=== PATIENT | female | born 1930 | race Caucasian/White ===

== ENCOUNTER 2016-06-25 17:00 | Observation (INO) | payer MEDICARE ==
[2016-06-25] MEDS ORDERED: HYDROmorphone 1 MG/ML 1 ML SYRINGE IVP PRN (19:53)
[2016-06-25] MEDS ORDERED: BACLOFEN 10 MG TAB PO ONE (19:54)
[2016-06-25 20:11] VITALS: BMI 64.2
--- NOTE | 2016-06-25 20:49 | XR ---
EXAMINATION TYPE: XR lumbar spine 2 or 3V DATE OF EXAM: 06/25/2016 8:41 PM COMPARISON: NONE HISTORY: Back pain TECHNIQUE: 3 views FINDINGS: There is mild lumbar levoscoliosis. There is degenerative moderate disc space narrowing at L2-3 L3-4 L5-S1. There is no compression fracture. Posterior elements appear intact. Sacroiliac joint s appear normal. Abdominal aorta is atheromatous. IMPRESSION: Spondylotic changes and mild levoscoliosis. No acute bony abnormality.
--- NOTE | 2016-06-25 20:51 | XR ---
EXAMINATION TYPE: XR thoracic spine 2V DATE OF EXAM: 06/25/2016 8:41 PM COMPARISON: NONE HISTORY: Back pain TECHNIQUE: 3 views FINDINGS: The vertebra have fairly normal alignment. There is 15-20% anterior wedging of T7 vertebra. There is no paraspinal mass. There is probably osteopenia. Posterior elements appear intact. IMPRESSION: Mild wedging of T7 of uncertain age. This is probably new compared to the chest x-ray of 07/14/2015.
[2016-06-25] MEDS: hydrALAZINE HCL 20 MG/ML 1 ML VIAL IVP PRN (20:53)
[2016-06-26] MEDS: LOSARTAN 50 MG TAB PO SCH (07:33)
[2016-06-26] MEDS: ASPIRIN 81 MG CHEW PO SCH (07:33)
[2016-06-26] MEDS: VERAPAMIL SR 240 MG TABLET.ER PO SCH ×2 (07:33→20:31)
[2016-06-26] MEDS: POTASSIUM CHLORIDE ER 20 MEQ TAB.ER PO SCH ×2 (07:33→20:03)
[2016-06-26] MEDS: LORATADINE 10 MG TAB PO SCH (07:34)
[2016-06-26] MEDS: VIT A,C & E-LUTEIN-MINERALS 1 EACH TAB PO SCH (07:34)
[2016-06-26] MEDS: FAMOTIDINE 20 MG TAB PO SCH ×2 (07:34→20:28)
[2016-06-26] MEDS: POLYETHYLENE GLYCOL 3350 17 GM POWD.PACK PO SCH (07:35)
[2016-06-26] MEDS: IPRATROPIUM-ALBUTEROL 3 ML NEB INHALATION PRN ×4 (07:55→19:42)
[2016-06-26] MEDS ORDERED: NON-FORMULARY DRUG (Omega-3 Fatty Acids/Fish Oil [Fish Oil 1,000 Mg Softgel] 1 CAP) PO SCH (09:00)
[2016-06-26] MEDS: GABAPENTIN 300 MG CAP PO SCH ×2 (09:54→20:28)
[2016-06-26] MEDS: FUROSEMIDE 40 MG TAB PO SCH ×2 (09:54→14:57)
[2016-06-26] MEDS ORDERED: DIAZEPAM 5 MG/ML 2 ML SYRINGE IVP STA (11:39)
[2016-06-26 12:10] LABS: Basophils # (A) 0.1 k/uL (0-0.2); Basophils % (A) 1 %; CH 31.1; CHCM 33.6; Eosinophils # (A) 0.1 k/uL (0-0.7); Eosinophils % (A) 2 %; HCT 43.3 % (34.0-46.0); HDW 2.76; HGB 14.6 gm/dL (11.4-16.0); Luc # (Auto) 0.15; Luc % (Auto) 2; Lymphocytes # (A) 1.1 k/uL (1.0-4.8); Lymphocytes % (A) 17 %; MCH 31.5 pg (25.0-35.0); MCHC 33.8 g/dL (31.0-37.0); MCV 93.2 fL (80.0-100.0); Mean Platelet Volume 7.2; Monocytes # (A) 0.4 k/uL (0-1.0); Monocytes % (A) 7 %; Neutrophils # (A) 4.7 k/uL (1.3-7.7); Neutrophils % (A) 71 %; RBC 4.64 m/uL (3.80-5.40); RDW 13.8 % (11.5-15.5); WBC 6.7 k/uL (3.8-10.6); WBC (Perox) 6.82
[2016-06-26] MEDS ORDERED: ONDANSETRON 4 MG/2 ML VIAL IVP PRN (12:19)
[2016-06-26 12:24] LABS: ALT 31 U/L (9-52); AST 25 U/L (14-36); Alkaline Phosphatase 86 U/L (38-126); Anion Gap 10 mmol/L; Blood Urea Nitrogen 14 mg/dL (7-17); Calcium 9.3 mg/dL (8.4-10.2); Carbon Dioxide 29 mmol/L (22-30); Chloride 104 mmol/L (98-107); Glucose 107 mg/dL (74-99); Non-African American GFR(MDRD) >60 (>60 ml/min/1.73 sqM); Potassium 3.9 mmol/L (3.5-5.1); Sodium 143 mmol/L (137-145); Total Bilirubin 0.7 mg/dL (0.2-1.3); Total Protein 6.6 g/dL (6.3-8.2)
--- NOTE | 2016-06-26 12:26 | P.HPIM ---
History of Present Illness H&P Date: 06/26/16 Chief Complaint: Low back pain This is a 85-year-old female with past medical history noted below significant for chronic low back pain with degenerative joint disease who was directly admitted to the hospital for intolerable pain. Patient has been complaining of low back pain for several months. For the past few weeks her pain is being getting worse. She said that the pain is radiating down to her left foot. She is describing some numbness involving the left lower extremity as well. She was seen in the office last week and was started on anti-inflammatory course with ibuprofen. She was also given pain medication including tramadol. Patient return to the office yesterday and was crying in tears as her pain was not controlled well controlled. He had problems with claustrophobia and wants only able to complete an MRI study once after she received IV Valium. Given the significant pain and discomfort patient was directly admitted to the hospital for further evaluation. X-ray of the lumbar spine showed chronic arthritis with evidence of scoliosis. Thoracic spine x-ray showed findings concerning for a possible compression fracture at T7 of undetermined age. Patient had no recent falls or trauma. Review of Systems Review of system: 14 points review of systems were obtained and were negative except to what were mentioned in the HPI. Past Medical History Past Medical History: Hyperlipidemia, Hypertension Additional Past Medical History / Comment(s): Clostrophobia, [place] History of Any Multi-Drug Resistant Organisms: None Reported Past Anesthesia/Blood Transfusion Reactions: No Reported Reaction Past Psychological History: No Psychological Hx Reported Smoking Status: Former smoker - Past Family History Father Family Medical History: No Reported History Medications and Allergies Home Medications Medication Instructions Recorded Confirmed Type Aspirin 81 mg PO DAILY 06/25/16 06/25/16 History Calcium With Vitamin D Unknown Dose 1 tab PO DAILY 06/25/16 06/25/16 History Cetirizine HCl [Zyrtec] 5 mg PO DAILY 06/25/16 06/25/16 History Furosemide [Furosemide] 80 mg PO DAILY 06/25/16 06/26/16 History Gabapentin [Gabapentin] 300 mg PO BID 06/25/16 06/26/16 History Ipratropium-Albuterol Nebulize 3 ml INHALATION RT-QID PRN 06/25/16 06/25/16 History [Duoneb 0.5 mg-3 mg/3 ml Soln] Losartan Potassium [Losartan 100 mg PO DAILY 06/25/16 06/25/16 History Potassium] [place]-3 Fatty Acids/Fish Oil [Fish 1 cap PO BID 06/25/16 06/25/16 History Oil 1,000 mg Softgel] Polyethylene Glycol 3350 [Miralax] 17 gm PO DAILY 06/25/16 06/25/16 History Potassium Chloride [Potassium 20 meq PO BID 06/25/16 06/25/16 History Chloride] Pravastatin Sodium [Pravachol] 20 mg PO HS 06/25/16 06/25/16 History Ranitidine HCl 150 mg PO BID 06/25/16 06/25/16 History Verapamil HCl [Verapamil ER] 240 mg PO BID 06/25/16 06/25/16 History Vit A/Vit C/Vit E/Zinc/Copper 1 cap PO DAILY 06/25/16 06/25/16 History [ICAPS SOFTGEL] Mometasone Furoate [Asmanex] 1 puff INHALATION RT-DAILY 06/26/16 06/26/16 History Allergies Allergy/AdvReac Type Severity Reaction Status Date / Time cheese Allergy Unknown Verified 06/25/16 21:37 chocolate flavor Allergy Unknown Verified 06/25/16 21:37 tomato Allergy Unknown Verified 06/25/16 21:37 wheat Allergy Unknown Verified 06/25/16 21:37 levofloxacin [From Levaquin] AdvReac Diarrhea Verified 06/25/16 21:37 Physical Exam Vitals: Vital Signs Temp Pulse Pulse Resp BP Pulse Ox 06/26/16 12:19 68 06/26/16 12:08 72 06/26/16 08:09 68 06/26/16 07:57 68 06/26/16 07:00 97.4 F L 66 16 140/59 96 06/26/16 01:22 97.8 F 68 18 169/70 96 06/25/16 18:04 97.6 F 77 16 197/91 92 L Intake and Output 06/25/16 06/26/16 06/26/16 22:59 06:59 14:59 Intake Total 600 Balance 600 Intake: Oral 600 Other: Voiding Method Toilet # Voids 1 1 1 Weight 79.379 kg General: The patient is awake and alert, in no distress, and does not appear acutely ill. Eye: extra-ocular movements are intact; there is normal conjunctiva bilaterally. . Neck: The neck is supple, there is no tenderness or JVD. Cardiovascular: Normal S1-S2, no S3-S4, no murmurs. Respiratory: Lungs clear to auscultation bilaterally with no wheezes rhonchi or rales. Gastrointestinal: Abdomen is soft, nontender, nondistended, with no organomegaly. . Musculoskeletal: Normal ROM, there is severe tenderness to palpation over the lumbar spine processes and sacral bone, There is no pedal edema. Neurological: There are no obvious motor or sensory deficits. Speech is normal. Skin: Skin is warm and dry and no rashes or lesions are noted. Results CBC & Chem 7: 06/26/16 12:04 Assessment and Plan Plan: 1. Acute on chronic low back pain 2. 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 Radiculopathy 4. Essential hypertension 5. 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 Chronic hypoxic respiratory failure 7. Bilateral hearing loss I will consult for further evaluation. I would also order an MRI of thoracic and lumbar spine MRI be canceled if spine surgery feels unnecessary. I will start the patient on a Medrol Dosepak and continue pain control. We will obtain general lab work. Continue supportive care otherwise. PT/OT evaluation.
[2016-06-26] MEDS ORDERED: MORPHINE SULFATE 2 MG/ML SYRINGE IVP PRN (12:27)
[2016-06-26] MEDS ORDERED: traMADol 50 MG TAB PO PRN (12:27)
--- NOTE | 2016-06-26 13:40 | XR ---
EXAMINATION TYPE: XR Hip LT and AP Pelvis DATE OF EXAM ORDERED: 06/26/2016 1:33 PM HISTORY: pain. COMPARISON: None. FINDINGS: There is minimal degenerative change of both hips. There is a levoscoliosis as well as deg enerative change in the lower lumbar spine. No fracture or dislocation is seen. The left femoral head is slightly nonspherical. There is a tiny "bump" on the left femoral neck. There is slight overgrowt h of the acetabulum bilaterally. IMPRESSION: 1. PLEASE CORRELATE CLINICALLY FOR FEMOROACETABULAR IMPINGEMENT SYNDROME IMPINGEMENT SYNDROME. 2. DEGENERATIVE CHANGE WITHIN THE LUMBAR SPINE.
[2016-06-26] MEDS: hydrALAZINE HCL 20 MG/ML 1 ML VIAL IVP PRN (14:57)
[2016-06-26] MEDS: methylPREDNISolone 4 MG TAB PO SCH (14:57)
--- NOTE | 2016-06-26 15:52 | P.CNOR ---
History of Present Illness - [facility] Consult date: 06/26/16 Consult reason: fracture, low back pain, back pain History of present illness: Patient is very pleasant 85-year-old female has been having pain in her back over the past several weeks. She has pain has been worsening despite conservative management. Pain is toward her lower back on the left side and into her left leg. She denies any weakness. She says she did have a fall about 5 weeks ago when the pain started and she fell onto her knees for no particular reason. She denies any headaches or loss of consciousness. She denies any chest pain shortness of breath. She does have history of pain in her back approximately 10 years ago and also 38 years ago where she had pain in her lower back and was treated in 2004 with interventional pain management. She says the pain now is seems worse than it was bent. She denies specific pain at her thoracic spine. She does pain worsens with ability in trying to change positions. Review of Systems No change in bowel bladder function. No weakness in her lower extremity. Denies chest pain or shortness breath Past Medical History Past Medical History: Hyperlipidemia, Hypertension, Musculoskeletal Disorder, Osteoarthritis (OA) Additional Past Medical History / Comment(s): Clostrophobia, [place] History of Any Multi-Drug Resistant Organisms: None Reported Past Anesthesia/Blood Transfusion Reactions: No Reported Reaction Past Psychological History: No Psychological Hx Reported Smoking Status: Former smoker - Past Family History Father Family Medical History: No Reported History Medications and Allergies Home Medications Medication Instructions Recorded Confirmed Type Aspirin 81 mg PO DAILY 06/25/16 06/25/16 History Calcium With Vitamin D Unknown Dose 1 tab PO DAILY 06/25/16 06/25/16 History Cetirizine HCl [Zyrtec] 5 mg PO DAILY 06/25/16 06/25/16 History Furosemide [Furosemide] 80 mg PO DAILY 06/25/16 06/26/16 History Gabapentin [Gabapentin] 300 mg PO BID 06/25/16 06/26/16 History Ipratropium-Albuterol Nebulize 3 ml INHALATION RT-QID PRN 06/25/16 06/25/16 History [Duoneb 0.5 mg-3 mg/3 ml Soln] Losartan Potassium [Losartan 100 mg PO DAILY 06/25/16 06/25/16 History Potassium] [place]-3 Fatty Acids/Fish Oil [Fish 1 cap PO BID 06/25/16 06/25/16 History Oil 1,000 mg Softgel] Polyethylene Glycol 3350 [Miralax] 17 gm PO DAILY 06/25/16 06/25/16 History Potassium Chloride [Potassium 20 meq PO BID 06/25/16 06/25/16 History Chloride] Pravastatin Sodium [Pravachol] 20 mg PO HS 06/25/16 06/25/16 History Ranitidine HCl 150 mg PO BID 06/25/16 06/25/16 History Verapamil HCl [Verapamil ER] 240 mg PO BID 06/25/16 06/25/16 History Vit A/Vit C/Vit E/Zinc/Copper 1 cap PO DAILY 06/25/16 06/25/16 History [ICAPS SOFTGEL] Mometasone Furoate [Asmanex] 1 puff INHALATION RT-DAILY 06/26/16 06/26/16 History Allergies Allergy/AdvReac Type Severity Reaction Status Date / Time cheese Allergy Unknown Verified 06/25/16 21:37 chocolate flavor Allergy Unknown Verified 06/25/16 21:37 tomato Allergy Unknown Verified 06/25/16 21:37 wheat Allergy Unknown Verified 06/25/16 21:37 levofloxacin [From Levaquin] AdvReac Diarrhea Verified 06/25/16 21:37 Physical Examination Osteopathic Statement: *. No significant issues noted on an osteopathic structural exam other than those noted in the History and Physical/Consult. - L Spine: dermatomal strength & reflexes bilateral Strength: hip flexion: 5/5 (At her thoracic spine she is nontender to palpation she sits up in bed quite well without evidence of significant pain. There is no open wounds lacerations or abrasions. Her low back she is nontender to palpation. She has good strength in her bilateral lateral lower extremities with dorsiflexion plantarflexion and extensor hallucis longus. Her thighs and calf soft nontender. She has no pain with internal or external rotation in her hips. She is able to lift her legs up off the bed independently. She does have pain at her back when she tries to roll over her sit up.) Results - Labs Labs: Abnormal Lab Results - Last 24 Hours (Table) 06/26/16 Range/Units 12:00 Glucose 107 H (74-99) mg/dL H & H 06/26/16 Range/Units 12:04 Hgb 14.6 (11.4-16.0) gm/dL Hct 43.3 (34.0-46.0) % Result Diagrams: 06/26/16 12:04 06/26/16 12:00 - Diagnostic results Lumbar AP/lateral x-ray: report reviewed (X-rays of the thoracic spine and lumbar spine and pelvis and hips are reviewed. The thoracic spine there is appearance of a compression deformity at T7 with about 20% height loss is difficult to determine the chronicity of the fracture. At lumbar spine she has significant degenerative disc disease and L3 4 L4 5 and L5-S1 with degenerative scoliosis and significant disc height loss. Her pelvis does not show evidence of fracture. Her hips do not show evidence of fracture she is adequately maintained joint space.), image reviewed Assessment and Plan Plan: Acute on chronic low back pain Left lower extremity radiculopathy T7 compression deformity uncertain age Degenerative scoliosis lumbar spine Degenerative disc disease The patient has been having worsening symptoms at her back and left lower extremity. She had a fall about 5 weeks ago when her pain increased and this may have exacerbated her degenerative changes at her lumbar spine. She does have evidence of a compression deformity at T7 however she is not significantly symptomatically at that level or in her thoracic spine. I would hold off on bracing for her thoracic spine at this point however we may consider putting her in a brace if her symptoms persist. I think she it is reasonable to obtain an MRI of her lumbar spine as she is scheduled for at the present time. She is having worsening left lower extremity radiculopathy over the past several weeks despite conservative management and MRI would help determine the severity of her stenosis and possible neural involvement. She may be a candidate for interventional pain management if her IV and oral medications are not offering significant improvement. I think it is okay for her to mobilize with physical therapy. We'll continue to follow her closely. Time with Patient: Greater than 30
[2016-06-26] MEDS: PATIENTS OWN MED PO SCH (20:29)
[2016-06-26] MEDS: PRAVASTATIN SODIUM 20 MG TAB PO SCH (20:31)
[2016-06-26] MEDS: HEPARIN SODIUM,PORCINE 5,000 UNIT/ML 1 ML VIAL SQ SCH (20:33)
[2016-06-26] MEDS ORDERED: HEPARIN SODIUM,PORCINE 5,000 UNIT/ML 1 ML VIAL SQ SCH (21:00)
[2016-06-27 07:38] LABS: Basophils % (A) 0 %; CHCM 33.6; Eosinophils % (A) 0 %; HCT 44.3 % (34.0-46.0); HDW 2.73; HGB 14.8 gm/dL (11.4-16.0); Luc # (Auto) 0.15; Luc % (Auto) 2; Lymphocytes # (A) 1.1 k/uL (1.0-4.8); Lymphocytes % (A) 14 %; MCH 30.9 pg (25.0-35.0); MCHC 33.4 g/dL (31.0-37.0); MCV 92.5 fL (80.0-100.0); Mean Platelet Volume 6.5; Monocytes # (A) 0.6 k/uL (0-1.0); Monocytes % (A) 8 %; Neutrophils % (A) 77 %; RBC 4.79 m/uL (3.80-5.40); RDW 13.9 % (11.5-15.5); WBC 7.9 k/uL (3.8-10.6); WBC (Perox) 8.25
[2016-06-27] MEDS: IPRATROPIUM-ALBUTEROL 3 ML NEB INHALATION PRN ×4 (07:44→19:25)
[2016-06-27 08:00] LABS: Anion Gap 10 mmol/L; Blood Urea Nitrogen 16 mg/dL (7-17); Calcium 9.2 mg/dL (8.4-10.2); Carbon Dioxide 30 mmol/L (22-30); Chloride 105 mmol/L (98-107); Glucose 112 mg/dL (74-99); Magnesium 2.2 mg/dL (1.6-2.3); Non-African American GFR(MDRD) >60 (>60 ml/min/1.73 sqM); Potassium 3.8 mmol/L (3.5-5.1); Sodium 145 mmol/L (137-145)
[2016-06-27] MEDS: HEPARIN SODIUM,PORCINE 5,000 UNIT/ML 1 ML VIAL SQ SCH ×2 (08:43→22:08)
--- NOTE | 2016-06-27 09:00 | P.PN ---
Progress Note - Text Patient is a very pleasant 85-year-old female who is seen and examined the bedside for follow-up evaluation for ongoing low back pain and left lower extremity radiculopathy. She continues to deny any specific weakness bilaterally lower extremities. Since being seen and examined yesterday, she states her pain is been better controlled. She states while on a regular scheduled regimen of pain medicine she is not currently experiencing significant low back pain or left lower extremity radiculopathy. She is currently scheduled to have an MRI of the thoracic and lumbar spines without contrast performed today at approximately 1 PM. She states she is a little nervous about having these images taken. We discussed once these images have been performed, we will follow up with an appropriate plan of care based upon these imaging results. Physical exam: Patient is awake, alert, and oriented 3 Vital signs stable Good chest excursion with deep inspiration and expiration Abdomen soft nontender Examination of lumbar spine reveals skin is intact with no abrasions, lacerations, or bruises; no erythema, purulence or signs of infection No significant pain on palpation of the thoracic or lumbar spines Dorsiflexion, plantarflexion, and extensor hallucis longus positive sustained bilaterally Lower extremity strength 5/5 bilaterally No signs or symptoms of DVT; no calf pain; calves soft nontender No pain with internal and external rotation of the hips bilaterally Neurovascularly intact Assessment: Acute on chronic low back pain Left lower extremity radiculopathy Degenerative scoliosis lumbar spine Lumbar degenerative disc disease T7 compression fracture deformity of uncertain age Plan: 1. Patient is currently scheduled for an MRI of the thoracic spine and lumbar spine without contrast to be performed today at approximately 1:00 PM. We'll currently plan to continue with pain control as prescribed. Following the results of the MRI scans, we will follow up with a plan of care and we'll adjust our plan accordingly. 2. Medicine to continue following the patient 3. We will continue to follow patient closely 4. I have discussed this patient detail with Dr. Mahad Ty and he agrees with this plan
--- NOTE | 2016-06-27 10:54 | P.CONS ---
History of Present Illness - Reason for Consult Consult date: 06/27/16 - History of Present Illness This is a 85 years. Old female with chronic history of low back pain, patient reported that she had the interventional pain management injections done over the last several years , and she reported that over the last several weeks he started having severe low back pain with radiation to the left lower extremity, she denies any weakness, denies any shortness of breath denies any change in the bowel movement or urination, she denies any fever or night sweats, but she reported that she feels tingling sensation in the lower extremity bilaterally, but she had no weakness, Past Medical History Past Medical History: Hyperlipidemia, Hypertension, Musculoskeletal Disorder, Osteoarthritis (OA) Additional Past Medical History / Comment(s): Clostrophobia, [place] History of Any Multi-Drug Resistant Organisms: None Reported Past Anesthesia/Blood Transfusion Reactions: No Reported Reaction Past Psychological History: No Psychological Hx Reported Smoking Status: Former smoker - Past Family History Father Family Medical History: No Reported History Medications and Allergies Home Medications Medication Instructions Recorded Confirmed Type Aspirin 81 mg PO DAILY 06/25/16 06/25/16 History Calcium With Vitamin D Unknown Dose 1 tab PO DAILY 06/25/16 06/25/16 History Cetirizine HCl [Zyrtec] 5 mg PO DAILY 06/25/16 06/25/16 History Furosemide [Furosemide] 80 mg PO DAILY 06/25/16 06/26/16 History Gabapentin [Gabapentin] 300 mg PO BID 06/25/16 06/26/16 History Ipratropium-Albuterol Nebulize 3 ml INHALATION RT-QID PRN 06/25/16 06/25/16 History [Duoneb 0.5 mg-3 mg/3 ml Soln] Losartan Potassium [Losartan 100 mg PO DAILY 06/25/16 06/25/16 History Potassium] [place]-3 Fatty Acids/Fish Oil [Fish 1 cap PO BID 06/25/16 06/25/16 History Oil 1,000 mg Softgel] Polyethylene Glycol 3350 [Miralax] 17 gm PO DAILY 06/25/16 06/25/16 History Potassium Chloride [Potassium 20 meq PO BID 06/25/16 06/25/16 History Chloride] Pravastatin Sodium [Pravachol] 20 mg PO HS 06/25/16 06/25/16 History Ranitidine HCl 150 mg PO BID 06/25/16 06/25/16 History Verapamil HCl [Verapamil ER] 240 mg PO BID 06/25/16 06/25/16 History Vit A/Vit C/Vit E/Zinc/Copper 1 cap PO DAILY 06/25/16 06/25/16 History [ICAPS SOFTGEL] Mometasone Furoate [Asmanex] 1 puff INHALATION RT-DAILY 06/26/16 06/26/16 History Allergies Allergy/AdvReac Type Severity Reaction Status Date / Time cheese Allergy Unknown Verified 06/25/16 21:37 chocolate flavor Allergy Unknown Verified 06/25/16 21:37 tomato Allergy Unknown Verified 06/25/16 21:37 levofloxacin [From Levaquin] AdvReac Diarrhea Verified 06/25/16 21:37 Physical Exam Vitals: Vital Signs Temp Pulse Pulse Resp BP Pulse Ox 06/27/16 07:56 88 06/27/16 07:44 84 06/27/16 07:00 97.8 F 78 15 146/87 93 L 06/27/16 02:39 98.7 F 80 19 146/84 94 L 06/26/16 22:37 97.9 F 92 18 164/75 94 L 06/26/16 20:00 80 06/26/16 19:55 74 06/26/16 19:44 70 06/26/16 15:51 72 06/26/16 15:42 70 06/26/16 15:39 98 F 85 16 181/77 93 L 06/26/16 14:02 97.6 F 85 16 185/82 93 L 06/26/16 12:19 68 06/26/16 12:08 72 Intake and Output 06/26/16 06/27/16 06/27/16 22:59 06:59 14:59 Intake Total 180 Balance 180 Intake: Oral 180 Other: Voiding Method Toilet Toilet # Voids 1 1 Social history : not smoker , NO ETOH , NO Illegal dara Review of Systems : 1- Constitutional : no chills , no fever , no night sweats , 2- Ears : no ear discharge , no change in hearing 3-Nose, Mouth ,Throat ; no bleeding gums, no sore throat , no epistaxis , 4-Cardiovascular : Denies chest pain, , no orthopnea , no palpitation 5-Respiratory : Denies cough , no dyspnea , no hemoptysis 6-Gastrointestinal :, no change in bowel habits , no coffee- ground emesis . 7-Genitourinary : No hematuria , no discharge , no incontinence, 8-Musculoskeletal : Reports tingling sensation in the lower extremities , report low back pain , 9- Neurological : no ataxia , no tremor , no sezure , 10-Psychatric , no suicidal ideation no hallucination 11- Endocrine : no cold intolerence , no polyuria , no polydypsia , 12-Hematologic : no easy bleeding , no easy brusing , 13-Allergic / immunology : no angioedema , no wheezing ,no allergic rhinitis 14-Integumentary : no brttle nails , no change hair / nails , no foot/leg ulcers . Physical Examinations : 1-Constitutional : Cooperative , not in acute distress . 2-HEENT : nech ; supple , no Lymphadenopathy , no Thyromegaly , :eyes , no icterus, no photophobia . ENT : , normal oropharynx , no Thrush 3- Respiratory : Chest clear to auscultations Bilaterally , no wheezing . 4- Cardiovascular : regular rate and rhythem , S1 , S2 , no S3 , no S4. 5- Gastrointestinal: abdomen soft no tenderness , no organomegally . 6- Genitourinary : Defferred . 7-Integumentary : No cellulitis , no ulcers , normal skin turgor , no cyanotic . 8- neurologic : Cranial nerve II to XII intact , no focal neurological deffecit 9-psychatric : alert , oriented X 3 , appropriate affect , intact judgment and insight . 10-Lymphatic : no Lymphadenopathy. 11- musculoskeltal: exams of the Lumber spine = moter stegnth lower extremities , thigh and legs 5/5 Right side , 5/5 Left side deep tendon reflexes : normal Knee Jerk , normal ankle Jerk positive lumber facet Loading Test more on the left side Range of motion of the lumbar spine Flexion 30 degrees, extension 10 degrees strait leg raising test negative bilaterally Fabere test positive RT and positive LT . Sever tenderness over the Sacroiliac joint on the Left sides Results CBC & Chem 7: 06/27/16 07:11 06/27/16 07:11 Labs: Abnormal Lab Results - Last 24 Hours (Table) 03/23/17 03/24/17 Range/Units 12:00 07:11 Glucose 107 H 112 H (74-99) mg/dL Comments: X-ray of the lumbar spine= multilevel lumbar degenerative disc disease and lumbar facet arthritis. X-ray of the thoracic spine= compression fracture Assessment and Plan Plan: Assessment and plan = - Acute on chronic low back pain secondary to lumbar degenerative disc disease , lumbar spondylosis with facet arthropathy without myelopathy , left sacroiliitis -Compression fracture of the thoracic spine at T7 -Clinical picture of peripheral neuropathy. Patient reported that her pain is improving with the IV steroid, but she reported the current pain medication(ultram ) is not helping at all, she feels no benefit from the Neurontin Recommend=1-increase Neurontin to 300 mg 3 times a day, discontinue ULTRAm , start patient on [place] 5/325 every 6 hours when necessary for pain We'll wait for the MRI report was consistent doing lumbar epidural steroid injection, and this procedure can be done as an outpatient, the future if patient continued to have pain with constant doing diagnostic medial branch block and possible radiofrequency ablation of the medial branch Time with Patient: Less than 30
--- NOTE | 2016-06-27 11:26 | P.PN ---
Subjective Patient presented with intractable lower back pain. Pain is better with the IV steroids. Patient is been seen by spinal surgery as well as pain service. Pain services at increased the Neurontin and added Weld to help with pain control. She is scheduled for an MRI of the lumbar and thoracic spine. She denies any chest pain or shortness of breath. Denies any nausea or vomiting. She did have a a bowel movement yesterday that was soft. Denies any difficulty urinating or burning with urination. Also reports that the numbness in her left leg has shown some improvement. Objective - Vital Signs Vital signs: Vital Signs Temp 97.8 F 06/27/16 07:00 Pulse 88 06/27/16 07:56 Resp 15 06/27/16 07:00 BP 146/87 06/27/16 07:00 Pulse Ox 93 L 06/27/16 07:00 Intake & Output 06/26/16 06/27/16 06/27/16 18:59 06:59 18:59 Intake Total 180 Balance 180 Intake: Oral 180 Other: Voiding Method Toilet Toilet # Voids 1 1 1 - Exam Head normocephalic Neck supple Lungs clear to auscultation bilaterally no wheezing or crackles Heart regular rate and rhythm S1-S2, no rub or gallop Abdomen is soft nontender nondistended positive bowel sounds no hepatosplenomegaly Extremities no edema Neuro alert and orientated to 3 - Labs CBC & Chem 7: 06/27/16 07:11 06/27/16 07:11 Labs: Abnormal Lab Results - Last 24 Hours (Table) 06/26/16 06/27/16 Range/Units 12:00 07:11 Glucose 107 H 112 H (74-99) mg/dL Assessment and Plan Plan: 1. Acute on chronic low back pain: With a left lower extremity radiculopathy and T7 compression deformity of uncertain age. Patient is scheduled for MRI of the lumbar and thoracic spine today. Patient has been evaluated by Dr. Ty and pain service. Pain medication adjusted per pain service they have increased her Neurontin to 300 mg 3 times a day. It and added [place] 5/325 one every 4 hours as needed for pain. Awaiting MRI results. Continue the methylprednisolone. Continue PT OT 2. 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 Radiculopathy 4. Essential hypertension 5. 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 Chronic hypoxic respiratory failure 7. Bilateral hearing loss
[2016-06-27] MEDS ORDERED: DIAZEPAM 5 MG/ML 2 ML SYRINGE IVP STA (12:07)
[2016-06-27] MEDS: HYDROcodone/APAP 5-325MG 1 EACH TAB PO PRN ×2 (14:48→22:10)
[2016-06-27] MEDS: FUROSEMIDE 40 MG TAB PO SCH ×2 (14:50)
[2016-06-27] MEDS: LOSARTAN 50 MG TAB PO SCH (14:50)
[2016-06-27] MEDS: FAMOTIDINE 20 MG TAB PO SCH ×2 (14:51→22:07)
[2016-06-27] MEDS: ASPIRIN 81 MG CHEW PO SCH (14:52)
[2016-06-27] MEDS: POLYETHYLENE GLYCOL 3350 17 GM POWD.PACK PO SCH (14:53)
[2016-06-27] MEDS: POTASSIUM CHLORIDE ER 20 MEQ TAB.ER PO SCH ×2 (14:53→22:08)
[2016-06-27] MEDS: VERAPAMIL SR 240 MG TABLET.ER PO SCH ×2 (14:54→22:09)
[2016-06-27] MEDS: GABAPENTIN 300 MG CAP PO SCH ×2 (14:54→22:10)
--- NOTE | 2016-06-27 14:54 | MR ---
EXAMINATION TYPE: MR arcelia/lsmichael wo con DATE OF EXAM: 06/27/2016 2:25 PM COMPARISON: Thoracic and lumbar spine x-rays from [address] abdomen and pelvis January 21, 2016. HISTORY: back pain with radiculopathy per order. Intractable mid to low back pain on admission 2 days ago. TECHNIQUE: Multiplanar, multisequence imaging of the thoracic and lumbar spine are performed without IV contrast. FINDINGS: T-SPINE: FINDINGS: Spinal cord shows normal course, caliber, and signal as it courses the thoracic spine. Anjali tebral body heights and alignment are satisfactory. Note is made of spinal canal effacement at C3-C4 through C5-C6 levels on the T2 sagittal comment sequence. This space heights are maintained. No large posterior disc herniations are seen in the thoracic spine on sagittal images. There is hemangioma montalvo perior T6 vertebra noted on sagittal image 6. No significant spurring is seen. Review of the axial images shows mild old uncovertebral facet degenerative changes with ligamentum f lavum hypertrophy at T11-T12 level but spinal canal is preserved. IMPRESSION: No significant abnormality is seen to account for patient's symptoms in the thoracic spin e. L-SPINE: Sagittal images of the lumbar spine show vertebral body heights to appear satisfactory. There is rede monstration of dextroconvex scoliosis centered in the lower lumbar spine. There is grade 1 retrolisth esis of L2 on L3 and L3 on L4. There is loss of normal lumbar lordosis. Multilevel disc desiccation i s present. There is multilevel disc space narrowing that is advanced in appearance at L2-L3 and L3-L4 as well as L5-S1 levels. Most pronounced disc space narrowing is at L2-L3 level on sagittal images d ue to retrolisthesis. The conus medullaris is normal in position and signal ending at superior L1 ve rtebral body level. The bone marrow signal intensity is overall heterogeneous with prominent hemangi dominique in L5 vertebral body level seen. There is moderate multilevel spurring redemonstrated. Axial images at the T12-L1 level show mild facet degenerative changes with ligamentum flavum hypertro phy effacing posterior lateral thecal sac, right greater than left on axial image 28. Axial images at L1-L2 level show mild broad disc bulge mildly effacing anterior thecal sac with mild facet degenerative changes bilaterally. Bilateral neural foramina are patent. Axial images at L2-L3 level show retrolisthesis and posterior spur disc complex effacing anterior the jabier sac on axial image 19. Bilateral neural foramina are patent. Axial images at L3-L4 level show moderate facet degenerative changes and ligamentum flavum hypertroph y with retrolisthesis and broad disc bulge effacing anterior and posterior lateral thecal sac on axia l image 13. There is severe left-sided neural foraminal narrowing. Right-sided neural foramina shows mild narrowing. Axial images at L4-L5 level show moderate facet degenerative changes bilaterally, left greater than r ight. There is broad-based posterior disc protrusion. There is moderate to advanced left-sided neural foraminal narrowing with effacement of left L4 nerve seen on sagittal image 3. Right-sided neural fo ramen is patent. Axial images at L5-S1 level show mild to moderate facet degenerative changes and ligament flavum hype rtrophy effacing the posterior lateral thecal sac. There is broad disc bulge mildly effacing anterior thecal sac. There is moderate to severe left-sided and moderate right-sided neural foraminal narrowi ng, encroachment on both L5 nerves is suspected on sagittal images 2 and 11 respectively. IMPRESSION: Scoliosis and multilevel spondylolisthesis with multilevel moderate to advanced degenerat karen changes seen as detailed above. There is advanced left-sided neural foraminal narrowing L3-L4 and L4-L5 levels with encroachment on left L3 and L4 nerves at foraminal level. There is bilateral neura l foraminal narrowing with encroachment on both L5 nerves at L5-S1 level. Further details are noted a s discussed above.
[2016-06-27] MEDS: VIT A,C & E-LUTEIN-MINERALS 1 EACH TAB PO SCH (14:55)
[2016-06-27] MEDS: LORATADINE 10 MG TAB PO SCH (18:20)
[2016-06-27] MEDS: methylPREDNISolone 4 MG TAB PO SCH (22:03)
[2016-06-27] MEDS: PRAVASTATIN SODIUM 20 MG TAB PO SCH (22:09)
[2016-06-28] MEDS: PATIENTS OWN MED PO SCH (00:07)
[2016-06-28 07:33] LABS: Basophils % (A) 0 %; CH 30.6; Eosinophils # (A) 0.2 k/uL (0-0.7); Eosinophils % (A) 3 %; HCT 41.2 % (34.0-46.0); HDW 2.73; HGB 13.6 gm/dL (11.4-16.0); Luc # (Auto) 0.13; Luc % (Auto) 2; Lymphocytes % (A) 30 %; MCH 30.7 pg (25.0-35.0); MCHC 32.9 g/dL (31.0-37.0); MCV 93.4 fL (80.0-100.0); Mean Platelet Volume 6.8; Monocytes # (A) 0.5 k/uL (0-1.0); Monocytes % (A) 7 %; Neutrophils # (A) 3.8 k/uL (1.3-7.7); Neutrophils % (A) 57 %; RBC 4.41 m/uL (3.80-5.40); RDW 14.2 % (11.5-15.5); WBC 6.6 k/uL (3.8-10.6); WBC (Perox) 6.52
[2016-06-28] MEDS: HYDROcodone/APAP 5-325MG 1 EACH TAB PO PRN ×2 (08:42→12:45)
[2016-06-28] MEDS: GABAPENTIN 300 MG CAP PO SCH ×2 (08:43→16:42)
[2016-06-28] MEDS: POTASSIUM CHLORIDE ER 20 MEQ TAB.ER PO SCH (08:43)
[2016-06-28] MEDS: methylPREDNISolone 4 MG TAB PO SCH (08:44)
[2016-06-28] MEDS: FAMOTIDINE 20 MG TAB PO SCH (08:44)
[2016-06-28] MEDS: VIT A,C & E-LUTEIN-MINERALS 1 EACH TAB PO SCH (08:45)
[2016-06-28] MEDS: FUROSEMIDE 40 MG TAB PO SCH ×2 (08:45→16:39)
[2016-06-28] MEDS: HEPARIN SODIUM,PORCINE 5,000 UNIT/ML 1 ML VIAL SQ SCH (08:45)
[2016-06-28] MEDS: ASPIRIN 81 MG CHEW PO SCH (08:45)
[2016-06-28] MEDS: POLYETHYLENE GLYCOL 3350 17 GM POWD.PACK PO SCH (08:46)
[2016-06-28] MEDS: LORATADINE 10 MG TAB PO SCH (08:46)
[2016-06-28] MEDS: IPRATROPIUM-ALBUTEROL 3 ML NEB INHALATION PRN ×3 (09:05→16:59)
--- NOTE | 2016-06-28 09:29 | P.PN ---
Subjective 85-year-old female being seen this morning. Patient continues to report having left knee discomfort. Patient states obtaining "some relief from the pain in Lower back and left knee" the MRI of the thoracic spine and lumbar spine findings reviewed shows multilevel moderate to advanced degenerative changes patient states that she's been able to get up with a rolled walker with ambulation does have pain in the left knee Objective - Vital Signs Vital signs: Vital Signs Temp 97.1 F L 06/28/16 01:00 Pulse 60 06/28/16 09:07 Resp 16 06/28/16 04:00 BP 126/60 06/28/16 01:00 Pulse Ox 91 L 06/28/16 09:07 Intake & Output 06/27/16 06/28/16 06/28/16 18:59 06:59 18:59 Intake Total 240 240 Balance 240 240 Weight 79.379 kg Intake: Oral 240 240 Other: Voiding Method Toilet Toilet # Voids 3 3 1 - Exam GENERAL APPEARANCE: 85-year-old female resting in bed patient is alert, oriented , 3 in no acute distress. VITAL SIGNS: Reviewed HEENT: Head is normocephalic and atraumatic. Pupils are equal and reactive. The nares are patent. Oropharynx is clear without lesions. NECK: Supple without lymphadenopathy. Traches midline. HEART: S1, S2. Regular rate and rhythm. Denying chest pain LUNGS: No crackles or wheezes are heard. Adequate air entry bilaterally on room air no shortness of breath no cough noted ABDOMEN: Soft, nontender, nondistended with good bowel sounds. No peritoneal signs. No palpable organomegaly or masses. EXTREMITIES: Normal skin color and turgor. No cyanosis, rash, ulceration, clubbing or edema. Radial pedal pulses are 2/4 bilaterally. NEUROLOGICAL: No focal deficits. Strength and sensation are grossly intact. - Labs CBC & Chem 7: 06/28/16 07:20 06/28/16 07:20 Assessment and Plan Plan: Assessment and plan Acute on chronic low back pain: With a left lower extremity radiculopathy and T7 compression deformity of uncertain age. Patient has been evaluated by Dr. Ty and pain service. Pain medication adjusted per pain service they have increased her Neurontin to 300 mg 3 times a day. [place] 5/325 one every 4 hours as needed for pain. Continue the methylprednisolone. Continue PT OT 2. 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 Left lower extremity Radiculopathy 4. Essential hypertension 5. 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 Chronic hypoxic respiratory failure 7. Bilateral hearing loss T7 compression fracture deformity of uncertain age Degenerative scoliosis lumbar spine MRI of the thoracic lumbar spine done on June 27 scoliosis and multilevel spondylolisthe with multilevel moderate to advanced degenerative changes Acute on chronic lower back pain secondary to lumbar degenerative disc disease, lumbar spondylosis with facet arthropathy without myelopathy Peripheral neuropathy not ruled out prep The above dictated assessment and findings were discussed with dr cheyenne Vega and the plan of care have been dictated as directed. Kiya Vinson nurse practitioner acting as a scribe for dr quinn
--- NOTE | 2016-06-28 10:23 | P.PN ---
Progress Note - Text The patient is seen and examined today at bedside. She says her pain is still up and down but overall mildly improving. On exam she still has good motion at her bilateral lower extremities. There is no evidence of any DVT. Her back is nontender to palpation. She is able to sit up in bed but has difficulty walking I have had a chance to review her MRIs of her cervical thoracic and lumbar spine. She does have significant degenerative changes at her cervical spine with evidence of central and bilateral foraminal stenosis. At her lumbar spine she has degenerative changes with some foraminal stenosis. There is no acute herniation. There is no evidence of any cauda equina syndrome. 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 Given her symptoms and her imaging findings I would not plan any acute surgical intervention. I think she has been treated properly conservative management and she has had some slow improvement and she is interested in trying to be discharged to home today. I think it is appropriate for her to be discharged home today if she is comfortable and safe. I do not plan surgical intervention at this point and I would recommend continue with conservative management including interventional pain management as appropriate. I discussed this with her answered her questions and she is agreeable. She is okay for discharge from an orthopedic spine standpoint.
[2016-06-28 11:15] LABS: Anion Gap 8 mmol/L; Blood Urea Nitrogen 28 mg/dL (7-17); Calcium 8.7 mg/dL (8.4-10.2); Carbon Dioxide 31 mmol/L (22-30); Chloride 106 mmol/L (98-107); Glucose 90 mg/dL (74-99); Magnesium 2.4 mg/dL (1.6-2.3); Non-African American GFR(MDRD) >60 (>60 ml/min/1.73 sqM); Potassium 4.1 mmol/L (3.5-5.1); Sodium 145 mmol/L (137-145)
[2016-06-28] MEDS: LOSARTAN 50 MG TAB PO SCH ×2 (12:39→12:45)
[2016-06-28] MEDS: VERAPAMIL SR 240 MG TABLET.ER PO SCH (12:39)
[2016-06-28 13:08] VITALS: BP 152/66; RESP 16; TEMP 97.6
[2016-06-28 17:09] VITALS: PULSE 68
--- NOTE | 2016-06-28 17:15 | P.DS ---
Providers Date of admission: 06/25/16 17:28 Expected date of discharge: 06/28/16 [facility] Consults: 06/25/16 19:36 Consult Physician Routine Consulting Provider: Kati Ty Consult Reason/Comments: BACK PAIN Do you want consulting provider notified?: Already Contacted 06/26/16 15:52 Consult Anesthesia Routine Consulting Provider: Anesthesia,Services Consult Reason/Comments: For pain management possible epidural steroid injections Consult Physician Routine Consulting Provider: Rox Palomino Consult Reason/Comments: Low back pain with left lower extremity radiculopathy possible miles Do you want consulting provider notified?: Yes Primary care physician: [facility] Course: Diagnoses on discharge #1 intractable back pain #2 advanced degenerative disc disease #3 underlying history of COPD #4 underlying history of hypertension Hospital course patient is an 85-year-old female who presented to [facility] was a intractable back pain patient has known history of chronic back pain however for several days prior to admission she was having acute severe back pain which was affecting her mobility she was admitted to the medical floor she had an MRI of the spine she was seen by Dr. Saldana in neurosurgery consultation, no intervention was recommended. Patient was given IV steroids hydrocordone and Valium during this hospitalization she improved significantly She was discharged home on 06/28/2016 she was given a prescription for Medrol Dosepak and a prescription for [place] 5/325 one every 6 hours as needed she will follow-up with her primary care physician within one week to call or return to the hospital if having severe pain. Plan - Discharge Summary Discharge Medication List Aspirin 81 mg PO DAILY 06/25/16 [History] Calcium With Vitamin D Unknown Dose 1 tab PO DAILY 06/25/16 [History] Cetirizine HCl [Zyrtec] 5 mg PO DAILY 06/25/16 [History] Furosemide 80 mg PO DAILY 06/25/16 [History] Gabapentin 300 mg PO BID 06/25/16 [History] Ipratropium-Albuterol Nebulize [Duoneb 0.5 mg-3 mg/3 ml Soln] 3 ml INHALATION RT -QID PRN 06/25/16 [History] Losartan Potassium 100 mg PO DAILY 06/25/16 [History] [place]-3 Fatty Acids/Fish Oil [Fish Oil 1,000 mg Softgel] 1 cap PO BID 06/25/16 [ History] Polyethylene Glycol 3350 [Miralax] 17 gm PO DAILY 06/25/16 [History] Potassium Chloride 20 meq PO BID 06/25/16 [History] Pravastatin Sodium [Pravachol] 20 mg PO HS 06/25/16 [History] Ranitidine HCl 150 mg PO BID 06/25/16 [History] Verapamil HCl [Verapamil ER] 240 mg PO BID 06/25/16 [History] Vit A/Vit C/Vit E/Zinc/Copper [ICAPS SOFTGEL] 1 cap PO DAILY 06/25/16 [History] Mometasone Furoate [Asmanex] 1 puff INHALATION RT-DAILY 06/26/16 [History] methylPREDNISolone [Medrol] 16 mg PO DAILY tab 06/28/16 [Rx] Follow up Appointment(s)/Referral(s): Italo Bourgeois, PAC [PHYSICIAN PERMIT SPECIALIST] - As Needed (Patient may follow-up with Italo Bourgeois PA-C or Dr. Mahad Ty at [facility] on as-needed basis following discharge. )
== END 2016-06-28 18:01 | disposition home or self-care (01) ==
LOC: INTOOBSV 17:28 → 3SUR 17:28
PROVIDERS: ADMIT Internal Medicine; ATTEND Internal Medicine
DX: M47.26 Other spondylosis with radiculopathy, lumbar region (principal); M41.86 Other forms of scoliosis, lumbar region; E78.5 Hyperlipidemia, unspecified; I10 Essential (primary) hypertension; F40.240 Claustrophobia; J44.9 Chronic obstructive pulmonary disease, unspecified; J96.11 Chronic respiratory failure with hypoxia; H91.93 Unspecified hearing loss, bilateral; M48.54XA Collapsed vertebra, not elsewhere classified, thoracic region, initial encounter for fracture; G89.29 Other chronic pain; M46.1 Sacroiliitis, not elsewhere classified; Z79.51 Long term (current) use of inhaled steroids; Z79.82 Long term (current) use of aspirin; Z79.899 Other long term (current) drug therapy; Z87.891 Personal history of nicotine dependence; Z88.3 Allergy status to other anti-infective agents
CPT/HCPCS: 94640 ×6; 94760; 97116; 97161; 80053; 80048 ×2; 83735 ×2; 85025 ×3; 72070; 72100; 73502; 72146; 72148; G0379; G0378 ×4; J7509 ×2; J0360 ×2; J1644 ×3; J3360; 96372; 96374; 96375; 96376

== ENCOUNTER 2018-12-18 11:18 | Emergency (ER) | payer MEDICARE ==
[2018-12-18 11:31] VITALS: TEMP 97.8
--- NOTE | 2018-12-18 11:48 | ED ---
General Adult HPI - General Chief complaint: Extremity Injury, Lower Stated complaint: left leg swelling/numbness Time Seen by Provider: 12/18/18 11:34 Source: patient, RN notes reviewed Mode of arrival: ambulatory Limitations: no limitations - History of Present Illness Initial comments: Patient is a pleasant 88-year-old female presenting to the emergency department with concerns for left leg swelling and discomfort. Patient does have chronic intermittent leg swelling on both legs. Patient states her left leg started to swell around 3 days ago. Swelling has decreased and is near normal at this point. Patient today started developing some discomfort of the left lower [place] region. No weakness. Patient has chronic back pain that is unchanged. No abdominal pain. Patient does have some tingling of her leg as well. Patient denies loss of sensation. Patient denies weakness. No chest pain or dyspnea. - Related Data Home Medications Medication Instructions Recorded Confirmed Aspirin 81 mg PO DAILY 06/25/16 06/25/16 Calcium With Vitamin D Unknown Dose 1 tab PO DAILY 06/25/16 06/25/16 Cetirizine HCl [Zyrtec] 5 mg PO DAILY 06/25/16 06/25/16 Furosemide 80 mg PO DAILY 06/25/16 06/26/16 Gabapentin 300 mg PO BID 06/25/16 06/26/16 Ipratropium-Albuterol Nebulize 3 ml INHALATION RT-QID PRN 06/25/16 06/25/16 [Duoneb 0.5 mg-3 mg/3 ml Soln] Losartan Potassium 100 mg PO DAILY 06/25/16 06/25/16 [place]-3 Fatty Acids/Fish Oil [Fish 1 cap PO BID 06/25/16 06/25/16 Oil 1,000 mg Softgel] Polyethylene Glycol 3350 [Miralax] 17 gm PO DAILY 06/25/16 06/25/16 Potassium Chloride 20 meq PO BID 06/25/16 06/25/16 Pravastatin Sodium [Pravachol] 20 mg PO HS 06/25/16 06/25/16 Ranitidine HCl 150 mg PO BID 06/25/16 06/25/16 Verapamil HCl [Verapamil ER] 240 mg PO BID 06/25/16 06/25/16 Vit A/Vit C/Vit E/Zinc/Copper 1 cap PO DAILY 06/25/16 06/25/16 [ICAPS SOFTGEL] Mometasone Furoate [Asmanex] 1 puff INHALATION RT-DAILY 06/26/16 06/26/16 Previous Rx's Medication Instructions Recorded methylPREDNISolone [Medrol] 16 mg PO DAILY tab 06/28/16 Allergies Allergy/AdvReac Type Severity Reaction Status Date / Time cheese Allergy Unknown Verified 12/18/18 11:25 chocolate flavor Allergy Unknown Verified 12/18/18 11:25 tomato Allergy Unknown Verified 12/18/18 11:25 levofloxacin [From Levaquin] AdvReac Diarrhea Verified 12/18/18 11:25 Review of Systems ROS Statement: Those systems with pertinent positive or pertinent negative responses have been documented in the HPI. ROS Other: All systems not noted in ROS Statement are negative. Constitutional: Denies: fever Eyes: Denies: eye pain ENT: Denies: ear pain Respiratory: Denies: cough, dyspnea Cardiovascular: Denies: chest pain Endocrine: Denies: fatigue Gastrointestinal: Denies: abdominal pain Genitourinary: Denies: dysuria Musculoskeletal: Reports: as per HPI Skin: Denies: rash Neurological: Denies: weakness Past Medical History Past Medical History: Hyperlipidemia, Hypertension, Musculoskeletal Disorder, Osteoarthritis (OA) Additional Past Medical History / Comment(s): Clostrophobia, UNALAKLEET History of Any Multi-Drug Resistant Organisms: None Reported Past Surgical History: Appendectomy, Bladder Surgery, Bowel Resection Past Anesthesia/Blood Transfusion Reactions: No Reported Reaction Past Psychological History: No Psychological Hx Reported Smoking Status: Former smoker Past Alcohol Use History: None Reported Past Drug Use History: None Reported - Past Family History Father Family Medical History: No Reported History General Exam Limitations: no limitations General appearance: alert, in no apparent distress Head exam: Present: atraumatic Eye exam: Present: normal appearance Respiratory exam: Present: normal lung sounds bilaterally Cardiovascular Exam: Present: regular rate, normal rhythm Expanded Peripheral pulses: 2+: Posterior Tibialis (L), Dorsalis Pedis (L) GI/Abdominal exam: Present: soft. Absent: tenderness Extremities exam: Present: normal capillary refill, other (Minimal swelling left lower leg. No erythema. No tenderness to palpation. Distally the extremity is neurovascular intact.). Absent: calf tenderness Left Knee exam: Absent: tenderness Lower Leg exam: Present: swelling (Minimal). Absent: tenderness, erythema Neurovascular tendon exam: Present: no vascular compromise. Absent: pulse deficit, abnormal cap refill, pallor Back exam: Present: normal inspection. Absent: tenderness Neurological exam: Present: alert. Absent: motor sensory deficit Psychiatric exam: Present: normal affect, normal mood Skin exam: Present: normal color. Absent: rash, erythema Course Vital Signs 12/18/18 11:25 Temperature 97.8 F Pulse Rate 75 Respiratory 18 Rate Blood Pressure 139/67 O2 Sat by Pulse 95 Oximetry Medical Decision Making - Medical Decision Making Patient reevaluated. Patient and family updated. - Radiology Data Radiology results: report reviewed (Ultrasound negative for DVT), image reviewed (X-ray left tib-fib shows no acute process) Disposition Clinical Impression: Leg pain Disposition: HOME SELF-CARE Condition: Stable Instructions (If sedation given, give patient instructions): Leg Pain (ED) Additional Instructions: Please follow-up with primary care physician this week. Return for fever, increased pain, increased swelling, redness, worsening symptoms or other concerns. Is patient prescribed a controlled substance at d/c from ED?: No Referrals: Barbara Salter MD [Primary Care Provider] - 1-2 days Time of Disposition: 13:30
--- NOTE | 2018-12-18 12:34 | US ---
EXAMINATION TYPE: US venous doppler duplex LE LT DATE OF EXAM: 12/18/2018 12:24 PM COMPARISON: NONE CLINICAL HISTORY: pain. Edema. SIDE PERFORMED: Left TECHNIQUE: The lower extremity deep venous system is examined utilizing real time linear array sonog farrah with graded compression, doppler sonography and color-flow sonography. VESSELS IMAGED: External Iliac Vein (EIV) Common Femoral Vein Deep Femoral Vein Greater Saphenous Vein * Femoral Vein Popliteal Vein Small Saphenous Vein * Proximal Calf Veins (* superficial vessels) Left Leg: Negative for DVT No popliteal fossa lesion is identified. IMPRESSION: THIS EXAMINATION IS NEGATIVE FOR DVT WITHIN THE LEFT LEG.
--- NOTE | 2018-12-18 12:36 | XR ---
EXAMINATION TYPE: XR tibia fibula LT , 2 VIEWS DATE OF EXAM ORDERED: 12/18/2018 HISTORY: pain. COMPARISON: None. FINDINGS: No fracture, dislocation or other acute osseous lesion is seen. IMPRESSION: NO ACUTE OSSEOUS LESION.
[2018-12-18 13:47] VITALS: BP 130/74; PULSE 71; RESP 20
== END 2018-12-18 13:47 | disposition home or self-care (01) ==
LOC: EC 11:18
DX: M79.662 Pain in left lower leg (principal); M79.89 Other specified soft tissue disorders; R20.0 Anesthesia of skin; R20.2 Paresthesia of skin; E78.5 Hyperlipidemia, unspecified; I10 Essential (primary) hypertension; Z87.39 Personal history of other diseases of the musculoskeletal system and connective tissue; Z87.891 Personal history of nicotine dependence; Z79.82 Long term (current) use of aspirin; Z79.51 Long term (current) use of inhaled steroids; Z79.899 Other long term (current) drug therapy; Z91.018 Allergy to other foods; Z88.1 Allergy status to other antibiotic agents
CPT/HCPCS: 99284

== ENCOUNTER 2019-05-08 21:43 | Emergency (ER) | payer MEDICARE ==
[2019-05-08] MEDS ORDERED: DIPH,PERTUS(ACELL)TETVAC-LF 0.5 ML VIAL IM ONE (21:57)
[2019-05-08] MEDS ORDERED: TOPICAL SKIN ADHESIVE 1 EACH AMP TOPICAL ONE (22:11)
--- NOTE | 2019-05-08 22:13 | ED ---
General Adult HPI - General Chief complaint: Head Injury Stated complaint: Fall Time Seen by Provider: 05/08/19 21:52 Source: patient, RN notes reviewed, old records reviewed Mode of arrival: ambulatory Limitations: no limitations - History of Present Illness Initial comments: 88-year-old female presents status post fall. Patient was transferring, fell while getting out of the bed and striking the right side of her head. She complains of a mild left frontal headache. No neck pain. No focal weakness or numbness. She has a small laceration on the lateral aspect of the right orbit. No vision changes. No chest pain. No dyspnea. No abdominal pain. No extremity injury. - Related Data Home Medications Medication Instructions Recorded Confirmed Aspirin 81 mg PO DAILY 06/25/16 12/18/18 Cetirizine HCl [Zyrtec] 5 mg PO DAILY 06/25/16 12/18/18 Furosemide 40 mg PO DAILY 06/25/16 12/18/18 Potassium Chloride 20 meq PO BID 06/25/16 12/18/18 Pravastatin Sodium [Pravachol] 20 mg PO HS 06/25/16 12/18/18 Verapamil HCl [Verapamil ER] 240 mg PO BID 06/25/16 12/18/18 Budesonide/Formoterol Fumarate 2 puff INHALATION RT-BID 12/18/18 12/18/18 [Symbicort 160-4.5 Mcg Inhaler] Docusate Sodium [Dok] 100 mg PO DAILY 12/18/18 12/18/18 Escitalopram [Lexapro] 10 mg PO DAILY 12/18/18 12/18/18 L.acidoph,Paracasei, B.lactis 1 cap PO DAILY 12/18/18 12/18/18 [Probiotic] Losartan Potassium [Cozaar] 100 mg PO DAILY 12/18/18 12/18/18 Vit A/Vit C/Vit E/Zinc/Copper 1 cap PO DAILY 12/18/18 12/18/18 [ICAPS SOFTGEL] hydrALAZINE HCL 25 mg PO BID 12/18/18 12/18/18 Allergies Allergy/AdvReac Type Severity Reaction Status Date / Time cheese Allergy Unknown Verified 05/08/19 21:47 chocolate flavor Allergy Unknown Verified 05/08/19 21:47 tomato Allergy Unknown Verified 05/08/19 21:47 levofloxacin [From Levaquin] AdvReac Diarrhea Verified 05/08/19 21:47 Review of Systems ROS Statement: Those systems with pertinent positive or pertinent negative responses have been documented in the HPI. ROS Other: All systems not noted in ROS Statement are negative. Past Medical History Past Medical History: Hyperlipidemia, Hypertension, Musculoskeletal Disorder, Osteoarthritis (OA) Additional Past Medical History / Comment(s): Clostrophobia, [place] History of Any Multi-Drug Resistant Organisms: None Reported Past Surgical History: Appendectomy, Bladder Surgery, Bowel Resection Past Anesthesia/Blood Transfusion Reactions: No Reported Reaction Past Psychological History: No Psychological Hx Reported Smoking Status: Former smoker Past Alcohol Use History: None Reported Past Drug Use History: None Reported - Past Family History Father Family Medical History: No Reported History General Exam Limitations: no limitations General appearance: alert, in no apparent distress Head exam: Present: normocephalic, other (1 cm laceration on the right lateral orbit) Eye exam: Present: normal appearance, PERRL, EOMI ENT exam: Present: normal exam Neck exam: Present: normal inspection, full ROM. Absent: tenderness, meningismus Respiratory exam: Present: normal lung sounds bilaterally. Absent: respiratory distress, wheezes Cardiovascular Exam: Present: regular rate, normal rhythm GI/Abdominal exam: Present: soft. Absent: distended, tenderness Extremities exam: Present: normal inspection, normal capillary refill. Absent: calf tenderness Neurological exam: Present: alert, oriented X3, CN II-XII intact. Absent: motor sensory deficit Psychiatric exam: Present: normal affect, normal mood Skin exam: Present: warm, dry, intact. Absent: cyanosis, diaphoretic Course Vital Signs 05/08/19 21:44 Temperature 97.5 F L Pulse Rate 80 Respiratory 16 Rate Blood Pressure 188/83 O2 Sat by Pulse 96 Oximetry Medical Decision Making - Medical Decision Making 88-year-old female with mechanical fall, head injury, no loss consciousness, no anticoagulation. Head CT is performed negative for intracranial hemorrhage or mass effect. Cervical spine showing some chronic degenerative changes with no acute fracture or subluxation. Skin tear on the right lateral orbit is repaired with Dermabond after it was cleansed. Her tetanus was updated. She is accompanied by her daughter who is able to stay with her tonight. Disposition Clinical Impression: Concussion without loss of consciousness, Closed head injury, Hematoma of scalp, Skin tear Disposition: HOME SELF-CARE Condition: Good Instructions (If sedation given, give patient instructions): Concussion (ED), Laceration (ED) Is patient prescribed a controlled substance at d/c from ED?: No Referrals: Barbara Salter MD [Primary Care Provider] - 1-2 days Time of Disposition: 22:39
--- NOTE | 2019-05-08 22:23 | CT ---
EXAMINATION TYPE: CT brain cspine wo con DATE OF EXAM: 05/08/2019 COMPARISON: None HISTORY: Pt fell out of bed, hitting head on dresser. Contusion RT latter day CT DLP: 1356 mGycm Automated exposure control for dose reduction was used. Multiple axial sections were obtained of the brain without contrast. Multiple axial sections were obt ained from the skull base to T1 vertebra without contrast. FINDINGS: Ventricles and sulci appear normal. There is no mass effect nor midline shift. There is no sign of in tracranial hemorrhage. Calvarium is intact. There is right frontal scalp hematoma. There is some straightening of the cervical spine. There is disc space narrowing at C4-5 C5-6 C6-7. T here is mild spurring of the endplates. Facet joints are intact. There is mild hypertrophic facet art hropathy. The skull base is intact. IMPRESSION: Brain CT is normal for age. Right frontal scalp hematoma. Spondylotic changes are mild in the cervical spine. No fracture seen.
[2019-05-08 22:40] VITALS: BP 161/66; PULSE 65; RESP 17; TEMP 98.9
== END 2019-05-08 22:52 | disposition home or self-care (01) ==
LOC: EC 21:43
DX: S06.0X0A Concussion without loss of consciousness, initial encounter (principal); S05.41XA Penetrating wound of orbit with or without foreign body, right eye, initial encounter; Z23 Encounter for immunization; I10 Essential (primary) hypertension; E78.5 Hyperlipidemia, unspecified; Z79.82 Long term (current) use of aspirin; Z79.51 Long term (current) use of inhaled steroids; Z79.899 Other long term (current) drug therapy; Z88.1 Allergy status to other antibiotic agents; Z91.011 Allergy to milk products; Z91.018 Allergy to other foods; Z87.891 Personal history of nicotine dependence; W06.XXXA Fall from bed, initial encounter
CPT/HCPCS: 12011; 70450; 72125; 90471; 90715; 99284

== ENCOUNTER 2019-08-30 20:41 | Emergency (ER) | payer MEDICARE ==
--- NOTE | 2019-08-30 22:12 | CT ---
EXAMINATION TYPE: CT brain [place] wo con DATE OF EXAM: 08/30/2019 COMPARISON: May 08, 2019 HISTORY: fall CT DLP: 1241.7 mGycm Automated exposure control for dose reduction was used. Ventricles and sulci appear normal. There is no mass effect nor midline shift. There is no sign of in tracranial hemorrhage. Calvarium is intact. There is small right posterior temporal scalp hematoma. There is some mild straightening of the cervical spine. There is disc space narrowing from C3 to C6 w ith mild spurring of the endplates. Facet joints are intact. The skull base is intact. Temporal bones show normal aeration. IMPRESSION: Head CT scan appears normal for age. There is noted is small right posterior temporal scalp hematoma. Mild spondylotic changes in the cervical spine. No fracture. No change compared to old exam.
--- NOTE | 2019-08-30 23:30 | ED ---
General Adult HPI - General Chief complaint: Head Injury Stated complaint: Fall, head lac Time Seen by Provider: 08/30/19 21:02 Source: patient, RN notes reviewed, old records reviewed Mode of arrival: ambulatory Limitations: no limitations - History of Present Illness Initial comments: 89-year-old female patient on no pertinent past medical history presents to ED if she complaint of fall. Patient reports that she was in shower when she lost her balance falling backwards in the back of her head. Patient had no loss of consciousness but does have scalp laceration. Denies use of blood thinners. Tetanus updated last year. Systemic: Pt denies fatigue, fever/chills, rash. Pt denies weakness, night sweats, weight loss. Neuro: Pt denies headache, visual disturbances, syncope or pre-syncope. HEENT: Pt denies ocular discharge or irritation, otalgia, rhinorrhea, pharyngitis or notable lymphadenopathy. Cardiopulmonary: Pt denies chest pain, SOB, heart palpitations, dyspnea on exertion. Abdominal/GI: Pt denies abdominal pain, n/v/d. : Pt denies dysuria, burning w/ urination, frequency/urgency. Denies new onset urinary or bowel incontinence. MSK: Pt denies myalgia, loss of strength or function in extremities. Neuro: Pt denies new onset weakness, paresthesias. - Related Data Home Medications Medication Instructions Recorded Confirmed Aspirin 81 mg PO DAILY 06/25/16 12/18/18 Cetirizine HCl [Zyrtec] 5 mg PO DAILY 06/25/16 12/18/18 Furosemide 40 mg PO DAILY 06/25/16 12/18/18 Potassium Chloride 20 meq PO BID 06/25/16 12/18/18 Pravastatin Sodium [Pravachol] 20 mg PO HS 06/25/16 12/18/18 Verapamil HCl [Verapamil ER] 240 mg PO BID 06/25/16 12/18/18 Budesonide/Formoterol Fumarate 2 puff INHALATION RT-BID 12/18/18 12/18/18 [Symbicort 160-4.5 Mcg Inhaler] Docusate Sodium [Dok] 100 mg PO DAILY 12/18/18 12/18/18 Escitalopram [Lexapro] 10 mg PO DAILY 12/18/18 12/18/18 L.acidoph,Paracasei, B.lactis 1 cap PO DAILY 12/18/18 12/18/18 [Probiotic] Losartan Potassium [Cozaar] 100 mg PO DAILY 12/18/18 12/18/18 Vit A/Vit C/Vit E/Zinc/Copper 1 cap PO DAILY 12/18/18 12/18/18 [ICAPS SOFTGEL] hydrALAZINE HCL 25 mg PO BID 12/18/18 12/18/18 Allergies Allergy/AdvReac Type Severity Reaction Status Date / Time cheese Allergy Unknown Verified 08/30/19 20:58 chocolate flavor Allergy Unknown Verified 08/30/19 20:58 tomato Allergy Unknown Verified 08/30/19 20:58 levofloxacin [From Levaquin] AdvReac Diarrhea Verified 08/30/19 20:58 Review of Systems ROS Statement: Those systems with pertinent positive or pertinent negative responses have been documented in the HPI. ROS Other: All systems not noted in ROS Statement are negative. Past Medical History Past Medical History: Hyperlipidemia, Hypertension, Musculoskeletal Disorder, Osteoarthritis (OA) Additional Past Medical History / Comment(s): Clostrophobia, [place] History of Any Multi-Drug Resistant Organisms: None Reported Past Surgical History: Appendectomy, Bladder Surgery, Bowel Resection Past Anesthesia/Blood Transfusion Reactions: No Reported Reaction Past Psychological History: No Psychological Hx Reported Smoking Status: Former smoker Past Alcohol Use History: None Reported Past Drug Use History: None Reported - Past Family History Father Family Medical History: No Reported History General Exam - General Exam Comments Initial Comments: Constitutional: NAD, AOX3, Pt has pleasant affect. HEENT: NC/AT, trachea midline, neck supple, no lymphadenopathy. Posterior pharynx non erythematous, without exudates. External ears appear normal, without discharge. Mucous membranes moist. Eyes PERRLA, EOM intact. There is no scleral icterus. No pallor noted. Cardiopulmonary: RRR, no murmurs, rubs or gallops, no JVD noted. Lungs CTAB in anterior and posterior dhillon. No peripheral edema. Abdominal exam: Abdomen soft and non-distended. Abdomen non-tender to palpation in all 4 quadrants. Bowel sounds active in LLQ. No hepatosplenomegaly. No ecchymosis Neuro: CN II-XII intact. No nuchal rigidity. No raccon eyes, no navarro sign, no hemotympanum. No cervical spinal tenderness. MSK: 4cm laceration posterior scalp region irrigated approximated with 5 mario. Full active ROM in upper and lower extremities, 5/5 stregnth. Limitations: no limitations Course Vital Signs 08/30/19 20:51 Temperature 98.1 F Pulse Rate 64 Respiratory 16 Rate Blood Pressure 158/85 O2 Sat by Pulse 95 Oximetry Medical Decision Making - Medical Decision Making 89-year-old female patient on no pertinent past medical history presents to ED if she complaint of fall. Patient reports that she was in shower when she lost her balance falling backwards in the back of her head. Patient no loss of consciousness but doesn't laceration. Denies any some blood thinners. Tetanus updated last year. They felt signs stable, afebrile. Physical exam displayed laceration which was irrigated and repaired. Neurologic exam is intact. CT brain C-spine displayed posterior temporal scalp hematoma, no change in visual exam. Patient will discharge to follow up with primary care provider and return to ER if condition worsens. Case discussed with Dr. Wilson. Disposition Clinical Impression: Fall, Laceration Disposition: HOME SELF-CARE Condition: Stable Instructions (If sedation given, give patient instructions): Laceration (ED), Fall Prevention for Older Adults (ED) Additional Instructions: Follow-up with primary care provider tomorrow. Return to ER if condition worsens. Is patient prescribed a controlled substance at d/c from ED?: No Referrals: Barbara Salter MD [Primary Care Provider] - 1-2 days
--- NOTE | 2019-08-30 23:33 | ED ---
Disposition Clinical Impression: Fall, Laceration Disposition: HOME SELF-CARE Condition: Stable Instructions (If sedation given, give patient instructions): Laceration (ED), Fall Prevention for Older Adults (ED) Additional Instructions: Follow-up with primary care provider tomorrow. Return to ER if condition worsens. Please return for suture removal: Hand: 7-10 days Face: 5 days Chest/abdomen: 12-14 days Extremities: 7-10 days Scalp: 7 days Eyebrow: 5-7 days Foot/sole: 12-14 days Please monitor for signs and symptoms of infection including: redness, warmth, drainage, discharge. Please return to ED if these signs or symptoms occur, new signs or symptoms develop or if condition worsens in anyway. Is patient prescribed a controlled substance at d/c from ED?: No Referrals: Barbara Salter MD [Primary Care Provider] - 1-2 days
[2019-08-30 23:45] VITALS: BP 140/72; PULSE 60; RESP 18; TEMP 98
== END 2019-08-30 23:44 | disposition home or self-care (01) ==
LOC: EC 20:41
DX: S01.01XA Laceration without foreign body of scalp, initial encounter (principal); E78.5 Hyperlipidemia, unspecified; I10 Essential (primary) hypertension; Z79.899 Other long term (current) drug therapy; Z79.82 Long term (current) use of aspirin; Z91.018 Allergy to other foods; Z88.1 Allergy status to other antibiotic agents; Z87.891 Personal history of nicotine dependence; W18.2XXA Fall in (into) shower or empty bathtub, initial encounter; Y93.E1 Activity, personal bathing and showering; Y92.002 Bathroom of unspecified non-institutional (private) residence as the place of occurrence of the external cause
CPT/HCPCS: 12002; 70450; 72125; 99284

== ENCOUNTER 2019-09-05 16:43 | Inpatient (IN) | payer MEDICARE ==
[2019-09-05] MEDS ORDERED: SODIUM CHLORIDE 0.9% 500 ML 500 ML IV STA (17:17)
[2019-09-05] MEDS ORDERED: MORPHINE SULFATE 2 MG/ML SYRINGE IVP STA (17:17)
[2019-09-05] MEDS ORDERED: ONDANSETRON 4 MG/2 ML VIAL IVP STA (17:17)
--- NOTE | 2019-09-05 17:35 | ED ---
Abdominal Pain HPI - General Source: patient, family Mode of arrival: wheelchair Limitations: no limitations <Roro Cohen - Last Filed: 09/05/19 20:08> <Remigio Sultana - Last Filed: 09/05/19 20:28> - General Chief Complaint: Abdominal Pain Stated Complaint: [place] Time Seen by Provider: 09/05/19 17:00 - History of Present Illness Initial Comments: 89-year-old female patient presents to the emergency department today for evaluation of upper abdominal pain and vomiting for the last 2 days. Patient states the pain started as a mild pain couple of days ago worsened yesterday and today. States that she has been unable to keep down any food or fluids. States she has had some constipation but this is usual for her. States she is passing a lot of gas. Denies any hematochezia, melena, or hematemesis. Denies any fever or chills. States she has had sweats with the pain. States she is experiencing urinary frequency but denies any dysuria or hematuria. She has had appendectomy in the past but no other abdominal surgeries. Patient denies any recent rash, cough, shortness of breath, chest pain, numbness, tingling, dizziness, weakness, headache, visual changes, or any other complaints. (Roro Cohen) - Related Data Home Medications Medication Instructions Recorded Confirmed Aspirin 81 mg PO DAILY 06/25/16 12/18/18 Cetirizine HCl [Zyrtec] 5 mg PO DAILY 06/25/16 12/18/18 Furosemide 40 mg PO DAILY 06/25/16 12/18/18 Potassium Chloride 20 meq PO BID 06/25/16 12/18/18 Pravastatin Sodium [Pravachol] 20 mg PO HS 06/25/16 12/18/18 Verapamil HCl [Verapamil ER] 240 mg PO BID 06/25/16 12/18/18 Budesonide/Formoterol Fumarate 2 puff INHALATION RT-BID 12/18/18 12/18/18 [Symbicort 160-4.5 Mcg Inhaler] Docusate Sodium [Dok] 100 mg PO DAILY 12/18/18 12/18/18 Escitalopram [Lexapro] 10 mg PO DAILY 12/18/18 12/18/18 L.acidoph,Paracasei, B.lactis 1 cap PO DAILY 12/18/18 12/18/18 [Probiotic] Losartan Potassium [Cozaar] 100 mg PO DAILY 12/18/18 12/18/18 Vit A/Vit C/Vit E/Zinc/Copper 1 cap PO DAILY 12/18/18 12/18/18 [ICAPS SOFTGEL] hydrALAZINE HCL 25 mg PO BID 12/18/18 12/18/18 Allergies Allergy/AdvReac Type Severity Reaction Status Date / Time cheese Allergy Unknown Verified 09/05/19 16:59 chocolate flavor Allergy Unknown Verified 09/05/19 16:59 tomato Allergy Unknown Verified 09/05/19 16:59 levofloxacin [From Levaquin] AdvReac Diarrhea Verified 09/05/19 16:59 Review of Systems ROS Other: All systems not noted in ROS Statement are negative. <Roro Cohen - Last Filed: 09/05/19 20:08> ROS Other: All systems not noted in ROS Statement are negative. <Remigio Sultana - Last Filed: 09/05/19 20:28> ROS Statement: Those systems with pertinent positive or pertinent negative responses have been documented in the HPI. Past Medical History Past Medical History: Hyperlipidemia, Hypertension, Musculoskeletal Disorder, Osteoarthritis (OA) Additional Past Medical History / Comment(s): Clostrophobia, [place] History of Any Multi-Drug Resistant Organisms: None Reported Past Surgical History: Appendectomy, Bladder Surgery, Bowel Resection Past Anesthesia/Blood Transfusion Reactions: No Reported Reaction Past Psychological History: No Psychological Hx Reported Smoking Status: Former smoker Past Alcohol Use History: None Reported Past Drug Use History: None Reported - Past Family History Father Family Medical History: No Reported History <Roro Cohen - Last Filed: 09/05/19 20:08> General Exam Limitations: no limitations General appearance: alert, in no apparent distress, other (This is a well- developed, well-nourished adult female patient in no acute distress. Vital signs upon presentation are temperature 97.5F, pulse 91, respirations 18, blood pressure 179/91, pulse ox 93% on room air.) Eye exam: Present: normal appearance, PERRL, EOMI. Absent: scleral icterus, conjunctival injection, periorbital swelling ENT exam: Present: normal exam, normal oropharynx Respiratory exam: Present: normal lung sounds bilaterally. Absent: respiratory distress, wheezes, rales, rhonchi, stridor Cardiovascular Exam: Present: regular rate, normal rhythm, normal heart sounds. Absent: systolic murmur, diastolic murmur, rubs, gallop, clicks GI/Abdominal exam: Present: soft, tenderness (Midepigastric tenderness), normal bowel sounds. Absent: distended, guarding, rebound, rigid Neurological exam: Present: alert, oriented X3, CN II-XII intact Psychiatric exam: Present: normal affect, normal mood Skin exam: Present: warm, dry, intact, normal color. Absent: rash <Roro Cohen - Last Filed: 09/05/19 20:08> Course <Remigio Sultana - Last Filed: 09/05/19 20:28> Vital Signs 09/05/19 09/05/19 09/05/19 16:55 17:44 19:26 Temperature 97.5 F L 97.7 F Pulse Rate 91 88 90 Respiratory 18 18 Rate Blood Pressure 179/91 181/96 154/95 O2 Sat by Pulse 93 L 91 L 93 L Oximetry - Reevaluation(s) Reevaluation #1: 09/05/19 20:27 N P supervision: I proceeded [id number] evaluation the patient did present with complaints of abdominal pain for couple days he has have evidence of a. I did discuss findings with the patient and her daughter was present. Also Dr. Salter. Patient will be admitted surgical consultation by Dr. Irene. With serial troponins done also. (Remigio Sultana) Medical Decision Making - Lab Data Result diagrams: 09/05/19 18:00 09/05/19 18:00 - EKG Data -: EKG Interpreted by Nh - Radiology Data Radiology results: report reviewed, image reviewed <Roro Cohen - Last Filed: 09/05/19 20:08> - Lab Data Result diagrams: 09/05/19 18:00 09/05/19 18:00 <Remigio Sultana - Last Filed: 09/05/19 20:28> - Medical Decision Making 89-year-old female patient presented to the emergency department today for evaluation of upper abdominal pain and vomiting. Physical examination did reveal midepigastric tenderness. Labs reviewed and did reveal mildly elevated white blood cell count of 11.2. Elevated liver enzymes. Normal lactic acid. Troponin elevated 0.047. CT abdomen and pelvis is obtained with contrast which showed evidence for possible partial or developing high-grade bowel obstruction, enlarged gallbladder. We will insert NG tube. Patient be admitted to the hospital for further evaluation by surgery. We'll trend troponins. Patient and family were updated regarding findings and plan, they are agreeable. (Roro Cohen) - Lab Data Lab Results 09/05/19 09/05/19 09/05/19 Range/Units 18:00 18:00 18:00 WBC 11.2 H (3.8-10.6) k/uL RBC 4.76 (3.80-5.40) m/uL Hgb 14.2 (11.4-16.0) gm/dL Hct 44.7 (34.0-46.0) % MCV 94.0 (80.0-100.0) fL MCH 29.8 (25.0-35.0) pg MCHC 31.7 (31.0-37.0) g/dL RDW 13.2 (11.5-15.5) % Plt Count 165 (150-450) k/uL Neutrophils % 85 % Lymphocytes % 8 % Monocytes % 6 % Eosinophils % 1 % Basophils % 0 % Neutrophils # 9.6 H (1.3-7.7) k/uL Lymphocytes # 0.9 L (1.0-4.8) k/uL Monocytes # 0.6 (0-1.0) k/uL Eosinophils # 0.1 (0-0.7) k/uL Basophils # 0.0 (0-0.2) k/uL PT 9.9 (9.0-12.0) sec INR 0.9 (<1.2) APTT 22.7 (22.0-30.0) sec Sodium 139 (137-145) mmol/L Potassium 3.8 (3.5-5.1) mmol/L Chloride 102 (98-107) mmol/L Carbon Dioxide 30 (22-30) mmol/L Anion Gap 7 mmol/L BUN 18 H (7-17) mg/dL Creatinine 0.68 (0.52-1.04) mg/dL Est GFR (CKD-EPI)AfAm >90 (>60 ml/min/1.73 sqM) Est GFR (CKD-EPI)NonAf 79 (>60 ml/min/1.73 sqM) Glucose 214 H (74-99) mg/dL Plasma Lactic Acid Edson (0.7-2.0) mmol/L Calcium 9.4 (8.4-10.2) mg/dL Total Bilirubin 1.1 (0.2-1.3) mg/dL AST 592 H (14-36) U/L ALT 271 H (4-34) U/L Alkaline Phosphatase 185 H (38-126) U/L Troponin I (0.000-0.034) ng/mL Total Protein 7.0 (6.3-8.2) g/dL Albumin 4.3 (3.5-5.0) g/dL Amylase 56 (30-110) U/L Lipase 151 (23-300) U/L Urine Color Urine Appearance (Clear) Urine pH (5.0-8.0) Ur Specific [place] (1.001-1.035) Urine Protein (Negative) Urine Glucose (UA) (Negative) Urine Ketones (Negative) Urine Blood (Negative) Urine Nitrite (Negative) Urine Bilirubin (Negative) Urine Urobilinogen (<2.0) mg/dL Ur Leukocyte Esterase (Negative) Urine RBC (0-5) /hpf Amorphous Sediment (None) /hpf Hyaline Casts (0-2) /lpf 09/05/19 09/05/19 09/05/19 Range/Units 18:00 18:00 19:10 WBC (3.8-10.6) k/uL RBC (3.80-5.40) m/uL Hgb (11.4-16.0) gm/dL Hct (34.0-46.0) % MCV (80.0-100.0) fL MCH (25.0-35.0) pg MCHC (31.0-37.0) g/dL RDW (11.5-15.5) % Plt Count (150-450) k/uL Neutrophils % % Lymphocytes % % Monocytes % % Eosinophils % % Basophils % % Neutrophils # (1.3-7.7) k/uL Lymphocytes # (1.0-4.8) k/uL Monocytes # (0-1.0) k/uL Eosinophils # (0-0.7) k/uL Basophils # (0-0.2) k/uL PT (9.0-12.0) sec INR (<1.2) APTT (22.0-30.0) sec Sodium (137-145) mmol/L Potassium (3.5-5.1) mmol/L Chloride (98-107) mmol/L Carbon Dioxide (22-30) mmol/L Anion Gap mmol/L BUN (7-17) mg/dL Creatinine (0.52-1.04) mg/dL Est GFR (CKD-EPI)AfAm (>60 ml/min/1.73 sqM) Est GFR (CKD-EPI)NonAf (>60 ml/min/1.73 sqM) Glucose (74-99) mg/dL Plasma Lactic Acid Edson 1.0 (0.7-2.0) mmol/L Calcium (8.4-10.2) mg/dL Total Bilirubin (0.2-1.3) mg/dL AST (14-36) U/L ALT (4-34) U/L Alkaline Phosphatase (38-126) U/L Troponin I 0.042 H* (0.000-0.034) ng/mL Total Protein (6.3-8.2) g/dL Albumin (3.5-5.0) g/dL Amylase (30-110) U/L Lipase (23-300) U/L Urine Color Yellow Urine Appearance Turbid H (Clear) Urine pH 7.5 (5.0-8.0) Ur Specific [place] 1.022 (1.001-1.035) Urine Protein 1+ H (Negative) Urine Glucose (UA) 1+ H (Negative) Urine Ketones Negative (Negative) Urine Blood Small H (Negative) Urine Nitrite Negative (Negative) Urine Bilirubin Negative (Negative) Urine Urobilinogen <2.0 (<2.0) mg/dL Ur Leukocyte Esterase Negative (Negative) Urine RBC 9 H (0-5) /hpf Amorphous Sediment Rare H (None) /hpf Hyaline Casts 3 H (0-2) /lpf - EKG Data EKG Comments: EKG obtained at 1815 shows sinus rhythm with a first-degree AV block with PACs. Ventricular rate is 87, DE interval 1-10, QR latter day 110, QTC 412, QTC 495. No evidence of ST elevation or depression. (Roro Cohen) - Radiology Data CT abdomen and pelvis with contrast was obtained. Report was reviewed in its entirety. Impression by Dr. Mackey shows dilated small bowel loops in the right lower quadrant measuring 3.5 cm. Distalmost small bowel loops or collapsed and there is also prominent fluid distention of the stomach. Partial or developing high-grade small bowel obstructions not excluded. Transition point is difficult to clearly delineate due to tight clustering of bowel loops in the right lower quadrant. Sigmoid diverticulosis, redundant sigmoid colon, hydropic gallbladder could relate to gallbladder dysfunction, CAD. (Roro Cohen) Disposition Decision to Admit Reason: Admit from EC Decision Date: 09/05/19 Decision Time: 20:12 <Roro Cohen - Last Filed: 09/05/19 20:08> <Remigio Sultana - Last Filed: 09/05/19 20:28> Clinical Impression: Small bowel obstruction, Transaminitis, Elevated troponin Disposition: ADMITTED IP TO THIS [facility] Condition: Serious Referrals: Barbara Salter MD [Primary Care Provider] - 1-2 days
[2019-09-05 18:22] LABS: ALT 271 U/L (4-34); AST 592 U/L (14-36); African American GFR (CKD) >90 (>60 ml/min/1.73 sqM); Albumin 4.3 g/dL (3.5-5.0); Alkaline Phosphatase 185 U/L (38-126); Amylase 56 U/L (30-110); Anion Gap 7 mmol/L; Blood Urea Nitrogen 18 mg/dL (7-17); Calcium 9.4 mg/dL (8.4-10.2); Carbon Dioxide 30 mmol/L (22-30); Chloride 102 mmol/L (98-107); Glucose 214 mg/dL (74-99); Non-African American GFR(CKD) 79 (>60 ml/min/1.73 sqM); Potassium 3.8 mmol/L (3.5-5.1); Sodium 139 mmol/L (137-145); Total Bilirubin 1.1 mg/dL (0.2-1.3)
[2019-09-05 18:23] LABS: Basophils % (A) 0 %; Eosinophils # (A) 0.1 k/uL (0-0.7); Eosinophils % (A) 1 %; HCT 44.7 % (34.0-46.0); HGB 14.2 gm/dL (11.4-16.0); Lymphocytes # (A) 0.9 k/uL (1.0-4.8); Lymphocytes % (A) 8 %; MCH 29.8 pg (25.0-35.0); MCHC 31.7 g/dL (31.0-37.0); Mean Platelet Volume 7.2; Monocytes # (A) 0.6 k/uL (0-1.0); Monocytes % (A) 6 %; Neutrophils # (A) 9.6 k/uL (1.3-7.7); Neutrophils % (A) 85 %; Platelet Count 165 k/uL (150-450); RBC 4.76 m/uL (3.80-5.40); RDW 13.2 % (11.5-15.5); WBC 11.2 k/uL (3.8-10.6)
[2019-09-05 18:24] LABS: INR 0.9 (<1.2); Partial Thromboplastin Time 22.7 sec (22.0-30.0); Prothrombin Time 9.9 sec (9.0-12.0)
--- NOTE | 2019-09-05 19:21 | CT ---
EXAMINATION TYPE: CT abdomen pelvis w con DATE OF EXAM: 09/05/2019 COMPARISON: 01/21/2016 HISTORY: 89-year-old female Abdominal pain and distention TECHNIQUE: Contiguous axial scanning of the abdomen and pelvis following administration of 100 ml Iso catarino 300 IV contrast. Delayed images through the kidneys and coronal/sagittal reconstructions perform ed. CT DLP: 1086.1 mGycm Automated exposure control for dose reduction was used. FINDINGS: Heart borderline enlarged without pericardial effusion. Coronary vessel calcifications are present. M ild bibasilar bronchiolectasis and hazy densities, probably interstitial scarring. No pleural effusio n. No focal liver lesion. Gallbladder is hydropic measuring up to 12 cm long with layering sludge. No significant wall thickeni ng or surrounding inflammation is seen. Portable venous system is patent. Bile duct caliber 8 mm acceptable given the patient's age. Mild diffuse thickening of the left adrenal gland without discrete nodularity. Right adrenal gland, left kidney, spleen, pancreas show no gross abnormality. Malrotated right kidney. Both kidneys show symmetric uptake and excretion of contrast. Marked fluid distention of the stomach. Dilated small bowel loops in the right lower quadrant measuri ng up to 3.5 cm. Distal small bowel loops are collapsed and there may be a transition point in the ri ght lower quadrant but the tightly clustered bowel loops make it difficult to clearly delineate Redundant sigmoid colon. Sigmoid diverticulosis without pericolonic inflammatory change. No free fluid or free air. Moderate atherosclerotic calcifications, aorta and iliac arteries. No mesenteric or retroperitoneal l ymphadenopathy. Bladder partially distended. Uterus is retroflexed. Multiple bowel loops. No abnormal pelvis or pelvi c lymphadenopathy seen. Bones: Mild degenerative changes at the hips. There is a degenerative levoconvex scoliosis of the lum bar spine. Multilevel degenerative changes throughout the lumbar spine. IMPRESSION: 1. DILATED SMALL BOWEL LOOPS IN THE RIGHT LOWER QUADRANT MEASURING UP TO 3.5 CM. DISTALMOST SMALL BOW EL LOOPS ARE COLLAPSED AND THERE IS ALSO PROMINENT FLUID DISTENTION OF STOMACH. PARTIAL OR DEVELOPING HIGH-GRADE SMALL BOWEL OBSTRUCTION IS NOT EXCLUDED. A TRANSITION POINT IS DIFFICULT TO CLEARLY DELIN EATE DUE TO TIGHT CLUSTERING OF BOWEL LOOPS IN THE RIGHT LOWER QUADRANT. 2. SIGMOID DIVERTICULOSIS, REDUNDANT SIGMOID COLON, HYDROPIC GALLBLADDER COULD RELATE TO GALLBLADDER DYSFUNCTION, CAD.
[2019-09-05 19:32] LABS: Amorphous Sediment,Urine Rare /hpf; Appearance,Urine Turbid (Clear); Bilirubin,Urine Negative (Negative); Blood,Urine Small (Negative); Color,Urine Yellow; Glucose,Urine (UA) 1+ (Negative); Hyaline Casts,Urine 3 /lpf (0-2); Ketones,Urine Negative (Negative); Leukocyte Esterase,Urine Negative (Negative); Nitrite,Urine Negative (Negative); PH, Urine 7.5 (5.0-8.0); Protein,Urine 1+ (Negative); RBC,Urine 9 /hpf (0-5); Specific Gravity,Urine 1.022 (1.001-1.035); Urobilinogen,Urine <2.0 mg/dL (<2.0)
[2019-09-05] MEDS ORDERED: NALOXONE 0.4 MG/ML 1 ML VIAL IV PRN (20:04)
--- NOTE | 2019-09-05 20:57 | XR ---
EXAMINATION TYPE: XR chest 1V confirm line [facility] DATE OF EXAM: 09/05/2019 COMPARISON: 07/14/2015 HISTORY: 89-year-old female NG tube placement TECHNIQUE: Single frontal view of the chest is obtained. FINDINGS: NG tube courses below the diaphragm. However, the sidehole is just above the GE junction. Heart mildly enlarged. Hyperinflation. Mild interstitial density. Hazy lower lung densities likely re lated to overlying soft tissue. No pleural effusion. IMPRESSION: 1. NG tube side hole just above the level of the GE junction. Advance further into the stomach by 5 t o 6 cm. 2. Cardiomegaly and COPD with chronic appearing parenchymal changes.
[2019-09-05] MEDS ORDERED: MORPHINE SULFATE 2 MG/ML SYRINGE IVP PRN (21:10)
[2019-09-05] MEDS: SODIUM CHLORIDE 0.9% 1,000 ML IV SCH (22:15)
[2019-09-06 07:08] LABS: Basophils % (A) 0 %; Eosinophils # (A) 0.1 k/uL (0-0.7); Eosinophils % (A) 2 %; HCT 41.5 % (34.0-46.0); Lymphocytes # (A) 0.9 k/uL (1.0-4.8); Lymphocytes % (A) 14 %; MCH 29.6 pg (25.0-35.0); MCHC 31.2 g/dL (31.0-37.0); MCV 94.9 fL (80.0-100.0); Mean Platelet Volume 7.3; Monocytes # (A) 0.6 k/uL (0-1.0); Monocytes % (A) 9 %; Neutrophils # (A) 4.8 k/uL (1.3-7.7); Neutrophils % (A) 74 %; Platelet Count 141 k/uL (150-450); RBC 4.37 m/uL (3.80-5.40); RDW 13.4 % (11.5-15.5); WBC 6.5 k/uL (3.8-10.6)
[2019-09-06 07:28] LABS: ALT 265 U/L (4-34); AST 256 U/L (14-36); African American GFR (CKD) >90 (>60 ml/min/1.73 sqM); Albumin 3.4 g/dL (3.5-5.0); Alkaline Phosphatase 133 U/L (38-126); Anion Gap 2 mmol/L; Blood Urea Nitrogen 15 mg/dL (7-17); Calcium 8.4 mg/dL (8.4-10.2); Carbon Dioxide 33 mmol/L (22-30); Chloride 108 mmol/L (98-107); Glucose 87 mg/dL (74-99); Non-African American GFR(CKD) 81 (>60 ml/min/1.73 sqM); Potassium 3.8 mmol/L (3.5-5.1); Sodium 143 mmol/L (137-145); Total Bilirubin 0.3 mg/dL (0.2-1.3); Total Protein 6.1 g/dL (6.3-8.2)
--- NOTE | 2019-09-06 09:18 | XR ---
EXAMINATION TYPE: XR abdomen 1V DATE OF EXAM: 09/06/2019 COMPARISON: None INDICATION: NG tube placement TECHNIQUE: Single view abdomen upright view which includes the majority of the chest FINDINGS: There is a normal bowel gas pattern. Nasogastric tube transverses the thorax and has tip within the l eft upper quadrant of the abdomen. No free air is evident. No organomegaly is present. IMPRESSION: 1. NG tube tip within the left upper quadrant abdomen.
[2019-09-06] MEDS ORDERED: POTASSIUM CHLORIDE ER 20 MEQ TAB.ER PO PRN (10:16)
[2019-09-06] MEDS ORDERED: FUROSEMIDE 40 MG TAB PO PRN (10:16)
[2019-09-06] MEDS ORDERED: hydrALAZINE HCL 25 MG TAB PO SCH (10:30)
[2019-09-06] MEDS ORDERED: LOSARTAN 50 MG TAB PO SCH (10:30)
[2019-09-06] MEDS ORDERED: VERAPAMIL SR 240 MG TABLET.ER PO SCH (10:30)
--- NOTE | 2019-09-06 10:39 | P.GSCN ---
<Tracy Syed - Last Filed: 09/06/19 10:36> History of Present Illness Consult date: 09/06/19 Reason for Consult: SBO History of present illness: CHIEF COMPLAINT: Abdominal pain HISTORY OF PRESENT ILLNESS: 89 year old female who presented to the ER with a chief complaint of abdominal pain. Patient reports a 3 day duration of abdominal pain. She reports nausea and vomiting. She reports having a bowel movement yesterday. She denies passing flatus this morning. Abdomen appears distended, but patient states this is her baseline and does not feel bloated. She currently denies abdominal pain. EMR reports history of bowel resection, but patient denies having a bowel resection in the past. She states her only abdominal surgery was an appendectomy. Patient had an NG tube inserted in the emergency room. X-ray completed afterwards revealed NG tube needed to be advanced. Nursing was unable to advance NG tube this morning. NG tube was discontinued and a new NG was inserted. PAST MEDICAL HISTORY: See list. PAST SURGICAL HISTORY: See list. SOCIAL HISTORY: No illicit drug use. REVIEW OF SYSTEMS: CONSTITUTIONAL: Denies fever or chills. HEENT: Denies blurred vision, vision changes, or eye pain. Denies hemoptysis CARDIOVASCULAR: Denies chest pain or pressure. RESPIRATORY: No shortness of breath. GASTROINTESTINAL: Refer to HPI for pertinent findings HEMATOLOGIC: Denies bleeding disorders. GENITOURINARY: Denies any blood in urine. SKIN: Denies pruitis. Denies rash. PHYSICAL EXAM: VITAL SIGNS: Reviewed. GENERAL: Well-developed in no acute distress. HEENT: No sclera icterus. Extraocular movements grossly intact. Moist buccal mucosa. Head is atraumatic, normocephalic. ABDOMEN: Soft. Appears distended but patient states this is her baseline. Nontender. NEUROLOGIC: Alert and oriented. Cranial nerves II through XII grossly intact. LABORATORY DATA: WBC 11.2. Hemoglobin 14.2. Platelet count 165. AST 592. ALT 271. Alkaline phosphatase 185. IMAGING: CT abdomen and pelvis: Dilated small bowel loops in the right lower quadrant measuring up to 3.5 cm. Distalmost small bowel loops are collapsed and there is also prominent fluid distention of stomach. Partial or developing high-grade small bowel obstruction is not excluded. A transition point is difficult to clearly delineate due to tight clustering of bowel loops in the right lower quadrant. Sigmoid diverticulosis, redundant sigmoid colon, hydropic gallbladder could relate to gallbladder dysfunction, ASSESSMENT: 1. Abdominal pain 2. Small bowel obstruction 3. History of appendectomy 4. Sigmoid diverticulosis 5. Hydropic gallbladder 6. Transaminitis PLAN: -NPO. Continue IV fluids -Continue NG tube to LIS -Monitor LFTs. May benefit from GI consult if LFTs remain elevated -Dr. Irene to re-evaluate patient this afternoon. Further recommendations pending. Nurse practitioner note has been reviewed by physician. Signing provider agrees with the documented findings, assessment, and plan of care. Past Medical History Past Medical History: Hyperlipidemia, Hypertension, Musculoskeletal Disorder, Osteoarthritis (OA) Additional Past Medical History / Comment(s): Clostrophobia, [place] History of Any Multi-Drug Resistant Organisms: None Reported Past Surgical History: Appendectomy, Bladder Surgery, Bowel Resection Past Anesthesia/Blood Transfusion Reactions: No Reported Reaction Past Psychological History: No Psychological Hx Reported Smoking Status: Former smoker Past Alcohol Use History: None Reported Past Drug Use History: None Reported - Past Family History Father Family Medical History: No Reported History Medications and Allergies Home Medications Medication Instructions Recorded Confirmed Type Aspirin 81 mg PO DAILY 06/25/16 09/05/19 History Furosemide 40 mg PO BID PRN 06/25/16 09/05/19 History Potassium Chloride 20 meq PO BID PRN 06/25/16 09/05/19 History Pravastatin Sodium [Pravachol] 20 mg PO HS 06/25/16 09/05/19 History Verapamil HCl [Verapamil ER] 240 mg PO BID 06/25/16 09/05/19 History Docusate Sodium [Dok] 100 mg PO DAILY 12/18/18 09/05/19 History Escitalopram [Lexapro] 10 mg PO DAILY 12/18/18 09/05/19 History L.acidoph,Paracasei, B.lactis 1 cap PO DAILY 12/18/18 09/05/19 History [Probiotic] Losartan Potassium [Cozaar] 100 mg PO DAILY 12/18/18 09/05/19 History Vit A/Vit C/Vit E/Zinc/Copper 1 cap PO DAILY 12/18/18 09/05/19 History [ICAPS SOFTGEL] hydrALAZINE HCL 25 mg PO BID 12/18/18 09/05/19 History Ipratropium-Albuterol Nebulize 3 ml INHALATION RT-QID 09/05/19 09/05/19 History [Duoneb 0.5 mg-3 mg/3 ml Soln] Loratadine [Claritin] 10 mg PO DAILY 09/05/19 09/05/19 History Allergies Allergy/AdvReac Type Severity Reaction Status Date / Time cheese Allergy Unknown Verified 09/05/19 21:53 chocolate flavor Allergy Unknown Verified 09/05/19 21:53 tomato Allergy Unknown Verified 09/05/19 21:53 levofloxacin [From Levaquin] AdvReac Diarrhea Verified 09/05/19 21:53 Surgical - Exam Vital Signs Temp Pulse Resp BP Pulse Ox 97.5 F L 91 18 179/91 93 L 09/05/19 16:55 09/05/19 16:55 09/05/19 16:55 09/05/19 16:55 09/05/19 16:55 Results - Labs 09/06/19 06:39 09/06/19 06:39 Abnormal Lab Results - Last 24 Hours (Table) 09/05/19 09/05/19 09/05/19 Range/Units 18:00 18:00 18:00 WBC 11.2 H (3.8-10.6) k/uL Plt Count (150-450) k/uL Neutrophils # 9.6 H (1.3-7.7) k/uL Lymphocytes # 0.9 L (1.0-4.8) k/uL Chloride (98-107) mmol/L Carbon Dioxide (22-30) mmol/L BUN 18 H (7-17) mg/dL Glucose 214 H (74-99) mg/dL AST 592 H (14-36) U/L ALT 271 H (4-34) U/L Alkaline Phosphatase 185 H (38-126) U/L Troponin I 0.042 H* (0.000-0.034) ng/mL Total Protein (6.3-8.2) g/dL Albumin (3.5-5.0) g/dL Urine Appearance (Clear) Urine Protein (Negative) Urine Glucose (UA) (Negative) Urine Blood (Negative) Urine RBC (0-5) /hpf Amorphous Sediment (None) /hpf Hyaline Casts (0-2) /lpf 09/05/19 09/06/19 09/06/19 Range/Units 19:10 00:39 06:39 WBC (3.8-10.6) k/uL Plt Count 141 L (150-450) k/uL Neutrophils # (1.3-7.7) k/uL Lymphocytes # 0.9 L (1.0-4.8) k/uL Chloride (98-107) mmol/L Carbon Dioxide (22-30) mmol/L BUN (7-17) mg/dL Glucose (74-99) mg/dL AST (14-36) U/L ALT (4-34) U/L Alkaline Phosphatase (38-126) U/L Troponin I 0.157 H* (0.000-0.034) ng/mL Total Protein (6.3-8.2) g/dL Albumin (3.5-5.0) g/dL Urine Appearance Turbid H (Clear) Urine Protein 1+ H (Negative) Urine Glucose (UA) 1+ H (Negative) Urine Blood Small H (Negative) Urine RBC 9 H (0-5) /hpf Amorphous Sediment Rare H (None) /hpf Hyaline Casts 3 H (0-2) /lpf 09/06/19 09/06/19 Range/Units 06:39 06:39 WBC (3.8-10.6) k/uL Plt Count (150-450) k/uL Neutrophils # (1.3-7.7) k/uL Lymphocytes # (1.0-4.8) k/uL Chloride 108 H (98-107) mmol/L Carbon Dioxide 33 H (22-30) mmol/L BUN (7-17) mg/dL Glucose (74-99) mg/dL AST 256 H (14-36) U/L ALT 265 H (4-34) U/L Alkaline Phosphatase 133 H (38-126) U/L Troponin I 0.132 H* (0.000-0.034) ng/mL Total Protein 6.1 L (6.3-8.2) g/dL Albumin 3.4 L (3.5-5.0) g/dL Urine Appearance (Clear) Urine Protein (Negative) Urine Glucose (UA) (Negative) Urine Blood (Negative) Urine RBC (0-5) /hpf Amorphous Sediment (None) /hpf Hyaline Casts (0-2) /lpf Diabetes panel 09/05/19 09/06/19 Range/Units 18:00 06:39 Sodium 139 143 (137-145) mmol/L Potassium 3.8 3.8 (3.5-5.1) mmol/L Chloride 102 108 H (98-107) mmol/L Carbon Dioxide 30 33 H (22-30) mmol/L BUN 18 H 15 (7-17) mg/dL Creatinine 0.68 0.64 (0.52-1.04) mg/dL Glucose 214 H 87 (74-99) mg/dL Calcium 9.4 8.4 (8.4-10.2) mg/dL AST 592 H 256 H (14-36) U/L ALT 271 H 265 H (4-34) U/L Alkaline Phosphatase 185 H 133 H (38-126) U/L Total Protein 7.0 6.1 L (6.3-8.2) g/dL Albumin 4.3 3.4 L (3.5-5.0) g/dL Calcium panel 09/05/19 09/06/19 Range/Units 18:00 06:39 Calcium 9.4 8.4 (8.4-10.2) mg/dL Albumin 4.3 3.4 L (3.5-5.0) g/dL Pituitary panel 09/05/19 09/06/19 Range/Units 18:00 06:39 Sodium 139 143 (137-145) mmol/L Potassium 3.8 3.8 (3.5-5.1) mmol/L Chloride 102 108 H (98-107) mmol/L Carbon Dioxide 30 33 H (22-30) mmol/L BUN 18 H 15 (7-17) mg/dL Creatinine 0.68 0.64 (0.52-1.04) mg/dL Glucose 214 H 87 (74-99) mg/dL Calcium 9.4 8.4 (8.4-10.2) mg/dL Adrenal panel 09/05/19 09/06/19 Range/Units 18:00 06:39 Sodium 139 143 (137-145) mmol/L Potassium 3.8 3.8 (3.5-5.1) mmol/L Chloride 102 108 H (98-107) mmol/L Carbon Dioxide 30 33 H (22-30) mmol/L BUN 18 H 15 (7-17) mg/dL Creatinine 0.68 0.64 (0.52-1.04) mg/dL Glucose 214 H 87 (74-99) mg/dL Calcium 9.4 8.4 (8.4-10.2) mg/dL Total Bilirubin 1.1 0.3 (0.2-1.3) mg/dL AST 592 H 256 H (14-36) U/L ALT 271 H 265 H (4-34) U/L Alkaline Phosphatase 185 H 133 H (38-126) U/L Total Protein 7.0 6.1 L (6.3-8.2) g/dL Albumin 4.3 3.4 L (3.5-5.0) g/dL <Andres Irene - Last Filed: 09/06/19 15:18> History of Present Illness History of present illness: As above. Patient with CAT scan suggesting small bowel obstruction. Repeat abdominal films nonspecific. Nasogastric tube output 300-400 mL. Appears comf ortable. No pain. Patient with elevated liver enzymes as well. Gallbladder appears distended. We'll check abdominal ultrasound. Keep nasogastric tube to suction for now. Surgical - Exam Vital Signs Temp Pulse Resp BP Pulse Ox 97.5 F L 91 18 179/91 93 L 09/05/19 16:55 09/05/19 16:55 09/05/19 16:55 09/05/19 16:55 09/05/19 16:55 Results - Labs 09/06/19 06:39 09/06/19 06:39 Abnormal Lab Results - Last 24 Hours (Table) 09/05/19 09/05/19 09/05/19 Range/Units 18:00 18:00 18:00 WBC 11.2 H (3.8-10.6) k/uL Plt Count (150-450) k/uL Neutrophils # 9.6 H (1.3-7.7) k/uL Lymphocytes # 0.9 L (1.0-4.8) k/uL Chloride (98-107) mmol/L Carbon Dioxide (22-30) mmol/L BUN 18 H (7-17) mg/dL Glucose 214 H (74-99) mg/dL AST 592 H (14-36) U/L ALT 271 H (4-34) U/L Alkaline Phosphatase 185 H (38-126) U/L Troponin I 0.042 H* (0.000-0.034) ng/mL Total Protein (6.3-8.2) g/dL Albumin (3.5-5.0) g/dL Urine Appearance (Clear) Urine Protein (Negative) Urine Glucose (UA) (Negative) Urine Blood (Negative) Urine RBC (0-5) /hpf Amorphous Sediment (None) /hpf Hyaline Casts (0-2) /[facility] 09/05/19 09/06/19 09/06/19 Range/Units 19:10 00:39 06:39 WBC (3.8-10.6) k/uL Plt Count 141 L (150-450) k/uL Neutrophils # (1.3-7.7) k/uL Lymphocytes # 0.9 L (1.0-4.8) k/uL Chloride (98-107) mmol/L Carbon Dioxide (22-30) mmol/L BUN (7-17) mg/dL Glucose (74-99) mg/dL AST (14-36) U/L ALT (4-34) U/L Alkaline Phosphatase (38-126) U/L Troponin I 0.157 H* (0.000-0.034) ng/mL Total Protein (6.3-8.2) g/dL Albumin (3.5-5.0) g/dL Urine Appearance Turbid H (Clear) Urine Protein 1+ H (Negative) Urine Glucose (UA) 1+ H (Negative) Urine Blood Small H (Negative) Urine RBC 9 H (0-5) /hpf Amorphous Sediment Rare H (None) /hpf Hyaline Casts 3 H (0-2) /f 09/06/19 09/06/19 Range/Units 06:39 06:39 WBC (3.8-10.6) k/uL Plt Count (150-450) k/uL Neutrophils # (1.3-7.7) k/uL Lymphocytes # (1.0-4.8) k/uL Chloride 108 H (98-107) mmol/L Carbon Dioxide 33 H (22-30) mmol/L BUN (7-17) mg/dL Glucose (74-99) mg/dL AST 256 H (14-36) U/L ALT 265 H (4-34) U/L Alkaline Phosphatase 133 H (38-126) U/L Troponin I 0.132 H* (0.000-0.034) ng/mL Total Protein 6.1 L (6.3-8.2) g/dL Albumin 3.4 L (3.5-5.0) g/dL Urine Appearance (Clear) Urine Protein (Negative) Urine Glucose (UA) (Negative) Urine Blood (Negative) Urine RBC (0-5) /hpf Amorphous Sediment (None) /hpf Hyaline Casts (0-2) /lpf Diabetes panel 09/05/19 09/06/19 Range/Units 18:00 06:39 Sodium 139 143 (137-145) mmol/L Potassium 3.8 3.8 (3.5-5.1) mmol/L Chloride 102 108 H (98-107) mmol/L Carbon Dioxide 30 33 H (22-30) mmol/L BUN 18 H 15 (7-17) mg/dL Creatinine 0.68 0.64 (0.52-1.04) mg/dL Glucose 214 H 87 (74-99) mg/dL Calcium 9.4 8.4 (8.4-10.2) mg/dL AST 592 H 256 H (14-36) U/L ALT 271 H 265 H (4-34) U/L Alkaline Phosphatase 185 H 133 H (38-126) U/L Total Protein 7.0 6.1 L (6.3-8.2) g/dL Albumin 4.3 3.4 L (3.5-5.0) g/dL Calcium panel 09/05/19 09/06/19 Range/Units 18:00 06:39 Calcium 9.4 8.4 (8.4-10.2) mg/dL Albumin 4.3 3.4 L (3.5-5.0) g/dL Pituitary panel 09/05/19 09/06/19 Range/Units 18:00 06:39 Sodium 139 143 (137-145) mmol/L Potassium 3.8 3.8 (3.5-5.1) mmol/L Chloride 102 108 H (98-107) mmol/L Carbon Dioxide 30 33 H (22-30) mmol/L BUN 18 H 15 (7-17) mg/dL Creatinine 0.68 0.64 (0.52-1.04) mg/dL Glucose 214 H 87 (74-99) mg/dL Calcium 9.4 8.4 (8.4-10.2) mg/dL Adrenal panel 09/05/19 09/06/19 Range/Units 18:00 06:39 Sodium 139 143 (137-145) mmol/L Potassium 3.8 3.8 (3.5-5.1) mmol/L Chloride 102 108 H (98-107) mmol/L Carbon Dioxide 30 33 H (22-30) mmol/L BUN 18 H 15 (7-17) mg/dL Creatinine 0.68 0.64 (0.52-1.04) mg/dL Glucose 214 H 87 (74-99) mg/dL Calcium 9.4 8.4 (8.4-10.2) mg/dL Total Bilirubin 1.1 0.3 (0.2-1.3) mg/dL AST 592 H 256 H (14-36) U/L ALT 271 H 265 H (4-34) U/L Alkaline Phosphatase 185 H 133 H (38-126) U/L Total Protein 7.0 6.1 L (6.3-8.2) g/dL Albumin 4.3 3.4 L (3.5-5.0) g/dL
[2019-09-06] MEDS: IPRATROPIUM-ALBUTEROL 3 ML NEB INHALATION SCH ×3 (12:07→20:28)
--- NOTE | 2019-09-06 13:02 | P.CRDCN ---
History of Present Illness History of present illness: HISTORY OF PRESENTING ILLNESS This is a pleasant 89-year-old female past medical history significant for hypertension and dyslipidemia. She denies prior history of coronary artery disease and does not follow regularly with a indigo mixer. We have been asked to see in consultation for elevated troponin. She presented to the hospital yesterday with symptoms of abdominal pain, nausea and vomiting had been going on for the previous couple of days. She has been diagnosed with high-grade bowel obstruction and an NG tube is in place. She states intermittently she does have heaviness in her chest not associated with activity or exertion. Currently she denies active chest pain or shortness of breath. She states her abdominal discomfort is improving however she is uncomfortable with the NG tube. She denies dizziness or palpitations. DIAGNOSTICS EKG reveals sinus mechanism, ST depression and T-wave inversions noted in the lateral leads. There is no old for comparison. Chest xray reveals cardiomegaly and COPD with chronic appearing parenchymal changes. Laboratory reviewed, WBC on admission 11.2 repeat today 6.5, hemoglobin 13, platelets 141, sodium 143, potassium 3.8, creatinine 0.64, AST on admission 590 2 repeat today to 56, ALT 265, alkaline phosphate 133, troponin 0.042, 0.157 and 0.132. Current cardiac medications include aspirin 81 mg daily, Lasix 40 mg twice a day when necessary, losartan 100 mg daily, pravastatin 20 mg at bedtime and hydralazine 25 mg twice a day. REVIEW OF SYSTEMS At the time of my exam: CONSTITUTIONAL: Denies fever or chills. CARDIOVASCULAR: Denies chest pain, shortness of breath, orthopnea, PND or palpitations. RESPIRATORY: Denies cough. GASTROINTESTINAL: Denies abdominal pain, diarrhea, constipation, nausea or vomiting. MUSCULOSKELETAL: Denies myalgias. NEUROLOGIC: Denies numbness, tingling or weakness. ENDOCRINE: Denies fatigue, weight change, polydipsia or polyurina. GENITOURINARY: Denies burning, hematuria or urgency with micturation. HEMATOLOGIC: Denies history of anemia or bleeding. PHYSICAL EXAMINATION Blood pressure 151/77 heart rate 71 afebrile and maintaining oxygen saturation on nasal cannula. CONSTITUTIONAL: No apparent distress. HEENT: Head is normocephalic. Pupils are equal, round. Sclerae anicteric. Mucous membranes of the mouth are moist. No JVD. No carotid bruit. NG tube in place CHEST EXAMINATION: Lungs are clear to auscultation. No chest wall tenderness is noted on palpation or with deep breathing. HEART EXAMINATION: Regular rate and rhythm. S1, S2 heard. No murmurs, gallops or rub. ABDOMEN: Soft, mildly tender in the upper quadrant. EXTREMITIES: 2+ peripheral pulses, no lower extremity edema and no calf tenderness. NEUROLOGIC EXAMINATION: Patient is awake, alert and oriented x3. ASSESSMENT Small bowel obstruction Troponin leak Transaminitis Hypertension Dyslipidemia PLAN Obtain 2-D echocardiogram and Doppler study to assess cardiac structure and function. Repeat EKG. She is currently nothing by mouth with an NG tube in place. When she is tolerating by mouth we will initiate beta blockers and statin medication. Maximum medical therapy. Thank you kindly for this consultation. Nurse Practitioner note has been reviewed, I agree with a documented findings and plan of care. Patient was seen and examined. Past Medical History Past Medical History: Hyperlipidemia, Hypertension, Musculoskeletal Disorder, Osteoarthritis (OA) Additional Past Medical History / Comment(s): Clostrophobia, [place] History of Any Multi-Drug Resistant Organisms: None Reported Past Surgical History: Appendectomy, Bladder Surgery, Bowel Resection Past Anesthesia/Blood Transfusion Reactions: No Reported Reaction Past Psychological History: No Psychological Hx Reported Smoking Status: Former smoker Past Alcohol Use History: None Reported Past Drug Use History: None Reported - Past Family History Father Family Medical History: No Reported History Medications and Allergies Home Medications Medication Instructions Recorded Confirmed Type Aspirin 81 mg PO DAILY 06/25/16 09/05/19 History Furosemide 40 mg PO BID PRN 06/25/16 09/05/19 History Potassium Chloride 20 meq PO BID PRN 06/25/16 09/05/19 History Pravastatin Sodium [Pravachol] 20 mg PO HS 06/25/16 09/05/19 History Verapamil HCl [Verapamil ER] 240 mg PO BID 06/25/16 09/05/19 History Docusate Sodium [Dok] 100 mg PO DAILY 12/18/18 09/05/19 History Escitalopram [Lexapro] 10 mg PO DAILY 12/18/18 09/05/19 History L.acidoph,Paracasei, B.lactis 1 cap PO DAILY 12/18/18 09/05/19 History [Probiotic] Losartan Potassium [Cozaar] 100 mg PO DAILY 12/18/18 09/05/19 History Vit A/Vit C/Vit E/Zinc/Copper 1 cap PO DAILY 12/18/18 09/05/19 History [ICAPS SOFTGEL] hydrALAZINE HCL 25 mg PO BID 12/18/18 09/05/19 History Ipratropium-Albuterol Nebulize 3 ml INHALATION RT-QID 09/05/19 09/05/19 History [Duoneb 0.5 mg-3 mg/3 ml Soln] Loratadine [Claritin] 10 mg PO DAILY 09/05/19 09/05/19 History Allergies Allergy/AdvReac Type Severity Reaction Status Date / Time cheese Allergy Unknown Verified 09/05/19 21:53 chocolate flavor Allergy Unknown Verified 09/05/19 21:53 tomato Allergy Unknown Verified 09/05/19 21:53 levofloxacin [From Levaquin] AdvReac Diarrhea Verified 09/05/19 21:53 Physical Exam Vitals: Vital Signs Temp Pulse Pulse Resp BP BP Pulse Ox 09/06/19 07:15 98.9 F 71 17 151/77 96 09/06/19 04:00 24 09/06/19 01:45 99.2 F 76 24 151/73 97 09/06/19 00:00 24 09/05/19 21:35 98.4 F 89 24 161/82 97 09/05/19 21:03 98.0 F 78 18 146/80 97 09/05/19 19:26 90 18 154/95 93 L 09/05/19 17:44 97.7 F 88 181/96 91 L 09/05/19 16:55 97.5 F L 91 18 179/91 93 L Intake and Output 09/05/19 09/06/19 09/06/19 22:59 06:59 14:59 Intake Total 50 50 Balance 50 50 Intake: Intake, IV Titration 50 50 Amount Sodium Chloride 0.9% 1, 50 50 000 ml @ 50 mls/hr IV . Q20H [facility] Rx#:[id number] Other: Voiding Method Bedside Commode Bedside Commode # Voids 1 1 Weight 68.039 kg Results 09/06/19 06:39 09/06/19 06:39 Cardiac Enzymes 09/05/19 09/05/19 09/06/19 Range/Units 18:00 18:00 00:39 AST 592 H (14-36) U/L Troponin I 0.042 H* 0.157 H* (0.000-0.034) ng/mL 09/06/19 09/06/19 Range/Units 06:39 06:39 AST 256 H (14-36) U/L Troponin I 0.132 H* (0.000-0.034) ng/mL Coagulation 09/05/19 Range/Units 18:00 PT 9.9 (9.0-12.0) sec APTT 22.7 (22.0-30.0) sec CBC 09/05/19 09/06/19 Range/Units 18:00 06:39 WBC 11.2 H 6.5 (3.8-10.6) k/uL RBC 4.76 4.37 (3.80-5.40) m/uL Hgb 14.2 13.0 (11.4-16.0) gm/dL Hct 44.7 41.5 (34.0-46.0) % Plt Count 165 141 L (150-450) k/uL Comprehensive Metabolic Panel 09/05/19 09/06/19 Range/Units 18:00 06:39 Sodium 139 143 (137-145) mmol/L Potassium 3.8 3.8 (3.5-5.1) mmol/L Chloride 102 108 H (98-107) mmol/L Carbon Dioxide 30 33 H (22-30) mmol/L BUN 18 H 15 (7-17) mg/dL Creatinine 0.68 0.64 (0.52-1.04) mg/dL Glucose 214 H 87 (74-99) mg/dL Calcium 9.4 8.4 (8.4-10.2) mg/dL AST 592 H 256 H (14-36) U/L ALT 271 H 265 H (4-34) U/L Alkaline Phosphatase 185 H 133 H (38-126) U/L Total Protein 7.0 6.1 L (6.3-8.2) g/dL Albumin 4.3 3.4 L (3.5-5.0) g/dL Current Medications Generic Name Dose Route Start Last Admin Trade Name Freq PRN Reason Stop Dose Admin Sodium Chloride 1,000 mls @ 50 mls/hr 09/05/19 20:15 09/05/19 22:15 Saline 0.9% IV 50 mls/hr .Q20H VENESSA Administration Morphine Sulfate 2 mg 09/05/19 21:10 Morphine Sulfate (Inj) IVP Q4H PRN Pain/Discomfort Naloxone HCl 0.2 mg 09/05/19 20:04 Narcan IV Q2M PRN Opioid Reversal Ondansetron HCl 4 mg 09/05/19 20:04 Zofran IVP Q8HR PRN Nausea And Vomiting Intake and Output 09/05/19 09/06/19 09/06/19 22:59 06:59 14:59 Intake Total 50 50 Balance 50 50 Intake: Intake, IV Titration 50 50 Amount Sodium Chloride 0.9% 1, 50 50 000 ml @ 50 mls/hr IV . Q20H [facility] Rx#:[id number] Other: Voiding Method Bedside Commode Bedside Commode # Voids 1 1 Weight 68.039 kg 09/06/19 06:39 09/06/19 06:39
[2019-09-06 13:54] VITALS: BMI 26.5
[2019-09-06] MEDS: SODIUM CHLORIDE 0.9% 1,000 ML IV SCH (15:22)
--- NOTE | 2019-09-06 16:14 | US ---
EXAMINATION TYPE: US gallbladder DATE OF EXAM: 09/06/2019 COMPARISON: NONE CLINICAL HISTORY: elevated lft. Elevated LFT EXAM MEASUREMENTS: Liver Length: 13.3 cm Gallbladder Wall: .36 cm CBD: .7 cm Right Kidney: 9.2 x 3.8 x 4.7 cm Pancreas: Obscured by bowel gas Liver: Increased attenuation, decreased visualization of vessels suggestive of fatty infiltrate Gallbladder: Hydropic 12 cm with multiple stones visualized. Evidence for sonographic Iqbal's sign: No CBD:, Bile duct is normal for the patient age. Normal less than 0.9 cm. Right Kidney: wnl IMPRESSION: 1. Cholelithiasis. Some gallbladder wall thickening is present. Cholecystitis should be considered.
--- NOTE | 2019-09-06 18:00 | ECHOF ---
Referral Reason:elev trop, ekg changes MEASUREMENTS -------- HEIGHT: 160.0 cm WEIGHT: 68.0 kg BP: IVSd: 1.6 cm (0.6 - 1.1) LVIDd: 4.5 cm (3.9 - 5.3) LVPWd: 1.9 cm (0.6 - 1.1) IVSs: 2.3 cm LVIDs: 2.7 cm LVPWs: 2.1 cm Ao Diam: 2.7 cm (2.0 - 3.7) LA Diam: 3.9 cm (2.7 - 3.8) AV Cusp: 1.7 cm (1.5 - 2.6) EPSS: 1.3 cm MV E Saurav: 0.45 m/s MV DecT: 233 ms MV A Saurav: 0.58 m/s MV E/A Ratio: 0.79 RAP: 5.00 mmHg RVSP: 39.57 mmHg MV EF SLOPE: 67.70 mm/s (70 - 150) MV EXCURSION: 12.15 mm (> 18.000) FINDINGS -------- Atrial fibrillation. This was a technically difficult study with suboptimal views. The left ventricular size is normal. There is moderate concentric left ventricular hypertrophy. O verall left ventricular systolic function is mildly impaired with, an EF between 45 - 50 %. The right ventricle is normal in size. The left atrium is mildly dilated. The right atrial size is normal. Lumason used The aortic valve is trileaflet and appears structurally normal. The mitral valve is normal. Mild mitral regurgitation is present. The tricuspid valve appears structurally normal. Mild tricuspid regurgitation present. Right vent ricular systolic pressure is normal at < 35 mmHg. There is no pulmonic regurgitation present. The aortic root size is normal. There is no pericardial effusion. CONCLUSIONS -------- 1. Atrial fibrillation. 2. This was a technically difficult study with suboptimal views. 3. The left ventricular size is normal. 4. There is moderate concentric left ventricular hypertrophy. 5. Overall left ventricular systolic function is mildly impaired with, an EF between 45 - 50 %. 6. The right ventricle is normal in size. 7. The left atrium is mildly dilated. 8. The right atrial size is normal. 9. Lumason used 10. The aortic valve is trileaflet and appears structurally normal. 11. The mitral valve is normal. 12. Mild mitral regurgitation is present. 13. The tricuspid valve appears structurally normal. 14. Mild tricuspid regurgitation present. 15. Right ventricular systolic pressure is normal at < 35 mmHg. 16. There is no pulmonic regurgitation present. 17. The aortic root size is normal. 18. There is no pericardial effusion. INSTRUCTIONAL COACH: Estela Scott RDCS
--- NOTE | 2019-09-06 18:21 | P.HPIM ---
History of Present Illness H&P Date: 09/06/19 Rita Miller, is an 89-year-old female who presented to [facility] emergency room with a chief complaint of abdominal pain nausea and vomiting she was evaluated in the emergency room that revealed evidence of dilated small bowel loops in the right lower quadrant and evidence of hydropic gallbladder, she was admitted to medical floor NG tube was inserted surgical consultation was requested, in the emergency room patient also had evidence of elevated liver enzymes, and had evidence of slightly elevated troponin level, cardiology consultation was requested. Patient was seen and examined on the medical floor she is alert and oriented in no apparent distress NG tube is still in place she stated that she is still having some abdominal pain but less than before, patient has low-grade fever of 99.2 there is no chest pain or shortness of breath no cough no nausea or vomiting at this time there is no burning was urination no frequency or urgency and no hematuria Past Medical History Past Medical History: Hyperlipidemia, Hypertension, Musculoskeletal Disorder, Osteoarthritis (OA) Additional Past Medical History / Comment(s): Clostrophobia, [place] History of Any Multi-Drug Resistant Organisms: None Reported Past Surgical History: Appendectomy, Bladder Surgery, Bowel Resection Past Anesthesia/Blood Transfusion Reactions: No Reported Reaction Past Psychological History: No Psychological Hx Reported Smoking Status: Former smoker Past Alcohol Use History: None Reported Past Drug Use History: None Reported - Past Family History Father Family Medical History: No Reported History Medications and Allergies Home Medications Medication Instructions Recorded Confirmed Type Aspirin 81 mg PO DAILY 06/25/16 09/05/19 History Furosemide 40 mg PO BID PRN 06/25/16 09/05/19 History Potassium Chloride 20 meq PO BID PRN 06/25/16 09/05/19 History Pravastatin Sodium [Pravachol] 20 mg PO HS 06/25/16 09/05/19 History Verapamil HCl [Verapamil ER] 240 mg PO BID 06/25/16 09/05/19 History Docusate Sodium [Dok] 100 mg PO DAILY 12/18/18 09/05/19 History Escitalopram [Lexapro] 10 mg PO DAILY 12/18/18 09/05/19 History L.acidoph,Paracasei, B.lactis 1 cap PO DAILY 12/18/18 09/05/19 History [Probiotic] Losartan Potassium [Cozaar] 100 mg PO DAILY 12/18/18 09/05/19 History Vit A/Vit C/Vit E/Zinc/Copper 1 cap PO DAILY 12/18/18 09/05/19 History [ICAPS SOFTGEL] hydrALAZINE HCL 25 mg PO BID 12/18/18 09/05/19 History Ipratropium-Albuterol Nebulize 3 ml INHALATION RT-QID 09/05/19 09/05/19 History [Duoneb 0.5 mg-3 mg/3 ml Soln] Loratadine [Claritin] 10 mg PO DAILY 09/05/19 09/05/19 History Allergies Allergy/AdvReac Type Severity Reaction Status Date / Time cheese Allergy Unknown Verified 09/05/19 21:53 chocolate flavor Allergy Unknown Verified 09/05/19 21:53 tomato Allergy Unknown Verified 09/05/19 21:53 levofloxacin [From Levaquin] AdvReac Diarrhea Verified 09/05/19 21:53 Physical Exam Vitals: Vital Signs Temp Pulse Pulse Resp BP BP Pulse Ox 09/06/19 15:24 57 L 17 09/06/19 14:44 99.4 F 75 16 149/75 97 09/06/19 07:15 98.9 F 71 17 151/77 96 09/06/19 04:00 24 09/06/19 01:45 99.2 F 76 24 151/73 97 09/06/19 00:00 24 09/05/19 21:35 98.4 F 89 24 161/82 97 09/05/19 21:03 98.0 F 78 18 146/80 97 09/05/19 19:26 90 18 154/95 93 L Intake and Output 09/06/19 09/06/19 09/06/19 06:59 14:59 22:59 Intake Total 50 Balance 50 Intake: Intake, IV Titration 50 Amount Sodium Chloride 0.9% 1, 50 000 ml @ 50 mls/hr IV . Q20H [facility] Rx#:[id number] Other: Voiding Method Bedside Commode Bedside Commode Bedside Commode # Voids 1 1 1 Weight 68.039 kg In general patient is alert and oriented 3 in no apparent distress HEENT head normocephalic and atraumatic Neck is supple no JVD no goiter no lymphadenopathy Chest exam reveals a few scattered crackles no wheezing Cardiac exam reveals regular heart sounds no gallops no murmurs Abdomen is soft nontender no organomegaly with normal bowel sounds Extremity exam reveals no edema no cyanosis or clubbing Neurological examination reveals no gross focal deficit Results CBC & Chem 7: 09/06/19 06:39 09/06/19 06:39 Labs: Abnormal Lab Results - Last 24 Hours (Table) 09/05/19 09/05/19 09/05/19 Range/Units 18:00 18:00 18:00 WBC 11.2 H (3.8-10.6) k/uL Plt Count (150-450) k/uL Neutrophils # 9.6 H (1.3-7.7) k/uL Lymphocytes # 0.9 L (1.0-4.8) k/uL Chloride (98-107) mmol/L Carbon Dioxide (22-30) mmol/L BUN 18 H (7-17) mg/dL Glucose 214 H (74-99) mg/dL AST 592 H (14-36) U/L ALT 271 H (4-34) U/L Alkaline Phosphatase 185 H (38-126) U/L Troponin I 0.042 H* (0.000-0.034) ng/mL Total Protein (6.3-8.2) g/dL Albumin (3.5-5.0) g/dL Urine Appearance (Clear) Urine Protein (Negative) Urine Glucose (UA) (Negative) Urine Blood (Negative) Urine RBC (0-5) /hpf Amorphous Sediment (None) /hpf Hyaline Casts (0-2) /lpf 09/05/19 09/06/19 09/06/19 Range/Units 19:10 00:39 06:39 WBC (3.8-10.6) k/uL Plt Count 141 L (150-450) k/uL Neutrophils # (1.3-7.7) k/uL Lymphocytes # 0.9 L (1.0-4.8) k/uL Chloride (98-107) mmol/L Carbon Dioxide (22-30) mmol/L BUN (7-17) mg/dL Glucose (74-99) mg/dL AST (14-36) U/L ALT (4-34) U/L Alkaline Phosphatase (38-126) U/L Troponin I 0.157 H* (0.000-0.034) ng/mL Total Protein (6.3-8.2) g/dL Albumin (3.5-5.0) g/dL Urine Appearance Turbid H (Clear) Urine Protein 1+ H (Negative) Urine Glucose (UA) 1+ H (Negative) Urine Blood Small H (Negative) Urine RBC 9 H (0-5) /hpf Amorphous Sediment Rare H (None) /hpf Hyaline Casts 3 H (0-2) /lpf 09/06/19 09/06/19 Range/Units 06:39 06:39 WBC (3.8-10.6) k/uL Plt Count (150-450) k/uL Neutrophils # (1.3-7.7) k/uL Lymphocytes # (1.0-4.8) k/uL Chloride 108 H (98-107) mmol/L Carbon Dioxide 33 H (22-30) mmol/L BUN (7-17) mg/dL Glucose (74-99) mg/dL AST 256 H (14-36) U/L ALT 265 H (4-34) U/L Alkaline Phosphatase 133 H (38-126) U/L Troponin I 0.132 H* (0.000-0.034) ng/mL Total Protein 6.1 L (6.3-8.2) g/dL Albumin 3.4 L (3.5-5.0) g/dL Urine Appearance (Clear) Urine Protein (Negative) Urine Glucose (UA) (Negative) Urine Blood (Negative) Urine RBC (0-5) /hpf Amorphous Sediment (None) /hpf Hyaline Casts (0-2) /lpf Thrombosis Risk Factor Assmnt - Choose All That Apply Each Factor Represents 1 point: Heart failure (<1month) Each Risk Factor Represents 3 Points: Age 75 years or older Thrombosis Risk Factor Assessment Total Risk Factor Score: 4 Thrombosis Risk Factor Assessment Level: Moderate Risk Assessment and Plan Plan: 1. Abdominal pain was nausea and vomiting, with evidence of bowel obstruction on computed tomography scan, NG tube was inserted and surgical consultation requested 2. Evidence of hydropic gallbladder, surgical consultation was requested 3. Elevated liver enzymes on presentation will monitor statin was discontinued 4. Slight elevation in troponin level cardiology consultation was requested 5. Underlying history of hypertension home medication reviewed and are on hold at this time patient will be given hydralazine 10 mg IV every 4 hours as needed 6. Slight leukocytosis patient was started on IV Zosyn, will monitor Medication and labs were reviewed Recheck labs in a.m. Prognosis is guarded due to age and severity of illness will follow closely
[2019-09-06] MEDS: hydrALAZINE HCL 20 MG/ML 1 ML VIAL IVP PRN (20:19)
[2019-09-07] MEDS: PIPERACILLIN-TAZOBACTAM 3.375 GM in SODIUM CHLORIDE 0.9% 100 ML IVPB SCH ×4 (00:17→23:13)
[2019-09-07] MEDS: hydrALAZINE HCL 20 MG/ML 1 ML VIAL IVP PRN ×2 (01:59→22:25)
[2019-09-07] MEDS: ONDANSETRON 4 MG/2 ML VIAL IVP PRN (03:08)
[2019-09-07] MEDS: VIT A,C & E-LUTEIN-MINERALS 1 EACH TAB PO SCH (07:12)
[2019-09-07] MEDS: ASPIRIN 81 MG PO SCH (07:13)
[2019-09-07] MEDS: DOCUSATE 100 MG CAP PO SCH (07:13)
[2019-09-07] MEDS: LACTOBACILLUS ACIDOPH & BULGAR 1 EACH PACKET PO SCH (07:13)
[2019-09-07] MEDS: ESCITALOPRAM 10 MG TAB PO SCH (07:13)
[2019-09-07 07:39] LABS: Basophils % (A) 0 %; Eosinophils % (A) 1 %; HCT 45.1 % (34.0-46.0); HGB 13.7 gm/dL (11.4-16.0); Hypochromasia Slight; Lymphocytes # (A) 0.9 k/uL (1.0-4.8); Lymphocytes % (A) 12 %; MCH 29.2 pg (25.0-35.0); MCHC 30.4 g/dL (31.0-37.0); MCV 95.9 fL (80.0-100.0); Mean Platelet Volume 7.4; Monocytes # (A) 0.4 k/uL (0-1.0); Monocytes % (A) 5 %; Neutrophils # (A) 6.2 k/uL (1.3-7.7); Neutrophils % (A) 81 %; Platelet Count 147 k/uL (150-450); RBC 4.71 m/uL (3.80-5.40); RDW 13.1 % (11.5-15.5); WBC 7.7 k/uL (3.8-10.6)
[2019-09-07] MEDS: IPRATROPIUM-ALBUTEROL 3 ML NEB INHALATION SCH ×4 (07:39→19:32)
[2019-09-07 07:54] LABS: ALT 163 U/L (4-34); AST 94 U/L (14-36); African American GFR (CKD) >90 (>60 ml/min/1.73 sqM); Albumin 3.3 g/dL (3.5-5.0); Alkaline Phosphatase 122 U/L (38-126); Anion Gap 2 mmol/L; Blood Urea Nitrogen 18 mg/dL (7-17); Calcium 8.8 mg/dL (8.4-10.2); Carbon Dioxide 37 mmol/L (22-30); Chloride 105 mmol/L (98-107); Glucose 93 mg/dL (74-99); Non-African American GFR(CKD) 79 (>60 ml/min/1.73 sqM); Potassium 3.8 mmol/L (3.5-5.1); Sodium 144 mmol/L (137-145); Total Bilirubin 0.4 mg/dL (0.2-1.3); Total Protein 5.9 g/dL (6.3-8.2)
[2019-09-07] MEDS ORDERED: LORATADINE 10 MG TAB PO SCH (09:00)
--- NOTE | 2019-09-07 10:14 | P.PN ---
<Tracy Syed - Last Filed: 09/07/19 10:11> Subjective Progress Note Date: 09/07/19 CHIEF COMPLAINT: Abdominal pain HISTORY OF PRESENT ILLNESS: Patient examined at the bedside. She denies abdominal pain. Denies nausea. Reports she is passing a small amount of flatus this morning. Denies BM. Nursing reports 1000cc of drainage yesterday from NG tube. Cannister with 500cc this morning thus far. Abdominal ultrasound yesterday reveals cholelithiasis. Some gallbladder wall thickening is present. AST 94. ALT 163. Bilirubin 0.4. PHYSICAL EXAM: VITAL SIGNS: Reviewed. GENERAL: Well-developed in no acute distress. HEENT: No sclera icterus. Extraocular movements grossly intact. Moist buccal mucosa. Head is atraumatic, normocephalic. ABDOMEN: Soft. Distention improving. Nontender. NG tube to low intermittent suction with brown/bilious drainage NEUROLOGIC: Alert and oriented. Cranial nerves II through XII grossly intact. ASSESSMENT: 1. Abdominal pain 2. Small bowel obstruction 3. History of appendectomy 4. Sigmoid diverticulosis 5. Hydropic gallbladder, cholelithiasis, cannot exclude cholecystitis 6. Transaminitis PLAN: -NPO. Continue IV fluids -Continue NG tube to LIS -Monitor LFTs -Continue antibiotics -Dr. Irene to re-evaluate patient this afternoon. Further recommendations pendi mitchel. Nurse practitioner note has been reviewed by physician. Signing provider agrees with the documented findings, assessment, and plan of care. Objective - Vital Signs Vital signs: Vital Signs Temp 97.9 F 09/07/19 07:00 Pulse 76 09/07/19 07:52 Resp 12 09/07/19 07:00 BP 151/75 09/07/19 07:00 Pulse Ox 98 09/07/19 07:00 Intake & Output 09/06/19 09/07/19 09/07/19 18:59 06:59 18:59 Output Total 650 500 Balance -650 -500 Weight 68.039 kg Output: Gastric Drainage 650 500 Other: Voiding Method Bedside Commode Bedside Commode # Voids 1 1 - Labs CBC & Chem 7: 09/07/19 07:17 09/07/19 07:17 Labs: Abnormal Lab Results - Last 24 Hours (Table) 09/07/19 09/07/19 Range/Units 07:17 07:17 MCHC 30.4 L (31.0-37.0) g/dL Plt Count 147 L (150-450) k/uL Lymphocytes # 0.9 L (1.0-4.8) k/uL Carbon Dioxide 37 H (22-30) mmol/L BUN 18 H (7-17) mg/dL AST 94 H (14-36) U/L ALT 163 H (4-34) U/L Total Protein 5.9 L (6.3-8.2) g/dL Albumin 3.3 L (3.5-5.0) g/dL <Andres Irene - Last Filed: 09/07/19 12:56> Subjective As above. Patient with heavily nasogastric tube output. Ultrasound results demonstrate distended gallbladder with stones. No sonographic Iqbal sign. Still denies pain. Will check small bowel series to rule out small bowel obstruction. Further recommendations will follow. Clinical scenario discussed in detail with the patient's daughter by phone. Objective - Vital Signs Vital signs: Vital Signs Temp 97.9 F 09/07/19 07:00 Pulse 84 09/07/19 12:14 Resp 12 09/07/19 07:00 BP 151/75 09/07/19 07:00 Pulse Ox 98 09/07/19 07:00 Intake & Output 09/06/19 09/07/19 09/07/19 18:59 06:59 18:59 Output Total 650 500 450 Balance -650 -500 -450 Weight 68.039 kg Output: Gastric Drainage 650 500 450 Other: Voiding Method Bedside Commode Bedside Commode # Voids 1 1 1 # Bowel Movements 1 - Labs CBC & Chem 7: 09/07/19 07:17 09/07/19 07:17 Labs: Abnormal Lab Results - Last 24 Hours (Table) 09/07/19 09/07/19 Range/Units 07:17 07:17 MCHC 30.4 L (31.0-37.0) g/dL Plt Count 147 L (150-450) k/uL Lymphocytes # 0.9 L (1.0-4.8) k/uL Carbon Dioxide 37 H (22-30) mmol/L BUN 18 H (7-17) mg/dL AST 94 H (14-36) U/L ALT 163 H (4-34) U/L Total Protein 5.9 L (6.3-8.2) g/dL Albumin 3.3 L (3.5-5.0) g/dL
--- NOTE | 2019-09-07 10:46 | P.PN ---
Subjective HISTORY OF PRESENTING ILLNESS This is a pleasant 89-year-old female past medical history significant for hypertension and dyslipidemia. She denies prior history of coronary artery disease and does not follow regularly with a glass beveller. She is seen and examined sitting up in bed in no acute distress. She continues to have significant output from her NG tube. She denies chest pain, shortness of breath, dizziness or palpitations. Blood pressure 151/75 heart rate 76 afebrile and maintaining oxygen saturation on nasal cannula. Laboratory data reviewed, WBC 7.7, hgb 13.7, plt 147, sodium 144, potassium 3.8, creatinine 0.69, Echocard iogram obtained revealed low normal LV systolic function with EF 45-50%, no segmental wall motion abnormalities noted. PHYSICAL EXAMINATION CONSTITUTIONAL: No apparent distress. HEENT: Head is normocephalic. Pupils are equal, round. Sclerae anicteric. Mucous membranes of the mouth are moist. No JVD. No carotid bruit. NG tube in place CHEST EXAMINATION: Lungs are clear to auscultation. No chest wall tenderness is noted on palpation or with deep breathing. HEART EXAMINATION: Regular rate and rhythm. S1, S2 heard. No murmurs, gallops or rub. EXTREMITIES: 2+ peripheral pulses, no lower extremity edema and no calf tenderness. ASSESSMENT Small bowel obstruction Troponin leak Transaminitis Hypertension Dyslipidemia PLAN She continues to NPO with NG tube in place. We will initiate beta blockers when she can tolerate PO intake. Nurse Practitioner note has been reviewed, I agree with a documented findings and plan of care. Patient was seen and examined. Objective - Vital Signs Vital signs: Vital Signs Temp 97.9 F 09/07/19 07:00 Pulse 76 09/07/19 07:52 Resp 12 09/07/19 07:00 BP 151/75 09/07/19 07:00 Pulse Ox 98 09/07/19 07:00 Intake & Output 09/06/19 09/07/19 09/07/19 18:59 06:59 18:59 Output Total 650 500 Balance -650 -500 Weight 68.039 kg Output: Gastric Drainage 650 500 Other: Voiding Method Bedside Commode Bedside Commode # Voids 1 1 - Labs CBC & Chem 7: 09/07/19 07:17 09/07/19 07:17 Labs: Abnormal Lab Results - Last 24 Hours (Table) 09/07/19 09/07/19 Range/Units 07:17 07:17 MCHC 30.4 L (31.0-37.0) g/dL Plt Count 147 L (150-450) k/uL Lymphocytes # 0.9 L (1.0-4.8) k/uL Carbon Dioxide 37 H (22-30) mmol/L BUN 18 H (7-17) mg/dL AST 94 H (14-36) U/L ALT 163 H (4-34) U/L Total Protein 5.9 L (6.3-8.2) g/dL Albumin 3.3 L (3.5-5.0) g/dL
[2019-09-07] MEDS: SODIUM CHLORIDE 0.9% 1,000 ML IV SCH (12:06)
--- NOTE | 2019-09-07 17:16 | P.PN ---
Subjective Progress Note Date: 09/07/19 Rita Miller, is an 89-year-old female who presented to [facility] emergency room with a chief complaint of abdominal pain nausea and vomiting she was evaluated in the emergency room that revealed evidence of dilated small bowel loops in the right lower quadrant and evidence of hydropic gallbladder, she was admitted to medical floor NG tube was inserted surgical consultation was requested, in the emergency room patient also had evidence of elevated liver enzymes, and had evidence of slightly elevated troponin level, cardiology consultation was requested. Patient was seen and examined on the medical floor she is alert and oriented in no apparent distress NG tube is still in place she stated that she is still having some abdominal pain but less than before, patient has low-grade fever of 99.2 there is no chest pain or shortness of breath no cough no nausea or vomiting at this time there is no burning was urination no frequency or urgency and no hematuria On 09/07/2019 patient was seen and examined on the medical floor she is alert and oriented 3 in no apparent distress, she started passing some gas today abdominal pain and nausea have resolved no bowel movements yet NG tube is still in place, surgical service following Objective - Vital Signs Vital signs: Vital Signs Temp 97.8 F 09/07/19 15:00 Pulse 82 09/07/19 15:49 Resp 16 09/07/19 15:49 BP 167/62 09/07/19 15:00 Pulse Ox 98 09/07/19 15:00 Intake & Output 09/06/19 09/07/19 09/07/19 18:59 06:59 18:59 Output Total 650 500 450 Balance -650 -500 -450 Weight 68.039 kg Output: Gastric Drainage 650 500 450 Other: Voiding Method Bedside Commode Bedside Commode # Voids 1 1 1 # Bowel Movements 1 - Exam In general patient is alert and oriented 3 in no apparent distress HEENT head normocephalic and atraumatic Neck is supple no JVD no goiter no lymphadenopathy Chest exam reveals a few scattered crackles no wheezing Cardiac exam reveals regular heart sounds no gallops no murmurs Abdomen is soft nontender no organomegaly with normal bowel sounds Extremity exam reveals no edema no cyanosis or clubbing Neurological examination reveals no gross focal deficit - Labs CBC & Chem 7: 09/07/19 07:17 09/07/19 07:17 Labs: Abnormal Lab Results - Last 24 Hours (Table) 09/07/19 09/07/19 Range/Units 07:17 07:17 MCHC 30.4 L (31.0-37.0) g/dL Plt Count 147 L (150-450) k/uL Lymphocytes # 0.9 L (1.0-4.8) k/uL Carbon Dioxide 37 H (22-30) mmol/L BUN 18 H (7-17) mg/dL AST 94 H (14-36) U/L ALT 163 H (4-34) U/L Total Protein 5.9 L (6.3-8.2) g/dL Albumin 3.3 L (3.5-5.0) g/dL Assessment and Plan Plan: 1. Abdominal pain was nausea and vomiting, with evidence of bowel obstruction on computed tomography scan, NG tube was inserted and surgical consultation requested 2. Evidence of hydropic gallbladder, surgical consultation was requested 3. Elevated liver enzymes on presentation will monitor statin was discontinued 4. Slight elevation in troponin level cardiology consultation was requested 5. Underlying history of hypertension home medication reviewed and are on hold at this time patient will be given hydralazine 10 mg IV every 4 hours as needed 6. Slight leukocytosis patient was started on IV Zosyn, will monitor Medication and labs were reviewed Recheck labs in a.m. Prognosis is guarded due to age and severity of illness will follow closely
[2019-09-08] MEDS: ONDANSETRON 4 MG/2 ML VIAL IVP PRN ×2 (00:09→08:04)
[2019-09-08] MEDS ORDERED: TRIMETHOBENZAMIDE 100 MG/ML 2 ML VIAL IM PRN (03:37)
[2019-09-08] MEDS: hydrALAZINE HCL 20 MG/ML 1 ML VIAL IVP PRN ×2 (08:07→22:34)
[2019-09-08] MEDS: PIPERACILLIN-TAZOBACTAM 3.375 GM in SODIUM CHLORIDE 0.9% 100 ML IVPB SCH ×3 (08:10→23:11)
[2019-09-08 08:29] LABS: Basophils % (A) 0 %; Eosinophils # (A) 0.1 k/uL (0-0.7); Eosinophils % (A) 1 %; HCT 43.6 % (34.0-46.0); HGB 13.7 gm/dL (11.4-16.0); Lymphocytes # (A) 0.7 k/uL (1.0-4.8); Lymphocytes % (A) 10 %; MCH 29.9 pg (25.0-35.0); MCHC 31.4 g/dL (31.0-37.0); MCV 95.2 fL (80.0-100.0); Mean Platelet Volume 7.4; Monocytes # (A) 0.6 k/uL (0-1.0); Monocytes % (A) 7 %; Neutrophils # (A) 6.3 k/uL (1.3-7.7); Neutrophils % (A) 81 %; Platelet Count 156 k/uL (150-450); RBC 4.58 m/uL (3.80-5.40); RDW 13.2 % (11.5-15.5); WBC 7.8 k/uL (3.8-10.6)
[2019-09-08] MEDS: IPRATROPIUM-ALBUTEROL 3 ML NEB INHALATION SCH ×4 (08:49→19:50)
[2019-09-08 08:54] LABS: ALT 117 U/L (4-34); AST 53 U/L (14-36); African American GFR (CKD) >90 (>60 ml/min/1.73 sqM); Albumin 3.4 g/dL (3.5-5.0); Alkaline Phosphatase 106 U/L (38-126); Anion Gap 3 mmol/L; Blood Urea Nitrogen 22 mg/dL (7-17); Calcium 8.8 mg/dL (8.4-10.2); Carbon Dioxide 39 mmol/L (22-30); Chloride 104 mmol/L (98-107); Glucose 104 mg/dL (74-99); Non-African American GFR(CKD) 82 (>60 ml/min/1.73 sqM); Potassium 3.6 mmol/L (3.5-5.1); Sodium 146 mmol/L (137-145); Total Bilirubin 0.5 mg/dL (0.2-1.3); Total Protein 6.1 g/dL (6.3-8.2)
[2019-09-08] MEDS: LACTOBACILLUS ACIDOPH & BULGAR 1 EACH PACKET PO SCH (09:07)
[2019-09-08] MEDS: VIT A,C & E-LUTEIN-MINERALS 1 EACH TAB PO SCH (09:10)
[2019-09-08] MEDS: ESCITALOPRAM 10 MG TAB PO SCH (09:10)
[2019-09-08] MEDS: ASPIRIN 81 MG PO SCH (09:10)
[2019-09-08] MEDS: DOCUSATE 100 MG CAP PO SCH (09:10)
[2019-09-08] MEDS: SODIUM CHLORIDE 0.9% 1,000 ML IV SCH (09:11)
--- NOTE | 2019-09-08 09:29 | P.PN ---
<Tracy Syed - Last Filed: 09/08/19 09:26> Subjective Progress Note Date: 09/08/19 CHIEF COMPLAINT: Abdominal pain HISTORY OF PRESENT ILLNESS: Patient examined this morning. She is sitting in the chair. She reports passing flatus. Denies bowel movement. Denies abdominal pain. Nursing reports 900cc of drainage overnight. 300cc thus far today. PHYSICAL EXAM: VITAL SIGNS: Reviewed. GENERAL: Well-developed in no acute distress. HEENT: No sclera icterus. Extraocular movements grossly intact. Moist buccal mucosa. Head is atraumatic, normocephalic. ABDOMEN: Soft. Distention improving. Nontender. NG tube to low intermittent suction with brown/bilious drainage NEUROLOGIC: Alert and oriented. Cranial nerves II through XII grossly intact. ASSESSMENT: 1. Abdominal pain 2. Small bowel obstruction 3. History of appendectomy 4. Sigmoid diverticulosis 5. Hydropic gallbladder, cholelithiasis, cannot exclude cholecystitis 6. Transaminitis PLAN: -NPO. Continue IV fluids -Continue NG tube to LIS -Monitor LFTs -Continue antibiotics -Small bowel series ordered. Await results Nurse practitioner note has been reviewed by physician. Signing provider agrees with the documented findings, assessment, and plan of care. Objective - Vital Signs Vital signs: Vital Signs Temp 98.8 F 09/08/19 07:00 Pulse 62 09/08/19 09:00 Resp 19 09/08/19 07:00 BP 173/75 09/08/19 07:00 Pulse Ox 96 09/08/19 07:00 Intake & Output 09/07/19 09/08/19 09/08/19 18:59 06:59 18:59 Intake Total 900 Output Total 1150 1100 Balance -1150 -200 Intake: Intake, IV Titration 900 Amount Piperacillin-Tazobactam 3 100 .375 gm In Sodium Chloride 0.9% 100 ml @ 25 mls/hr IVPB Q8HR [facility] Rx# :[id number] Sodium Chloride 0.9% 1, 800 000 ml @ 50 mls/hr IV . Q20H [facility] Rx#:[id number] Output: Gastric Drainage 1150 1100 Other: Voiding Method Bedside Commode Bedside Commode # Voids 1 1 # Bowel Movements 1 - Labs CBC & Chem 7: 09/08/19 07:50 09/08/19 07:50 Labs: Abnormal Lab Results - Last 24 Hours (Table) 09/08/19 09/08/19 Range/Units 07:50 07:50 Lymphocytes # 0.7 L (1.0-4.8) k/uL Sodium 146 H (137-145) mmol/L Carbon Dioxide 39 H (22-30) mmol/L BUN 22 H (7-17) mg/dL Glucose 104 H (74-99) mg/dL AST 53 H (14-36) U/L ALT 117 H (4-34) U/L Total Protein 6.1 L (6.3-8.2) g/dL Albumin 3.4 L (3.5-5.0) g/dL <Andres Irene - Last Filed: 09/08/19 13:42> Subjective As above. Patient denies abdominal pain. Liver enzymes improved. So far no definite obstruction seen on small bowel series. Await completion of small bowel series. Hopefully remove nasogastric tube and begin diet. Objective - Vital Signs Vital signs: Vital Signs Temp 98.8 F 09/08/19 07:00 Pulse 62 09/08/19 09:00 Resp 18 09/08/19 08:00 BP 173/75 09/08/19 07:00 Pulse Ox 96 09/08/19 07:00 Intake & Output 09/07/19 09/08/19 09/08/19 18:59 06:59 18:59 Intake Total 900 550 Output Total 1150 1100 Balance -1150 -200 550 Intake: Intake, IV Titration 900 550 Amount Piperacillin-Tazobactam 3 100 100 .375 gm In Sodium Chloride 0.9% 100 ml @ 25 mls/hr IVPB Q8HR [facility] Rx# :[id number] Sodium Chloride 0.9% 1, 800 450 000 ml @ 50 mls/hr IV . Q20H [facility] Rx#:[id number] Output: Gastric Drainage 1150 1100 Other: Voiding Method Bedside Commode Bedside Commode Bedside Commode # Voids 1 1 1 # Bowel Movements 1 - Labs CBC & Chem 7: 09/08/19 07:50 09/08/19 07:50 Labs: Abnormal Lab Results - Last 24 Hours (Table) 09/08/19 09/08/19 Range/Units 07:50 07:50 Lymphocytes # 0.7 L (1.0-4.8) k/uL Sodium 146 H (137-145) mmol/L Carbon Dioxide 39 H (22-30) mmol/L BUN 22 H (7-17) mg/dL Glucose 104 H (74-99) mg/dL AST 53 H (14-36) U/L ALT 117 H (4-34) U/L Total Protein 6.1 L (6.3-8.2) g/dL Albumin 3.4 L (3.5-5.0) g/dL
--- NOTE | 2019-09-08 11:50 | P.PN ---
Subjective HISTORY OF PRESENTING ILLNESS This is a pleasant 89-year-old female past medical history significant for hypertension and dyslipidemia. She denies prior history of coronary artery disease and does not follow regularly with a program strategist. She is seen and examined sitting up in the chair with NG tube in place. She continues to have significant output from the NG. She complains today of intermittent abdominal discomfort. She states at times she feels some sharp pains in the chest in the mid-sternal/epigastric region. Blood pressure 173/75 heart rate 62 afebrile and maintaining oxygen saturation on nasal cannnula. IV hydralazine was given this morning for elevated blood pressures. Laboratory data reviewed, CBC unremarkable, sodium 146, potassium 3.6, creatinine 0.6, LFT's are improving. PHYSICAL EXAMINATION CONSTITUTIONAL: No apparent distress. HEENT: Head is normocephalic. Pupils are equal, round. Sclerae anicteric. Mucous membranes of the mouth are moist. No JVD. No carotid bruit. NG tube in place CHEST EXAMINATION: Lungs are clear to auscultation. No chest wall tenderness is noted on palpation or with deep breathing. HEART EXAMINATION: Regular rate and rhythm. S1, S2 heard. No murmurs, gallops or rub. EXTREMITIES: 2+ peripheral pulses, no lower extremity edema and no calf tenderness. ASSESSMENT Small bowel obstruction Troponin leak Transaminitis Hypertension Dyslipidemia PLAN She continues to NPO with NG tube in place. Recommend lopressor 25 mg PO BID when she can tolerate PO along with daily aspirin. Ongoing management per surgery and primary care team. We will follow as needed, follow up with Dr. Caro in the office in 2 weeks for further cardiac evaluation. Nurse Practitioner note has been reviewed, I agree with a documented findings and plan of care. Patient was seen and examined. Objective - Vital Signs Vital signs: Vital Signs Temp 98.8 F 09/08/19 07:00 Pulse 62 09/08/19 09:00 Resp 18 09/08/19 08:00 BP 173/75 09/08/19 07:00 Pulse Ox 96 09/08/19 07:00 Intake & Output 09/07/19 09/08/19 09/08/19 18:59 06:59 18:59 Intake Total 900 Output Total 1150 1100 Balance -1150 -200 Intake: Intake, IV Titration 900 Amount Piperacillin-Tazobactam 3 100 .375 gm In Sodium Chloride 0.9% 100 ml @ 25 mls/hr IVPB Q8HR [facility] Rx# :[id number] Sodium Chloride 0.9% 1, 800 000 ml @ 50 mls/hr IV . Q20H ON LICENSE OF [facility] Rx#:[id number] Output: Gastric Drainage 1150 1100 Other: Voiding Method Bedside Commode Bedside Commode Bedside Commode # Voids 1 1 # Bowel Movements 1 - Labs CBC & Chem 7: 09/08/19 07:50 09/08/19 07:50 Labs: Abnormal Lab Results - Last 24 Hours (Table) 09/08/19 09/08/19 Range/Units 07:50 07:50 Lymphocytes # 0.7 L (1.0-4.8) k/uL Sodium 146 H (137-145) mmol/L Carbon Dioxide 39 H (22-30) mmol/L BUN 22 H (7-17) mg/dL Glucose 104 H (74-99) mg/dL AST 53 H (14-36) U/L ALT 117 H (4-34) U/L Total Protein 6.1 L (6.3-8.2) g/dL Albumin 3.4 L (3.5-5.0) g/dL
--- NOTE | 2019-09-08 17:30 | P.PN ---
Subjective Progress Note Date: 09/08/19 Rita Miller, is an 89-year-old female who presented to [facility] emergency room with a chief complaint of abdominal pain nausea and vomiting she was evaluated in the emergency room that revealed evidence of dilated small bowel loops in the right lower quadrant and evidence of hydropic gallbladder, she was admitted to medical floor NG tube was inserted surgical consultation was requested, in the emergency room patient also had evidence of elevated liver enzymes, and had evidence of slightly elevated troponin level, cardiology consultation was requested. Patient was seen and examined on the medical floor she is alert and oriented in no apparent distress NG tube is still in place she stated that she is still having some abdominal pain but less than before, patient has low-grade fever of 99.2 there is no chest pain or shortness of breath no cough no nausea or vomiting at this time there is no burning was urination no frequency or urgency and no hematuria On 09/07/2019 patient was seen and examined on the medical floor she is alert and oriented 3 in no apparent distress, she started passing some gas today abdominal pain and nausea have resolved no bowel movements yet NG tube is still in place, surgical service following On 09/08/2019 patient was seen and examined on the medical floor, she was off the floor all morning having small bowel x-rays, results are still pending, patient still has NG tube in, she denies any symptoms at this time there is no fever or chills no headache or dizziness no chest pain no shortness of breath no cough no nausea or vomiting no abdominal pain no diarrhea no blood in the stools no burning was urination no frequency or urgency and no hematuria Objective - Vital Signs Vital signs: Vital Signs Temp 97.2 F L 09/08/19 15:00 Pulse 76 09/08/19 16:02 Resp 18 09/08/19 15:22 BP 178/69 09/08/19 15:00 Pulse Ox 96 09/08/19 15:00 Intake & Output 09/07/19 09/08/19 09/08/19 18:59 06:59 18:59 Intake Total 900 550 Output Total 1150 1100 Balance -1150 -200 550 Intake: Intake, IV Titration 900 550 Amount Piperacillin-Tazobactam 3 100 100 .375 gm In Sodium Chloride 0.9% 100 ml @ 25 mls/hr IVPB Q8HR [facility] Rx# :[id number] Sodium Chloride 0.9% 1, 800 450 000 ml @ 50 mls/hr IV . Q20H [facility] Rx#:[id number] Output: Gastric Drainage 1150 1100 Other: Voiding Method Bedside Commode Bedside Commode Bedside Commode # Voids 1 1 1 # Bowel Movements 1 - Exam In general patient is alert and oriented 3 in no apparent distress HEENT head normocephalic and atraumatic Neck is supple no JVD no goiter no lymphadenopathy Chest exam reveals a few scattered crackles no wheezing Cardiac exam reveals regular heart sounds no gallops no murmurs Abdomen is soft nontender no organomegaly with normal bowel sounds Extremity exam reveals no edema no cyanosis or clubbing Neurological examination reveals no gross focal deficit - Labs CBC & Chem 7: 09/08/19 07:50 09/08/19 07:50 Labs: Abnormal Lab Results - Last 24 Hours (Table) 09/08/19 09/08/19 Range/Units 07:50 07:50 Lymphocytes # 0.7 L (1.0-4.8) k/uL Sodium 146 H (137-145) mmol/L Carbon Dioxide 39 H (22-30) mmol/L BUN 22 H (7-17) mg/dL Glucose 104 H (74-99) mg/dL AST 53 H (14-36) U/L ALT 117 H (4-34) U/L Total Protein 6.1 L (6.3-8.2) g/dL Albumin 3.4 L (3.5-5.0) g/dL Assessment and Plan Plan: 1. Abdominal pain was nausea and vomiting, with evidence of bowel obstruction on computed tomography scan, NG tube was inserted and surgical consultation requested 2. Evidence of hydropic gallbladder, surgical consultation was requested 3. Elevated liver enzymes on presentation will monitor statin was discontinued 4. Slight elevation in troponin level cardiology consultation was requested 5. Underlying history of hypertension home medication reviewed and are on hold at this time patient will be given hydralazine 10 mg IV every 4 hours as needed 6. Slight leukocytosis patient was started on IV Zosyn, will monitor Medication and labs were reviewed Recheck labs in a.m. Prognosis is guarded due to age and severity of illness will follow closely Awaiting small bowel x-ray results and further recommendation from surgery
--- NOTE | 2019-09-08 20:48 | FL ---
EXAMINATION TYPE: FL small bowel follow through DATE OF EXAM: 09/08/2019 COMPARISON: CT 09/05/2019 HISTORY: Small bowel obstruction TECHNIQUE: Small bowel follow-through was performed following barium contrast placed through a nasoga stric tube. FINDINGS: 1 minute 29 seconds of fluoroscopy time was provided for the procedure. 23 images were obtained. Fluoroscopic real-time observation radiographs and fluoroscopic imaging was performed. Mesmerist film: Nasogastric tube is within the midline of the abdomen. Degenerative scoliosis within the midline. Air and fecal debris is within the colon. Small bowel loops are at the upper limits for norm al size in the midline. Following the oral administration of barium contrast, fundus body and antrum stomach as visualized ap pears normal. There is prompt spill into the duodenum. Ligament of Treitz appears to be in a normal p osition. The proximal jejunum appears somewhat prominent. After initial imaging on there was significant slowi ng of the transit. Multiple delayed images were obtained. Contrast does not extend to the colon. At 4 hours the patient requested no more imaging in the department due to discomfort. The patient was released to the floor for additional follow-up. Additional overhead radiograph was obtained at 6.5 hours. Contrast is not extend to the colon. High-g rade partial or early small bowel obstruction should be considered. Ileal loops of bowel have an abnormal fold pattern and are somewhat dilated. A transition point could not be located. Under real-time observation loops of bowel appear to be freely mobile. Contrast appe ars to extend at least to the mid ileum. Preliminary results at approximately 3 1/2 hours were discussed by telephone with Dr. Irene. On the C T the dilated ileal loops appear to be somewhat removed from the gallbladder and more normal caliber small bowel loops are near the gallbladder suggesting ileus secondary to cholecystitis to be less lik denis. IMPRESSION: 1. Partial or early complete small bowel obstruction. 2. Recommend follow-up abdomen film in a.m. to evaluate partial versus complete. Zone of transition c annot be identified on overhead radiographs or real-time fluoroscopic observation. 3. Please note that barium was utilized for the exam.
[2019-09-09] MEDS: hydrALAZINE HCL 20 MG/ML 1 ML VIAL IVP PRN ×2 (01:49→09:08)
[2019-09-09] MEDS: ONDANSETRON 4 MG/2 ML VIAL IVP PRN (02:04)
[2019-09-09] MEDS: SODIUM CHLORIDE 0.9% 1,000 ML IV SCH (06:24)
[2019-09-09 06:47] LABS: Basophils % (A) 0 %; Eosinophils % (A) 0 %; HCT 41.8 % (34.0-46.0); HGB 13.4 gm/dL (11.4-16.0); Hypochromasia Slight; Lymphocytes # (A) 0.8 k/uL (1.0-4.8); Lymphocytes % (A) 9 %; MCH 31.2 pg (25.0-35.0); MCV 97.6 fL (80.0-100.0); Mean Platelet Volume 7.3; Monocytes # (A) 0.6 k/uL (0-1.0); Monocytes % (A) 6 %; Neutrophils # (A) 7.2 k/uL (1.3-7.7); Neutrophils % (A) 83 %; Platelet Count 145 k/uL (150-450); RBC 4.28 m/uL (3.80-5.40); RDW 13.2 % (11.5-15.5); WBC 8.6 k/uL (3.8-10.6)
[2019-09-09 07:06] LABS: Albumin 3.3 g/dL (3.5-5.0); Calcium 8.8 mg/dL (8.4-10.2); Potassium 3.5 mmol/L (3.5-5.1); Total Bilirubin 0.4 mg/dL (0.2-1.3); Total Protein 5.8 g/dL (6.3-8.2)
[2019-09-09] MEDS: IPRATROPIUM-ALBUTEROL 3 ML NEB INHALATION SCH ×4 (08:32→18:51)
--- NOTE | 2019-09-09 08:42 | XR ---
EXAMINATION TYPE: XR KUB DATE OF EXAM: 09/09/2019 8:18 AM CLINICAL HISTORY: Small bowel obstruction. TECHNIQUE: Single supine KUB image of the abdomen is obtained. COMPARISON: Small bowel study from one day earlier. CT abdomen and pelvis from 4 days earlier. FINDINGS: Nasogastric tube partially imaged. There is progression of contrast to colonic level and t hus complete distal small bowel obstruction is not present. Some residual contrast from recent CT noted in the collapsed bladder. Left-sided pelvic phleboliths. There is levoconvex scoliosis centered at L3 level with disc space narrowing and endplate sclerosis l eft L4-L5 level. IMPRESSION: As above.
[2019-09-09] MEDS: DOCUSATE 100 MG CAP PO SCH (09:08)
[2019-09-09] MEDS: ASPIRIN 81 MG PO SCH (09:09)
[2019-09-09] MEDS: VIT A,C & E-LUTEIN-MINERALS 1 EACH TAB PO SCH (09:09)
[2019-09-09] MEDS: PIPERACILLIN-TAZOBACTAM 3.375 GM in SODIUM CHLORIDE 0.9% 100 ML IVPB SCH ×3 (09:09→23:36)
[2019-09-09] MEDS: ESCITALOPRAM 10 MG TAB PO SCH (09:10)
[2019-09-09] MEDS: LACTOBACILLUS ACIDOPH & BULGAR 1 EACH PACKET PO SCH (09:10)
--- NOTE | 2019-09-09 11:56 | P.PN ---
Subjective Progress Note Date: 09/09/19 Principal diagnosis: Bowel obstruction Patient denies pain today. Mild nausea. Small amount of flatus. Patient's repeat abdominal x-ray today shows barium in the colon now. Complete bowel obstruction has been excluded. Partial small bowel obstruction still suspected although paralytic ileus remains within the differential given the long duration of passage yesterday through the small bowel. A discrete transition point not seen. Today's liver enzymes improved. She is afebrile. Objective - Vital Signs Vital signs: Vital Signs Temp 98.0 F 09/09/19 07:39 Pulse 72 09/09/19 08:43 Resp 16 09/09/19 07:39 BP 169/60 09/09/19 08:55 Pulse Ox 95 09/09/19 07:39 Intake & Output 09/08/19 09/09/19 09/09/19 18:59 06:59 18:59 Intake Total 750 800 Output Total 450 425 Balance 300 375 Intake: Intake, IV Titration 550 800 Amount Piperacillin-Tazobactam 3 100 .375 gm In Sodium Chloride 0.9% 100 ml @ 25 mls/hr IVPB Q8HR [facility] Rx# :[id number] Sodium Chloride 0.9% 1, 450 800 000 ml @ 50 mls/hr IV . Q20H [facility] Rx#:[id number] Oral 200 Output: Gastric Drainage 450 350 Urine 75 Other: Voiding Method Bedside Commode Bedside Commode # Voids 1 1 - Exam Abdomen: Soft, mild right upper quadrant tenderness, nondistended - Labs CBC & Chem 7: 09/09/19 06:12 09/09/19 06:12 Labs: Abnormal Lab Results - Last 24 Hours (Table) 09/09/19 09/09/19 Range/Units 06:12 06:12 Plt Count 145 L (150-450) k/uL Lymphocytes # 0.8 L (1.0-4.8) k/uL Sodium 151 H (137-145) mmol/L Carbon Dioxide 43 H* (22-30) mmol/L BUN 20 H (7-17) mg/dL Glucose 102 H (74-99) mg/dL AST 38 H (14-36) U/L ALT 80 H (4-34) U/L Total Protein 5.8 L (6.3-8.2) g/dL Albumin 3.3 L (3.5-5.0) g/dL Assessment and Plan (1) Small bowel obstruction Narrative/Plan: A 9-year-old female with initial CAT scan findings of small bowel obstruction. Small bowel series demonstrates slow transit through the small bowel. PSP O not excluded. Patient with significant elevation of her liver enzymes on admission which a been trending downwards. Ultrasound showed gallbladder wall thickening and distention with stones. Clinical scenario again discussed with the patient and also her daughter Leydi by phone. Options of observation versus diagnostic laparoscopy with possible laparoscopic cholecystectomy reviewed. At this time plan is to proceed with diagnostic laparoscopy. Will evaluate and try to run the entire length of the small bowel to exclude small bowel obstruction. Following that we'll likely proceed with laparoscopic cholecystectomy unless other etiologies for her presentation identified. Possibility of conversion to an open procedure also reviewed. Risks of bleeding, infection, bile leak, bile duct injury, retained common bile duct stone, trocar injury, conversion to an open procedure, hernia, possible need for bowel resection, recurrent obstruction, respiratory and pulmonary comp occasions, anesthesia related complications were reviewed. The patient understands and wishes to proceed. Current Visit: Yes Status: Acute Code(s): K56.609 - UNSP INTESTNL OBST, UNSP TO PARTIAL VERSUS COMPLETE OBST SNOMED Code(s): 259823403
[2019-09-09 15:14] LABS: Ionized Calcium 4.9 mg/dL (4.5-5.3)
[2019-09-09 15:27] LABS: Magnesium 2.5 mg/dL (1.6-2.3)
[2019-09-09] MEDS ORDERED: MVI, ADULT NO.4 WITH VIT K 10 ML, TRACE (CONC-1ML/DOSE) 1 ML, POTASSIUM CHLORIDE 20 MEQ... IV SCH ×4 (16:00)
--- NOTE | 2019-09-09 16:41 | P.PN ---
Subjective Progress Note Date: 09/09/19 Rita Miller, is an 89-year-old female who presented to [facility] emergency room with a chief complaint of abdominal pain nausea and vomiting she was evaluated in the emergency room that revealed evidence of dilated small bowel loops in the right lower quadrant and evidence of hydropic gallbladder, she was admitted to medical floor NG tube was inserted surgical consultation was requested, in the emergency room patient also had evidence of elevated liver enzymes, and had evidence of slightly elevated troponin level, cardiology consultation was requested. Patient was seen and examined on the medical floor she is alert and oriented in no apparent distress NG tube is still in place she stated that she is still having some abdominal pain but less than before, patient has low-grade fever of 99.2 there is no chest pain or shortness of breath no cough no nausea or vomiting at this time there is no burning was urination no frequency or urgency and no hematuria On 09/07/2019 patient was seen and examined on the medical floor she is alert and oriented 3 in no apparent distress, she started passing some gas today abdominal pain and nausea have resolved no bowel movements yet NG tube is still in place, surgical service following On 09/08/2019 patient was seen and examined on the medical floor, she was off the floor all morning having small bowel x-rays, results are still pending, patient still has NG tube in, she denies any symptoms at this time there is no fever or chills no headache or dizziness no chest pain no shortness of breath no cough no nausea or vomiting no abdominal pain no diarrhea no blood in the stools no burning was urination no frequency or urgency and no hematuria On 09/09/2019 patient was seen and examined on the medical floor she is alert an d oriented 3 in no apparent distress NG tube in place and functioning well small bowel x-ray reviewed patient has clear evidence of bowel obstruction she is scheduled to have surgery today, otherwise patient is denying any complaints there is no fever or chills no headache or dizziness no chest pain no shortness of breath no cough no nausea or vomiting no abdominal pain no diarrhea no burning with urination no frequency or urgency no hematuria Objective - Vital Signs Vital signs: Vital Signs Temp 99.0 F 09/09/19 13:58 Pulse 76 09/09/19 15:38 Resp 16 09/09/19 13:58 BP 156/49 09/09/19 13:58 Pulse Ox 98 06/05/20 13:58 Intake & Output 09/08/19 09/09/19 09/09/19 18:59 06:59 18:59 Intake Total 750 800 350 Output Total 450 425 200 Balance 300 375 150 Weight 68.039 kg Intake: Intake, IV Titration 550 800 350 Amount Piperacillin-Tazobactam 3 100 100 .375 gm In Sodium Chloride 0.9% 100 ml @ 25 mls/hr IVPB Q8HR [facility] Rx# :[id number] Sodium Chloride 0.9% 1, 450 800 250 000 ml @ 50 mls/hr IV . Q20H [facility] Rx#:[id number] Oral 200 Output: Gastric Drainage 450 350 200 Urine 75 Other: Voiding Method Bedside Commode Bedside Commode # Voids 1 1 # Bowel Movements 1 - Exam In general patient is alert and oriented 3 in no apparent distress HEENT head normocephalic and atraumatic Neck is supple no JVD no goiter no lymphadenopathy Chest exam reveals a few scattered crackles no wheezing Cardiac exam reveals regular heart sounds no gallops no murmurs Abdomen is soft nontender no organomegaly with normal bowel sounds Extremity exam reveals no edema no cyanosis or clubbing Neurological examination reveals no gross focal deficit - Labs CBC & Chem 7: 09/09/19 06:12 09/09/19 06:12 Labs: Abnormal Lab Results - Last 24 Hours (Table) 09/09/19 09/09/19 09/09/19 Range/Units 06:12 06:12 14:49 Plt Count 145 L (150-450) k/uL Lymphocytes # 0.8 L (1.0-4.8) k/uL Sodium 151 H (137-145) mmol/L Carbon Dioxide 43 H* (22-30) mmol/L BUN 20 H (7-17) mg/dL Glucose 102 H (74-99) mg/dL Magnesium 2.5 H (1.6-2.3) mg/dL AST 38 H (14-36) U/L ALT 80 H (4-34) U/L Total Protein 5.8 L (6.3-8.2) g/dL Albumin 3.3 L (3.5-5.0) g/dL Assessment and Plan Plan: 1. Abdominal pain was nausea and vomiting, with evidence of bowel obstruction on computed tomography scan, NG tube was inserted and surgical consultation requested 2. Evidence of hydropic gallbladder, surgical consultation was requested 3. Elevated liver enzymes on presentation will monitor statin was discontinued 4. Slight elevation in troponin level cardiology consultation was requested 5. Underlying history of hypertension home medication reviewed and are on hold at this time patient will be given hydralazine 10 mg IV every 4 hours as needed 6. Slight leukocytosis patient was started on IV Zosyn, will monitor Medication and labs were reviewed Recheck labs in a.m. Prognosis is guarded due to age and severity of illness will follow closely Awaiting small bowel x-ray results and further recommendation from surgery
[2019-09-09] MEDS: FAT EMULSION 20% 250 ML IV SCH (18:05)
[2019-09-10] MEDS: SODIUM CHLORIDE 0.9% 1,000 ML IV SCH (00:48)
[2019-09-10] MEDS: ASPIRIN 81 MG PO SCH (07:03)
[2019-09-10] MEDS: PIPERACILLIN-TAZOBACTAM 3.375 GM in SODIUM CHLORIDE 0.9% 100 ML IVPB SCH ×2 (07:03→15:27)
[2019-09-10] MEDS: DOCUSATE 100 MG CAP PO SCH (07:03)
[2019-09-10] MEDS: ESCITALOPRAM 10 MG TAB PO SCH (07:04)
[2019-09-10] MEDS: VIT A,C & E-LUTEIN-MINERALS 1 EACH TAB PO SCH (07:04)
[2019-09-10] MEDS: LACTOBACILLUS ACIDOPH & BULGAR 1 EACH PACKET PO SCH (07:04)
[2019-09-10] MEDS: FAT EMULSION 20% 250 ML IV SCH ×2 (07:04→13:41)
[2019-09-10] MEDS: hydrALAZINE HCL 20 MG/ML 1 ML VIAL IVP PRN (07:50)
[2019-09-10] MEDS: IPRATROPIUM-ALBUTEROL 3 ML NEB INHALATION SCH ×4 (07:53→19:38)
[2019-09-10 08:11] LABS: Basophils % (A) 0 %; Eosinophils # (A) 0.1 k/uL (0-0.7); Eosinophils % (A) 1 %; HCT 43.6 % (34.0-46.0); HGB 13.4 gm/dL (11.4-16.0); Hypochromasia Slight; Lymphocytes # (A) 0.9 k/uL (1.0-4.8); Lymphocytes % (A) 13 %; MCH 29.6 pg (25.0-35.0); MCHC 30.7 g/dL (31.0-37.0); MCV 96.6 fL (80.0-100.0); Mean Platelet Volume 7.5; Monocytes # (A) 0.5 k/uL (0-1.0); Monocytes % (A) 7 %; Neutrophils # (A) 5.5 k/uL (1.3-7.7); Neutrophils % (A) 77 %; Platelet Count 139 k/uL (150-450); RBC 4.52 m/uL (3.80-5.40); RDW 13.2 % (11.5-15.5); WBC 7.1 k/uL (3.8-10.6)
[2019-09-10 08:22] LABS: ALT 62 U/L (4-34); AST 36 U/L (14-36); African American GFR (CKD) >90 (>60 ml/min/1.73 sqM); Albumin 3.5 g/dL (3.5-5.0); Alkaline Phosphatase 93 U/L (38-126); Blood Urea Nitrogen 18 mg/dL (7-17); Calcium 8.9 mg/dL (8.4-10.2); Chloride 104 mmol/L (98-107); Glucose 86 mg/dL (74-99); Magnesium 2.5 mg/dL (1.6-2.3); Non-African American GFR(CKD) 80 (>60 ml/min/1.73 sqM); Phosphorus 2.9 mg/dL (2.5-4.5); Potassium 3.3 mmol/L (3.5-5.1); Sodium 150 mmol/L (137-145); Total Bilirubin 0.5 mg/dL (0.2-1.3); Total Protein 6.2 g/dL (6.3-8.2)
[2019-09-10 08:29] LABS: Anion Gap 5 mmol/L
[2019-09-10 08:51] LABS: Carbon Dioxide 41 mmol/L (22-30)
[2019-09-10] MEDS ORDERED: SODIUM CHLORIDE 0.9% 1,000 ML IV ONE (09:00)
[2019-09-10] MEDS ORDERED: ONDANSETRON 4 MG/2 ML VIAL IVP ONE (09:27)
[2019-09-10] MEDS ORDERED: GLYCOPYRROLATE 0.2 MG/ML 2 ML VIAL ONE (09:54)
[2019-09-10] MEDS ORDERED: LIDOCAINE 1% INJ 10MG/ML (20 ML MDV) ONE (09:54)
[2019-09-10] MEDS ORDERED: NEOSTIGMINE 1 MG/ML 10 ML VIAL ONE (09:54)
[2019-09-10] MEDS ORDERED: ROCURONIUM BROMIDE 10 MG/ML 5 ML VIAL IV ONE (09:54)
[2019-09-10] MEDS ORDERED: fentaNYL (PF) 50 MCG/ML 2 ML AMP ONE (09:54)
[2019-09-10] MEDS ORDERED: PROPOFOL 10 MG/ML 20 ML VIAL IV ONE (09:54)
[2019-09-10] MEDS ORDERED: SUCCINYLCHOLINE CHLORIDE 100 MG/5 ML SYR IV ONE (09:54)
[2019-09-10] MEDS ORDERED: [UNRECOGNIZED DRUG - OTHER] IV SCH ×4 (10:00)
[2019-09-10] MEDS ORDERED: POTASSIUM CHLORIDE 20 MEQ IV SCH ×4 (10:00)
[2019-09-10] MEDS ORDERED: DEXTROSE IV SCH ×4 (10:00)
[2019-09-10] MEDS ORDERED: LACTATED RINGERS 1,000 ML IV ONE (10:31)
[2019-09-10] MEDS ORDERED: BUPIVACAINE (PF) 0.5% 30 ML VIAL SQ ONE ×2 (10:32)
--- NOTE | 2019-09-10 11:25 | P.OP ---
Date of Procedure: 09/10/19 Procedure(s) Performed: PREOPERATIVE DIAGNOSIS: Small bowel obstruction, chronic cholecystitis, suspected choledocholithiasis POSTOPERATIVE DIAGNOSIS: Ileus, chronic cholecystitis, suspected choledocholithiasis PROCEDURE: Diagnostic laparoscopy, laparoscopic cholecystectomy SURGEON: Maria Victoria EBL: 10 mL ANESTHESIA: Gen. COMPLICATIONS: None OPERATIVE PROCEDURE: The patient was brought and placed on the operating room table in the supine position. The patient was placed under general anesthesia at that time. The abdomen was prepped and draped in the usual sterile fashion. An optical trocar was used to enter the perineal cavity in the left upper quadrant. This was a 5 mm trocar. 2 additional 5 mm trocar was replaced in the left lateral abdomen. The small bowel was inspected. There were portions of the small bowel that appeared distended however once we ran the bowel from the cecum to the ligament of Treitz there was no transition point seen or obstructing lesions. Suspect paralytic ileus as the etiology for the appearance on CAT scan and the small bowel series. The gallbladder was inspected. It was significantly distended with some mild gallbladder wall thickening. We decided to proceed with cholecystectomy at that time. A 5 mm trocar was placed at the umbilicus under direct visualization. 2 additional 5 mm trochars were placed in the right upper quadrant under direct visualization. A 12 mm trocar was advanced into the epigastric incision site. The gallbladder was retracted superiorly and laterally. The peritoneum overlying the infundibulum was bluntly dissected. The patient's cystic duct was visualized. The junction between the cystic duct common and hepatic duct was identified. The cystic duct was then divided after placement of 3 12 mm clips on the patient's side and one on the specimen side. The cystic artery was identified and clipped as well. A small vessel was seen along the gallbladder fossa and clipped as well. The gallbladder was then removed from the liver bed using electrocautery. The gallbladder was then removed from the epigastric trocar site with an Endo Catch bag. The gallbladder fossa was irrigated with saline. There was no evidence of any bleeding or biliary drainage seen. The fascia at the 12 millimeter site was closed using a short running 0 Vicryl stitch. The trochars were then removed. The skin at all 7 sites was closed using a 4-0 Monocryl stitch. Skin glue was utilized on the incision sites. At the end of this procedure the sponge and needle counts were correct. DISPOSITION: Stable to the recovery room. Patient's daughter contacted by phone.
[2019-09-10] MEDS ORDERED: FAT EMULSION 20% 250 ML IV SCH (12:00)
--- NOTE | 2019-09-10 12:05 | XR ---
EXAMINATION TYPE: XR chest 1V DATE OF EXAM: 09/10/2019 HISTORY: LINE PLACEMENT, IN RECOVERY ROOM AT PRESENT. REFERENCE: Previous study dated 09/05/2019. FINDINGS: The patient's NG tube is been removed. A right internal jugular catheter is been inserted. Its tip is in the right atrium. I do not see evidence of pneumothorax. The heart is mildly enlarged. There is vascular congestion and mild interstitial change. I could not exclude a small left effusion. IMPRESSION: 1. NO CATHETER INSERTION COMPLICATION. 2. WORSENING CHANGES OF CONGESTIVE HEART FAILURE.
[2019-09-10] MEDS ORDERED: hydrALAZINE HCL 20 MG/ML 1 ML VIAL IVP ONE (12:35)
[2019-09-10] MEDS: SODIUM CHLORIDE 0.45% 1,000 ML IV SCH (13:25)
--- NOTE | 2019-09-10 13:28 | P.PN ---
Subjective Progress Note Date: 09/10/19 Rita Miller, is an 89-year-old female who presented to [facility] emergency room with a chief complaint of abdominal pain nausea and vomiting she was evaluated in the emergency room that revealed evidence of dilated small bowel loops in the right lower quadrant and evidence of hydropic gallbladder, she was admitted to medical floor NG tube was inserted surgical consultation was requested, in the emergency room patient also had evidence of elevated liver enzymes, and had evidence of slightly elevated troponin level, cardiology consultation was requested. Patient was seen and examined on the medical floor she is alert and oriented in no apparent distress NG tube is still in place she stated that she is still having some abdominal pain but less than before, patient has low-grade fever of 99.2 there is no chest pain or shortness of breath no cough no nausea or vomiting at this time there is no burning was urination no frequency or urgency and no hematuria On 09/07/2019 patient was seen and examined on the medical floor she is alert and oriented 3 in no apparent distress, she started passing some gas today abdominal pain and nausea have resolved no bowel movements yet NG tube is still in place, surgical service following On 09/08/2019 patient was seen and examined on the medical floor, she was off the floor all morning having small bowel x-rays, results are still pending, patient still has NG tube in, she denies any symptoms at this time there is no fever or chills no headache or dizziness no chest pain no shortness of breath no cough no nausea or vomiting no abdominal pain no diarrhea no blood in the stools no burning was urination no frequency or urgency and no hematuria On 09/09/2019 patient was seen and examined on the medical floor she is alert an d oriented 3 in no apparent distress NG tube in place and functioning well small bowel x-ray reviewed patient has clear evidence of bowel obstruction she is scheduled to have surgery today, otherwise patient is denying any complaints there is no fever or chills no headache or dizziness no chest pain no shortness of breath no cough no nausea or vomiting no abdominal pain no diarrhea no burning with urination no frequency or urgency no hematuria. On 09/10/2019 patient was seen and examined on the medical floor, she underwent surgery this morning with Dr. Irene who performed Diagnostic laparoscopy, laparoscopic cholecystectomy, patient was transferred back to medical floor, she is doing well postoperatively, sodium is elevated at 1:15 and she would receive half-normal saline for IV fluid, will monitor closely. Objective - Vital Signs Vital signs: Vital Signs Temp 97.3 F L 09/10/19 11:26 Pulse 72 09/10/19 12:49 Resp 16 09/10/19 12:41 BP 159/73 09/10/19 12:49 Pulse Ox 92 L 09/10/19 12:41 Intake & Output 09/09/19 09/10/19 09/10/19 18:59 06:59 18:59 Intake Total 512 166 5093 Output Total 200 10 Balance 135 604 0898 Weight 68.039 kg 68.039 kg Intake: IV 1200 Intake, IV Titration 350 825 Amount Piperacillin-Tazobactam 3 100 100 .375 gm In Sodium Chloride 0.9% 100 ml @ 25 mls/hr IVPB Q8HR [facility] Rx# :[id number] Sodium Chloride 0.9% 1, 250 725 000 ml @ 50 mls/hr IV . Q20H [facility] Rx#:[id number] Oral 0 Output: Gastric Drainage 200 Estimated Blood Loss 10 Other: Voiding Method Bedside Commode Bedside Commode # Voids 1 0 # Bowel Movements 1 - Exam In general patient is alert and oriented 3 in no apparent distress HEENT head normocephalic and atraumatic Neck is supple no JVD no goiter no lymphadenopathy Chest exam reveals a few scattered crackles no wheezing Cardiac exam reveals regular heart sounds no gallops no murmurs Abdomen is soft nontender no organomegaly with normal bowel sounds Extremity exam reveals no edema no cyanosis or clubbing Neurological examination reveals no gross focal deficit - Labs CBC & Chem 7: 09/10/19 07:38 09/10/19 07:38 Labs: Abnormal Lab Results - Last 24 Hours (Table) 09/09/19 09/10/19 09/10/19 Range/Units 14:49 07:38 07:38 MCHC 30.7 L (31.0-37.0) g/dL Plt Count 139 L (150-450) k/uL Lymphocytes # 0.9 L (1.0-4.8) k/uL Sodium 150 H (137-145) mmol/L Potassium 3.3 L (3.5-5.1) mmol/L Carbon Dioxide 41 H* (22-30) mmol/L BUN 18 H (7-17) mg/dL Magnesium 2.5 H 2.5 H (1.6-2.3) mg/dL ALT 62 H (4-34) U/L Total Protein 6.2 L (6.3-8.2) g/dL Assessment and Plan Plan: 1. Abdominal pain was nausea and vomiting, with evidence of bowel obstruction on computed tomography scan, NG tube was inserted and surgical consultation requested 2. Evidence of hydropic gallbladder, surgical consultation was requested 3. Elevated liver enzymes on presentation will monitor statin was discontinued 4. Slight elevation in troponin level cardiology consultation was requested 5. Underlying history of hypertension home medication reviewed and are on hold at this time patient will be given hydralazine 10 mg IV every 4 hours as needed 6. Slight leukocytosis patient was started on IV Zosyn, will monitor Medication and labs were reviewed Recheck labs in a.m. Prognosis is guarded due to age and severity of illness will follow closely Awaiting small bowel x-ray results and further recommendation from surgery
[2019-09-10] MEDS ORDERED: MVI, ADULT NO.4 WITH VIT K 10 ML, TRACE (CONC-1ML/DOSE) 1 ML, POTASSIUM CHLORIDE 20 MEQ... IV ONE ×4 (14:00)
[2019-09-11] MEDS: PIPERACILLIN-TAZOBACTAM 3.375 GM in SODIUM CHLORIDE 0.9% 100 ML IVPB SCH ×4 (00:36→23:39)
[2019-09-11] MEDS: hydrALAZINE HCL 20 MG/ML 1 ML VIAL IVP PRN (00:36)
[2019-09-11] MEDS: SODIUM CHLORIDE 0.45% 1,000 ML IV SCH (05:44)
[2019-09-11] MEDS: ESCITALOPRAM 10 MG TAB PO SCH (07:22)
[2019-09-11] MEDS: VIT A,C & E-LUTEIN-MINERALS 1 EACH TAB PO SCH (07:23)
[2019-09-11] MEDS: DOCUSATE 100 MG CAP PO SCH (07:23)
[2019-09-11] MEDS: LACTOBACILLUS ACIDOPH & BULGAR 1 EACH PACKET PO SCH (07:23)
[2019-09-11] MEDS: ASPIRIN 81 MG PO SCH (07:23)
[2019-09-11] MEDS: IPRATROPIUM-ALBUTEROL 3 ML NEB INHALATION SCH ×4 (07:34→18:33)
[2019-09-11 07:56] LABS: Basophils % (A) 0 %; Eosinophils # (A) 0.2 k/uL (0-0.7); Eosinophils % (A) 3 %; HCT 38.7 % (34.0-46.0); HGB 11.9 gm/dL (11.4-16.0); Lymphocytes # (A) 0.9 k/uL (1.0-4.8); Lymphocytes % (A) 11 %; MCH 29.3 pg (25.0-35.0); MCHC 30.6 g/dL (31.0-37.0); MCV 95.7 fL (80.0-100.0); Mean Platelet Volume 7.3; Monocytes # (A) 0.5 k/uL (0-1.0); Monocytes % (A) 7 %; Neutrophils # (A) 6.3 k/uL (1.3-7.7); Neutrophils % (A) 79 %; Platelet Count 115 k/uL (150-450); RBC 4.05 m/uL (3.80-5.40); RDW 13.3 % (11.5-15.5); WBC 8.1 k/uL (3.8-10.6)
[2019-09-11] MEDS ORDERED: DEXTROSE IV SCH ×4 (08:00)
[2019-09-11] MEDS ORDERED: POTASSIUM CHLORIDE 20 MEQ IV SCH ×4 (08:00)
[2019-09-11] MEDS ORDERED: [UNRECOGNIZED DRUG - OTHER] IV SCH ×4 (08:00)
[2019-09-11 08:03] LABS: ALT 55 U/L (4-34); AST 42 U/L (14-36); African American GFR (CKD) >90 (>60 ml/min/1.73 sqM); Albumin 2.8 g/dL (3.5-5.0); Alkaline Phosphatase 66 U/L (38-126); Anion Gap 2 mmol/L; Blood Urea Nitrogen 19 mg/dL (7-17); Calcium 8.3 mg/dL (8.4-10.2); Chloride 99 mmol/L (98-107); Glucose 134 mg/dL (74-99); Magnesium 2.1 mg/dL (1.6-2.3); Non-African American GFR(CKD) 84 (>60 ml/min/1.73 sqM); Phosphorus 2.6 mg/dL (2.5-4.5); Potassium 2.9 mmol/L (3.5-5.1); Sodium 141 mmol/L (137-145); Total Bilirubin 0.5 mg/dL (0.2-1.3); Total Protein 5.1 g/dL (6.3-8.2)
[2019-09-11 08:09] LABS: Carbon Dioxide 40 mmol/L (22-30)
[2019-09-11] MEDS ORDERED: POTASSIUM CHLORIDE ER 20 MEQ TAB.ER PO STA (09:07)
--- NOTE | 2019-09-11 10:57 | P.PN ---
Subjective Progress Note Date: 09/11/19 Principal diagnosis: Bowel obstruction Patient doing fairly well today. Minimal pain. Tolerating clears. White blood cell count 8.1. LFTs fairly normal. Objective - Vital Signs Vital signs: Vital Signs Temp 99.1 F 09/11/19 07:00 Pulse 76 09/11/19 07:46 Resp 18 09/11/19 07:00 BP 135/83 09/11/19 07:00 Pulse Ox 98 09/11/19 07:00 Intake & Output 09/10/19 09/11/19 09/11/19 18:59 06:59 18:59 Intake Total 1200 1700 Output Total 1310 125 Balance -110 1575 Weight 68.039 kg Intake: IV 1200 Intake, IV Titration 1550 Amount Fat Emulsion 20% 250 ml @ 250 20.833 mls/hr IV DAILY@ 1400 [facility] Rx#:[id number] Piperacillin-Tazobactam 3 100 .375 gm In Sodium Chloride 0.9% 100 ml @ 25 mls/hr IVPB Q8HR [facility] Rx# :[id number] Potassium Chloride 20 meq 600 Mvi, Adult No.4 with Vit K 10 ml Trace (Conc-1Ml/ Dose) 1 ml In Amino Acid 4.25%-D10w 1,000 ml @ 65 mls/hr IV .BY DURATION [facility] Rx#:[id number] Sodium Chloride 0.45% 1, 600 000 ml @ 75 mls/hr IV . [id number] [facility] Rx#:[id number] Oral 150 Output: Gastric Drainage 1300 Urine 125 Estimated Blood Loss 10 Other: Voiding Method Bedside Commode Bedside Commode Bedside Commode # Voids 0 1 # Bowel Movements 1 - Exam Abdomen: Soft, nondistended, incisions clean and dry, minimal tenderness - Labs CBC & Chem 7: 09/11/19 07:18 09/11/19 07:18 Labs: Abnormal Lab Results - Last 24 Hours (Table) 09/11/19 09/11/19 Range/Units 07:18 07:18 MCHC 30.6 L (31.0-37.0) g/dL Plt Count 115 L (150-450) k/uL Lymphocytes # 0.9 L (1.0-4.8) k/uL Potassium 2.9 L (3.5-5.1) mmol/L Carbon Dioxide 40 H (22-30) mmol/L BUN 19 H (7-17) mg/dL Glucose 134 H (74-99) mg/dL Calcium 8.3 L (8.4-10.2) mg/dL AST 42 H (14-36) U/L ALT 55 H (4-34) U/L Total Protein 5.1 L (6.3-8.2) g/dL Albumin 2.8 L (3.5-5.0) g/dL Assessment and Plan (1) Small bowel obstruction Narrative/Plan: Begin full liquid diet. Increase activity as tolerated. Discharge planning. Wean TPN. Current Visit: Yes Status: Acute Code(s): K56.609 - UNSP INTESTNL OBST, UNSP TO PARTIAL VERSUS COMPLETE OBST SNOMED Code(s): 214293399
[2019-09-11] MEDS ORDERED: POTASSIUM CHLORIDE ER 20 MEQ TAB.ER PO ONE (11:00)
[2019-09-11] MEDS ORDERED: Potassium Replacement Protocol 1 EACH MISC MISCELLANE PRN (11:28)
--- NOTE | 2019-09-11 12:33 | P.PN ---
Subjective Progress Note Date: 09/11/19 Rita Miller, is an 89-year-old female who presented to [facility] emergency room with a chief complaint of abdominal pain nausea and vomiting she was evaluated in the emergency room that revealed evidence of dilated small bowel loops in the right lower quadrant and evidence of hydropic gallbladder, she was admitted to medical floor NG tube was inserted surgical consultation was requested, in the emergency room patient also had evidence of elevated liver enzymes, and had evidence of slightly elevated troponin level, cardiology consultation was requested. Patient was seen and examined on the medical floor she is alert and oriented in no apparent distress NG tube is still in place she stated that she is still having some abdominal pain but less than before, patient has low-grade fever of 99.2 there is no chest pain or shortness of breath no cough no nausea or vomiting at this time there is no burning was urination no frequency or urgency and no hematuria On 09/07/2019 patient was seen and examined on the medical floor she is alert and oriented 3 in no apparent distress, she started passing some gas today abdominal pain and nausea have resolved no bowel movements yet NG tube is still in place, surgical service following On 09/08/2019 patient was seen and examined on the medical floor, she was off the floor all morning having small bowel x-rays, results are still pending, patient still has NG tube in, she denies any symptoms at this time there is no fever or chills no headache or dizziness no chest pain no shortness of breath no cough no nausea or vomiting no abdominal pain no diarrhea no blood in the stools no burning was urination no frequency or urgency and no hematuria On 09/09/2019 patient was seen and examined on the medical floor she is alert an d oriented 3 in no apparent distress NG tube in place and functioning well small bowel x-ray reviewed patient has clear evidence of bowel obstruction she is scheduled to have surgery today, otherwise patient is denying any complaints there is no fever or chills no headache or dizziness no chest pain no shortness of breath no cough no nausea or vomiting no abdominal pain no diarrhea no burning with urination no frequency or urgency no hematuria. On 09/10/2019 patient was seen and examined on the medical floor, she underwent surgery this morning with Dr. Irene who performed Diagnostic laparoscopy, laparoscopic cholecystectomy, patient was transferred back to medical floor, she is doing well postoperatively, sodium is elevated at 150 and she would receive half-normal saline for IV fluid, will monitor closely. On 09/11/2019 patient is alert and oriented 3 in no apparent distress NG tube is out patient is tolerating liquids well, there is no fever or chills no headache or dizziness no chest pain no shortness of breath no cough no nausea or vomiting no abdominal pain no diarrhea no burning was urination no frequency or urgency and no hematuria, sodium is down to normal at 141 at this time will discontinue half-normal saline at 75 mL an hour, potassium is low we will start with potassium replacement protocol. Objective - Vital Signs Vital signs: Vital Signs Temp 99.1 F 09/11/19 07:00 Pulse 72 09/11/19 11:10 Resp 18 09/11/19 07:00 BP 135/83 09/11/19 07:00 Pulse Ox 98 09/11/19 07:00 Intake & Output 09/10/19 09/11/19 09/11/19 18:59 06:59 18:59 Intake Total 1200 1700 Output Total 1310 125 Balance -110 1575 Weight 68.039 kg Intake: IV 1200 Intake, IV Titration 1550 Amount Fat Emulsion 20% 250 ml @ 250 20.833 mls/hr IV DAILY@ 1400 [facility] Rx#:[id number] Piperacillin-Tazobactam 3 100 .375 gm In Sodium Chloride 0.9% 100 ml @ 25 mls/hr IVPB Q8HR [facility] Rx# :[id number] Potassium Chloride 20 meq 600 Mvi, Adult No.4 with Vit K 10 ml Trace (Conc-1Ml/ Dose) 1 ml In Amino Acid 4.25%-D10w 1,000 ml @ 65 mls/hr IV .BY DURATION [facility] Rx#:[id number] Sodium Chloride 0.45% 1, 600 000 ml @ 75 mls/hr IV . [id number] [facility] Rx#:[id number] Oral 150 Output: Gastric Drainage 1300 Urine 125 Estimated Blood Loss 10 Other: Voiding Method Bedside Commode Bedside Commode Bedside Commode # Voids 0 1 1 # Bowel Movements 1 - Exam In general patient is alert and oriented 3 in no apparent distress HEENT head normocephalic and atraumatic Neck is supple no JVD no goiter no lymphadenopathy Chest exam reveals a few scattered crackles no wheezing Cardiac exam reveals regular heart sounds no gallops no murmurs Abdomen is soft nontender no organomegaly with normal bowel sounds Extremity exam reveals no edema no cyanosis or clubbing Neurological examination reveals no gross focal deficit - Labs CBC & Chem 7: 09/11/19 07:18 09/11/19 07:18 Labs: Abnormal Lab Results - Last 24 Hours (Table) 09/11/19 09/11/19 Range/Units 07:18 07:18 MCHC 30.6 L (31.0-37.0) g/dL Plt Count 115 L (150-450) k/uL Lymphocytes # 0.9 L (1.0-4.8) k/uL Potassium 2.9 L (3.5-5.1) mmol/L Carbon Dioxide 40 H (22-30) mmol/L BUN 19 H (7-17) mg/dL Glucose 134 H (74-99) mg/dL Calcium 8.3 L (8.4-10.2) mg/dL AST 42 H (14-36) U/L ALT 55 H (4-34) U/L Total Protein 5.1 L (6.3-8.2) g/dL Albumin 2.8 L (3.5-5.0) g/dL Assessment and Plan Plan: 1. Abdominal pain was nausea and vomiting, with evidence of bowel obstruction on computed tomography scan, NG tube was inserted and surgical consultation requested 2. Evidence of hydropic gallbladder, surgical consultation was requested 3. Elevated liver enzymes on presentation will monitor statin was discontinued 4. Slight elevation in troponin level cardiology consultation was requested 5. Underlying history of hypertension home medication reviewed and are on hold at this time patient will be given hydralazine 10 mg IV every 4 hours as needed 6. Slight leukocytosis patient was started on IV Zosyn, will monitor Medication and labs were reviewed Recheck labs in a.m. Prognosis is guarded due to age and severity of illness will follow closely Awaiting small bowel x-ray results and further recommendation from surgery
[2019-09-11] MEDS: FAT EMULSION 20% 250 ML IV SCH (13:12)
[2019-09-11] MEDS ORDERED: [UNRECOGNIZED DRUG - OTHER] IV SCH ×4 (23:00)
[2019-09-11] MEDS ORDERED: POTASSIUM CHLORIDE IV SCH ×4 (23:00)
[2019-09-11] MEDS ORDERED: AMINO ACID 4.25% IV SCH ×4 (23:00)
[2019-09-11] MEDS ORDERED: MVI IV SCH ×4 (23:00)
[2019-09-12] MEDS: LACTOBACILLUS ACIDOPH & BULGAR 1 EACH PACKET PO SCH (07:57)
[2019-09-12] MEDS: VIT A,C & E-LUTEIN-MINERALS 1 EACH TAB PO SCH (07:58)
[2019-09-12] MEDS: ASPIRIN 81 MG PO SCH (07:58)
[2019-09-12] MEDS: ESCITALOPRAM 10 MG TAB PO SCH (07:58)
[2019-09-12] MEDS: DOCUSATE 100 MG CAP PO SCH (07:58)
[2019-09-12] MEDS: PIPERACILLIN-TAZOBACTAM 3.375 GM in SODIUM CHLORIDE 0.9% 100 ML IVPB SCH ×3 (07:59→23:36)
[2019-09-12 08:01] LABS: ALT 45 U/L (4-34); AST 31 U/L (14-36); African American GFR (CKD) >90 (>60 ml/min/1.73 sqM); Albumin 2.7 g/dL (3.5-5.0); Alkaline Phosphatase 59 U/L (38-126); Anion Gap 2 mmol/L; Blood Urea Nitrogen 14 mg/dL (7-17); Calcium 8.4 mg/dL (8.4-10.2); Carbon Dioxide 38 mmol/L (22-30); Chloride 101 mmol/L (98-107); Glucose 96 mg/dL (74-99); Non-African American GFR(CKD) 86 (>60 ml/min/1.73 sqM); Phosphorus 2.3 mg/dL (2.5-4.5); Potassium 3.4 mmol/L (3.5-5.1); Sodium 141 mmol/L (137-145); Total Bilirubin 0.5 mg/dL (0.2-1.3)
[2019-09-12 08:11] LABS: Basophils % (A) 0 %; Eosinophils # (A) 0.4 k/uL (0-0.7); Eosinophils % (A) 5 %; HCT 34.2 % (34.0-46.0); HGB 11.2 gm/dL (11.4-16.0); Lymphocytes # (A) 1.2 k/uL (1.0-4.8); Lymphocytes % (A) 16 %; MCH 31.2 pg (25.0-35.0); MCHC 32.6 g/dL (31.0-37.0); MCV 95.5 fL (80.0-100.0); Mean Platelet Volume 7.8; Monocytes # (A) 0.5 k/uL (0-1.0); Monocytes % (A) 7 %; Neutrophils % (A) 70 %; Platelet Count 102 k/uL (150-450); RBC 3.58 m/uL (3.80-5.40); RDW 13.1 % (11.5-15.5); WBC 7.1 k/uL (3.8-10.6)
[2019-09-12] MEDS: IPRATROPIUM-ALBUTEROL 3 ML NEB INHALATION SCH ×4 (08:55→20:38)
--- NOTE | 2019-09-12 10:23 | P.PN ---
<Tracy Syed - Last Filed: 09/12/19 10:16> Subjective Progress Note Date: 09/12/19 CHIEF COMPLAINT: Abdominal pain HISTORY OF PRESENT ILLNESS: Patient is status post laparoscopic cholecystectomy. Patient examined this morning at the bedside. She complains of coughing up a lot of phlegm. She denies abdominal pain. Tolerating diet without nausea or vomiting. She is passing flatus and had a bowel movement this morning. WBC 7.1. Hemoglobin 11.2. PHYSICAL EXAM: VITAL SIGNS: Reviewed. GENERAL: Well-developed in no acute distress. HEENT: No sclera icterus. Extraocular movements grossly intact. Moist buccal mucosa. Head is atraumatic, normocephalic. ABDOMEN: Soft. Nondistended. Appropriate surgical tenderness. Surgical sites clean dry and intact NEUROLOGIC: Alert and oriented. Cranial nerves II through XII grossly intact. ASSESSMENT: 1. Abdominal pain 2. Small bowel obstruction, ruled out 3. History of appendectomy 4. Sigmoid diverticulosis 5. Hydropic gallbladder, cholelithiasis, chronic cholecystitis 6. Transaminitis PLAN: -Advance diet -Incentive spirometer -Activity as tolerated -Pain control Nurse practitioner note has been reviewed by physician. Signing provider agrees with the documented findings, assessment, and plan of care. Objective - Vital Signs Vital signs: Vital Signs Temp 98.2 F 09/12/19 07:20 Pulse 76 09/12/19 09:06 Resp 16 09/12/19 08:15 BP 170/77 09/12/19 07:20 Pulse Ox 96 09/12/19 07:20 Intake & Output 09/11/19 09/12/19 09/12/19 18:59 06:59 18:59 Intake Total 1510 150 Output Total 1 1 Balance -1 1510 149 Intake: Intake, IV Titration 1450 Amount Fat Emulsion 20% 250 ml @ 250 20.833 mls/hr IV DAILY@ 1400 [facility] Rx#:[id number] Mvi, Adult No.4 with Vit 1100 K 10 ml Trace (Conc-1Ml/ Dose) 1 ml Potassium Chloride 40 meq In Amino Acid 4.25%-D10w+Lytes*E* 1,000 ml @ 65 mls/hr IV . BY DURATION [facility] Rx#: [id number] Piperacillin-Tazobactam 3 100 .375 gm In Sodium Chloride 0.9% 100 ml @ 25 mls/hr IVPB Q8HR [facility] Rx# :[id number] Oral 60 150 Output: Stool 1 1 Other: Voiding Method Bedside Commode Bedside Commode Bedside Commode # Voids 1 2 - Labs CBC & Chem 7: 09/12/19 06:39 09/12/19 06:39 Labs: Abnormal Lab Results - Last 24 Hours (Table) 09/11/19 09/12/19 09/12/19 Range/Units 12:52 06:39 06:39 RBC 3.58 L (3.80-5.40) m/uL Hgb 11.2 L (11.4-16.0) gm/dL Plt Count 102 L (150-450) k/uL Potassium 3.1 L 3.4 L (3.5-5.1) mmol/L Carbon Dioxide 38 H (22-30) mmol/L Phosphorus 2.3 L (2.5-4.5) mg/dL ALT 45 H (4-34) U/L Total Protein 5.0 L (6.3-8.2) g/dL Albumin 2.7 L (3.5-5.0) g/dL <Andres Irene - Last Filed: 09/12/19 14:55> Subjective As above. Patient doing well. She did have a bowel movement today. Tolerating her diet. Liver enzymes almost normal. Stable for discharge from my standpoint. Objective - Vital Signs Vital signs: Vital Signs Temp 98.2 F 09/12/19 07:20 Pulse 76 09/12/19 13:08 Resp 16 09/12/19 08:15 BP 170/77 09/12/19 07:20 Pulse Ox 96 09/12/19 07:20 Intake & Output 09/11/19 09/12/19 09/12/19 18:59 06:59 18:59 Intake Total 1510 450 Output Total 1 1 Balance -1 1510 449 Weight 68.039 kg Intake: Intake, IV Titration 1450 100 Amount Fat Emulsion 20% 250 ml @ 250 20.833 mls/hr IV DAILY@ 1400 [facility] Rx#:[id number] Mvi, Adult No.4 with Vit 1100 K 10 ml Trace (Conc-1Ml/ Dose) 1 ml Potassium Chloride 40 meq In Amino Acid 4.25%-D10w+Lytes*E* 1,000 ml @ 65 mls/hr IV . BY DURATION [facility] Rx#: [id number] Piperacillin-Tazobactam 3 100 100 .375 gm In Sodium Chloride 0.9% 100 ml @ 25 mls/hr IVPB Q8HR [facility] Rx# :[id number] Oral 60 350 Output: Stool 1 1 Other: Voiding Method Bedside Commode Bedside Commode Bedside Commode # Voids 1 2 1 - Labs CBC & Chem 7: 09/12/19 06:39 09/12/19 06:39 Labs: Abnormal Lab Results - Last 24 Hours (Table) 09/12/19 09/12/19 Range/Units 06:39 06:39 RBC 3.58 L (3.80-5.40) m/uL Hgb 11.2 L (11.4-16.0) gm/dL Plt Count 102 L (150-450) k/uL Potassium 3.4 L (3.5-5.1) mmol/L Carbon Dioxide 38 H (22-30) mmol/L Phosphorus 2.3 L (2.5-4.5) mg/dL ALT 45 H (4-34) U/L Total Protein 5.0 L (6.3-8.2) g/dL Albumin 2.7 L (3.5-5.0) g/dL Assessment and Plan (1) Small bowel obstruction Current Visit: Yes Status: Acute Code(s): K56.609 - UNSP INTESTNL OBST, UNSP TO PARTIAL VERSUS COMPLETE OBST SNOMED Code(s): 018479396
--- NOTE | 2019-09-12 17:56 | P.PN ---
Subjective Progress Note Date: 09/12/19 Rita Miller, is an 89-year-old female who presented to [facility] emergency room with a chief complaint of abdominal pain nausea and vomiting she was evaluated in the emergency room that revealed evidence of dilated small bowel loops in the right lower quadrant and evidence of hydropic gallbladder, she was admitted to medical floor NG tube was inserted surgical consultation was requested, in the emergency room patient also had evidence of elevated liver enzymes, and had evidence of slightly elevated troponin level, cardiology consultation was requested. Patient was seen and examined on the medical floor she is alert and oriented in no apparent distress NG tube is still in place she stated that she is still having some abdominal pain but less than before, patient has low-grade fever of 99.2 there is no chest pain or shortness of breath no cough no nausea or vomiting at this time there is no burning was urination no frequency or urgency and no hematuria On 09/07/2019 patient was seen and examined on the medical floor she is alert and oriented 3 in no apparent distress, she started passing some gas today abdominal pain and nausea have resolved no bowel movements yet NG tube is still in place, surgical service following On 09/08/2019 patient was seen and examined on the medical floor, she was off the floor all morning having small bowel x-rays, results are still pending, patient still has NG tube in, she denies any symptoms at this time there is no fever or chills no headache or dizziness no chest pain no shortness of breath no cough no nausea or vomiting no abdominal pain no diarrhea no blood in the stools no burning was urination no frequency or urgency and no hematuria On 09/09/2019 patient was seen and examined on the medical floor she is alert an d oriented 3 in no apparent distress NG tube in place and functioning well small bowel x-ray reviewed patient has clear evidence of bowel obstruction she is scheduled to have surgery today, otherwise patient is denying any complaints there is no fever or chills no headache or dizziness no chest pain no shortness of breath no cough no nausea or vomiting no abdominal pain no diarrhea no burning with urination no frequency or urgency no hematuria. On 09/10/2019 patient was seen and examined on the medical floor, she underwent surgery this morning with Dr. Irene who performed Diagnostic laparoscopy, laparoscopic cholecystectomy, patient was transferred back to medical floor, she is doing well postoperatively, sodium is elevated at 150 and she would receive half-normal saline for IV fluid, will monitor closely. On 09/11/2019 patient is alert and oriented 3 in no apparent distress NG tube is out patient is tolerating liquids well, there is no fever or chills no headache or dizziness no chest pain no shortness of breath no cough no nausea or vomiting no abdominal pain no diarrhea no burning was urination no frequency or urgency and no hematuria, sodium is down to normal at 141 at this time will discontinue half-normal saline at 75 mL an hour, potassium is low we will start with potassium replacement protocol. On 09/12/2019 patient was seen and examined on the medical floor she is alert and oriented in no distress she is tolerating diet well and having bowel movement, there is no fever or chills no headache or dizziness no chest pain no shortness of breath no cough no nausea or vomiting no abdominal pain no diarrhea no burning was urination no frequency or urgency and no hematuria Objective - Vital Signs Vital signs: Vital Signs Temp 98 F 09/12/19 14:10 Pulse 76 09/12/19 17:02 Resp 16 09/12/19 16:10 BP 150/67 09/12/19 14:10 Pulse Ox 95 09/12/19 14:10 Intake & Output 09/11/19 09/12/19 09/12/19 18:59 06:59 18:59 Intake Total 1510 450 Output Total 1 2 Balance -1 1510 448 Weight 68.039 kg Intake: Intake, IV Titration 1450 100 Amount Fat Emulsion 20% 250 ml @ 250 20.833 mls/hr IV DAILY@ 1400 [facility] Rx#:[id number] Mvi, Adult No.4 with Vit 1100 K 10 ml Trace (Conc-1Ml/ Dose) 1 ml Potassium Chloride 40 meq In Amino Acid 4.25%-D10w+Lytes*E* 1,000 ml @ 65 mls/hr IV . BY DURATION [facility] Rx#: [id number] Piperacillin-Tazobactam 3 100 100 .375 gm In Sodium Chloride 0.9% 100 ml @ 25 mls/hr IVPB Q8HR [facility] Rx# :[id number] Oral 60 350 Output: Stool 1 2 Other: Voiding Method Bedside Commode Bedside Commode Bedside Commode # Voids 1 2 1 - Exam In general patient is alert and oriented 3 in no apparent distress HEENT head normocephalic and atraumatic Neck is supple no JVD no goiter no lymphadenopathy Chest exam reveals a few scattered crackles no wheezing Cardiac exam reveals regular heart sounds no gallops no murmurs Abdomen is soft nontender no organomegaly with normal bowel sounds Extremity exam reveals no edema no cyanosis or clubbing Neurological examination reveals no gross focal deficit - Labs CBC & Chem 7: 09/12/19 06:39 09/12/19 06:39 Labs: Abnormal Lab Results - Last 24 Hours (Table) 09/12/19 09/12/19 Range/Units 06:39 06:39 RBC 3.58 L (3.80-5.40) m/uL Hgb 11.2 L (11.4-16.0) gm/dL Plt Count 102 L (150-450) k/uL Potassium 3.4 L (3.5-5.1) mmol/L Carbon Dioxide 38 H (22-30) mmol/L Phosphorus 2.3 L (2.5-4.5) mg/dL ALT 45 H (4-34) U/L Total Protein 5.0 L (6.3-8.2) g/dL Albumin 2.7 L (3.5-5.0) g/dL Assessment and Plan Plan: 1. Abdominal pain was nausea and vomiting, with evidence of bowel obstruction on computed tomography scan, NG tube was inserted and surgical consultation requested 2. Evidence of hydropic gallbladder, surgical consultation was requested 3. Elevated liver enzymes on presentation will monitor statin was discontinued 4. Slight elevation in troponin level cardiology consultation was requested 5. Underlying history of hypertension home medication reviewed and are on hold at this time patient will be given hydralazine 10 mg IV every 4 hours as needed 6. Slight leukocytosis patient was started on IV Zosyn, will monitor Medication and labs were reviewed Recheck labs in a.m. Prognosis is guarded due to age and severity of illness will follow closely Awaiting small bowel x-ray results and further recommendation from surgery
[2019-09-12] MEDS: POTASSIUM CHLORIDE ER 20 MEQ TAB.ER PO SCH ×2 (20:01→21:40)
[2019-09-13] MEDS: POTASSIUM CHLORIDE ER 20 MEQ TAB.ER PO SCH ×2 (00:57→02:21)
[2019-09-13] MEDS: IPRATROPIUM-ALBUTEROL 3 ML NEB INHALATION SCH ×4 (07:40→20:52)
[2019-09-13] MEDS: PIPERACILLIN-TAZOBACTAM 3.375 GM in SODIUM CHLORIDE 0.9% 100 ML IVPB SCH (07:48)
[2019-09-13] MEDS: ASPIRIN 81 MG PO SCH (07:49)
[2019-09-13] MEDS: DOCUSATE 100 MG CAP PO SCH (07:49)
[2019-09-13] MEDS: ESCITALOPRAM 10 MG TAB PO SCH (07:49)
[2019-09-13] MEDS: VIT A,C & E-LUTEIN-MINERALS 1 EACH TAB PO SCH (07:49)
[2019-09-13] MEDS: LACTOBACILLUS ACIDOPH & BULGAR 1 EACH PACKET PO SCH (07:49)
--- NOTE | 2019-09-13 09:59 | P.PN ---
<Tracy Syed - Last Filed: 09/13/19 09:56> Subjective Progress Note Date: 09/13/19 CHIEF COMPLAINT: Abdominal pain HISTORY OF PRESENT ILLNESS: Patient is status post laparoscopic cholecystectomy. Patient examined this morning at the bedside. She denies abdominal pain. Tole rating diet without nausea or vomiting. She is passing flatus and having bowel movements. Vital signs stable. She is afebrile. PHYSICAL EXAM: VITAL SIGNS: Reviewed. GENERAL: Well-developed in no acute distress. HEENT: No sclera icterus. Extraocular movements grossly intact. Moist buccal mucosa. Head is atraumatic, normocephalic. ABDOMEN: Soft. Nondistended. Appropriate surgical tenderness. Surgical sites clean dry and intact NEUROLOGIC: Alert and oriented. Cranial nerves II through XII grossly intact. ASSESSMENT: 1. Abdominal pain 2. Small bowel obstruction, ruled out 3. History of appendectomy 4. Sigmoid diverticulosis 5. Hydropic gallbladder, cholelithiasis, chronic cholecystitis 6. Transaminitis PLAN: -Continue diet as tolerated -Incentive spirometer -Activity as tolerated -Pain control -Stable for discharge home from a surgical standpoint Nurse practitioner note has been reviewed by physician. Signing provider agrees with the documented findings, assessment, and plan of care. Objective - Vital Signs Vital signs: Vital Signs Temp 98.4 F 09/13/19 07:03 Pulse 82 09/13/19 07:03 Resp 18 09/13/19 07:03 BP 165/91 09/13/19 07:03 Pulse Ox 99 09/13/19 07:03 Intake & Output 09/12/19 09/13/19 09/13/19 18:59 06:59 18:59 Intake Total 450 Output Total 2 950 Balance 448 -950 Weight 68.039 kg Intake: Intake, IV Titration 100 Amount Piperacillin-Tazobactam 3 100 .375 gm In Sodium Chloride 0.9% 100 ml @ 25 mls/hr IVPB Q8HR [facility] Rx# :[id number] Oral 350 Output: Urine 950 Stool 2 Other: Voiding Method Bedside Commode # Voids 1 2 # Bowel Movements 1 - Labs CBC & Chem 7: 09/12/19 06:39 09/12/19 23:56 Labs: Abnormal Lab Results - Last 24 Hours (Table) 09/12/19 Range/Units 23:56 Potassium 3.4 L (3.5-5.1) mmol/L <Andres Irene - Last Filed: 09/13/19 15:56> Subjective Patient doing well. Says she was a little bit nauseated last night. Tolerating diet however. No vomiting. She is having bowel function. Continue increasing activity. Objective - Vital Signs Vital signs: Vital Signs Temp 98.4 F 09/13/19 14:30 Pulse 74 09/13/19 14:30 Resp 16 09/13/19 14:30 BP 167/80 09/13/19 14:30 Pulse Ox 98 09/13/19 14:30 Intake & Output 09/12/19 09/13/19 09/13/19 18:59 06:59 18:59 Intake Total 450 Output Total 2 950 Balance 448 -950 Weight 68.039 kg Intake: Intake, IV Titration 100 Amount Piperacillin-Tazobactam 3 100 .375 gm In Sodium Chloride 0.9% 100 ml @ 25 mls/hr IVPB Q8HR [facility] Rx# :[id number] Oral 350 Output: Urine 950 Stool 2 Other: Voiding Method Bedside Commode Bedside Commode # Voids 1 2 2 # Bowel Movements 1 - Labs CBC & Chem 7: 09/12/19 06:39 09/12/19 23:56 Labs: Abnormal Lab Results - Last 24 Hours (Table) 09/12/19 Range/Units 23:56 Potassium 3.4 L (3.5-5.1) mmol/L Assessment and Plan (1) Small bowel obstruction Current Visit: Yes Status: Acute Code(s): K56.609 - UNSP INTESTNL OBST, UNSP TO PARTIAL VERSUS COMPLETE OBST SNOMED Code(s): 619331900
[2019-09-13] MEDS: ONDANSETRON 4 MG/2 ML VIAL IVP PRN (11:01)
[2019-09-13] MEDS: LOSARTAN 50 MG TAB PO SCH (13:06)
[2019-09-13] MEDS: FUROSEMIDE 40 MG TAB PO SCH (17:16)
--- NOTE | 2019-09-13 17:37 | P.PN ---
Subjective Progress Note Date: 09/13/19 Rita Miller, is an 89-year-old female who presented to [facility] emergency room with a chief complaint of abdominal pain nausea and vomiting she was evaluated in the emergency room that revealed evidence of dilated small bowel loops in the right lower quadrant and evidence of hydropic gallbladder, she was admitted to medical floor NG tube was inserted surgical consultation was requested, in the emergency room patient also had evidence of elevated liver enzymes, and had evidence of slightly elevated troponin level, cardiology consultation was requested. Patient was seen and examined on the medical floor she is alert and oriented in no apparent distress NG tube is still in place she stated that she is still having some abdominal pain but less than before, patient has low-grade fever of 99.2 there is no chest pain or shortness of breath no cough no nausea or vomiting at this time there is no burning was urination no frequency or urgency and no hematuria On 09/07/2019 patient was seen and examined on the medical floor she is alert and oriented 3 in no apparent distress, she started passing some gas today abdominal pain and nausea have resolved no bowel movements yet NG tube is still in place, surgical service following On 09/08/2019 patient was seen and examined on the medical floor, she was off the floor all morning having small bowel x-rays, results are still pending, patient still has NG tube in, she denies any symptoms at this time there is no fever or chills no headache or dizziness no chest pain no shortness of breath no cough no nausea or vomiting no abdominal pain no diarrhea no blood in the stools no burning was urination no frequency or urgency and no hematuria On 09/09/2019 patient was seen and examined on the medical floor she is alert an d oriented 3 in no apparent distress NG tube in place and functioning well small bowel x-ray reviewed patient has clear evidence of bowel obstruction she is scheduled to have surgery today, otherwise patient is denying any complaints there is no fever or chills no headache or dizziness no chest pain no shortness of breath no cough no nausea or vomiting no abdominal pain no diarrhea no burning with urination no frequency or urgency no hematuria. On 09/10/2019 patient was seen and examined on the medical floor, she underwent surgery this morning with Dr. Irene who performed Diagnostic laparoscopy, laparoscopic cholecystectomy, patient was transferred back to medical floor, she is doing well postoperatively, sodium is elevated at 150 and she would receive half-normal saline for IV fluid, will monitor closely. On 09/11/2019 patient is alert and oriented 3 in no apparent distress NG tube is out patient is tolerating liquids well, there is no fever or chills no headache or dizziness no chest pain no shortness of breath no cough no nausea or vomiting no abdominal pain no diarrhea no burning was urination no frequency or urgency and no hematuria, sodium is down to normal at 141 at this time will discontinue half-normal saline at 75 mL an hour, potassium is low we will start with potassium replacement protocol. On 09/12/2019 patient was seen and examined on the medical floor she is alert and oriented in no distress she is tolerating diet well and having bowel movement, there is no fever or chills no headache or dizziness no chest pain no shortness of breath no cough no nausea or vomiting no abdominal pain no diarrhea no burning was urination no frequency or urgency and no hematuria. On 09/13/2019 patient was seen and examined on the medical floor she is alert and oriented 3 she is complaining of nausea and not feeling well otherwise she denies any complaints there is no fever or chills no headache or dizziness no chest pain no shortness of breath no cough no abdominal pain no diarrhea no blood in the stools no burning was urination no frequency or urgency and no hem aturia Objective - Vital Signs Vital signs: Vital Signs Temp 98.4 F 09/13/19 14:30 Pulse 80 09/13/19 16:21 Resp 16 09/13/19 14:30 BP 167/80 09/13/19 14:30 Pulse Ox 98 09/13/19 14:30 Intake & Output 09/12/19 09/13/19 09/13/19 18:59 06:59 18:59 Intake Total 450 Output Total 2 950 Balance 448 -950 Weight 68.039 kg Intake: Intake, IV Titration 100 Amount Piperacillin-Tazobactam 3 100 .375 gm In Sodium Chloride 0.9% 100 ml @ 25 mls/hr IVPB Q8HR [facility] Rx# :[id number] Oral 350 Output: Urine 950 Stool 2 Other: Voiding Method Bedside Commode Bedside Commode # Voids 1 2 2 # Bowel Movements 1 - Exam In general patient is alert and oriented 3 in no apparent distress HEENT head normocephalic and atraumatic Neck is supple no JVD no goiter no lymphadenopathy Chest exam reveals a few scattered crackles no wheezing Cardiac exam reveals regular heart sounds no gallops no murmurs Abdomen is soft nontender no organomegaly with normal bowel sounds Extremity exam reveals no edema no cyanosis or clubbing Neurological examination reveals no gross focal deficit - Labs CBC & Chem 7: 09/12/19 06:39 09/12/19 23:56 Labs: Abnormal Lab Results - Last 24 Hours (Table) 09/12/19 Range/Units 23:56 Potassium 3.4 L (3.5-5.1) mmol/L Assessment and Plan Plan: 1. Abdominal pain was nausea and vomiting, with evidence of bowel obstruction on computed tomography scan, NG tube was inserted and surgical consultation requested 2. Evidence of hydropic gallbladder, surgical consultation was requested 3. Elevated liver enzymes on presentation will monitor statin was discontinued 4. Slight elevation in troponin level cardiology consultation was requested 5. Underlying history of hypertension home medication reviewed and are on hold at this time patient will be given hydralazine 10 mg IV every 4 hours as needed 6. Slight leukocytosis patient was started on IV Zosyn, will monitor Medication and labs were reviewed Recheck labs in a.m. Prognosis is guarded due to age and severity of illness will follow closely Awaiting small bowel x-ray results and further recommendation from surgery
[2019-09-13] MEDS: VERAPAMIL SR 240 MG TABLET.ER PO SCH (21:19)
[2019-09-13] MEDS: hydrALAZINE HCL 25 MG TAB PO SCH (21:19)
[2019-09-14 08:11] LABS: Basophils % (A) 0 %; Eosinophils # (A) 0.3 k/uL (0-0.7); Eosinophils % (A) 4 %; HCT 36.7 % (34.0-46.0); HGB 11.4 gm/dL (11.4-16.0); Lymphocytes % (A) 14 %; MCH 29.9 pg (25.0-35.0); MCHC 31.1 g/dL (31.0-37.0); MCV 96.3 fL (80.0-100.0); Mean Platelet Volume 8.3; Monocytes # (A) 0.6 k/uL (0-1.0); Monocytes % (A) 8 %; Neutrophils # (A) 5.2 k/uL (1.3-7.7); Neutrophils % (A) 72 %; Platelet Count 117 k/uL (150-450); RBC 3.81 m/uL (3.80-5.40); RDW 13.4 % (11.5-15.5); WBC 7.2 k/uL (3.8-10.6)
[2019-09-14 08:32] LABS: ALT 53 U/L (4-34); AST 36 U/L (14-36); African American GFR (CKD) >90 (>60 ml/min/1.73 sqM); Alkaline Phosphatase 65 U/L (38-126); Anion Gap 3 mmol/L; Blood Urea Nitrogen 15 mg/dL (7-17); Calcium 9.1 mg/dL (8.4-10.2); Carbon Dioxide 37 mmol/L (22-30); Chloride 103 mmol/L (98-107); Glucose 96 mg/dL (74-99); Non-African American GFR(CKD) 87 (>60 ml/min/1.73 sqM); Potassium 4.4 mmol/L (3.5-5.1); Sodium 143 mmol/L (137-145); Total Bilirubin 0.5 mg/dL (0.2-1.3); Total Protein 5.5 g/dL (6.3-8.2)
[2019-09-14] MEDS: IPRATROPIUM-ALBUTEROL 3 ML NEB INHALATION SCH ×4 (08:43→20:44)
[2019-09-14] MEDS: hydrALAZINE HCL 25 MG TAB PO SCH ×2 (09:58→20:30)
[2019-09-14] MEDS: DOCUSATE 100 MG CAP PO SCH (09:58)
[2019-09-14] MEDS: LOSARTAN 50 MG TAB PO SCH (09:58)
[2019-09-14] MEDS: ESCITALOPRAM 10 MG TAB PO SCH (09:58)
[2019-09-14] MEDS: LACTOBACILLUS ACIDOPH & BULGAR 1 EACH PACKET PO SCH (09:59)
[2019-09-14] MEDS: VERAPAMIL SR 240 MG TABLET.ER PO SCH ×2 (09:59→20:30)
[2019-09-14] MEDS: FUROSEMIDE 40 MG TAB PO SCH ×2 (09:59→15:29)
[2019-09-14] MEDS: ASPIRIN 81 MG PO SCH (09:59)
[2019-09-14] MEDS: VIT A,C & E-LUTEIN-MINERALS 1 EACH TAB PO SCH (09:59)
--- NOTE | 2019-09-14 10:01 | P.PN ---
<Tracy Syed - Last Filed: 09/14/19 10:00> Subjective Progress Note Date: 09/14/19 CHIEF COMPLAINT: Abdominal pain HISTORY OF PRESENT ILLNESS: Patient is status post laparoscopic cholecystectomy. Patient examined this morning at the bedside. She denies abdominal pain. Tole rating diet without nausea or vomiting. She is passing flatus and having bowel movements. Vital signs stable. She is afebrile. PHYSICAL EXAM: VITAL SIGNS: Reviewed. GENERAL: Well-developed in no acute distress. HEENT: No sclera icterus. Extraocular movements grossly intact. Moist buccal mucosa. Head is atraumatic, normocephalic. ABDOMEN: Soft. Nondistended. Appropriate surgical tenderness. Surgical sites clean dry and intact NEUROLOGIC: Alert and oriented. Cranial nerves II through XII grossly intact. ASSESSMENT: 1. Abdominal pain 2. Small bowel obstruction, ruled out 3. History of appendectomy 4. Sigmoid diverticulosis 5. Hydropic gallbladder, cholelithiasis, chronic cholecystitis 6. Transaminitis PLAN: -Continue diet as tolerated -Incentive spirometer -Activity as tolerated -Pain control -Stable for discharge home from a surgical standpoint Nurse practitioner note has been reviewed by physician. Signing provider agrees with the documented findings, assessment, and plan of care. Objective - Vital Signs Vital signs: Vital Signs Temp 98 F 09/14/19 07:00 Pulse 77 09/14/19 07:00 Resp 18 09/14/19 07:00 BP 175/71 09/14/19 07:00 Pulse Ox 94 L 09/14/19 07:00 Intake & Output 09/13/19 09/14/19 09/14/19 18:59 06:59 18:59 Output Total 1 Balance -1 Output: Stool 1 Other: Voiding Method Bedside Commode Bedside Commode # Voids 2 1 2 - Labs CBC & Chem 7: 09/14/19 07:38 09/14/19 07:38 Labs: Abnormal Lab Results - Last 24 Hours (Table) 09/14/19 09/14/19 Range/Units 07:38 07:38 Plt Count 117 L (150-450) k/uL Carbon Dioxide 37 H (22-30) mmol/L Creatinine 0.50 L (0.52-1.04) mg/dL ALT 53 H (4-34) U/L Total Protein 5.5 L (6.3-8.2) g/dL Albumin 3.0 L (3.5-5.0) g/dL <Andres Irene - Last Filed: 09/14/19 12:50> Subjective As above. Tolerating diet. No nausea or vomiting. Possible discharge. Objective - Vital Signs Vital signs: Vital Signs Temp 98 F 09/14/19 07:00 Pulse 77 09/14/19 07:00 Resp 1 L 09/14/19 07:54 BP 175/71 09/14/19 07:00 Pulse Ox 94 L 09/14/19 07:00 Intake & Output 09/13/19 09/14/19 09/14/19 18:59 06:59 18:59 Output Total 2 Balance -2 Output: Stool 2 Other: Voiding Method Bedside Commode Bedside Commode Toilet Bedside Commode # Voids 2 1 2 - Labs CBC & Chem 7: 09/14/19 07:38 09/14/19 07:38 Labs: Abnormal Lab Results - Last 24 Hours (Table) 09/14/19 09/14/19 Range/Units 07:38 07:38 Plt Count 117 L (150-450) k/uL Carbon Dioxide 37 H (22-30) mmol/L Creatinine 0.50 L (0.52-1.04) mg/dL ALT 53 H (4-34) U/L Total Protein 5.5 L (6.3-8.2) g/dL Albumin 3.0 L (3.5-5.0) g/dL Assessment and Plan (1) Small bowel obstruction Current Visit: Yes Status: Acute Code(s): K56.609 - UNSP INTESTNL OBST, UNSP TO PARTIAL VERSUS COMPLETE OBST SNOMED Code(s): 035633650
--- NOTE | 2019-09-14 19:02 | P.PN ---
Subjective Progress Note Date: 09/14/19 Rita Miller, is an 89-year-old female who presented to [facility] emergency room with a chief complaint of abdominal pain nausea and vomiting she was evaluated in the emergency room that revealed evidence of dilated small bowel loops in the right lower quadrant and evidence of hydropic gallbladder, she was admitted to medical floor NG tube was inserted surgical consultation was requested, in the emergency room patient also had evidence of elevated liver enzymes, and had evidence of slightly elevated troponin level, cardiology consultation was requested. Patient was seen and examined on the medical floor she is alert and oriented in no apparent distress NG tube is still in place she stated that she is still having some abdominal pain but less than before, patient has low-grade fever of 99.2 there is no chest pain or shortness of breath no cough no nausea or vomiting at this time there is no burning was urination no frequency or urgency and no hematuria On 09/07/2019 patient was seen and examined on the medical floor she is alert and oriented 3 in no apparent distress, she started passing some gas today abdominal pain and nausea have resolved no bowel movements yet NG tube is still in place, surgical service following On 09/08/2019 patient was seen and examined on the medical floor, she was off the floor all morning having small bowel x-rays, results are still pending, patient still has NG tube in, she denies any symptoms at this time there is no fever or chills no headache or dizziness no chest pain no shortness of breath no cough no nausea or vomiting no abdominal pain no diarrhea no blood in the stools no burning was urination no frequency or urgency and no hematuria On 09/09/2019 patient was seen and examined on the medical floor she is alert an d oriented 3 in no apparent distress NG tube in place and functioning well small bowel x-ray reviewed patient has clear evidence of bowel obstruction she is scheduled to have surgery today, otherwise patient is denying any complaints there is no fever or chills no headache or dizziness no chest pain no shortness of breath no cough no nausea or vomiting no abdominal pain no diarrhea no burning with urination no frequency or urgency no hematuria. On 09/10/2019 patient was seen and examined on the medical floor, she underwent surgery this morning with Dr. Irene who performed Diagnostic laparoscopy, laparoscopic cholecystectomy, patient was transferred back to medical floor, she is doing well postoperatively, sodium is elevated at 150 and she would receive half-normal saline for IV fluid, will monitor closely. On 09/11/2019 patient is alert and oriented 3 in no apparent distress NG tube is out patient is tolerating liquids well, there is no fever or chills no headache or dizziness no chest pain no shortness of breath no cough no nausea or vomiting no abdominal pain no diarrhea no burning was urination no frequency or urgency and no hematuria, sodium is down to normal at 141 at this time will discontinue half-normal saline at 75 mL an hour, potassium is low we will start with potassium replacement protocol. On 09/12/2019 patient was seen and examined on the medical floor she is alert and oriented in no distress she is tolerating diet well and having bowel movement, there is no fever or chills no headache or dizziness no chest pain no shortness of breath no cough no nausea or vomiting no abdominal pain no diarrhea no burning was urination no frequency or urgency and no hematuria. On 09/13/2019 patient was seen and examined on the medical floor she is alert and oriented 3 she is complaining of nausea and not feeling well otherwise she denies any complaints there is no fever or chills no headache or dizziness no chest pain no shortness of breath no cough no abdominal pain no diarrhea no blood in the stools no burning was urination no frequency or urgency and no hem aturia. On 09/14/2019 patient was seen and examined on the medical floor she is alert and oriented 3 in no apparent distress, there is no fever or chills no headache or dizziness no chest pain no shortness of breath no cough she is still having some nausea no vomiting no abdominal pain no diarrhea no burning was urination no frequency or urgency no hematuria. Patient is improving gradually. Plan for discharge to home tomorrow. At this time patient is agreeable Objective - Vital Signs Vital signs: Vital Signs Temp 97.8 F 09/14/19 15:00 Pulse 68 09/14/19 16:51 Resp 16 09/14/19 15:00 BP 185/72 09/14/19 15:00 Pulse Ox 97 09/14/19 15:00 Intake & Output 09/13/19 09/14/19 09/14/19 18:59 06:59 18:59 Intake Total 400 Output Total 2 Balance 398 Intake: Oral 400 Output: Stool 2 Other: Voiding Method Bedside Commode Bedside Commode Toilet Bedside Commode # Voids 2 1 1 # Bowel Movements 1 - Exam In general patient is alert and oriented 3 in no apparent distress HEENT head normocephalic and atraumatic Neck is supple no JVD no goiter no lymphadenopathy Chest exam reveals a few scattered crackles no wheezing Cardiac exam reveals regular heart sounds no gallops no murmurs Abdomen is soft nontender no organomegaly with normal bowel sounds Extremity exam reveals no edema no cyanosis or clubbing Neurological examination reveals no gross focal deficit - Labs CBC & Chem 7: 09/14/19 07:38 09/14/19 07:38 Labs: Abnormal Lab Results - Last 24 Hours (Table) 09/14/19 09/14/19 Range/Units 07:38 07:38 Plt Count 117 L (150-450) k/uL Carbon Dioxide 37 H (22-30) mmol/L Creatinine 0.50 L (0.52-1.04) mg/dL ALT 53 H (4-34) U/L Total Protein 5.5 L (6.3-8.2) g/dL Albumin 3.0 L (3.5-5.0) g/dL Assessment and Plan Plan: 1. Abdominal pain was nausea and vomiting, with evidence of bowel obstruction on computed tomography scan, NG tube was inserted and surgical consultation requested 2. Evidence of hydropic gallbladder, surgical consultation was requested 3. Elevated liver enzymes on presentation will monitor statin was discontinued 4. Slight elevation in troponin level cardiology consultation was requested 5. Underlying history of hypertension home medication reviewed and are on hold at this time patient will be given hydralazine 10 mg IV every 4 hours as needed 6. Slight leukocytosis patient was started on IV Zosyn, will monitor Medication and labs were reviewed Recheck labs in a.m. Prognosis is guarded due to age and severity of illness will follow closely Awaiting small bowel x-ray results and further recommendation from surgery
[2019-09-15] MEDS: IPRATROPIUM-ALBUTEROL 3 ML NEB INHALATION SCH ×2 (07:20→10:45)
[2019-09-15 07:31] VITALS: BP 146/76; TEMP 97.9
[2019-09-15 07:45] LABS: Basophils % (A) 0 %; Eosinophils # (A) 0.3 k/uL (0-0.7); Eosinophils % (A) 4 %; HCT 33.3 % (34.0-46.0); HGB 10.9 gm/dL (11.4-16.0); Lymphocytes # (A) 1.1 k/uL (1.0-4.8); Lymphocytes % (A) 17 %; MCH 31.3 pg (25.0-35.0); MCHC 32.7 g/dL (31.0-37.0); MCV 95.7 fL (80.0-100.0); Mean Platelet Volume 7.9; Monocytes # (A) 0.6 k/uL (0-1.0); Monocytes % (A) 9 %; Neutrophils # (A) 4.4 k/uL (1.3-7.7); Neutrophils % (A) 68 %; Platelet Count 150 k/uL (150-450); RBC 3.48 m/uL (3.80-5.40); RDW 13.1 % (11.5-15.5); WBC 6.5 k/uL (3.8-10.6)
[2019-09-15 07:59] LABS: ALT 43 U/L (4-34); AST 29 U/L (14-36); African American GFR (CKD) >90 (>60 ml/min/1.73 sqM); Albumin 2.6 g/dL (3.5-5.0); Alkaline Phosphatase 55 U/L (38-126); Anion Gap 2 mmol/L; Blood Urea Nitrogen 14 mg/dL (7-17); Calcium 8.3 mg/dL (8.4-10.2); Carbon Dioxide 39 mmol/L (22-30); Chloride 99 mmol/L (98-107); Glucose 92 mg/dL (74-99); Non-African American GFR(CKD) 86 (>60 ml/min/1.73 sqM); Potassium 3.7 mmol/L (3.5-5.1); Sodium 140 mmol/L (137-145); Total Bilirubin 0.4 mg/dL (0.2-1.3); Total Protein 4.9 g/dL (6.3-8.2)
[2019-09-15 08:51] VITALS: RESP 18
[2019-09-15] MEDS: ESCITALOPRAM 10 MG TAB PO SCH (09:35)
[2019-09-15] MEDS: LOSARTAN 50 MG TAB PO SCH (09:35)
[2019-09-15] MEDS: ASPIRIN 81 MG PO SCH (09:35)
[2019-09-15] MEDS: VIT A,C & E-LUTEIN-MINERALS 1 EACH TAB PO SCH (09:35)
[2019-09-15] MEDS: LACTOBACILLUS ACIDOPH & BULGAR 1 EACH PACKET PO SCH (09:35)
[2019-09-15] MEDS: hydrALAZINE HCL 25 MG TAB PO SCH (09:35)
[2019-09-15] MEDS: FUROSEMIDE 40 MG TAB PO SCH (09:36)
[2019-09-15] MEDS: VERAPAMIL SR 240 MG TABLET.ER PO SCH (09:36)
[2019-09-15] MEDS: DOCUSATE 100 MG CAP PO SCH (09:36)
--- NOTE | 2019-09-15 09:36 | P.PN ---
<Tracy Syed - Last Filed: 09/15/19 09:35> Subjective Progress Note Date: 09/15/19 CHIEF COMPLAINT: Abdominal pain HISTORY OF PRESENT ILLNESS: Patient is status post laparoscopic cholecystectomy. Patient examined this morning at the bedside. She denies abdominal pain. Tole rating diet without nausea or vomiting. She is passing flatus and having bowel movements. Vital signs stable. She is afebrile. PHYSICAL EXAM: VITAL SIGNS: Reviewed. GENERAL: Well-developed in no acute distress. HEENT: No sclera icterus. Extraocular movements grossly intact. Moist buccal mucosa. Head is atraumatic, normocephalic. ABDOMEN: Soft. Nondistended. Appropriate surgical tenderness. Surgical sites clean dry and intact NEUROLOGIC: Alert and oriented. Cranial nerves II through XII grossly intact. ASSESSMENT: 1. Abdominal pain 2. Small bowel obstruction, ruled out 3. History of appendectomy 4. Sigmoid diverticulosis 5. Hydropic gallbladder, cholelithiasis, chronic cholecystitis 6. Transaminitis PLAN: -Continue diet as tolerated -Incentive spirometer -Activity as tolerated -Pain control -Stable for discharge home from a surgical standpoint Nurse practitioner note has been reviewed by physician. Signing provider agrees with the documented findings, assessment, and plan of care. Objective - Vital Signs Vital signs: Vital Signs Temp 97.9 F 09/15/19 07:00 Pulse 68 09/15/19 07:30 Resp 18 09/15/19 08:13 BP 146/76 09/15/19 07:00 Pulse Ox 99 09/15/19 07:00 Intake & Output 09/14/19 09/15/19 09/15/19 18:59 06:59 18:59 Intake Total 400 Output Total 2 Balance 398 Intake: Oral 400 Output: Stool 2 Other: Voiding Method Toilet Toilet Bedside Commode Bedside Commode # Voids 1 1 # Bowel Movements 1 - Labs CBC & Chem 7: 09/15/19 06:59 09/15/19 06:59 Labs: Abnormal Lab Results - Last 24 Hours (Table) 09/15/19 09/15/19 Range/Units 06:59 06:59 RBC 3.48 L (3.80-5.40) m/uL Hgb 10.9 L (11.4-16.0) gm/dL Hct 33.3 L (34.0-46.0) % Carbon Dioxide 39 H (22-30) mmol/L Calcium 8.3 L (8.4-10.2) mg/dL ALT 43 H (4-34) U/L Total Protein 4.9 L (6.3-8.2) g/dL Albumin 2.6 L (3.5-5.0) g/dL <[email or web address] - Last Filed: 09/15/19 16:48> Objective - Vital Signs Vital signs: Vital Signs Temp 97.9 F 09/15/19 07:00 Pulse 76 09/15/19 10:50 Resp 18 09/15/19 08:13 BP 146/76 09/15/19 07:00 Pulse Ox 99 09/15/19 07:00 Intake & Output 09/14/19 09/15/19 09/15/19 18:59 06:59 18:59 Intake Total 400 Output Total 2 Balance 398 Intake: Oral 400 Output: Stool 2 Other: Voiding Method Toilet Toilet Bedside Commode Bedside Commode # Voids 1 1 6 # Bowel Movements 1 - Labs CBC & Chem 7: 09/15/19 06:59 09/15/19 06:59 Labs: Abnormal Lab Results - Last 24 Hours (Table) 09/15/19 09/15/19 Range/Units 06:59 06:59 RBC 3.48 L (3.80-5.40) m/uL Hgb 10.9 L (11.4-16.0) gm/dL Hct 33.3 L (34.0-46.0) % Carbon Dioxide 39 H (22-30) mmol/L Calcium 8.3 L (8.4-10.2) mg/dL ALT 43 H (4-34) U/L Total Protein 4.9 L (6.3-8.2) g/dL Albumin 2.6 L (3.5-5.0) g/dL Assessment and Plan (1) Small bowel obstruction Status: Acute Code(s): K56.609 - UNSP INTESTNL OBST, UNSP TO PARTIAL VERSUS COMPLETE OBST SNOMED Code(s): 282407204
[2019-09-15 10:51] VITALS: PULSE 76
--- NOTE | 2019-09-15 13:54 | P.DS ---
Providers Date of admission: 09/05/19 20:27 Expected date of discharge: 09/15/19 Attending physician: Barbara Salter Consults: 09/05/19 20:06 Consult Physician Routine Consulting Provider: Andres Irene Consult Reason/Comments: Bowel obstruction Do you want consulting provider notified?: Yes 09/06/19 06:07 Consult Physician Routine Consulting Provider: Zahra Tuttle Consult Reason/Comments: Elevated troponins Do you want consulting provider notified?: Yes Primary care physician: [facility] Course: Diagnosis on discharge: 1. Abdominal pain was nausea and vomiting, with evidence of bowel obstruction on computed tomography scan, NG tube was inserted and surgical consultation requested, patient had evidence of cholecystitis and underwent cholecystectomy during this admission 2. Evidence of hydropic gallbladder, surgical consultation was requested 3. Elevated liver enzymes on presentation will monitor statin was discontinued 4. Slight elevation in troponin level cardiology consultation was requested 5. Underlying history of hypertension home medication reviewed and are on hold at this time patient will be given hydralazine 10 mg IV every 4 hours as needed 6. Slight leukocytosis patient was started on IV Zosyn, will monitor, patient improved she was switched to oral Augmentin she will continue for 7 more days Hospital course: Rita Miller, is an 89-year-old female who presented to [facility] emergency room with a chief complaint of abdominal pain nausea and vomiting she was evaluated in the emergency room that revealed evidence of dilated small bowel loops in the right lower quadrant and evidence of hydropic gallbladder, she was admitted to medical floor NG tube was inserted surgical consultation was requested, in the emergency room patient also had evidence of elevated liver enzymes, and had evidence of slightly elevated troponin level, cardiology consultation was requested. Patient was seen and examined on the medical floor she is alert and oriented in no apparent distress NG tube is still in place she stated that she is still sanderson ving some abdominal pain but less than before, patient has low-grade fever of 99.2 there is no chest pain or shortness of breath no cough no nausea or vomiting at this time there is no burning was urination no frequency or urgency and no hematuria On 09/07/2019 patient was seen and examined on the medical floor she is alert and oriented 3 in no apparent distress, she started passing some gas today abdominal pain and nausea have resolved no bowel movements yet NG tube is still in place, surgical service following On 09/08/2019 patient was seen and examined on the medical floor, she was off the floor all morning having small bowel x-rays, results are still pending, patient still has NG tube in, she denies any symptoms at this time there is no fever or chills no headache or dizziness no chest pain no shortness of breath no cough no nausea or vomiting no abdominal pain no diarrhea no blood in the stools no burning was urination no frequency or urgency and no hematuria On 09/09/2019 patient was seen and examined on the medical floor she is alert and oriented 3 in no apparent distress NG tube in place and functioning well small bowel x-ray reviewed patient has clear evidence of bowel obstruction she is scheduled to have surgery today, otherwise patient is denying any complaints there is no fever or chills no headache or dizziness no chest pain no shortness of breath no cough no nausea or vomiting no abdominal pain no diarrhea no burning with urination no frequency or urgency no hematuria. On 09/10/2019 patient was seen and examined on the medical floor, she underwent surgery this morning with Dr. Irene who performed Diagnostic laparoscopy, laparoscopic cholecystectomy, patient was transferred back to medical floor, she is doing well postoperatively, sodium is elevated at 150 and she would receive half-normal saline for IV fluid, will monitor closely. On 09/11/2019 patient is alert and oriented 3 in no apparent distress NG tube is out patient is tolerating liquids well, there is no fever or chills no headache or dizziness no chest pain no shortness of breath no cough no nausea or vomiting no abdominal pain no diarrhea no burning was urination no frequency or urgency and no hematuria, sodium is down to normal at 141 at this time will discontinue half-normal saline at 75 mL an hour, potassium is low we will start with potassium replacement protocol. On 09/12/2019 patient was seen and examined on the medical floor she is alert and oriented in no distress she is tolerating diet well and having bowel movement, there is no fever or chills no headache or dizziness no chest pain no shortness of breath no cough no nausea or vomiting no abdominal pain no diarrhea no burning was urination no frequency or urgency and no hematuria. On 09/13/2019 patient was seen and examined on the medical floor she is alert and oriented 3 she is complaining of nausea and not feeling well otherwise she denies any complaints there is no fever or chills no headache or dizziness no chest pain no shortness of breath no cough no abdominal pain no diarrhea no blood in the stools no burning was urination no frequency or urgency and no hematuria. On 09/14/2019 patient was seen and examined on the medical floor she is alert and oriented 3 in no apparent distress, there is no fever or chills no headache or dizziness no chest pain no shortness of breath no cough she is still having some nausea no vomiting no abdominal pain no diarrhea no burning was urination no frequency or urgency no hematuria. Patient is improving gradually. Plan for discharge to home tomorrow. At this time patient is agreeable On 09/15/2019 patient was seen and examined on the medical floor she is alert and oriented 3 in no apparent distress there is no fever or chills no headache or dizziness no chest pain no shortness of breath no cough no nausea or vomiting no abdominal pain no diarrhea no burning with urination no frequency or urgency no hematuria, she is ambulating well with walker she was cleared by surgery for discharge, she would be discharged home today Will follow in the office within 1 week. Patient Condition at Discharge: Serious Plan - Discharge Summary Discharge Rx Participant: Yes New Discharge Prescriptions: New Amoxicillin/Potassium Clav [Augmentin 500-125 Tablet] 1 tab PO Q12HR 7 Days #14 tab Acetaminophen Tab [Tylenol Tab] 650 mg PO Q4H PRN #30 tablet PRN Reason: Pain Continue Verapamil HCl [Verapamil ER] 240 mg PO BID Pravastatin Sodium [Pravachol] 20 mg PO HS Potassium Chloride 20 meq PO BID PRN PRN Reason: W/LASIX Furosemide 40 mg PO BID PRN PRN Reason: Edema Aspirin 81 mg PO DAILY Docusate Sodium [Dok] 100 mg PO DAILY Vit A/Vit C/Vit E/Zinc/Copper [ICAPS SOFTGEL] 1 cap PO DAILY Losartan Potassium [Cozaar] 100 mg PO DAILY L.acidoph,Paracasei, B.lactis [Probiotic] 1 cap PO DAILY hydrALAZINE HCL 25 mg PO BID Escitalopram [Lexapro] 10 mg PO DAILY Loratadine [Claritin] 10 mg PO DAILY Ipratropium-Albuterol Nebulize [Duoneb 0.5 mg-3 mg/3 ml Soln] 3 ml INHALATION RT-QID Discharge Medication List Aspirin 81 mg PO DAILY 06/25/16 [History] Furosemide 40 mg PO BID PRN 06/25/16 [History] Potassium Chloride 20 meq PO BID PRN 06/25/16 [History] Pravastatin Sodium [Pravachol] 20 mg PO HS 06/25/16 [History] Verapamil HCl [Verapamil ER] 240 mg PO BID 06/25/16 [History] Docusate Sodium [Dok] 100 mg PO DAILY 12/18/18 [History] Escitalopram [Lexapro] 10 mg PO DAILY 12/18/18 [History] L.acidoph,Paracasei, B.lactis [Probiotic] 1 cap PO DAILY 12/18/18 [History] Losartan Potassium [Cozaar] 100 mg PO DAILY 12/18/18 [History] Vit A/Vit C/Vit E/Zinc/Copper [ICAPS SOFTGEL] 1 cap PO DAILY 12/18/18 [History] hydrALAZINE HCL 25 mg PO BID 12/18/18 [History] Ipratropium-Albuterol Nebulize [Duoneb 0.5 mg-3 mg/3 ml Soln] 3 ml INHALATION RT-QID 09/05/19 [History] Loratadine [Claritin] 10 mg PO DAILY 09/05/19 [History] Amoxicillin/Potassium Clav [Augmentin 500-125 Tablet] 1 tab PO Q12HR 7 Days #14 tab 09/13/19 [Rx] Acetaminophen Tab [Tylenol Tab] 650 mg PO Q4H PRN #30 tablet 09/14/19 [Rx] Follow up Appointment(s)/Referral(s): Andres Irene MD [Medical Doctor] - 09/21/19 2:45 pm Diego Caro MD [STAFF PHYSICIAN] - 09/23/19 9:30 am [facility], [NON-STAFF] - Barbara Salter MD [Primary Care Provider] - 09/16/19 11:45 am Patient Instructions/Handouts: Laparoscopic Cholecystectomy (DC) Activity/Diet/Wound Care/Special Instructions: No lifting over 10 pounds You may shower. No soaking or tub baths Very light activity until you are reevaluated at your follow up appointment with your surgeon
== END 2019-09-15 15:15 | disposition home or self-care (01) | DRG 357 ==
LOC: EC 16:43 → 4SSUR 20:27
PROVIDERS: ADMIT Internal Medicine; ATTEND Internal Medicine
PROC: 0D9670Z Drainage of Stomach with Drainage Device, Via Natural or Artificial Opening (ICD-10-PCS; 2019-09-05)
PROC: 0FT44ZZ Resection of Gallbladder, Percutaneous Endoscopic Approach (ICD-10-PCS; principal; 2019-09-10 10:00)
DX: K56.600 Partial intestinal obstruction, unspecified as to cause (principal); K80.10 Calculus of gallbladder with chronic cholecystitis without obstruction; K82.1 Hydrops of gallbladder; E78.5 Hyperlipidemia, unspecified; I11.9 Hypertensive heart disease without heart failure; J44.9 Chronic obstructive pulmonary disease, unspecified; K56.7 Ileus, unspecified; K57.30 Diverticulosis of large intestine without perforation or abscess without bleeding; K59.00 Constipation, unspecified; M19.90 Unspecified osteoarthritis, unspecified site; R07.89 Other chest pain; R74.0 Nonspecific elevation of levels of transaminase and lactic acid dehydrogenase [LDH]; R79.89 Other specified abnormal findings of blood chemistry; D72.829 Elevated white blood cell count, unspecified; Z11.59 Encounter for screening for other viral diseases; Z79.51 Long term (current) use of inhaled steroids; Z79.82 Long term (current) use of aspirin; Z79.899 Other long term (current) drug therapy; Z87.891 Personal history of nicotine dependence; Z88.8 Allergy status to other drugs, medicaments and biological substances; Z91.018 Allergy to other foods; Z90.49 Acquired absence of other specified parts of digestive tract
CPT/HCPCS: 36415; 71045; 74018; 74177; 74248; 76705; 80053; 81001; 82150; 82330; 83605; 83690; 83735; 84100; 84132; 84478; 84484; 85025; 85610; 85730; 88304; 93005; 93306; 94640; 96361; 96374; 96375; 99285

== ENCOUNTER 2019-10-11 10:46 | Inpatient (IN) | payer MEDICARE ==
[2019-10-11] MEDS ORDERED: NITROGLYCERIN-D5W PMX 50 MG in DEXTROSE/WATER 1 250ML.BAG IV STA (11:29)
[2019-10-11] MEDS ORDERED: SODIUM CHLORIDE 0.9% 1,000 ML IV STA (11:29)
[2019-10-11] MEDS ORDERED: FUROSEMIDE 10 MG/ML 4 ML VIAL IV STA (11:29)
[2019-10-11 11:44] LABS: Basophils % (A) 0 %; Eosinophils # (A) 0.2 k/uL (0-0.7); Eosinophils % (A) 2 %; HCT 45.9 % (34.0-46.0); Hypochromasia Slight; Lymphocytes # (A) 1.2 k/uL (1.0-4.8); Lymphocytes % (A) 13 %; MCHC 31.1 g/dL (31.0-37.0); MCV 96.5 fL (80.0-100.0); Mean Platelet Volume 7.9; Monocytes # (A) 0.5 k/uL (0-1.0); Monocytes % (A) 6 %; Neutrophils # (A) 7.2 k/uL (1.3-7.7); Neutrophils % (A) 79 %; Platelet Count 164 k/uL (150-450); RBC 4.76 m/uL (3.80-5.40); RDW 13.9 % (11.5-15.5); WBC 9.1 k/uL (3.8-10.6)
[2019-10-11 11:49] LABS: HGB 14.3 gm/dL (11.4-16.0)
[2019-10-11 11:52] LABS: ALT 242 U/L (4-34); AST 479 U/L (14-36); African American GFR (CKD) >90 (>60 ml/min/1.73 sqM); Albumin 3.9 g/dL (3.5-5.0); Alkaline Phosphatase 211 U/L (38-126); Anion Gap 5 mmol/L; Blood Urea Nitrogen 11 mg/dL (7-17); Calcium 9.1 mg/dL (8.4-10.2); Carbon Dioxide 34 mmol/L (22-30); Chloride 102 mmol/L (98-107); Glucose 181 mg/dL (74-99); Non-African American GFR(CKD) 84 (>60 ml/min/1.73 sqM); Potassium 3.6 mmol/L (3.5-5.1); Sodium 141 mmol/L (137-145); Total Bilirubin 1.3 mg/dL (0.2-1.3); Total Protein 6.5 g/dL (6.3-8.2)
--- NOTE | 2019-10-11 11:53 | ED ---
General Adult HPI - General Chief complaint: Shortness of Breath Stated complaint: SOB, chest pain Time Seen by Provider: 10/11/19 11:05 Source: patient Mode of arrival: wheelchair Limitations: no limitations - History of Present Illness Initial comments: Dictation was produced using [employer] dictation software. please excuse any grammatical, word or spelling errors. This patient was cared for during a federal and state declared state of emergenc y secondary to Covid 19 Chief Complaint: 89-year-old female past medical history dyslipidemia hypertension heart for presents with dyspnea. History of Present Illness: Is 89-year-old female she has past medical history of dyslipidemia, hypertension or heart failure. She presents today with dyspnea upon waking. Yesterday she had a whopper sandwich and she went to bed in stable medical condition. This might she woke up feeling really short of breath. Patient denies any cough. L member at bedside reports that she was with the patient yesterday and she was in her usual state of health. Patient denies any fever, chills or night sweats. She has no pain complaints. The ROS documented in this emergency department record has been reviewed and confirmed by me. Those systems with pertinent positive or negative responses have been documented in the HPI. All other systems are other negative and/or noncontributory. PHYSICAL EXAM: General Impression: Alert and oriented x3, dyspneic HEENT: Normocephalic atraumatic, extra-ocular movements intact, pupils equal and reactive to light bilaterally, mucous membranes moist. Cardiovascular: Heart regular rate and rhythm Chest: Bilateral lung crackles, mildly dyspneic with minimal retractions Abdomen: abdomen soft, non-tender, non-distended, no organomegaly Musculoskeletal: Pulses present and equal in all extremities, no peripheral edema Motor: no focal deficits noted Neurological: CN II-XII grossly intact, no focal motor or sensory deficits noted Skin: Intact with no visualized rashes Psych: Normal affect and mood ED course: 89-year-old female clinical presentation is with congestive heart failure exacerbation. As upon arrival shows heart rate of 87, blood pressure 219 133, respiratory 28. Plan care bedside ultrasound was performed showing bilateral curly B-lines in the upper lung dhillon. Patient given sublingual nitroglycerin and started nitroglycerin infusion.Patient's blood pressure was titrated down nicely. Laboratory evaluation obtained. CBC, coag panel, metabolic panel is unremarkable. Patient does have elevation in liver markers. Troponins negative. Prematurity peptide is 5720. Chest x-ray shows findings to suggest pulmonary edema. Patient reevaluated after several minutes of BiPAP and nitroglycerin. Patient isn't in stable medical condition. She does appear to be much more comfortable. Patient be admitted to telemetry unit. Discussed patient case with Dr. salter. Cardiology on consult. EKG interpretation: Ventricular rate of 79, sinus rhythm, TN interval 200, QRS 100, QTC 438. No TN prolongation, no QTC prolongation, no ST or T-wave changes noted. EKG compared to 09/05/2019 showing no changes. Overall, this EKG is unremarkable - Related Data Home Medications Medication Instructions Recorded Confirmed Aspirin 81 mg PO DAILY 06/25/16 09/05/19 Furosemide 40 mg PO BID PRN 06/25/16 09/05/19 Potassium Chloride 20 meq PO BID PRN 06/25/16 09/05/19 Pravastatin Sodium [Pravachol] 20 mg PO HS 06/25/16 09/05/19 Verapamil HCl [Verapamil ER] 240 mg PO BID 06/25/16 09/05/19 Docusate Sodium [Dok] 100 mg PO DAILY 12/18/18 09/05/19 Escitalopram [Lexapro] 10 mg PO DAILY 12/18/18 09/05/19 L.acidoph,Paracasei, B.lactis 1 cap PO DAILY 12/18/18 09/05/19 [Probiotic] Losartan Potassium [Cozaar] 100 mg PO DAILY 12/18/18 09/05/19 Vit A/Vit C/Vit E/Zinc/Copper 1 cap PO DAILY 12/18/18 09/05/19 [ICAPS SOFTGEL] hydrALAZINE HCL 25 mg PO BID 12/18/18 09/05/19 Ipratropium-Albuterol Nebulize 3 ml INHALATION RT-QID 09/05/19 09/05/19 [Duoneb 0.5 mg-3 mg/3 ml Soln] Loratadine [Claritin] 10 mg PO DAILY 09/05/19 09/05/19 Previous Rx's Medication Instructions Recorded Amoxicillin/Potassium Clav 1 tab PO Q12HR 7 Days #14 tab 09/13/19 [Augmentin 500-125 Tablet] Acetaminophen Tab [Tylenol Tab] 650 mg PO Q4H PRN #30 tablet 09/14/19 Allergies Allergy/AdvReac Type Severity Reaction Status Date / Time cheese Allergy Unknown Verified 09/05/19 21:53 chocolate flavor Allergy Unknown Verified 09/05/19 21:53 tomato Allergy Unknown Verified 09/05/19 21:53 levofloxacin [From Levaquin] AdvReac Diarrhea Verified 09/05/19 21:53 Review of Systems ROS Statement: Those systems with pertinent positive or pertinent negative responses have been documented in the HPI. ROS Other: All systems not noted in ROS Statement are negative. Past Medical History Past Medical History: Hyperlipidemia, Hypertension, Musculoskeletal Disorder, Osteoarthritis (OA) Additional Past Medical History / Comment(s): Clostrophobia, [place] History of Any Multi-Drug Resistant Organisms: None Reported Past Surgical History: Appendectomy, Bladder Surgery, Bowel Resection Past Anesthesia/Blood Transfusion Reactions: No Reported Reaction Past Psychological History: No Psychological Hx Reported Smoking Status: Former smoker Past Alcohol Use History: None Reported Past Drug Use History: None Reported - Past Family History Father Family Medical History: No Reported History General Exam Limitations: no limitations Course Vital Signs 10/11/19 10/11/19 10/11/19 10:51 11:53 13:00 Temperature 98.1 F Pulse Rate 87 72 63 Respiratory 28 H 22 16 Rate Blood Pressure 219/123 214/114 194/101 O2 Sat by Pulse 97 98 96 Oximetry 10/11/19 10/11/19 13:06 13:14 Temperature Pulse Rate 67 67 Respiratory 18 18 Rate Blood Pressure 143/85 183/97 O2 Sat by Pulse 95 91 L Oximetry Medical Decision Making - Lab Data Result diagrams: 10/11/19 11:33 10/11/19 11:33 Lab Results 10/11/19 10/11/19 10/11/19 Range/Units 11:33 11:33 11:33 WBC 9.1 (3.8-10.6) k/uL RBC 4.76 (3.80-5.40) m/uL Hgb 14.3 D (11.4-16.0) gm/dL Hct 45.9 (34.0-46.0) % MCV 96.5 (80.0-100.0) fL MCH 30.0 (25.0-35.0) pg MCHC 31.1 (31.0-37.0) g/dL RDW 13.9 (11.5-15.5) % Plt Count 164 (150-450) k/uL Neutrophils % 79 % Lymphocytes % 13 % Monocytes % 6 % Eosinophils % 2 % Basophils % 0 % Neutrophils # 7.2 (1.3-7.7) k/uL Lymphocytes # 1.2 (1.0-4.8) k/uL Monocytes # 0.5 (0-1.0) k/uL Eosinophils # 0.2 (0-0.7) k/uL Basophils # 0.0 (0-0.2) k/uL Hypochromasia Slight PT 10.2 (9.0-12.0) sec INR 1.0 (<1.2) APTT 25.2 (22.0-30.0) sec Sodium 141 (137-145) mmol/L Potassium 3.6 (3.5-5.1) mmol/L Chloride 102 (98-107) mmol/L Carbon Dioxide 34 H (22-30) mmol/L Anion Gap 5 mmol/L BUN 11 (7-17) mg/dL Creatinine 0.57 (0.52-1.04) mg/dL Est GFR (CKD-EPI)AfAm >90 (>60 ml/min/1.73 sqM) Est GFR (CKD-EPI)NonAf 84 (>60 ml/min/1.73 sqM) Glucose 181 H (74-99) mg/dL Plasma Lactic Acid Edson (0.7-2.0) mmol/L Calcium 9.1 (8.4-10.2) mg/dL Total Bilirubin 1.3 (0.2-1.3) mg/dL AST 479 H (14-36) U/L ALT 242 H (4-34) U/L Alkaline Phosphatase 211 H (38-126) U/L Troponin I (0.000-0.034) ng/mL NT-Pro-B Natriuret Pep pg/mL Total Protein 6.5 (6.3-8.2) g/dL Albumin 3.9 (3.5-5.0) g/dL 10/11/19 10/11/19 10/11/19 Range/Units 11:33 11:33 11:33 WBC (3.8-10.6) k/uL RBC (3.80-5.40) m/uL Hgb (11.4-16.0) gm/dL Hct (34.0-46.0) % MCV (80.0-100.0) fL MCH (25.0-35.0) pg MCHC (31.0-37.0) g/dL RDW (11.5-15.5) % Plt Count (150-450) k/uL Neutrophils % % Lymphocytes % % Monocytes % % Eosinophils % % Basophils % % Neutrophils # (1.3-7.7) k/uL Lymphocytes # (1.0-4.8) k/uL Monocytes # (0-1.0) k/uL Eosinophils # (0-0.7) k/uL Basophils # (0-0.2) k/uL Hypochromasia PT (9.0-12.0) sec INR (<1.2) APTT (22.0-30.0) sec Sodium (137-145) mmol/L Potassium (3.5-5.1) mmol/L Chloride (98-107) mmol/L Carbon Dioxide (22-30) mmol/L Anion Gap mmol/L BUN (7-17) mg/dL Creatinine (0.52-1.04) mg/dL Est GFR (CKD-EPI)AfAm (>60 ml/min/1.73 sqM) Est GFR (CKD-EPI)NonAf (>60 ml/min/1.73 sqM) Glucose (74-99) mg/dL Plasma Lactic Acid Edson 1.0 (0.7-2.0) mmol/L Calcium (8.4-10.2) mg/dL Total Bilirubin (0.2-1.3) mg/dL AST (14-36) U/L ALT (4-34) U/L Alkaline Phosphatase (38-126) U/L Troponin I <0.012 (0.000-0.034) ng/mL NT-Pro-B Natriuret Pep 5720 pg/mL Total Protein (6.3-8.2) g/dL Albumin (3.5-5.0) g/dL Critical Care Time Critical Care Time: Yes Total Critical Care Time: 33 Disposition Clinical Impression: Congestive heart failure, Hypertensive urgency Disposition: ADMITTED IP TO THIS HOSP Condition: Fair Referrals: Barbara Salter MD [Primary Care Provider] - 1-2 days Decision Time: 13:56
[2019-10-11 12:09] LABS: Partial Thromboplastin Time 25.2 sec (22.0-30.0); Prothrombin Time 10.2 sec (9.0-12.0)
--- NOTE | 2019-10-11 12:18 | XR ---
EXAMINATION TYPE: XR chest 1V portable DATE OF EXAM: 10/11/2019 Comparison: 09/10/2019 Clinical History: 89 year-old female shortness of breath, dyspnea Findings: Heart upper limits of normal in size. Diffuse interstitial density. Patchy infiltrates are present th roughout, increased from prior. Trace effusions are possible. Right IJ CVC removed in the interval. Impression: Interval worsening with interstitial and patchy airspace opacities. Consider developing interstitial pulmonary edema. Multifocal pneumonia or interstitial pneumonitis are other differential consideratio ns.
[2019-10-11] MEDS: NITROGLYCERIN SL TABS 0.4 MG TAB SUBLINGUAL PRN ×2 (12:55→13:02)
[2019-10-11] MEDS ORDERED: ONDANSETRON 4 MG/2 ML VIAL IVP STA (13:10)
[2019-10-11] MEDS ORDERED: DOCUSATE 100 MG CAP PO PRN (15:28)
[2019-10-11] MEDS ORDERED: HYDROcodone/APAP 5-325MG 1 EACH TAB PO PRN (15:31)
[2019-10-11] MEDS: IPRATROPIUM-ALBUTEROL 3 ML NEB INHALATION SCH ×2 (15:41→19:15)
[2019-10-11] MEDS: LOSARTAN 50 MG TAB PO SCH (15:44)
[2019-10-11] MEDS: hydrALAZINE HCL 25 MG TAB PO SCH (15:44)
[2019-10-11 16:18] VITALS: RESP 18
--- NOTE | 2019-10-11 19:48 | P.HPIM ---
History of Present Illness H&P Date: 10/11/19 Rita Miller, is an 89-year-old female who presented to [facility] emergency room with severe shortness of breath she was evaluated in the emergency room and was found to have accelerated hypertension with hypertensive emergency blood pressure on presentation was 219/123 patient stated that she was in her usual state of health yesterday but she had a large meal with a whopper sandwich , she went to sleep and woke up with severe shortness of breath. Patient has a known history of hypertension, hyperlipidemia, COPD and diverticulosis. Patient was evaluated and treated in the emergency room, she received nitroglycerin IV drip, in at this time she received her home medications including losartan, hydralazine, she also received IV Lasix blood pressure improved significantly patient will be admitted to telemetry floor cardiology consult was requested. On review of system at this time patient is feeling well she denies any fever or chills no headache or dizziness no chest pain her shortness of breath improved significantly there is no cough no nausea or vomiting no abdominal pain no diarrhea no burning with urination no frequency or urgency and no hematuria Past Medical History Past Medical History: Hyperlipidemia, Hypertension, Musculoskeletal Disorder, Osteoarthritis (OA) Additional Past Medical History / Comment(s): Clostrophobia, [place] History of Any Multi-Drug Resistant Organisms: None Reported Past Surgical History: Appendectomy, Bladder Surgery, Bowel Resection Past Anesthesia/Blood Transfusion Reactions: No Reported Reaction Past Psychological History: No Psychological Hx Reported Smoking Status: Former smoker Past Alcohol Use History: None Reported Past Drug Use History: None Reported - Past Family History Father Family Medical History: No Reported History Medications and Allergies Home Medications Medication Instructions Recorded Confirmed Type Furosemide 40 mg PO DAILY 06/25/16 10/11/19 History Potassium Chloride 20 meq PO DAILY 06/25/16 10/11/19 History Pravastatin Sodium [Pravachol] 20 mg PO HS 06/25/16 10/11/19 History Docusate Sodium [Dok] 100 mg PO DAILY PRN 12/18/18 10/11/19 History L.acidoph,Paracasei, B.lactis 1 cap PO DAILY 12/18/18 10/11/19 History [Probiotic] Losartan Potassium [Cozaar] 100 mg PO DAILY 12/18/18 10/11/19 History Vit A/Vit C/Vit E/Zinc/Copper 1 cap PO DAILY 12/18/18 10/11/19 History [ICAPS SOFTGEL] hydrALAZINE HCL 25 mg PO DAILY PRN 12/18/18 10/11/19 History Ipratropium-Albuterol Nebulize 3 ml INHALATION RT-QID 09/05/19 10/11/19 History [Duoneb 0.5 mg-3 mg/3 ml Soln] Loratadine [Claritin] 10 mg PO DAILY 09/05/19 10/11/19 History Apixaban [Eliquis] 2.5 mg PO BID 10/11/19 10/11/19 History Escitalopram [Lexapro] 20 mg PO DAILY 10/11/19 10/11/19 History Furosemide [Lasix] 40 mg PO HS PRN 10/11/19 10/11/19 History Metoprolol Succinate [Toprol XL] 100 mg PO BID 10/11/19 10/11/19 History Polyethylene Glycol 3350 [Clearlax] 8.5 gm PO DAILY 10/11/19 10/11/19 History Allergies Allergy/AdvReac Type Severity Reaction Status Date / Time cheese Allergy Unknown Verified 10/11/19 13:59 chocolate flavor Allergy Unknown Verified 10/11/19 13:59 tomato Allergy Unknown Verified 10/11/19 13:59 levofloxacin [From Levaquin] AdvReac Diarrhea Verified 10/11/19 13:59 Physical Exam Vitals: Vital Signs Temp Pulse Resp BP Pulse Ox 10/11/19 19:23 97.6 F 60 18 151/74 99 10/11/19 19:17 53 L 10/11/19 18:10 97 10/11/19 18:00 56 L 18 129/83 96 10/11/19 16:48 59 L 18 159/71 96 10/11/19 16:15 60 18 197/98 96 10/11/19 15:52 51 L 10/11/19 15:43 52 L 10/11/19 15:30 57 L 20 191/103 93 L 10/11/19 14:34 58 L 20 186/96 94 L 10/11/19 14:00 57 L 20 201/102 94 L 10/11/19 13:14 67 18 183/97 91 L 10/11/19 13:06 67 18 143/85 95 10/11/19 13:00 63 16 194/101 96 10/11/19 11:53 72 22 214/114 98 10/11/19 10:51 98.1 F 87 28 H 219/123 97 Intake and Output 10/11/19 10/11/19 10/11/19 06:59 14:59 22:59 Intake Total 4.125 11.35 Output Total 450 950 Balance -445.875 -938.65 Intake: Intake, IV Titration 4.125 11.35 Amount Nitroglycerin-D5w Pmx 50 4.125 11.35 mg In Dextrose/Water 1 250ml.bag @ 5 MCG/MIN 1.5 mls/hr IV .Q24H STA Rx#: [id number] Output: Urine 450 950 Uretheral (Reyna) 450 Other: Weight 66.678 kg In general patient is alert and oriented 3 in no apparent distress. HEENT head normocephalic and atraumatic neck is supple no JVD no goiter no lymphadenopathy Chest exam reveals a few scattered rhonchi no wheezing Cardiac exam reveals regular heart sounds S1 and S2 no gallops no murmurs Abdomen is soft nontender no organomegaly was normal bowel sounds Extremity exam reveals no edema no cyanosis or clubbing Neurological examination reveals no gross focal deficit Results CBC & Chem 7: 10/11/19 11:33 10/11/19 11:33 Labs: Abnormal Lab Results - Last 24 Hours (Table) 10/11/19 Range/Units 11:33 Carbon Dioxide 34 H (22-30) mmol/L Glucose 181 H (74-99) mg/dL AST 479 H (14-36) U/L ALT 242 H (4-34) U/L Alkaline Phosphatase 211 H (38-126) U/L Assessment and Plan Plan: 1. Hypertensive emergency with accelerated hypertension 2. Acute congestive heart failure exacerbation 3. Underlying history of hypertension 4. Underlying history of hyperlipidemia 5. Underlying history of chronic obstructive pulmonary disease At this time patient is being admitted to telemetry floor Will continue close monitoring of blood pressure and adjustment of blood pressure medications At this time hydralazine was increased to 25 mg 3 times daily Will use IV Lasix as needed Will follow in a.m. cardiology consultation is requested
[2019-10-11] MEDS: METOPROLOL SUCCINATE (ER) 100 MG TAB.ER.24H PO SCH (20:34)
[2019-10-11] MEDS: APIXABAN 2.5 MG TABLET PO SCH (20:34)
[2019-10-11] MEDS: PRAVASTATIN SODIUM 20 MG TAB PO SCH (20:34)
[2019-10-12] MEDS: hydrALAZINE HCL 25 MG TAB PO SCH ×4 (00:44→21:19)
[2019-10-12] MEDS: VIT A,C & E-LUTEIN-MINERALS 1 EACH TAB PO SCH (08:16)
[2019-10-12] MEDS: POTASSIUM CHLORIDE ER 20 MEQ TAB.ER PO SCH (08:16)
[2019-10-12] MEDS: METOPROLOL SUCCINATE (ER) 100 MG TAB.ER.24H PO SCH ×2 (08:16→21:19)
[2019-10-12] MEDS: ESCITALOPRAM 20 MG TAB PO SCH (08:17)
[2019-10-12] MEDS: LORATADINE 10 MG TAB PO SCH (08:17)
[2019-10-12] MEDS: APIXABAN 2.5 MG TABLET PO SCH ×2 (08:18→21:19)
[2019-10-12] MEDS: LACTOBACILLUS ACIDOPH & BULGAR 1 EACH PACKET PO SCH (08:18)
[2019-10-12] MEDS: FUROSEMIDE 10 MG/ML 4 ML VIAL IV SCH ×2 (08:18→17:44)
[2019-10-12] MEDS: LOSARTAN 50 MG TAB PO SCH (08:18)
[2019-10-12] MEDS: POLYETHYLENE GLYCOL 3350 17 GM POWD.PACK PO SCH (08:19)
[2019-10-12] MEDS: IPRATROPIUM-ALBUTEROL 3 ML NEB INHALATION SCH ×4 (09:07→19:31)
--- NOTE | 2019-10-12 14:35 | P.CRDCN ---
History of Present Illness Consult date: 10/12/19 Requesting physician: Barbara Salter Consult reason: congestive heart failure Chief complaint: Nausea and vomiting, shortness of breath History of present illness: This is an 89-year-old female with history of hypertension, hyperlipidemia, questionable history of coronary artery disease, does not follow regularly with a embedded software programmer. COPD history, quit smoking several years ago. Presented to the hospital with symptoms of perfuse vomiting and shortness of breath. According to the patient, she ate a great and shortly after that began profusely vomiting. She also states that she was quite short of breath. Chest x-ray on presentation here showed worsening interstitial and airspace [place] with possible pulmonary edema. EKG showed normal sinus rhythm with no acute changes. Blood pressure 190/80 with a heart rate in the 60s, temperature 97.7, 99% on 3 L of oxygen. White blood cell count 9.1, hemoglobin 14.3, platelet count 164. Sodium 141, potassium 3.6, chloride 102, CO2 34, BUN 11, creatinine 0.5. AST 479 ALT 242 alk phos 211 troponin 0.012 BNP level 5721 simon virus not detected. At the time of my examination, she is sitting up at his bedside, up in her chair. She is currently on IV Lasix 40 mg every 8 hourly. She has a Reyna catheter in place, draining good amounts of urine. Past Medical History Past Medical History: Hyperlipidemia, Hypertension, Musculoskeletal Disorder, Osteoarthritis (OA) Additional Past Medical History / Comment(s): Clostrophobia, [place] History of Any Multi-Drug Resistant Organisms: None Reported Past Surgical History: Appendectomy, Bladder Surgery, Bowel Resection Past Anesthesia/Blood Transfusion Reactions: No Reported Reaction Past Psychological History: No Psychological Hx Reported Smoking Status: Former smoker Past Alcohol Use History: None Reported Past Drug Use History: None Reported - Past Family History Father Family Medical History: No Reported History Medications and Allergies Home Medications Medication Instructions Recorded Confirmed Type Furosemide 40 mg PO DAILY 06/25/16 10/11/19 History Potassium Chloride 20 meq PO DAILY 06/25/16 10/11/19 History Pravastatin Sodium [Pravachol] 20 mg PO HS 06/25/16 10/11/19 History Docusate Sodium [Dok] 100 mg PO DAILY PRN 12/18/18 10/11/19 History L.acidoph,Paracasei, B.lactis 1 cap PO DAILY 12/18/18 10/11/19 History [Probiotic] Losartan Potassium [Cozaar] 100 mg PO DAILY 12/18/18 10/11/19 History Vit A/Vit C/Vit E/Zinc/Copper 1 cap PO DAILY 12/18/18 10/11/19 History [ICAPS SOFTGEL] hydrALAZINE HCL 25 mg PO DAILY PRN 12/18/18 10/11/19 History Ipratropium-Albuterol Nebulize 3 ml INHALATION RT-QID 09/05/19 10/11/19 History [Duoneb 0.5 mg-3 mg/3 ml Soln] Loratadine [Claritin] 10 mg PO DAILY 09/05/19 10/11/19 History Apixaban [Eliquis] 2.5 mg PO BID 10/11/19 10/11/19 History Escitalopram [Lexapro] 20 mg PO DAILY 10/11/19 10/11/19 History Furosemide [Lasix] 40 mg PO HS PRN 10/11/19 10/11/19 History Metoprolol Succinate [Toprol XL] 100 mg PO BID 10/11/19 10/11/19 History Polyethylene Glycol 3350 [Clearlax] 8.5 gm PO DAILY 10/11/19 10/11/19 History Allergies Allergy/AdvReac Type Severity Reaction Status Date / Time cheese Allergy Unknown Verified 10/11/19 13:59 chocolate flavor Allergy Unknown Verified 10/11/19 13:59 tomato Allergy Unknown Verified 10/11/19 13:59 levofloxacin [From Levaquin] AdvReac Diarrhea Verified 10/11/19 13:59 Physical Exam Vitals: Vital Signs Temp Pulse Pulse Resp BP BP Pulse Ox 10/12/19 12:35 58 L 18 176/73 98 10/12/19 12:07 60 10/12/19 11:56 60 10/12/19 09:18 60 10/12/19 09:07 60 10/12/19 07:47 97.7 F 62 17 189/81 99 10/12/19 04:00 97.8 F 60 18 168/98 98 10/12/19 00:00 98.2 F 60 18 147/71 95 10/11/19 20:00 98.3 F 69 18 132/75 91 L 10/11/19 19:28 98 10/11/19 19:27 52 L 10/11/19 19:23 97.6 F 60 18 151/74 99 10/11/19 19:17 53 L 10/11/19 18:10 97 10/11/19 18:00 56 L 18 129/83 96 10/11/19 16:48 59 L 18 159/71 96 10/11/19 16:15 60 18 197/98 96 10/11/19 16:00 98.3 F 69 18 132/75 92 L 10/11/19 15:52 51 L 10/11/19 15:43 52 L 10/11/19 15:30 57 L 20 191/103 93 L 10/11/19 14:34 58 L 20 186/96 94 L 10/11/19 14:00 57 L 20 201/102 94 L 10/11/19 13:14 67 18 183/97 91 L Intake and Output 10/11/19 10/12/19 10/12/19 22:59 06:59 14:59 Intake Total 11.35 240 Output Total 950 Balance -938.65 240 Intake: Intake, IV Titration 11.35 Amount Nitroglycerin-D5w Pmx 50 11.35 mg In Dextrose/Water 1 250ml.bag @ 5 MCG/MIN 1.5 mls/hr IV .Q24H STA Rx#: [id number] Oral 240 Output: Urine 950 Other: Voiding Method Indwelling Catheter Indwelling Catheter Indwelling Catheter Weight 66.4 kg 66.4 kg PHYSICAL EXAMINATION: GENERAL: 89-year-old female in no acute distress at the time of my examination HEENT: Head is atraumatic, normocephalic. Pupils equal, round. Sclera anicteric. Conjunctiva are clear. Mucous membranes of the mouth are moist. Neck is supple. There is no elevated jugular venous pressure. No carotid bruit is heard. HEART EXAMINATION: Heart S1, S2 normal. No murmur or gallop heard. CHEST EXAMINATION:lungs reveal some coarse rales bilaterally with diminished air entry to the bases ABDOMEN: Soft, nontender. Bowel sounds are heard. No organomegaly noted. EXTREMITIES: 2+ peripheral pulses with no evidence of peripheral edema and no calf tenderness noted. NEUROLOGIC patient is awake, alert and oriented X3. . Results 10/11/19 11:33 07/07/20 11:33 Current Medications Generic Name Dose Route Start Last Admin Trade Name Freq PRN Reason Stop Dose Admin Hydrocodone Bitart/Acetaminophen 1 each 10/11/19 15:31 10/11/19 15:44 [place] 5-325 PO 1 each Q6HR PRN Administration Pain Albuterol/Ipratropium 3 ml 10/11/19 16:00 10/12/19 12:44 Duoneb 0.5 Mg-3 Mg/3 Ml Soln INHALATION Not Given RT-QID VENESSA Apixaban 2.5 mg 10/11/19 21:00 10/12/19 08:18 Eliquis PO 2.5 mg BID VENESSA Administration Docusate Sodium 100 mg 10/11/19 15:28 Colace PO DAILY PRN Constipation Escitalopram Oxalate 20 mg 10/12/19 09:00 10/12/19 08:17 Lexapro PO 20 mg DAILY VENESSA Administration Furosemide 40 mg 10/12/19 09:00 10/12/19 08:18 Lasix IV 40 mg Q8H VENESSA Administration Hydralazine HCl 25 mg 10/11/19 16:00 10/12/19 08:18 Apresoline PO 25 mg TID VENESSA Administration Lactobacillus Acidoph/[place] 1 each 10/12/19 09:00 10/12/19 08:18 Lactinex PO 1 each DAILY VENESSA Administration Loratadine 10 mg 10/12/19 09:00 10/12/19 08:17 Claritin PO 10 mg DAILY VENESSA Administration Losartan Potassium 100 mg 10/11/19 16:00 10/12/19 08:18 Cozaar PO 100 mg DAILY VENESSA Administration Metoprolol Succinate 100 mg 10/11/19 21:00 10/12/19 08:16 Toprol Xl PO 100 mg BID VENESSA Administration Multivitamins/Minerals 1 each 10/12/19 09:00 10/12/19 08:16 Ivite PO 1 each DAILY VENESSA Administration Nitroglycerin 0.4 mg 10/11/19 11:30 10/11/19 13:02 Nitrostat SUBLINGUAL 0.4 mg Q5M PRN Administration Chest Pain Polyethylene Glycol 8.5 gm 10/12/19 09:00 10/12/19 08:19 Miralax PO 8.5 gm DAILY VENESSA Administration Potassium Chloride 20 meq 10/12/19 09:00 10/12/19 08:16 K-Dur 20 PO 20 meq DAILY VENESSA Administration Pravastatin Sodium 20 mg 10/11/19 21:00 10/11/19 20:34 Pravachol PO 20 mg HS VENESSA Administration Intake and Output 10/11/19 10/12/19 10/12/19 22:59 06:59 14:59 Intake Total 11.35 240 Output Total 950 Balance -938.65 240 Intake: Intake, IV Titration 11.35 Amount Nitroglycerin-D5w Pmx 50 11.35 mg In Dextrose/Water 1 250ml.bag @ 5 MCG/MIN 1.5 mls/hr IV .Q24H STA Rx#: [id number] Oral 240 Output: Urine 950 Other: Voiding Method Indwelling Catheter Indwelling Catheter Indwelling Catheter Weight 66.4 kg 66.4 kg Patient Weight 10/13/19 06:59 Weight 66.4 kg 10/11/19 11:33 10/11/19 11:33 EKG Interpretations (text) EKG shows a normal sinus rhythm with ST-T wave changes noted in the inferior lateral leads. Assessment and Plan Plan: Assessment and Plan: 1. Hypertensive urgency, blood pressure on arrival 220/120 2. Acute congestive heart failure exacerbation, likely diastolic in nature 3. Underlying history of hypertension 4. Underlying history of hyperlipidemia 5. Underlying history of chronic obstructive pulmonary disease 6 elevated liver enzymes, likely secondary to congestion from heart failure Plan We will continue current dose of IV Lasix, add Norvasc 5 mg daily to the patient's medication regime, continue to monitor the intake and output along with daily weights and daily lytes BUN and creatinine. Obtain an echocardiogram with Doppler study. Further recommendations to follow. DNP note has been reviewed, I agree with a documented findings and plan of care. Patient was seen and examined.
[2019-10-12] MEDS ORDERED: amLODIPine 5 MG TAB PO SCH (14:45)
[2019-10-12] MEDS: amLODIPine 5 MG TAB PO SCH ×2 (17:44→17:46)
[2019-10-12] MEDS: PRAVASTATIN SODIUM 20 MG TAB PO SCH (21:19)
[2019-10-13] MEDS: FUROSEMIDE 10 MG/ML 4 ML VIAL IV SCH ×3 (03:40→16:26)
[2019-10-13 07:07] LABS: Basophils % (A) 0 %; Eosinophils # (A) 0.3 k/uL (0-0.7); Eosinophils % (A) 4 %; HCT 39.7 % (34.0-46.0); HGB 12.8 gm/dL (11.4-16.0); Lymphocytes # (A) 1.2 k/uL (1.0-4.8); Lymphocytes % (A) 16 %; MCH 30.8 pg (25.0-35.0); MCHC 32.3 g/dL (31.0-37.0); MCV 95.4 fL (80.0-100.0); Mean Platelet Volume 7.7; Monocytes # (A) 0.6 k/uL (0-1.0); Monocytes % (A) 8 %; Neutrophils # (A) 5.3 k/uL (1.3-7.7); Neutrophils % (A) 71 %; Platelet Count 155 k/uL (150-450); RBC 4.16 m/uL (3.80-5.40); RDW 13.7 % (11.5-15.5); WBC 7.5 k/uL (3.8-10.6)
[2019-10-13 07:36] LABS: ALT 401 U/L (4-34); AST 218 U/L (14-36); African American GFR (CKD) >90 (>60 ml/min/1.73 sqM); Alkaline Phosphatase 174 U/L (38-126); Anion Gap 4 mmol/L; Blood Urea Nitrogen 16 mg/dL (7-17); Calcium 8.5 mg/dL (8.4-10.2); Carbon Dioxide 37 mmol/L (22-30); Chloride 97 mmol/L (98-107); Glucose 101 mg/dL (74-99); Non-African American GFR(CKD) 86 (>60 ml/min/1.73 sqM); Sodium 138 mmol/L (137-145); Total Bilirubin 0.9 mg/dL (0.2-1.3); Total Protein 5.3 g/dL (6.3-8.2)
[2019-10-13 07:50] LABS: Potassium 3.5 mmol/L (3.5-5.1)
[2019-10-13] MEDS: POLYETHYLENE GLYCOL 3350 17 GM POWD.PACK PO SCH (08:38)
[2019-10-13] MEDS: LACTOBACILLUS ACIDOPH & BULGAR 1 EACH PACKET PO SCH (08:38)
[2019-10-13] MEDS: LOSARTAN 50 MG TAB PO SCH (08:41)
[2019-10-13] MEDS: APIXABAN 2.5 MG TABLET PO SCH ×2 (08:41→21:24)
[2019-10-13] MEDS: METOPROLOL SUCCINATE (ER) 100 MG TAB.ER.24H PO SCH ×2 (08:41→21:24)
[2019-10-13] MEDS: hydrALAZINE HCL 25 MG TAB PO SCH ×3 (08:41→21:24)
[2019-10-13] MEDS: ESCITALOPRAM 20 MG TAB PO SCH (08:41)
[2019-10-13] MEDS: LORATADINE 10 MG TAB PO SCH (08:42)
[2019-10-13] MEDS: amLODIPine 5 MG TAB PO SCH (08:42)
[2019-10-13] MEDS: POTASSIUM CHLORIDE ER 20 MEQ TAB.ER PO SCH (08:42)
[2019-10-13] MEDS: IPRATROPIUM-ALBUTEROL 3 ML NEB INHALATION SCH ×4 (08:45→20:11)
--- NOTE | 2019-10-13 09:47 | P.PN ---
Subjective Progress Note Date: 10/12/19 Rita Miller, is an 89-year-old female who presented to [facility] emergency room with severe shortness of breath she was evaluated in the emergency room and was found to have accelerated hypertension with hypertensive emergency blood pressure on presentation was 219/123 patient stated that she was in her usual state of health yesterday but she had a large meal with a whopper sandwich , she went to sleep and woke up with severe shortness of breath. Patient has a known history of hypertension, hyperlipidemia, COPD and diverticulosis. Patient was evaluated and treated in the emergency room, she received nitroglycerin IV drip, in at this time she received her home medications including losartan, hydralazine, she also received IV Lasix blood pressure imp roved significantly patient will be admitted to telemetry floor cardiology consult was requested. On review of system at this time patient is feeling well she denies any fever or chills no headache or dizziness no chest pain her shortness of breath improved significantly there is no cough no nausea or vomiting no abdominal pain no diarrhea no burning with urination no frequency or urgency and no hematuria. on 10/12/2019 patient was seen and examined on the telemetry floor she is alert and oriented 3 in no distress she reports improvement in her shortness of breath there is no fever or chills no headache or dizziness no chest pain no cough no nausea or vomiting no abdominal pain no diarrhea no burning with urination no frequency or urgency and no hematuria, blood pressure is still elevated Norvasc 5 mg by mouth daily was added by cardiology today Objective - Vital Signs Vital signs: Vital Signs Temp 97.7 F 10/12/19 07:47 Pulse 58 L 10/12/19 12:35 Resp 18 10/12/19 12:35 BP 176/73 10/12/19 12:35 Pulse Ox 98 10/12/19 12:35 Intake & Output 10/11/19 10/12/19 10/12/19 18:59 06:59 18:59 Intake Total 15.475 240 Output Total 450 950 Balance -434.525 -950 240 Weight 66.678 kg 66.4 kg 66.4 kg Intake: Intake, IV Titration 15.475 Amount Nitroglycerin-D5w Pmx 50 15.475 mg In Dextrose/Water 1 250ml.bag @ 5 MCG/MIN 1.5 mls/hr IV .Q24H STA Rx#: [id number] Oral 240 Output: Urine 450 950 Uretheral (Reyna) 450 Other: Voiding Method Indwelling Catheter Indwelling Catheter - Exam In general patient is alert and oriented 3 in no apparent distress. HEENT head normocephalic and atraumatic neck is supple no JVD no goiter no lymphadenopathy Chest exam reveals a few scattered rhonchi no wheezing Cardiac exam reveals regular heart sounds S1 and S2 no gallops no murmurs Abdomen is soft nontender no organomegaly was normal bowel sounds Extremity exam reveals no edema no cyanosis or clubbing Neurological examination reveals no gross focal deficit - Labs CBC & Chem 7: 10/11/19 11:33 10/11/19 11:33 Assessment and Plan Plan: 1. Hypertensive emergency with accelerated hypertension 2. Acute congestive heart failure exacerbation 3. Underlying history of hypertension 4. Underlying history of hyperlipidemia 5. Underlying history of chronic obstructive pulmonary disease At this time patient is being admitted to telemetry floor Will continue close monitoring of blood pressure and adjustment of blood pressure medications At this time hydralazine was increased to 25 mg 3 times daily Will use IV Lasix as needed Will follow in a.m. cardiology consultation is requested
[2019-10-13] MEDS: VIT A,C & E-LUTEIN-MINERALS 1 EACH TAB PO SCH (10:53)
--- NOTE | 2019-10-13 14:56 | P.PN ---
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 COPD history, quit smoking several years ago. Presented to the hospital with symptoms of perfuse vomiting and shortness of breath. According to the patient, she ate a great and shortly after that began profusely vomiting. She also states that she was quite short of breath. Chest x-ray on presentation here showed worsening interstitial and airspace [place] with possible pulmonary edema. EKG showed normal sinus rhythm with no acute changes. Blood pressure 190/80 with a heart rate in the 60s, temperature 97.7, 99% on 3 L of oxygen. White blood cell count 9.1, hemoglobin 14.3, platelet count 164. Sodium 141, potassium 3.6, chloride 102, CO2 34, BUN 11, creatinine 0.5. AST 479 ALT 242 alk phos 211 troponin 0.012 BNP level 5721 simon virus not detected. At the time of my examination, she is sitting up at his bedside, up in her chair. She is currently on IV Lasix 40 mg every 8 hourly. She has a Reyna catheter in place, draining good amounts of urine. 10/13/2019 Patient was seen and examined this morning, sitting up in the chair bedside. No complaints. Breathing is stable. Blood pressure 124/60 with a heart rate in the 60s, 95% on 3 L of oxygen. White blood cell count 7.5, hemoglobin 12.8, platelet count 155. Sodium 138, potassium 3.5, BUN 16, creatinine 0.5. Objective - Vital Signs Vital signs: Vital Signs Temp 98.2 F 10/13/19 10:52 Pulse 58 L 10/13/19 12:16 Resp 18 10/13/19 10:56 BP 124/66 10/13/19 10:52 Pulse Ox 95 10/13/19 10:52 Intake & Output 10/12/19 10/13/19 10/13/19 18:59 06:59 18:59 Intake Total 1580 118 Output Total 900 300 Balance 680 -300 118 Weight 66.4 kg 62 kg Intake: Oral 1580 118 Output: Urine 900 300 Other: Voiding Method Indwelling Catheter Indwelling Catheter Indwelling Catheter # Bowel Movements 1 - Exam PHYSICAL EXAMINATION: GENERAL: 89-year-old female in no acute distress at the time of my examination HEENT: Head is atraumatic, normocephalic. Pupils equal, round. Sclera anicteric. Conjunctiva are clear. Mucous membranes of the mouth are moist. Neck is supple. There is no elevated jugular venous pressure. No carotid bruit is heard. HEART EXAMINATION: Heart S1, S2 normal. No murmur or gallop heard. CHEST EXAMINATION:lungs reveal some coarse rales bilaterally with diminished air entry to the bases ABDOMEN: Soft, nontender. Bowel sounds are heard. No organomegaly noted. EXTREMITIES: 2+ peripheral pulses with no evidence of peripheral edema and no calf tenderness noted. NEUROLOGIC patient is awake, alert and oriented X3. . - Labs CBC & Chem 7: 10/13/19 06:09 10/13/19 06:09 Labs: Abnormal Lab Results - Last 24 Hours (Table) 10/13/19 Range/Units 06:09 Chloride 97 L (98-107) mmol/L Carbon Dioxide 37 H (22-30) mmol/L Glucose 101 H (74-99) mg/dL AST 218 H (14-36) U/L ALT 401 H (4-34) U/L Alkaline Phosphatase 174 H (38-126) U/L Total Protein 5.3 L (6.3-8.2) g/dL Albumin 3.0 L (3.5-5.0) g/dL Assessment and Plan Plan: Assessment and Plan: 1. Hypertensive urgency, blood pressure on arrival 220/120 2. Acute congestive heart failure exacerbation, likely diastolic in nature 3. Underlying history of hypertension 4. Underlying history of hyperlipidemia 5. Underlying history of chronic obstructive pulmonary disease 6 elevated liver enzymes, likely secondary to congestion from heart failure Plan We will continue current dose of IV Lasix, continue to monitor intake and output along with daily weights and daily lytes BUN and creatinine. DNP note has been reviewed, I agree with a documented findings and plan of care. Patient was seen and examined.
--- NOTE | 2019-10-13 17:38 | P.PN ---
Subjective Progress Note Date: 10/13/19 Rita Miller, is an 89-year-old female who presented to [facility] emergency room with severe shortness of breath she was evaluated in the emergency room and was found to have accelerated hypertension with hypertensive emergency blood pressure on presentation was 219/123 patient stated that she was in her usual state of health yesterday but she had a large meal with a whopper sandwich , she went to sleep and woke up with severe shortness of breath. Patient has a known history of hypertension, hyperlipidemia, COPD and diverticulosis. Patient was evaluated and treated in the emergency room, she received nitroglycerin IV drip, in at this time she received her home medications including losartan, hydralazine, she also received IV Lasix blood pressure imp roved significantly patient will be admitted to telemetry floor cardiology consult was requested. On review of system at this time patient is feeling well she denies any fever or chills no headache or dizziness no chest pain her shortness of breath improved significantly there is no cough no nausea or vomiting no abdominal pain no diarrhea no burning with urination no frequency or urgency and no hematuria. on 10/12/2019 patient was seen and examined on the telemetry floor she is alert and oriented 3 in no distress she reports improvement in her shortness of breath there is no fever or chills no headache or dizziness no chest pain no cough no nausea or vomiting no abdominal pain no diarrhea no burning with urination no frequency or urgency and no hematuria, blood pressure is still elevated Norvasc 5 mg by mouth daily was added by cardiology today On 10/13/2019 patient was seen and examined on the telemetry floor, she is alert and oriented 3 in no apparent distress, there is improvement in her shortness of breath, there is no fever or chills no headache or dizziness no chest pain no cough no nausea or vomiting no abdominal pain no diarrhea no burning with urination no frequency or urgency no hematuria Objective - Vital Signs Vital signs: Vital Signs Temp 98.5 F 10/13/19 16:00 Pulse 62 10/13/19 16:04 Resp 16 10/13/19 16:04 BP 128/62 10/13/19 16:00 Pulse Ox 97 10/13/19 16:00 Intake & Output 10/12/19 10/13/19 10/13/19 18:59 06:59 18:59 Intake Total 1580 118 Output Total 900 300 150 Balance 680 -300 -32 Weight 66.4 kg 62 kg 62 kg Intake: Oral 1580 118 Output: Urine 900 300 150 Other: Voiding Method Indwelling Catheter Indwelling Catheter Indwelling Catheter # Bowel Movements 1 - Exam In general patient is alert and oriented 3 in no apparent distress. HEENT head normocephalic and atraumatic neck is supple no JVD no goiter no lymphadenopathy Chest exam reveals a few scattered rhonchi no wheezing Cardiac exam reveals regular heart sounds S1 and S2 no gallops no murmurs Abdomen is soft nontender no organomegaly was normal bowel sounds Extremity exam reveals no edema no cyanosis or clubbing Neurological examination reveals no gross focal deficit - Labs CBC & Chem 7: 10/13/19 06:09 10/13/19 06:09 Labs: Abnormal Lab Results - Last 24 Hours (Table) 10/13/19 Range/Units 06:09 Chloride 97 L (98-107) mmol/L Carbon Dioxide 37 H (22-30) mmol/L Glucose 101 H (74-99) mg/dL AST 218 H (14-36) U/L ALT 401 H (4-34) U/L Alkaline Phosphatase 174 H (38-126) U/L Total Protein 5.3 L (6.3-8.2) g/dL Albumin 3.0 L (3.5-5.0) g/dL Assessment and Plan Plan: 1. Hypertensive emergency with accelerated hypertension 2. Acute congestive heart failure exacerbation 3. Underlying history of hypertension 4. Underlying history of hyperlipidemia 5. Underlying history of chronic obstructive pulmonary disease At this time patient is being admitted to telemetry floor Will continue close monitoring of blood pressure and adjustment of blood pressure medications At this time hydralazine was increased to 25 mg 3 times daily Patient on IV Lasix continue, Cardiology consultation reviewed
[2019-10-13] MEDS: PRAVASTATIN SODIUM 20 MG TAB PO SCH (21:24)
[2019-10-14] MEDS: FUROSEMIDE 10 MG/ML 4 ML VIAL IV SCH ×2 (01:38→08:14)
[2019-10-14] MEDS: LACTOBACILLUS ACIDOPH & BULGAR 1 EACH PACKET PO SCH (08:12)
[2019-10-14] MEDS: POLYETHYLENE GLYCOL 3350 17 GM POWD.PACK PO SCH (08:12)
[2019-10-14] MEDS: LORATADINE 10 MG TAB PO SCH (08:14)
[2019-10-14] MEDS: POTASSIUM CHLORIDE ER 20 MEQ TAB.ER PO SCH (08:14)
[2019-10-14] MEDS: hydrALAZINE HCL 25 MG TAB PO SCH (08:14)
[2019-10-14] MEDS: VIT A,C & E-LUTEIN-MINERALS 1 EACH TAB PO SCH (08:14)
[2019-10-14] MEDS: LOSARTAN 50 MG TAB PO SCH (08:14)
[2019-10-14] MEDS: ESCITALOPRAM 20 MG TAB PO SCH (08:15)
[2019-10-14] MEDS: METOPROLOL SUCCINATE (ER) 100 MG TAB.ER.24H PO SCH (08:15)
[2019-10-14] MEDS: APIXABAN 2.5 MG TABLET PO SCH (08:15)
[2019-10-14] MEDS: IPRATROPIUM-ALBUTEROL 3 ML NEB INHALATION SCH ×3 (08:36→15:08)
[2019-10-14 09:21] VITALS: BMI 24.2
[2019-10-14] MEDS: amLODIPine 5 MG TAB PO SCH (10:49)
--- NOTE | 2019-10-14 14:49 | P.PN ---
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 COPD history, quit smoking several years ago. Presented to the hospital with symptoms of perfuse vomiting and shortness of breath. According to the patient, she ate a great and shortly after that began profusely vomiting. She also states that she was quite short of breath. Chest x-ray on presentation here showed worsening interstitial and airspace [place] with possible pulmonary edema. EKG showed normal sinus rhythm with no acute changes. Blood pressure 190/80 with a heart rate in the 60s, temperature 97.7, 99% on 3 L of oxygen. White blood cell count 9.1, hemoglobin 14.3, platelet count 164. Sodium 141, potassium 3.6, chloride 102, CO2 34, BUN 11, creatinine 0.5. AST 479 ALT 242 alk phos 211 troponin 0.012 BNP level 5721 simon virus not detected. At the time of my examination, she is sitting up at his bedside, up in her chair. She is currently on IV Lasix 40 mg every 8 hourly. She has a Reyna catheter in place, draining good amounts of urine. 10/13/2019 Patient was seen and examined this morning, sitting up in the chair bedside. No complaints. Breathing is stable. Blood pressure 124/60 with a heart rate in the 60s, 95% on 3 L of oxygen. White blood cell count 7.5, hemoglobin 12.8, platelet count 155. Sodium 138, potassium 3.5, BUN 16, creatinine 0.5. 10/14/2019 Patient seen and examined this morning, overall doing well. Good urine output through the night last night. Blood pressure 142/60 heart rate in the 60s 97% on room air. White blood cell count 7.5, hemoglobin 12.8, platelet count 155. Sodium 138, potassium 3.5, BUN 16, creatinine 0.5. Objective - Vital Signs Vital signs: Vital Signs Temp 98.2 F 10/14/19 11:17 Pulse 68 10/14/19 12:18 Resp 18 10/14/19 11:17 BP 142/63 10/14/19 11:17 Pulse Ox 97 10/14/19 11:17 Intake & Output 10/13/19 10/14/19 10/14/19 18:59 06:59 18:59 Intake Total 118 Output Total 1350 700 Balance -1232 -700 Weight 62 kg 66.1 kg Intake: Oral 118 Output: Urine 1350 700 Other: Voiding Method Indwelling Catheter Indwelling Catheter Indwelling Catheter # Bowel Movements 1 1 - Exam PHYSICAL EXAMINATION: GENERAL: 89-year-old female in no acute distress at the time of my examination HEENT: Head is atraumatic, normocephalic. Pupils equal, round. Sclera anicteric. Conjunctiva are clear. Mucous membranes of the mouth are moist. Neck is supple. There is no elevated jugular venous pressure. No carotid bruit is heard. HEART EXAMINATION: Heart S1, S2 normal. No murmur or gallop heard. CHEST EXAMINATION:lungs reveal some coarse rales bilaterally with diminished air entry to the bases ABDOMEN: Soft, nontender. Bowel sounds are heard. No organomegaly noted. EXTREMITIES: 2+ peripheral pulses with no evidence of peripheral edema and no calf tenderness noted. NEUROLOGIC patient is awake, alert and oriented X3. . - Labs CBC & Chem 7: 10/13/19 06:09 10/13/19 06:09 Assessment and Plan Plan: Assessment and Plan: 1. Hypertensive urgency, blood pressure on arrival 220/120 2. Acute congestive heart failure exacerbation, likely diastolic in nature 3. Underlying history of hypertension 4. Underlying history of hyperlipidemia 5. Underlying history of chronic obstructive pulmonary disease 6 elevated liver enzymes, likely secondary to congestion from heart failure Plan We will discontinue the IV Lasix and start the patient on oral diuretics. Patient may be discharged home from our perspective. Follow-up appointment in the office post discharge. DNP note has been reviewed, I agree with a documented findings and plan of care. Patient was seen and examined.
[2019-10-14 14:57] VITALS: BP 114/55; TEMP 98
[2019-10-14 15:17] VITALS: PULSE 70
--- NOTE | 2019-10-14 15:40 | P.DS ---
Providers Date of admission: 10/11/19 13:53 Expected date of discharge: 10/14/19 Attending physician: Barbara Salter Consults: 10/11/19 12:42 Consult Physician Routine Consulting Provider: Rachael Ariza Consult Reason/Comments: heart failure Do you want consulting provider notified?: Yes Primary care physician: Barbara Gaetano [facility] Course: Diagnosis on discharge: 1. Hypertensive emergency with accelerated hypertension 2. Acute congestive heart failure exacerbation, likely diastolic 3. Underlying history of hypertension 4. Underlying history of hyperlipidemia 5. Underlying history of chronic obstructive pulmonary disease 6. Elevated liver enzymes likely related to congestive heart failure, Pravachol was discontinued at this time Hospital course: Rita Miller, is an 89-year-old female who presented to [facility] emergency room with severe shortness of breath she was evaluated in the emergency room and was found to have accelerated hypertension with hypertensive emergency blood pressure on presentation was 219/123 patient stated that she was in her usual state of health yesterday but she had a large meal with a whopper sandwich , she went to sleep and woke up with severe shortness of breath. Patient has a known history of hypertension, hyperlipidemia, COPD and diverticulosis. Patient was evaluated and treated in the emergency room, she received nitroglycerin IV drip, in at this time she received her home medications including losartan, hydralazine, she also received IV Lasix blood pressure improved significantly patient will be admitted to telemetry floor cardiology consult was requested. On review of system at this time patient is feeling well she denies any fever or chills no headache or dizziness no chest pain her shortness of breath improved significantly there is no cough no nausea or vomiting no abdominal pain no diarrhea no burning with urination no frequency or urgency and no hematuria. on 10/12/2019 patient was seen and examined on the telemetry floor she is alert and oriented 3 in no distress she reports improvement in her shortness of breath there is no fever or chills no headache or dizziness no chest pain no cough no nausea or vomiting no abdominal pain no diarrhea no burning with urination no frequency or urgency and no hematuria, blood pressure is still elevated Norvasc 5 mg by mouth daily was added by cardiology today On 10/13/2019 patient was seen and examined on the telemetry floor, she is alert and oriented 3 in no apparent distress, there is improvement in her shortness of breath, there is no fever or chills no headache or dizziness no chest pain no cough no nausea or vomiting no abdominal pain no diarrhea no burning with urination no frequency or urgency no hematuria On 10/14/2019 patient was seen and examined on the medical floor, she is alert and oriented 3 in no apparent distress, shortness of breath has improved significantly, there is no fever or chills no headache or dizziness no chest pain no shortness of breath no cough no nausea or vomiting no abdominal pain no diarrhea no blood in the stools no burning was urination no frequency or urgency no hematuria. Blood pressure is well-controlled at this time at 114/55, agent was seen by cardiology and was cleared for discharge, she will be discharged home, she lives in a senior building, and has become home care to follow. Follow up in our office within 1 week Patient Condition at Discharge: Fair Plan - Discharge Summary New Discharge Prescriptions: New hydrALAZINE HCL [Apresoline] 25 mg PO TID tab Furosemide [Lasix] 60 mg PO DAILY tab Nitroglycerin Sl Tabs [Nitrostat] 0.4 mg SUBLINGUAL Q5M PRN tab PRN Reason: Chest Pain amLODIPine [Norvasc] 5 mg PO DAILY tab Continue Pravastatin Sodium [Pravachol] 20 mg PO HS Potassium Chloride 20 meq PO DAILY Docusate Sodium [Dok] 100 mg PO DAILY PRN PRN Reason: Constipation Vit A/Vit C/Vit E/Zinc/Copper [ICAPS SOFTGEL] 1 cap PO DAILY Losartan Potassium [Cozaar] 100 mg PO DAILY L.acidoph,Paracasei, B.lactis [Probiotic] 1 cap PO DAILY Loratadine [Claritin] 10 mg PO DAILY Ipratropium-Albuterol Nebulize [Duoneb 0.5 mg-3 mg/3 ml Soln] 3 ml INHALATION RT-QID Metoprolol Succinate [Toprol XL] 100 mg PO BID Apixaban [Eliquis] 2.5 mg PO BID Escitalopram [Lexapro] 20 mg PO DAILY Polyethylene Glycol 3350 [Clearlax] 8.5 gm PO DAILY Discontinued Furosemide 40 mg PO DAILY hydrALAZINE HCL 25 mg PO DAILY PRN PRN Reason: BLOOD PRESSURE OVER 160/85 Furosemide [Lasix] 40 mg PO HS PRN PRN Reason: Edema Discharge Medication List Potassium Chloride 20 meq PO DAILY 03/22/17 [History] Pravastatin Sodium [Pravachol] 20 mg PO HS 06/25/16 [History] Docusate Sodium [Dok] 100 mg PO DAILY PRN 12/18/18 [History] L.acidoph,Paracasei, B.lactis [Probiotic] 1 cap PO DAILY 12/18/18 [History] Losartan Potassium [Cozaar] 100 mg PO DAILY 12/18/18 [History] Vit A/Vit C/Vit E/Zinc/Copper [ICAPS SOFTGEL] 1 cap PO DAILY 12/18/18 [History] Ipratropium-Albuterol Nebulize [Duoneb 0.5 mg-3 mg/3 ml Soln] 3 ml INHALATION RT-QID 09/05/19 [History] Loratadine [Claritin] 10 mg PO DAILY 09/05/19 [History] Apixaban [Eliquis] 2.5 mg PO BID 10/11/19 [History] Escitalopram [Lexapro] 20 mg PO DAILY 10/11/19 [History] Metoprolol Succinate [Toprol XL] 100 mg PO BID 10/11/19 [History] Polyethylene Glycol 3350 [Clearlax] 8.5 gm PO DAILY 10/11/19 [History] Furosemide [Lasix] 60 mg PO DAILY tab 10/14/19 [Rx] Nitroglycerin Sl Tabs [Nitrostat] 0.4 mg SUBLINGUAL Q5M PRN tab 10/14/19 [Rx] amLODIPine [Norvasc] 5 mg PO DAILY tab 10/14/19 [Rx] hydrALAZINE HCL [Apresoline] 25 mg PO TID tab 10/14/19 [Rx] Follow up Appointment(s)/Referral(s): [facility], [NON-STAFF] - 1-2 Days Barbara Salter MD [Primary Care Provider] - 1-2 days
[2019-10-15] MEDS ORDERED: FUROSEMIDE 20 MG TAB PO SCH (09:00)
== END 2019-10-14 16:50 | disposition home or self-care (01) | DRG 304 ==
LOC: EC 10:46 → 3SCARD 13:53
PROVIDERS: ADMIT Internal Medicine; ATTEND Internal Medicine
DX: I16.1 Hypertensive emergency (principal); I50.33 Acute on chronic diastolic (congestive) heart failure; I11.0 Hypertensive heart disease with heart failure; E78.5 Hyperlipidemia, unspecified; J44.9 Chronic obstructive pulmonary disease, unspecified; Z79.01 Long term (current) use of anticoagulants; Z79.82 Long term (current) use of aspirin; Z79.899 Other long term (current) drug therapy; Z87.891 Personal history of nicotine dependence; M19.90 Unspecified osteoarthritis, unspecified site; Z90.49 Acquired absence of other specified parts of digestive tract; R94.5 Abnormal results of liver function studies; Z11.59 Encounter for screening for other viral diseases
CPT/HCPCS: 36415; 51702; 71045; 80053; 83605; 83880; 84484; 85025; 85610; 85730; 93005; 94640; 94660; 94760; 96365; 96366; 96375; 99291

== ENCOUNTER 2020-10-12 16:16 | Inpatient (IN) | payer MEDICARE ==
--- NOTE | 2020-10-12 16:32 | ED ---
General Adult HPI - General Chief complaint: Weakness Stated complaint: lethargic, cough Time Seen by Provider: 10/12/20 16:27 Source: patient, Caregiver Mode of arrival: wheelchair Limitations: no limitations - History of Present Illness Initial comments: Patient presents the ED from her assisted living facility for evaluation with her caregiver at bedside. Per caregiver, the patient has reportedly has had a cough, low-grade fever and difficulty breathing recently. Patient reports feeling generally weak, and she admits to having a cough for the past couple of days. Patient also admits to feeling somewhat dyspneic. Patient also admits to having dysuria for the past couple of weeks. Patient denies having any pain, trauma or injury, chills, headache, focal neuro deficit, neck pain or stiffness, chest pain, hemoptysis, palpitations, dizziness, abdominal pain, nausea/vomiting/diarrhea, bloody or melanotic stool, urinary frequency or hematuria, leg or calf swelling or pain, or any other symptoms or complaints. - Related Data Home Medications Medication Instructions Recorded Confirmed Pravastatin Sodium [Pravachol] 20 mg PO HS@199906/25/16 10/12/20 L.acidoph,Paracasei, B.lactis 1 cap PO DAILY@79912/18/18 10/12/20 [Probiotic] Losartan Potassium [Cozaar] 100 mg PO DAILY@79912/18/18 10/12/20 Vit A/Vit C/Vit E/Zinc/Copper 1 cap PO DAILY@79912/18/18 10/12/20 [ICAPS SOFTGEL] Ipratropium-Albuterol Nebulize 3 ml INHALATION RT-QID PRN 09/05/19 10/12/20 [Duoneb 0.5 mg-3 mg/3 ml Soln] Apixaban [Eliquis] 2.5 mg PO BID@10/11/19 10/12/20 Escitalopram [Lexapro] 20 mg PO DAILY@79910/11/19 10/12/20 Metoprolol Succinate [Toprol XL] 100 mg PO DAILY@79910/11/19 10/12/20 Carboxymethylcellulose Sodium 1 - 2 drops BOTH EYES DAILY PRN 10/12/20 10/12/20 [Refresh Tears] Cetirizine HCl [Zyrtec] 10 mg PO DAILY@79910/12/20 10/12/20 Furosemide [Lasix] 20 mg PO DAILY@79910/12/20 10/12/20 Furosemide [Lasix] 40 mg PO DAILY@79910/12/20 10/12/20 Melatonin 5 mg PO HS@199910/12/20 10/12/20 Ondansetron [Zofran] 4 mg PO TID PRN 10/12/20 10/12/20 QUEtiapine [SEROquel] 50 mg PO HS@199910/12/20 10/12/20 Saline Nasal Gel [[place] Nasal Gel] 1 applic TOPICAL DIRECTED PRN 10/12/20 10/12/20 Spironolactone [Aldactone] 25 mg PO HS@199910/12/20 10/12/20 amLODIPine [Norvasc] 5 mg PO DAILY@79910/12/20 10/12/20 hydrALAZINE HCL [Apresoline] 25 mg PO TID@0800,1400,199910/12/20 10/12/20 traZODone HCL [Desyrel] 100 mg PO HS@199910/12/20 10/12/20 Previous Rx's Medication Instructions Recorded Nitroglycerin Sl Tabs [Nitrostat] 0.4 mg SUBLINGUAL Q5M PRN tab 10/14/19 Allergies Allergy/AdvReac Type Severity Reaction Status Date / Time cheese Allergy Unknown Verified 10/12/20 17:33 chocolate flavor Allergy Unknown Verified 10/12/20 17:33 tomato Allergy Unknown Verified 10/12/20 17:33 levofloxacin [From Levaquin] AdvReac Diarrhea Verified 10/12/20 17:33 Review of Systems ROS Statement: Those systems with pertinent positive or pertinent negative responses have been documented in the HPI. ROS Other: All systems not noted in ROS Statement are negative. Past Medical History Past Medical History: Coronary Artery Disease (CAD), Chest Pain / Angina, Hype rlipidemia, Hypertension, Musculoskeletal Disorder, Osteoarthritis (OA) Additional Past Medical History / Comment(s): Clostrophobia, [place] History of Any Multi-Drug Resistant Organisms: None Reported Past Surgical History: Appendectomy, Bladder Surgery, Bowel Resection Past Anesthesia/Blood Transfusion Reactions: No Reported Reaction Past Psychological History: No Psychological Hx Reported Smoking Status: Never smoker Past Alcohol Use History: None Reported Past Drug Use History: None Reported - Past Family History Father Family Medical History: No Reported History General Exam Limitations: altered mental status General appearance: alert, in no apparent distress Head exam: Present: atraumatic, normocephalic Eye exam: Present: normal appearance, PERRL, EOMI ENT exam: Present: mucous membranes dry Neck exam: Present: other (Trachea is in midline). Absent: tenderness, me ningismus Respiratory exam: Present: wheezes, other (Equal breath sounds bilaterally; coarse breath sounds bilaterally). Absent: respiratory distress, stridor Cardiovascular Exam: Present: normal rhythm, bradycardia, normal heart sounds, other (Normal radial pulses bilaterally) GI/Abdominal exam: Present: soft. Absent: distended, tenderness, guarding Extremities exam: Present: other (Negative Homans sign bilaterally). Absent: tenderness, pedal edema, calf tenderness Back exam: Absent: CVA tenderness (R), CVA tenderness (L) Neurological exam: Present: alert, oriented X3, CN II-XII intact. Absent: motor sensory deficit Psychiatric exam: Present: normal affect, normal mood Skin exam: Present: warm, dry, intact, normal color Course Vital Signs 10/12/20 10/12/20 10/12/20 16:22 16:53 18:07 Temperature 99.9 F H Pulse Rate 52 L 45 L 60 Respiratory 20 20 20 Rate Blood Pressure 113/53 114/50 119/68 O2 Sat by Pulse 93 L 93 L 96 Oximetry 10/12/20 18:28 Temperature 97.4 F L Pulse Rate 46 L Respiratory 18 Rate Blood Pressure 123/54 O2 Sat by Pulse 96 Oximetry - Reevaluation(s) Reevaluation #1: 10/12/20 18:35 Case, H&P, test results and ED management thus far were discussed with Dr. Scott. He accepts hospital admission. He recommends IV ceftriaxone an tibiotic treatment and albuterol neb treatments. He has no further recommendations at this time. 10/12/20 18:43 Patient remains alert and breathing comfortably. Patient remains in sinus bradycardia on the vehicle monitor technician. Patient and caregiver are aware the patient's test results, and they both agree with hospital admission at this time. EKG Findings - EKG Comments: EKG Findings:: Sinus bradycardia with borderline first-degree AV block, ventricular rate of 51 bpm, no ectopy, OK interval of 204 ms, normal QRS duration, normal QT interval, normal axis, no ST or T-wave abnormality Medical Decision Making - Medical Decision Making Given the patient's reported cough, difficulty breathing, wheezing/course breath sounds and low-grade fever, I suspect that the patient likely has an infectious respiratory illness, and despite the patient's negative chest x-ray, will treat the patient for suspected pneumonia IV antibiotics. Patient has also been given IV fluids in the ED for suspected dehydration given her renal insufficiency and dry mucous membranes. Dr. Scott has accepted hospital admission. - Lab Data Result diagrams: 10/12/20 Unknown 10/12/20 Unknown Lab Results 10/12/20 10/12/20 10/12/20 Range/Units 16:53 18:00 Unknown WBC 5.9 (3.8-10.6) k/uL RBC 4.49 (3.80-5.40) m/uL Hgb 13.9 (11.4-16.0) gm/dL Hct 40.7 (34.0-46.0) % MCV 90.5 (80.0-100.0) fL MCH 31.0 (25.0-35.0) pg MCHC 34.2 (31.0-37.0) g/dL RDW 12.7 (11.5-15.5) % Plt Count 163 (150-450) k/uL MPV 7.2 Neutrophils % 68 % Lymphocytes % 21 % Monocytes % 7 % Eosinophils % 3 % Basophils % 0 % Neutrophils # 4.0 (1.3-7.7) k/uL Lymphocytes # 1.3 (1.0-4.8) k/uL Monocytes # 0.4 (0-1.0) k/uL Eosinophils # 0.2 (0-0.7) k/uL Basophils # 0.0 (0-0.2) k/uL PT (9.0-12.0) sec INR (<1.2) APTT (22.0-30.0) sec Sodium (137-145) mmol/L Potassium (3.5-5.1) mmol/L Chloride (98-107) mmol/L Carbon Dioxide (22-30) mmol/L Anion Gap mmol/L BUN (7-17) mg/dL Creatinine (0.52-1.04) mg/dL Est GFR (CKD-EPI)AfAm (>60 ml/min/1.73 sqM) Est GFR (CKD-EPI)NonAf (>60 ml/min/1.73 sqM) Glucose (74-99) mg/dL Plasma Lactic Acid Edson (0.7-2.0) mmol/L Calcium (8.4-10.2) mg/dL Magnesium (1.6-2.3) mg/dL Total Bilirubin (0.2-1.3) mg/dL AST (14-36) U/L ALT (4-34) U/L Alkaline Phosphatase (38-126) U/L Troponin I (0.000-0.034) ng/mL NT-Pro-B Natriuret Pep pg/mL Total Protein (6.3-8.2) g/dL Albumin (3.5-5.0) g/dL Urine Color Yellow Urine Appearance Clear (Clear) Urine pH 5.5 (5.0-8.0) Ur Specific [place] 1.011 (1.001-1.035) Urine Protein Negative (Negative) Urine Glucose (UA) Negative (Negative) Urine Ketones Negative (Negative) Urine Blood Negative (Negative) Urine Nitrite Negative (Negative) Urine Bilirubin Negative (Negative) Urine Urobilinogen <2.0 (<2.0) mg/dL Ur Leukocyte Esterase Negative (Negative) Coronavirus (PCR) Not Detected (Not Detectd) 10/12/20 10/12/20 10/12/20 Range/Units Unknown Unknown Unknown WBC (3.8-10.6) k/uL RBC (3.80-5.40) m/uL Hgb (11.4-16.0) gm/dL Hct (34.0-46.0) % MCV (80.0-100.0) fL MCH (25.0-35.0) pg MCHC (31.0-37.0) g/dL RDW (11.5-15.5) % Plt Count (150-450) k/uL MPV Neutrophils % % Lymphocytes % % Monocytes % % Eosinophils % % Basophils % % Neutrophils # (1.3-7.7) k/uL Lymphocytes # (1.0-4.8) k/uL Monocytes # (0-1.0) k/uL Eosinophils # (0-0.7) k/uL Basophils # (0-0.2) k/uL PT 10.3 (9.0-12.0) sec INR 1.0 (<1.2) APTT 26.0 (22.0-30.0) sec Sodium 140 (137-145) mmol/L Potassium 4.4 (3.5-5.1) mmol/L Chloride 100 (98-107) mmol/L Carbon Dioxide 33 H (22-30) mmol/L Anion Gap 7 mmol/L BUN 52 H (7-17) mg/dL Creatinine 1.59 H (0.52-1.04) mg/dL Est GFR (CKD-EPI)AfAm 33 (>60 ml/min/1.73 sqM) Est GFR (CKD-EPI)NonAf 29 (>60 ml/min/1.73 sqM) Glucose 139 H (74-99) mg/dL Plasma Lactic Acid Edson 1.2 (0.7-2.0) mmol/L Calcium 9.2 (8.4-10.2) mg/dL Magnesium 2.6 H (1.6-2.3) mg/dL Total Bilirubin 0.3 (0.2-1.3) mg/dL AST 20 (14-36) U/L ALT 10 (4-34) U/L Alkaline Phosphatase 66 (38-126) U/L Troponin I (0.000-0.034) ng/mL NT-Pro-B Natriuret Pep pg/mL Total Protein 6.5 (6.3-8.2) g/dL Albumin 3.9 (3.5-5.0) g/dL Urine Color Urine Appearance (Clear) Urine pH (5.0-8.0) Ur Specific [place] (1.001-1.035) Urine Protein (Negative) Urine Glucose (UA) (Negative) Urine Ketones (Negative) Urine Blood (Negative) Urine Nitrite (Negative) Urine Bilirubin (Negative) Urine Urobilinogen (<2.0) mg/dL Ur Leukocyte Esterase (Negative) Coronavirus (PCR) (Not Detectd) 10/12/20 10/12/20 Range/Units Unknown Unknown WBC (3.8-10.6) k/uL RBC (3.80-5.40) m/uL Hgb (11.4-16.0) gm/dL Hct (34.0-46.0) % MCV (80.0-100.0) fL MCH (25.0-35.0) pg MCHC (31.0-37.0) g/dL RDW (11.5-15.5) % Plt Count (150-450) k/uL MPV Neutrophils % % Lymphocytes % % Monocytes % % Eosinophils % % Basophils % % Neutrophils # (1.3-7.7) k/uL Lymphocytes # (1.0-4.8) k/uL Monocytes # (0-1.0) k/uL Eosinophils # (0-0.7) k/uL Basophils # (0-0.2) k/uL PT (9.0-12.0) sec INR (<1.2) APTT (22.0-30.0) sec Sodium (137-145) mmol/L Potassium (3.5-5.1) mmol/L Chloride (98-107) mmol/L Carbon Dioxide (22-30) mmol/L Anion Gap mmol/L BUN (7-17) mg/dL Creatinine (0.52-1.04) mg/dL Est GFR (CKD-EPI)AfAm (>60 ml/min/1.73 sqM) Est GFR (CKD-EPI)NonAf (>60 ml/min/1.73 sqM) Glucose (74-99) mg/dL Plasma Lactic Acid Edson (0.7-2.0) mmol/L Calcium (8.4-10.2) mg/dL Magnesium (1.6-2.3) mg/dL Total Bilirubin (0.2-1.3) mg/dL AST (14-36) U/L ALT (4-34) U/L Alkaline Phosphatase (38-126) U/L Troponin I <0.012 (0.000-0.034) ng/mL NT-Pro-B Natriuret Pep 662 pg/mL Total Protein (6.3-8.2) g/dL Albumin (3.5-5.0) g/dL Urine Color Urine Appearance (Clear) Urine pH (5.0-8.0) Ur Specific [place] (1.001-1.035) Urine Protein (Negative) Urine Glucose (UA) (Negative) Urine Ketones (Negative) Urine Blood (Negative) Urine Nitrite (Negative) Urine Bilirubin (Negative) Urine Urobilinogen (<2.0) mg/dL Ur Leukocyte Esterase (Negative) Coronavirus (PCR) (Not Detectd) - Radiology Data Radiology results: report reviewed (Chest x-ray: Mild pulmonary fibrotic changes. No heart failure or pulmonary consolidation. No change.) Disposition Clinical Impression: Renal insufficiency, Weakness, Dyspnea, Cough, Bronchospasm Narrative: Suspected pneumonia Disposition: ADMITTED IP TO THIS HOSP Condition: Stable Is patient prescribed a controlled substance at d/c from ED?: No Referrals: Jesus Johns MD [Primary Care Provider] - 1-2 days Time of Disposition: 18:35
[2020-10-12] MEDS ORDERED: IPRATROPIUM-ALBUTEROL 3 ML NEB INHALATION STA (16:38)
[2020-10-12 16:57] LABS: Basophils % (A) 0 %; Eosinophils # (A) 0.2 k/uL (0-0.7); Eosinophils % (A) 3 %; HCT 40.7 % (34.0-46.0); HGB 13.9 gm/dL (11.4-16.0); Lymphocytes # (A) 1.3 k/uL (1.0-4.8); Lymphocytes % (A) 21 %; MCHC 34.2 g/dL (31.0-37.0); MCV 90.5 fL (80.0-100.0); Mean Platelet Volume 7.2; Monocytes # (A) 0.4 k/uL (0-1.0); Monocytes % (A) 7 %; Neutrophils % (A) 68 %; Platelet Count 163 k/uL (150-450); RBC 4.49 m/uL (3.80-5.40); RDW 12.7 % (11.5-15.5); WBC 5.9 k/uL (3.8-10.6)
[2020-10-12] MEDS ORDERED: ALBUTEROL HFA INHALER INHALATION STA (16:58)
[2020-10-12] MEDS: SODIUM CHLORIDE 0.9% 1,000 ML IV SCH (17:00)
[2020-10-12 17:08] LABS: Albumin 3.9 g/dL (3.5-5.0); Calcium 9.2 mg/dL (8.4-10.2); Magnesium 2.6 mg/dL (1.6-2.3); Potassium 4.4 mmol/L (3.5-5.1); Total Bilirubin 0.3 mg/dL (0.2-1.3); Total Protein 6.5 g/dL (6.3-8.2)
[2020-10-12 17:11] LABS: Prothrombin Time 10.3 sec (9.0-12.0)
--- NOTE | 2020-10-12 17:16 | XR ---
EXAMINATION TYPE: XR chest 1V portable DATE OF EXAM: 10/12/2020 COMPARISON: 05/17/2020 HISTORY: Lethargy. Cough. TECHNIQUE: Single view FINDINGS: There is mild increased interstitial density in the lower lung dhillon. There is no heart fa ilure. Heart size is normal. There are chest leads. Thoracic aorta is atheromatous. Bony thorax is in tact. IMPRESSION: Mild pulmonary fibrotic changes. No heart failure or pulmonary consolidation. No change.
[2020-10-12] MEDS ORDERED: SODIUM CHLORIDE 0.9% 1,000 ML IV ONE (17:31)
[2020-10-12 18:24] LABS: Appearance,Urine Clear (Clear); Bilirubin,Urine Negative (Negative); Blood,Urine Negative (Negative); Color,Urine Yellow; Glucose,Urine (UA) Negative (Negative); Ketones,Urine Negative (Negative); Leukocyte Esterase,Urine Negative (Negative); Nitrite,Urine Negative (Negative); PH, Urine 5.5 (5.0-8.0); Protein,Urine Negative (Negative); Specific Gravity,Urine 1.011 (1.001-1.035); Urobilinogen,Urine <2.0 mg/dL (<2.0)
[2020-10-12] MEDS ORDERED: AZITHROMYCIN 500 MG in SODIUM CHLORIDE 0.9% 250 ML IVPB STA (18:42)
[2020-10-12] MEDS: ALBUTEROL NEBULIZED 2.5 MG/3 ML INHALATION SCH ×2 (19:12→20:48)
[2020-10-12] MEDS ORDERED: ALBUTEROL NEBULIZED 2.5 MG/3 ML INHALATION PRN (21:26)
[2020-10-13] MEDS: ACETAMINOPHEN TAB 325 MG TAB PO PRN (04:38)
[2020-10-13] MEDS: ALBUTEROL NEBULIZED 2.5 MG/3 ML INHALATION SCH ×3 (09:18→15:29)
[2020-10-13 11:29] LABS: Albumin 3.4 g/dL (3.5-5.0); Potassium 4.2 mmol/L (3.5-5.1); Total Bilirubin 0.2 mg/dL (0.2-1.3); Total Protein 5.8 g/dL (6.3-8.2)
[2020-10-13 11:48] LABS: Basophils % (A) 0 %; Eosinophils # (A) 0.1 k/uL (0-0.7); Eosinophils % (A) 1 %; HCT 36.9 % (34.0-46.0); HGB 11.8 gm/dL (11.4-16.0); Lymphocytes # (A) 1.2 k/uL (1.0-4.8); Lymphocytes % (A) 19 %; MCH 29.8 pg (25.0-35.0); MCHC 31.9 g/dL (31.0-37.0); MCV 93.3 fL (80.0-100.0); Mean Platelet Volume 7.2; Monocytes # (A) 0.4 k/uL (0-1.0); Monocytes % (A) 6 %; Neutrophils # (A) 4.6 k/uL (1.3-7.7); Neutrophils % (A) 73 %; Platelet Count 155 k/uL (150-450); RBC 3.95 m/uL (3.80-5.40); RDW 13.2 % (11.5-15.5); WBC 6.3 k/uL (3.8-10.6)
[2020-10-13] MEDS ORDERED: ONDANSETRON 4 MG TAB PO PRN (12:25)
[2020-10-13] MEDS ORDERED: SALINE NASAL GEL 14.1 GM TUBE TOPICAL PRN (12:25)
[2020-10-13] MEDS ORDERED: NITROGLYCERIN SL TABS 0.4 MG TAB SUBLINGUAL PRN (12:25)
[2020-10-13] MEDS ORDERED: METOPROLOL SUCCINATE (ER) 100 MG TAB.ER.24H PO SCH (12:45)
[2020-10-13] MEDS ORDERED: ESCITALOPRAM 20 MG TAB PO SCH (12:45)
[2020-10-13] MEDS: amLODIPine 5 MG TAB PO SCH (14:55)
[2020-10-13] MEDS: SODIUM CHLORIDE 0.9% 1,000 ML IV SCH (17:02)
--- NOTE | 2020-10-13 17:02 | P.HPIM ---
History of Present Illness H&P Date: 10/13/20 Chief Complaint: Short of breath History of presenting complaint: This is a pleasant 89-year-old patient who follows with visiting physicians Dr. Johns. Chronic stable medical conditions include coronary artery disease, hypertension, hyperlipidemia, osteoarthritis, hard of hearing. Patient is able to answer simple questions but not really able to tell why she is here. She lives in assisted living and caregiver came with her to the ER. In the ER didn't reported that patient's had a cough, low-grade fever and difficulty breathing last few days. Patient has been feeling more weak. She is also short of breath and wheezing. No sputum production. Appetite had gone down. Tired. Patient was started on bronchodilators and antibiotics in the ER. This morning patient is feeling a bit better. Appetite is improving Review of systems: GEN.: Tired decreased appetite EYES: None HEENT: Hard of hearing NECK: None RESPIRATORY: As above CARDIOVASCULAR: None GASTROINTESTINAL: None GENITOURINARY: None MUSCULOSKELETAL: Joint pains] LYMPHATICS: None HEMATOLOGICAL: None PSYCHIATRY: Forgetful NEUROLOGICAL: Uses a walker. Past medical history to include: Coronary artery disease, hypertension, hyperlipidemia, osteoarthritis, claustrophobia, hard of hearing, uses a walker Social history: Lives in assisted living. Has a caregiver. Stopped smoking in 1989. Family history: Reviewed, noncontributory to presentation Physical examination: VITAL SIGNS: 99.9, 52, 20, artery and 13 x 53, 93% on room air GENERAL: BMI 19.8, sitting up in a recliner, eating. EYES: Pupils equal. Conjunctiva normal. HEENT: External appearance of nose and ears normal, oral cavity grossly normal. NECK: JVD not raised; masses not palpable. HEART: First and second heart sounds are normal; no edema. LUNGS: Respiratory rate increased, bilateral crackles. ABDOMEN: Soft, nontender, liver spleen not palpable, no masses palpable. PSYCH: [Patient knows her name. Now she is in the hospital. Not sure why she is here. NEUROLOGICAL: Cranial nerves grossly intact; no facial asymmetry, power and sensation grossly intact. LYMPHATICS: No lymph nodes palpable in the axilla and neck INVESTIGATIONS, reviewed in the clinical context: WBC 6.3 hemoglobin 11.8 platelets 155 potassium 4.2 BUN 38 creatinine 1.12 Admission labs: BUN 52 creatinine 1.59 UA negative Coronavirus [PCR]: Not detected EKG tracing personally reviewed by me-normal sinus rhythm, heart rate 51 Chest x-ray film personally reviewed by me-possible chronic changes Assessment plan: -Possible pneumonia with patient showing some changes on the x-ray, congestive cough. 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 TSH. -Coronary artery disease Lopressor -Essential hypertension Continue with Lopressor, amlodipine -Sinus bradycardia DC Toprol-XL 100. Start Lopressor 25 mg twice daily from tomorrow -Acute kidney injury, possibly prerenal Hold off Aldactone for now. Gentle hydration. Repeat labs in the morning. IV ceftriaxone. DuoNeb. Inhaled steroids. Gentle hydration. Cutback dose of Lopressor. Computed tomography scan of the brain. TSH. Repeat labs in the morning. Given the complexity and severity of patient's condition expect the patient to be in the hospital at least for 2 overnights Past Medical History Past Medical History: Coronary Artery Disease (CAD), Chest Pain / Angina, Hyperlipidemia, Hypertension, Musculoskeletal Disorder, Osteoarthritis (OA) Additional Past Medical History / Comment(s): Clostrophobia, [place] History of Any Multi-Drug Resistant Organisms: None Reported Past Surgical History: Appendectomy, Bladder Surgery, Bowel Resection, Cholecy stectomy Past Anesthesia/Blood Transfusion Reactions: No Reported Reaction Past Psychological History: No Psychological Hx Reported Smoking Status: Former smoker Past Alcohol Use History: None Reported Additional Past Alcohol Use History / Comment(s): stopped smoking in 1989 Past Drug Use History: None Reported - Past Family History Father Family Medical History: No Reported History Medications and Allergies Home Medications Medication Instructions Recorded Confirmed Type Pravastatin Sodium [Pravachol] 20 mg PO HS@199906/25/16 10/12/20 History L.acidoph,Paracasei, B.lactis 1 cap PO DAILY@79912/18/18 10/12/20 History [Probiotic] Losartan Potassium [Cozaar] 100 mg PO DAILY@79912/18/18 10/12/20 History Vit A/Vit C/Vit E/Zinc/Copper 1 cap PO DAILY@79912/18/18 10/12/20 History [ICAPS SOFTGEL] Ipratropium-Albuterol Nebulize 3 ml INHALATION RT-QID PRN 09/05/19 10/12/20 History [Duoneb 0.5 mg-3 mg/3 ml Soln] Apixaban [Eliquis] 2.5 mg PO BID@799,199910/11/19 10/12/20 History Escitalopram [Lexapro] 20 mg PO DAILY@79910/11/19 10/12/20 History Metoprolol Succinate [Toprol XL] 100 mg PO DAILY@79910/11/19 10/12/20 History Nitroglycerin Sl Tabs [Nitrostat] 0.4 mg SUBLINGUAL Q5M PRN tab 10/14/19 10/12/20 Rx Carboxymethylcellulose Sodium 1 - 2 drops BOTH EYES DAILY PRN 10/12/20 10/12/20 History [Refresh Tears] Cetirizine HCl [Zyrtec] 10 mg PO DAILY@79910/12/20 10/12/20 History Furosemide [Lasix] 20 mg PO DAILY@79910/12/20 10/12/20 History Furosemide [Lasix] 40 mg PO DAILY@79910/12/20 10/12/20 History Melatonin 5 mg PO HS@199910/12/20 10/12/20 History Ondansetron [Zofran] 4 mg PO TID PRN 10/12/20 10/12/20 History QUEtiapine [SEROquel] 50 mg PO HS@199910/12/20 10/12/20 History Saline Nasal Gel [[place] Nasal Gel] 1 applic TOPICAL DIRECTED PRN 10/12/20 10/12/20 History Spironolactone [Aldactone] 25 mg PO HS@199910/12/20 10/12/20 History amLODIPine [Norvasc] 5 mg PO DAILY@79910/12/20 10/12/20 History hydrALAZINE HCL [Apresoline] 25 mg PO TID@0800,1400,199910/12/20 10/12/20 History traZODone HCL [Desyrel] 100 mg PO HS@199910/12/20 10/12/20 History Allergies Allergy/AdvReac Type Severity Reaction Status Date / Time cheese Allergy Unknown Verified 10/12/20 17:33 chocolate flavor Allergy Unknown Verified 10/12/20 17:33 tomato Allergy Unknown Verified 10/12/20 17:33 levofloxacin [From Levaquin] AdvReac Diarrhea Verified 10/12/20 17:33 Physical Exam Vitals: Vital Signs Temp Pulse Pulse Resp BP BP Pulse Ox 10/13/20 09:28 52 L 10/13/20 09:18 52 L 10/13/20 08:00 48 L 18 134/63 98 10/13/20 03:21 97.7 F 55 L 18 137/68 97 10/13/20 01:42 52 L 20 10/13/20 00:00 97.9 F 52 L 20 148/67 97 10/12/20 20:55 98.4 F 49 L 18 121/57 97 10/12/20 20:00 49 L 18 10/12/20 19:29 98.0 F 49 L 16 118/48 100 10/12/20 19:25 45 L 10/12/20 19:12 50 L 10/12/20 18:28 97.4 F L 46 L 18 123/54 96 10/12/20 18:07 60 20 119/68 96 10/12/20 16:53 45 L 20 114/50 93 L 10/12/20 16:22 99.9 F H 52 L 20 113/53 93 L Intake and Output 10/12/20 10/13/20 10/13/20 22:59 06:59 14:59 Output Total 825 400 Balance -825 -400 Output: Urine 825 400 Other: Voiding Method Bedside Commode Bedside Commode Bedside Commode Diaper Diaper Diaper Weight 68.039 kg 49 kg Results CBC & Chem 7: 10/13/20 10:05 10/13/20 10:05 Labs: Abnormal Lab Results - Last 24 Hours (Table) 10/12/20 10/13/20 Range/Units Unknown 10:05 Carbon Dioxide 33 H 32 H (22-30) mmol/L BUN 52 H 38 H (7-17) mg/dL Creatinine 1.59 H 1.12 H (0.52-1.04) mg/dL Glucose 139 H (74-99) mg/dL Magnesium 2.6 H (1.6-2.3) mg/dL Total Protein 5.8 L (6.3-8.2) g/dL Albumin 3.4 L (3.5-5.0) g/dL Thrombosis Risk Factor Assmnt - Choose All That Apply Any of the Below Risk Factors Present?: Yes Each Factor Represents 1 point: Swollen legs (current) Other Risk Factors: Yes Each Risk Factor Represents 3 Points: Age 75 years or older Other congenital or acquired thrombophilia - If yes, enter type in comment: No Thrombosis Risk Factor Assessment Total Risk Factor Score: 4 Thrombosis Risk Factor Assessment Level: Moderate Risk
[2020-10-13] MEDS: ENOXAPARIN 40 MG/0.4 ML SYRINGE SQ SCH (17:26)
[2020-10-13] MEDS: BUDESONIDE 1 MG/2 ML NEBU INHALATION SCH (19:04)
[2020-10-13] MEDS: IPRATROPIUM-ALBUTEROL 3 ML NEB INHALATION SCH (19:04)
[2020-10-13] MEDS ORDERED: SPIRONOLACTONE 25 MG TAB PO SCH (20:00)
[2020-10-13] MEDS: traZODone HCL 100 MG TAB PO SCH (20:40)
[2020-10-13] MEDS: PRAVASTATIN SODIUM 20 MG TAB PO SCH (20:40)
[2020-10-13] MEDS: MELATONIN 5 MG TABLET PO SCH (20:40)
[2020-10-13] MEDS: QUEtiapine 50 MG TAB PO SCH (20:40)
[2020-10-13] MEDS: LORATADINE-PSEUDOEPH 5-120 MG 1 EACH TAB.ER.12H PO SCH (21:33)
--- NOTE | 2020-10-13 22:14 | CT ---
EXAMINATION TYPE: CT brain wo con DATE OF EXAM: 10/13/2020 COMPARISON: 08/30/2019 HISTORY: ams CT DLP: 1070.4 mGycm Automated exposure control for dose reduction was used. There is some cerebral cortical atrophy. There is no mass effect nor midline shift. There is no sign of intracranial hemorrhage. There is some mild hypodensity in the posterior periventricular white mat ter. Calvarium is intact. Skull base is intact. IMPRESSION: Minimal white matter hypodensity probably related to some chronic small vessel ischemia in the pariet al lobes. No acute intracranial abnormality. No change.
[2020-10-14] MEDS: IPRATROPIUM-ALBUTEROL 3 ML NEB INHALATION SCH ×4 (07:49→20:34)
[2020-10-14] MEDS: BUDESONIDE 1 MG/2 ML NEBU INHALATION SCH ×2 (07:49→20:34)
[2020-10-14] MEDS ORDERED: LORATADINE 10 MG TAB PO SCH (08:00)
[2020-10-14 08:07] LABS: Calcium 8.8 mg/dL (8.4-10.2); Potassium 4.5 mmol/L (3.5-5.1)
[2020-10-14] MEDS: LACTOBACILLUS ACIDOPH & BULGAR 1 EACH PACKET PO SCH (09:00)
[2020-10-14] MEDS: SPIRONOLACTONE 25 MG TAB PO SCH (09:53)
[2020-10-14] MEDS: LORATADINE-PSEUDOEPH 5-120 MG 1 EACH TAB.ER.12H PO SCH ×2 (09:54→20:19)
[2020-10-14] MEDS: VIT A,C & E-LUTEIN-MINERALS 1 EACH TAB PO SCH (09:54)
[2020-10-14] MEDS: ENOXAPARIN 40 MG/0.4 ML SYRINGE SQ SCH (09:54)
[2020-10-14] MEDS: amLODIPine 5 MG TAB PO SCH (09:57)
[2020-10-14] MEDS: PRAVASTATIN SODIUM 20 MG TAB PO SCH (20:19)
[2020-10-14] MEDS: traZODone HCL 100 MG TAB PO SCH (20:19)
[2020-10-14] MEDS: METOPROLOL TARTRATE 25 MG TAB PO SCH (20:19)
[2020-10-14] MEDS: MELATONIN 5 MG TABLET PO SCH (20:19)
[2020-10-14] MEDS: QUEtiapine 50 MG TAB PO SCH (20:19)
--- NOTE | 2020-10-14 22:44 | P.PN ---
Progress Note - Text Progress Note Date: 10/14/20 Chief Complaint: Short of breath History of presenting complaint: This is a pleasant 89-year-old patient who follows with visiting physicians Dr. Johns. Chronic stable medical conditions include coronary artery disease, hypertension, hyperlipidemia, osteoarthritis, hard of hearing. Patient is able to answer simple questions but not really able to tell why she is here. She lives in assisted living and caregiver came with her to the ER. In the ER didn't reported that patient's had a cough, low-grade fever and difficulty breathing last few days. Patient has been feeling more weak. She is also short of breath and wheezing. No sputum production. Appetite had gone down. Tired. Patient was started on bronchodilators and antibiotics in the ER. This morning patient is feeling a bit better. Appetite is improving October 14: Reclining a chair. Eating better. Some wheezing earlier today. Some cough. Feeling a bit better Review of systems: Was done for constitutional, cardiovascular, GI, pulmonary. relevant finding as above Active Medications Acetaminophen (Acetaminophen Tab 325 Mg Tab) 650 mg PO Q6HR PRN PRN Reason: Fever and/ or Pain Last Admin: 10/13/20 04:38 Dose: 650 mg Documented by: Albuterol Sulfate (Albuterol Nebulized 2.5 Mg/3 Ml) 2.5 mg INHALATION RT-Q4H PRN PRN Reason: Shortness Of Breath Or Wheezing Albuterol/Ipratropium (Ipratropium-Albuterol 3 Ml Neb) 3 ml INHALATION RT-QID [facility] Last Admin: 10/14/20 20:34 Dose: 3 ml Documented by: Amlodipine Besylate (Amlodipine 5 Mg Tab) 5 mg PO DAILY@0800 [facility] Last Admin: 10/14/20 09:57 Dose: 5 mg Documented by: Budesonide (Budesonide 1 Mg/2 Ml Nebu) 1 mg INHALATION RT-BID [facility] Last Admin: 10/14/20 20:34 Dose: 1 mg Documented by: Enoxaparin Sodium (Enoxaparin 40 Mg/0.4 Ml Syringe) 40 mg SQ DAILY [facility] Last Admin: 10/14/20 09:54 Dose: 40 mg Documented by: Ceftriaxone Sodium 1 gm/ (Sodium Chloride) 50 mls @ 100 mls/hr IVPB Q12HR [facility] Last Admin: 10/14/20 20:19 Dose: 100 mls/hr Documented by: Lactobacillus Acidoph/Bulgaricus (Lactobacillus Acidoph & Bulgar 1 Each Packet) 1 each PO DAILY@0800 [facility] Last Admin: 10/14/20 09:54 Dose: 1 each Documented by: Loratadine/Pseudoephedrine Sulfate (Loratadine-Pseudoeph 5-120 Mg 1 Each Tab .Er.12h) 1 each PO Q12HR [facility] Last Admin: 10/14/20 20:19 Dose: 1 each Documented by: Melatonin (Melatonin 5 Mg Tablet) 5 mg PO HS@1999 [facility] Last Admin: 10/14/20 20:19 Dose: 5 mg Documented by: Metoprolol Tartrate (Metoprolol Tartrate 25 Mg Tab) 25 mg PO BID [facility] Last Admin: 10/14/20 20:19 Dose: 25 mg Documented by: Multivitamins/Minerals (Vit A,C & A-Dqxvul-Luhvvfgy 1 Each Tab) 1 each PO DAILY@0800 [facility] Last Admin: 10/14/20 09:54 Dose: 1 each Documented by: Nitroglycerin (Nitroglycerin Sl Tabs 0.4 Mg Tab) 0.4 mg SUBLINGUAL Q5M PRN PRN Reason: Chest Pain Ondansetron HCl (Ondansetron 4 Mg Tab) 4 mg PO TID PRN PRN Reason: Nausea Pravastatin Sodium (Pravastatin Sodium 20 Mg Tab) 20 mg PO HS@1999 [facility] Last Admin: 10/14/20 20:19 Dose: 20 mg Documented by: Quetiapine Fumarate (Quetiapine 50 Mg Tab) 50 mg PO HS@1999 [facility] Last Admin: 10/14/20 20:19 Dose: 50 mg Documented by: Sodium Chloride (Saline Nasal Gel 14.1 Gm Tube) 1 applic TOPICAL DAILY PRN PRN Reason: DRY NOSE Spironolactone (Spironolactone 25 Mg Tab) 12.5 mg PO DAILY [facility] Last Admin: 10/14/20 09:53 Dose: 12.5 mg Documented by: Trazodone HCl (Trazodone Hcl 100 Mg Tab) 100 mg PO HS@1999 [facility] Last Admin: 10/14/20 20:19 Dose: 100 mg Documented by: Past medical history to include: Coronary artery disease, hypertension, hyperlipidemia, osteoarthritis, claustrophobia, hard of hearing, uses a walker Social history: Lives in assisted living. Has a caregiver. Stopped smoking in 1989. Family history: Reviewed, noncontributory to presentation Physical examination: VITAL SIGNS: 97.6, 51, 18, 105/69, 99% 2 L GENERAL: Sitting in the recliner, awake EYES: Pupils equal. Conjunctiva normal. HEENT: External appearance of nose and ears normal, oral cavity grossly normal. NECK: JVD not raised; masses not palpable. HEART: First and second heart sounds are normal; no edema. LUNGS: Respiratory rate increased, decreased crackles. ABDOMEN: Soft, nontender, liver spleen not palpable, no masses palpable. PSYCH: [Patient knows her name. Now she is in the hospital. Not sure why she is here. INVESTIGATIONS, reviewed in the clinical context: CT Of the brain: Chronic changes TSH 2.7 October 14: Potassium 4.5 creatinine 0.91 WBC 6.3 hemoglobin 11.8 platelets 155 potassium 4.2 BUN 38 creatinine 1.12 Admission labs: BUN 52 creatinine 1.59 UA negative Coronavirus [PCR]: Not detected EKG tracing personally reviewed by me-normal sinus rhythm, heart rate 51 Chest x-ray film personally reviewed by me-possible chronic changes Assessment plan: -Possible pneumonia with patient showing some changes on the x-ray, congestive cough. 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 TSH. -Coronary artery disease Lopressor -Essential hypertension Continue with Lopressor, amlodipine -Sinus bradycardia DC Toprol-XL 100. Start Lopressor 25 mg twice daily from tomorrow -Acute kidney injury, possibly prerenal Given IV fluids. Discontinued. Resume Aldactone 12.5 mg daily. IV ceftriaxone. DuoNeb. Inhaled steroids. DC IV fluids. Aldactone resumed. Possible DC tomorrow.
[2020-10-15] MEDS: ACETAMINOPHEN TAB 325 MG TAB PO PRN (04:15)
[2020-10-15] MEDS: BUDESONIDE 1 MG/2 ML NEBU INHALATION SCH ×2 (07:54→19:43)
[2020-10-15] MEDS: IPRATROPIUM-ALBUTEROL 3 ML NEB INHALATION SCH ×4 (07:54→19:43)
[2020-10-15] MEDS: LACTOBACILLUS ACIDOPH & BULGAR 1 EACH PACKET PO SCH (08:00)
[2020-10-15] MEDS: METOPROLOL TARTRATE 25 MG TAB PO SCH (08:56)
[2020-10-15] MEDS: SPIRONOLACTONE 25 MG TAB PO SCH (08:59)
[2020-10-15] MEDS: amLODIPine 5 MG TAB PO SCH (08:59)
[2020-10-15] MEDS: ENOXAPARIN 40 MG/0.4 ML SYRINGE SQ SCH (08:59)
[2020-10-15] MEDS: VIT A,C & E-LUTEIN-MINERALS 1 EACH TAB PO SCH (09:03)
[2020-10-15] MEDS: LORATADINE-PSEUDOEPH 5-120 MG 1 EACH TAB.ER.12H PO SCH (09:03)
[2020-10-15 11:47] VITALS: BMI 25.6
[2020-10-15 13:49] VITALS: RESP 18
[2020-10-15] MEDS: QUEtiapine 50 MG TAB PO SCH (20:14)
[2020-10-15] MEDS: PRAVASTATIN SODIUM 20 MG TAB PO SCH (20:14)
[2020-10-15] MEDS ORDERED: METOPROLOL TARTRATE 12.5 MG TAB PO SCH (21:00)
--- NOTE | 2020-10-15 21:24 | P.PN ---
Progress Note - Text Progress Note Date: 10/15/20 Chief Complaint: Short of breath History of presenting complaint: This is a pleasant 89-year-old patient who follows with visiting physicians Dr. Johsn. Chronic stable medical conditions include coronary artery disease, hypertension, hyperlipidemia, osteoarthritis, hard of hearing. Patient is able to answer simple questions but not really able to tell why she is here. She lives in assisted living and caregiver came with her to the ER. In the ER didn't reported that patient's had a cough, low-grade fever and difficulty breathing last few days. Patient has been feeling more weak. She is also short of breath and wheezing. No sputum production. Appetite had gone down. Tired. Patient was started on bronchodilators and antibiotics in the ER. This morning patient is feeling a bit better. Appetite is improving October 14: Reclining a chair. Eating better. Some wheezing earlier today. Some cough. Feeling a bit better October 15: Oral intake fair. Discussed with the nurse. Patient has been sleepy. Lethargic. Will JASON melatonin. JASON Claritin-D. JASON melatonin. JASON trazodone. Review of systems: Was done for constitutional, cardiovascular, GI, pulmonary. relevant finding as above Active Medications Acetaminophen (Acetaminophen Tab 325 Mg Tab) 650 mg PO Q6HR PRN PRN Reason: Fever and/ or Pain Last Admin: 10/15/20 04:15 Dose: 650 mg Documented by: Albuterol Sulfate (Albuterol Nebulized 2.5 Mg/3 Ml) 2.5 mg INHALATION RT-Q4H PRN PRN Reason: Shortness Of Breath Or Wheezing Albuterol/Ipratropium (Ipratropium-Albuterol 3 Ml Neb) 3 ml INHALATION RT-QID [facility] Last Admin: 10/15/20 19:43 Dose: 3 ml Documented by: Budesonide (Budesonide 1 Mg/2 Ml Nebu) 1 mg INHALATION RT-BID [facility] Last Admin: 10/15/20 19:43 Dose: 1 mg Documented by: Enoxaparin Sodium (Enoxaparin 40 Mg/0.4 Ml Syringe) 40 mg SQ DAILY [facility] Last Admin: 10/15/20 08:59 Dose: 40 mg Documented by: Ceftriaxone Sodium 1 gm/ (Sodium Chloride) 50 mls @ 100 mls/hr IVPB Q12HR [facility] Last Admin: 10/15/20 20:14 Dose: 100 mls/hr Documented by: Lactobacillus Acidoph/Bulgaricus (Lactobacillus Acidoph & Bulgar 1 Each Packet) 1 each PO DAILY@0800 [facility] Last Admin: 10/15/20 08:59 Dose: 1 each Documented by: Metoprolol Tartrate (Metoprolol Tartrate 12.5 Mg Tab) 12.5 mg PO BID [facility] Last Admin: 10/15/20 20:14 Dose: 12.5 mg Documented by: Multivitamins/Minerals (Vit A,C & Z-Iotclt-Wmgbzugf 1 Each Tab) 1 each PO DAILY@0800 [facility] Last Admin: 10/15/20 09:03 Dose: 1 each Documented by: Nitroglycerin (Nitroglycerin Sl Tabs 0.4 Mg Tab) 0.4 mg SUBLINGUAL Q5M PRN PRN Reason: Chest Pain Ondansetron HCl (Ondansetron 4 Mg Tab) 4 mg PO TID PRN PRN Reason: Nausea Pravastatin Sodium (Pravastatin Sodium 20 Mg Tab) 20 mg PO HS@1999 [facility] Last Admin: 10/15/20 20:14 Dose: 20 mg Documented by: Quetiapine Fumarate (Quetiapine 50 Mg Tab) 50 mg PO HS@1999 [facility] Last Admin: 10/15/20 20:14 Dose: 50 mg Documented by: Sodium Chloride (Saline Nasal Gel 14.1 Gm Tube) 1 applic TOPICAL DAILY PRN PRN Reason: DRY NOSE Spironolactone (Spironolactone 25 Mg Tab) 12.5 mg PO DAILY [facility] Last Admin: 10/15/20 08:59 Dose: 12.5 mg Documented by: Past medical history to include: Coronary artery disease, hypertension, hyperlipidemia, osteoarthritis, claustrophobia, hard of hearing, uses a walker Social history: Lives in assisted living. Has a caregiver. Stopped smoking in 1989. Family history: Reviewed, noncontributory to presentation Physical examination: VITAL SIGNS: 96.2, 67, 18, 111 x 57, 97% room air GENERAL: Reclining in bed, sleepy EYES: Pupils equal. Conjunctiva normal. HEENT: External appearance of nose and ears normal, oral cavity grossly normal. NECK: JVD not raised; masses not palpable. HEART: First and second heart sounds are normal; no edema. LUNGS: Respiratory rate increased, decreased crackles. ABDOMEN: Soft, nontender, liver spleen not palpable, no masses palpable. PSYCH: [Patient knows her name. Now she is in the hospital. Not sure why she is here. INVESTIGATIONS, reviewed in the clinical context: CT Of the brain: Chronic changes TSH 2.7 October 11: Potassium 4.5 creatinine 0.91 WBC 6.3 hemoglobin 11.8 platelets 155 potassium 4.2 BUN 38 creatinine 1.12 Admission labs: BUN 52 creatinine 1.59 UA negative Coronavirus [PCR]: Not detected EKG tracing personally reviewed by me-normal sinus rhythm, heart rate 51 Chest x-ray film personally reviewed by me-possible chronic changes Assessment plan: -Possible pneumonia with patient showing some changes on the x-ray, congestive cough. Suspect gram-negative organism IV ceftriaxone -Acute and chronic metabolic encephalopathy from medications Stop trazodone. Stop melatonin. -Acute COPD exacerbation in an ex-smoker DuoNeb 4 times a day plus inhaled steroids -Bilateral chronic pulmonary fibrosis Inhaled steroids -Chronic gait dysfunction Uses a walker at her baseline -Primary osteoarthritis multiple joints bilaterally Use pain medications as needed -Major cognitive impairment likely from late-onset is Alzheimer's dementia We'll do a computed tomography scan of the brain. TSH. -Coronary artery disease Lopressor -Essential hypertension: Blood pressure running on the low side Continue with Lopressor, amlodipine discontinued -Sinus bradycardia-persistent DC Toprol-XL 100. Decrease Lopressor 12.5 mg twice daily. -Acute kidney injury, possibly prerenal Given IV fluids. Discontinued. Resume Aldactone 12.5 mg daily. Continue IV ceftriaxone. DC trazodone and melatonin. DC Claritin-D. Discussed with the nurse. Hopefully we will discharged tomorrow.. Amlodipine discontinued. Lopressor decreased to 12.5 twice daily.
[2020-10-16] MEDS: IPRATROPIUM-ALBUTEROL 3 ML NEB INHALATION SCH ×2 (07:53→11:33)
[2020-10-16] MEDS: BUDESONIDE 1 MG/2 ML NEBU INHALATION SCH (07:53)
[2020-10-16] MEDS: ENOXAPARIN 40 MG/0.4 ML SYRINGE SQ SCH (09:00)
[2020-10-16] MEDS: LACTOBACILLUS ACIDOPH & BULGAR 1 EACH PACKET PO SCH (09:00)
[2020-10-16 13:20] VITALS: BP 135/64; PULSE 78; TEMP 97.4
--- NOTE | 2020-10-16 18:37 | P.DS ---
Providers Date of admission: 10/13/20 16:58 Expected date of discharge: 10/16/20 Attending physician: Juan M Scott Primary care physician: Jesus Johns [facility] Course: Chief Complaint: Short of breath History of presenting complaint: This is a pleasant 89-year-old patient who follows with visiting physicians Dr. Johns. Chronic stable medical conditions include coronary artery disease, hypertension, hyperlipidemia, osteoarthritis, hard of hearing. Patient is able to answer simple questions but not really able to tell why she is here. She lives in assisted living and caregiver came with her to the ER. In the ER didn't reported that patient's had a cough, low-grade fever and difficulty breathing last few days. Patient has been feeling more weak. She is also short of breath and wheezing. No sputum production. Appetite had gone down. Tired. Patient was started on bronchodilators and antibiotics in the ER. This morning patient is feeling a bit better. Appetite is improving. Patient felt to have metabolic encephalopathy from medications. Melatonin, Claritin-D, trazodone. Discontinued. Patient responded well. Treated with IV ceftriaxone for pneumonia. Changed to Ceftin. Acute kidney in 3. Lasix discontinued. Creatinine came down to normal. Also treated with bronchodilators for COPD. Also has underlying poorly fibrosis. Amlodipine discontinued for low blood pressure. October 14: Reclining a chair. Eating better. Some wheezing earlier today. Some cough. Feeling a bit better October 15: Oral intake fair. Discussed with the nurse. Patient has been sleepy. Lethargic. Will DC melatonin. DC Claritin-D. DC trazodone. October 16: More awake. Oral intake fair. Discussed with the patient. Return to assisted living Discussion and discharge planning more than 35 minutes Past medical history to include: Coronary artery disease, hypertension, hyperlipidemia, osteoarthritis, claustrophobia, hard of hearing, uses a walker Social history: Lives in assisted living. Has a caregiver. Stopped smoking in 1989. Family history: Reviewed, noncontributory to presentation Physical examination: VITAL SIGNS: 97.4, 78, 18, 1 35 x 64, 96% room air GENERAL: Reclining in bed, more awake EYES: Pupils equal. Conjunctiva normal. HEENT: External appearance of nose and ears normal, oral cavity grossly normal. NECK: JVD not raised; masses not palpable. HEART: First and second heart sounds are normal; no edema. LUNGS: Respiratory rate increased, decreased crackles. ABDOMEN: Soft, nontender, liver spleen not palpable, no masses palpable. PSYCH: [Patient knows her name. Now she is in the hospital. Not sure why she is here. INVESTIGATIONS, reviewed in the clinical context: CT Of the brain: Chronic changes TSH 2.7 October 11: Potassium 4.5 creatinine 0.91 WBC 6.3 hemoglobin 11.8 platelets 155 potassium 4.2 BUN 38 creatinine 1.12 Admission labs: BUN 52 creatinine 1.59 UA negative Coronavirus [PCR]: Not detected EKG tracing personally reviewed by me-normal sinus rhythm, heart rate 51 Chest x-ray film personally reviewed by me-possible chronic changes Assessment plan: -Possible pneumonia with patient showing some changes on the x-ray, congestive cough. Suspect gram-negative organism IV ceftriaxone. Changed to Ceftin or DC -Acute and chronic metabolic encephalopathy from medications: Improved Stop trazodone. Stop melatonin. -Acute COPD exacerbation in an ex-smoker DuoNeb 4 times a day plus inhaled steroids -Bilateral chronic pulmonary fibrosis Inhaled steroids -Chronic gait dysfunction Uses a walker at her baseline -Primary osteoarthritis multiple joints bilaterally Use pain medications as needed -Major cognitive impairment likely from late-onset is Alzheimer's dementia We'll do a computed tomography scan of the brain. TSH. -Coronary artery disease Lopressor -Essential hypertension: Blood pressure running on the low side Continue with Lopressor, amlodipine discontinued -Sinus bradycardia-persistent DC Toprol-XL 100. Lopressor 12.5 mg twice daily. -Acute kidney injury, possibly prerenal, corrected Given IV fluids. Discontinued. Resume Aldactone 12.5 mg daily. Disposition: Assisted living. [facility] Patient Condition at Discharge: Stable Plan - Discharge Summary Discharge Rx Participant: No New Discharge Prescriptions: New Cefuroxime Axetil [Ceftin] 500 mg PO BID #6 tab Acetaminophen Tab [Tylenol] 650 mg PO Q6HR PRN tab PRN Reason: Fever And/ Or Pain Metoprolol Tartrate [Lopressor] 12.5 mg PO BID #60 dose Continue Pravastatin Sodium [Pravachol] 20 mg PO HS@2000 Vit A/Vit C/Vit E/Zinc/Copper [ICAPS SOFTGEL] 1 cap PO DAILY@0800 L.acidoph,Paracasei, B.lactis [Probiotic] 1 cap PO DAILY@0800 Apixaban [Eliquis] 2.5 mg PO BID@0800,1999 Nitroglycerin Sl Tabs [Nitrostat] 0.4 mg SUBLINGUAL Q5M PRN tab PRN Reason: Chest Pain Ondansetron [Zofran] 4 mg PO TID PRN PRN Reason: Nausea QUEtiapine [SEROquel] 50 mg PO HS@1999 Saline Nasal Gel [[place] Nasal Gel] 1 applic TOPICAL DIRECTED PRN PRN Reason: DRY NOSE Spironolactone [Aldactone] 25 mg PO HS@1999 Carboxymethylcellulose Sodium [Refresh Tears] 1 - 2 drops BOTH EYES DAILY PRN PRN Reason: DRY EYES Changed Ipratropium-Albuterol Nebulize [Duoneb 0.5 mg-3 mg/3 ml Soln] 3 ml INHALATION TID #90 Discontinued Losartan Potassium [Cozaar] 100 mg PO DAILY@0800 Metoprolol Succinate [Toprol XL] 100 mg PO DAILY@0800 Escitalopram [Lexapro] 20 mg PO DAILY@0800 traZODone HCL [Desyrel] 100 mg PO HS@1999 Melatonin 5 mg PO HS@1999 Cetirizine HCl [Zyrtec] 10 mg PO DAILY@0800 hydrALAZINE HCL [Apresoline] 25 mg PO TID@0800,1399,1999 amLODIPine [Norvasc] 5 mg PO DAILY@0800 Furosemide [Lasix] 20 mg PO DAILY@0800 Furosemide [Lasix] 40 mg PO DAILY@0800 Discharge Medication List Pravastatin Sodium [Pravachol] 20 mg PO HS@199906/25/16 [History] L.acidoph,Paracasei, B.lactis [Probiotic] 1 cap PO DAILY@0800 12/18/18 [History] Vit A/Vit C/Vit E/Zinc/Copper [ICAPS SOFTGEL] 1 cap PO DAILY@0800 12/18/18 [History] Apixaban [Eliquis] 2.5 mg PO BID@0800,199910/11/19 [History] Nitroglycerin Sl Tabs [Nitrostat] 0.4 mg SUBLINGUAL Q5M PRN tab 10/14/19 [Rx] Carboxymethylcellulose Sodium [Refresh Tears] 1 - 2 drops BOTH EYES DAILY PRN 10/12/20 [History] Ondansetron [Zofran] 4 mg PO TID PRN 10/12/20 [History] QUEtiapine [SEROquel] 50 mg PO HS@199910/12/20 [History] Saline Nasal Gel [[place] Nasal Gel] 1 applic TOPICAL DIRECTED PRN 10/12/20 [History] Spironolactone [Aldactone] 25 mg PO HS@199910/12/20 [History] Acetaminophen Tab [Tylenol] 650 mg PO Q6HR PRN tab 10/15/20 [Rx] Cefuroxime Axetil [Ceftin] 500 mg PO BID #6 tab 10/15/20 [Rx] Ipratropium-Albuterol Nebulize [Duoneb 0.5 mg-3 mg/3 ml Soln] 3 ml INHALATION TID #90 10/15/20 [Rx] Metoprolol Tartrate [Lopressor] 12.5 mg PO BID #60 dose 10/15/20 [Rx] Follow up Appointment(s)/Referral(s): Jesus Johns MD [Primary Care Provider] - 3 Days Discharge Disposition: HOME SELF-CARE
== END 2020-10-16 14:32 | disposition home or self-care (01) | DRG 177 ==
LOC: EC 16:16 → 3SCARD 18:30 → OBSVTOIN 10-13 16:58 → 3SCARD 10-14 22:03
PROVIDERS: ADMIT Hospitalist; ATTEND Hospitalist
DX: J15.6 Pneumonia due to other Gram-negative bacteria (principal); G93.41 Metabolic encephalopathy; J44.1 Chronic obstructive pulmonary disease with (acute) exacerbation; J44.0 Chronic obstructive pulmonary disease with (acute) lower respiratory infection; N17.9 Acute kidney failure, unspecified; J84.9 Interstitial pulmonary disease, unspecified; I10 Essential (primary) hypertension; G30.1 Alzheimer's disease with late onset; I25.10 Atherosclerotic heart disease of native coronary artery without angina pectoris; E78.5 Hyperlipidemia, unspecified; F40.240 Claustrophobia; F02.80 Dementia in other diseases classified elsewhere, unspecified severity, without behavioral disturbance, psychotic disturbance, mood disturbance, and anxiety; H91.90 Unspecified hearing loss, unspecified ear; R26.9 Unspecified abnormalities of gait and mobility; J98.01 Acute bronchospasm; R00.1 Bradycardia, unspecified; M19.90 Unspecified osteoarthritis, unspecified site; Z20.822 Contact with and (suspected) exposure to COVID-19; Z79.01 Long term (current) use of anticoagulants; Z79.899 Other long term (current) drug therapy; Z87.891 Personal history of nicotine dependence; Z88.1 Allergy status to other antibiotic agents; Z91.02 Food additives allergy status; Z87.19 Personal history of other diseases of the digestive system
CPT/HCPCS: 36415; 70450; 71045; 80048; 80053; 81003; 83605; 83735; 83880; 84443; 84484; 85025; 85610; 85730; 87040; 87635; 93005; 94640; 99285

== ENCOUNTER → 2021-01-04 | Outpatient (CLI) | payer MEDICARE ==
--- NOTE | 2021-01-04 11:47 | FL ---
EXAMINATION TYPE: FL barium swallow w video DATE OF EXAM: 01/04/2021 MODIFIED SWALLOW / DEGLUTITION STUDY CLINICAL HISTORY: Dysphagia. Coughing episodes. TECHNIQUE: Deglutition study is performed utilizing thin liquid barium, honey and nectar thick liqui d barium, and barium thick pudding. 1.28 minutes of fluoro time and 0 images obtained. COMPARISON: None. FINDINGS: The oral and pharyngeal phases show satisfactory initiation and propagation with all modali ties tested. There is no evidence of penetration or aspiration with any modality tested. No signific ant pharyngeal residue was appreciated. IMPRESSION: Normal deglutition study. Please refer to speech therapist notes for further details if necessary.
== END | disposition home or self-care (01) ==
LOC: RADFLMAIN 10:38
PROVIDERS: ATTEND Family Medicine
DX: R13.10 Dysphagia, unspecified (principal)
CPT/HCPCS: 74230

== ENCOUNTER 2021-03-23 17:43 | Inpatient (IN) | payer MEDICARE ==
--- NOTE | 2021-03-23 20:41 | XR ---
EXAMINATION TYPE: XR chest 1V portable DATE OF EXAM: 03/23/2021 COMPARISON: 10/12/2020 HISTORY: Pneumonia TECHNIQUE: FINDINGS: There is some blunting of the costophrenic angles. Heart is enlarged. There is no obvious h eart failure. There is some mild infiltrate at the lung bases. IMPRESSION: Increased pleural fluid and basilar infiltrate and pleural reaction compared to last exam . No obvious heart failure. Cardiomegaly increased.
[2021-03-23 21:05] LABS: Basophils % (A) 0 %; Eosinophils # (A) 0.1 k/uL (0-0.7); Eosinophils % (A) 1 %; HCT 38.1 % (34.0-46.0); HGB 12.6 gm/dL (11.4-16.0); Lymphocytes # (A) 0.7 k/uL (1.0-4.8); Lymphocytes % (A) 14 %; MCH 30.1 pg (25.0-35.0); MCHC 33.2 g/dL (31.0-37.0); MCV 90.8 fL (80.0-100.0); Mean Platelet Volume 6.9; Monocytes # (A) 0.4 k/uL (0-1.0); Monocytes % (A) 8 %; Neutrophils % (A) 76 %; Platelet Count 191 k/uL (150-450); RBC 4.19 m/uL (3.80-5.40); RDW 12.5 % (11.5-15.5); WBC 5.3 k/uL (3.8-10.6)
--- NOTE | 2021-03-23 21:06 | ED ---
Weakness HPI - General Source: patient, family, RN notes reviewed Mode of arrival: wheelchair Limitations: no limitations - History of Present Illness MD Complaint: generalized weakness <Remigio Sultana - Last Filed: 03/23/21 21:07> <Raghu Hastings - Last Filed: 03/24/21 00:30> - General Chief complaint: Weakness Stated complaint: Weakness/SOB Time Seen by Provider: 03/23/21 19:50 - History of Present Illness Initial comments: 89-year-old female presents to the emergency department by family members with complaints of generalized weakness for the past several days decreased oral intake she's had weight loss over last several months by not eating very much. She also was noted have a temperature 100.2 this afternoon. She's had a cough up. She was brought in for evaluation. She was noted after initial triage evaluation because of a positive. No nausea no vomiting patient herself is very hard of hearing information gathered from the patient's daughter. (Remigio Sultana) - Related Data Home Medications Medication Instructions Recorded Confirmed Pravastatin Sodium [Pravachol] 20 mg PO HS@199906/25/16 03/23/21 Vit A/Vit C/Vit E/Zinc/Copper 1 cap PO DAILY@79912/18/18 03/23/21 [ICAPS SOFTGEL] Apixaban [Eliquis] 2.5 mg PO BID@799,199910/11/19 03/23/21 Carboxymethylcellulose Sodium 1 - 2 drops BOTH EYES DAILY PRN 10/12/20 03/23/21 [Refresh Tears] Ondansetron [Zofran] 4 mg PO AC-TID PRN 10/12/20 03/23/21 QUEtiapine [SEROquel] 50 mg PO HS@199910/12/20 03/23/21 Saline Nasal Gel [[place] Nasal Gel] 1 applic TOPICAL DIRECTED PRN 10/12/20 03/23/21 Spironolactone [Aldactone] 25 mg PO HS@199910/12/20 03/23/21 Escitalopram [Lexapro] 20 mg PO DAILY@0803/23/21 03/23/21 Furosemide [Lasix] 20 mg PO DAILY@0803/23/21 03/23/21 Furosemide [Lasix] 40 mg PO DAILY@0800 03/23/21 03/23/21 Ipratropium-Albuterol Nebulize 3 ml INHALATION RT-QID@08,12,,03/23/21 03/23/21 [Duoneb 0.5 mg-3 mg/3 ml Soln] Metoprolol Tartrate [Lopressor] 12.5 mg PO BID@0800,199903/23/21 03/23/21 Natural Sleep Support [place] 6 - 8 spray PO HS PRN 03/23/21 03/23/21 Vitamin B Complex 1 tab PO DAILY@0800 03/23/21 03/23/21 amLODIPine [Norvasc] 5 mg PO DAILY@0800 03/23/21 03/23/21 hydrALAZINE HCL [Apresoline] 25 mg PO TID@0800,1399,199903/23/21 03/23/21 traZODone HCL 100 mg PO HS@199903/23/21 03/23/21 Previous Rx's Medication Instructions Recorded Nitroglycerin Sl Tabs [Nitrostat] 0.4 mg SUBLINGUAL Q5M PRN tab 10/14/19 Allergies Allergy/AdvReac Type Severity Reaction Status Date / Time cheese Allergy Unknown Verified 03/23/21 21:26 chocolate flavor Allergy Unknown Verified 03/23/21 21:26 tomato Allergy Unknown Verified 03/23/21 21:26 levofloxacin [From Levaquin] AdvReac Diarrhea Verified 03/23/21 21:26 Review of Systems ROS Other: All systems not noted in ROS Statement are negative. <Remigio Sultana - Last Filed: 03/23/21 21:07> ROS Other: All systems not noted in ROS Statement are negative. <Raghu Hastings - Last Filed: 03/24/21 00:30> ROS Statement: Those systems with pertinent positive or pertinent negative responses have been documented in the HPI. Past Medical History Past Medical History: Coronary Artery Disease (CAD), Chest Pain / Angina, Hyperlipidemia, Hypertension, Musculoskeletal Disorder, Osteoarthritis (OA) Additional Past Medical History / Comment(s): Clostrophobia, [place] History of Any Multi-Drug Resistant Organisms: None Reported Past Surgical History: Appendectomy, Bladder Surgery, Bowel Resection, Cholecystectomy Past Anesthesia/Blood Transfusion Reactions: No Reported Reaction Past Psychological History: No Psychological Hx Reported Smoking Status: Former smoker Past Alcohol Use History: None Reported Past Drug Use History: None Reported - Past Family History Father Family Medical History: No Reported History <Remigio Sultana - Last Filed: 03/23/21 21:07> General Exam Limitations: no limitations General appearance: alert, in no apparent distress Head exam: Present: atraumatic, normocephalic, normal inspection Eye exam: Present: normal appearance, PERRL, EOMI. Absent: scleral icterus, conjunctival injection, periorbital swelling ENT exam: Present: mucous membranes dry Neck exam: Present: normal inspection. Absent: tenderness, meningismus, lymphadenopathy Respiratory exam: Present: rales (Basilar), rhonchi, decreased breath sounds. Absent: respiratory distress, wheezes, stridor Cardiovascular Exam: Present: regular rate, normal rhythm, normal heart sounds. Absent: systolic murmur, diastolic murmur, rubs, gallop, clicks GI/Abdominal exam: Present: soft, normal bowel sounds. Absent: distended, tenderness, guarding, rebound, rigid Extremities exam: Present: normal inspection, full ROM, normal capillary refill. Absent: tenderness, pedal edema, joint swelling, calf tenderness Back exam: Present: normal inspection Neurological exam: Present: alert, oriented X3, CN II-XII intact Psychiatric exam: Present: normal affect, normal mood Skin exam: Present: warm, dry, intact, normal color. Absent: rash <Remigio Sultana - Last Filed: 03/23/21 21:07> - General Exam Comments Initial Comments: This is a well-developed asthenic appearing female who is awake alert oriented 3 (Remigio Sultana) Course <Remigio Sultana - Last Filed: 03/23/21 21:07> Vital Signs 03/23/21 17:48 Temperature 98.8 F Pulse Rate 72 Respiratory 18 Rate Blood Pressure 122/60 O2 Sat by Pulse 94 L Oximetry - Reevaluation(s) Reevaluation #1: 03/23/21 21:07 Patient's care will be endorsed to Dr. Hastings at our shift change (Jessica Sultana) EKG Findings - EKG Comments: EKG Findings:: EKG shows sinus rhythm 65 OR 180 QRS 98 QTc 445 <Raghu Hastings - Last Filed: 03/24/21 00:30> Medical Decision Making - Lab Data Result diagrams: 03/23/21 20:47 - Radiology Data Radiology results: report reviewed (Imaging reviewed evidence of basilar infiltrates), image reviewed <Remigio Sultana - Last Filed: 03/23/21 21:07> - Lab Data Result diagrams: 03/23/21 20:47 03/23/21 20:47 <Raghu Hastings - Last Filed: 03/24/21 00:30> - Medical Decision Making 89 female presents to the emergency department for evaluation shortness of breath. Patient has significant shortness of breath here in the emergency department, low oxygen. Patient Dese for evaluation regards to covert with low oxygen. Patient is in no significant current distress is improved supplemental O2 will be admitted for further monitoring (Raghu Hastings) - Lab Data Lab Results 03/23/21 03/23/21 03/23/21 Range/Units 17:57 20:47 20:47 WBC 5.3 (3.8-10.6) k/uL RBC 4.19 (3.80-5.40) m/uL Hgb 12.6 (11.4-16.0) gm/dL Hct 38.1 (34.0-46.0) % MCV 90.8 (80.0-100.0) fL MCH 30.1 (25.0-35.0) pg MCHC 33.2 (31.0-37.0) g/dL RDW 12.5 (11.5-15.5) % Plt Count 191 (150-450) k/uL MPV 6.9 Neutrophils % 76 % Lymphocytes % 14 % Monocytes % 8 % Eosinophils % 1 % Basophils % 0 % Neutrophils # 4.0 (1.3-7.7) k/uL Lymphocytes # 0.7 L (1.0-4.8) k/uL Monocytes # 0.4 (0-1.0) k/uL Eosinophils # 0.1 (0-0.7) k/uL Basophils # 0.0 (0-0.2) k/uL PT 10.9 (9.0-12.0) sec INR 1.0 (<1.2) APTT 32.3 H (22.0-30.0) sec D-Dimer 0.57 (<0.60) mg/L FEU Sodium (137-145) mmol/L Potassium (3.5-5.1) mmol/L Chloride (98-107) mmol/L Carbon Dioxide (22-30) mmol/L Anion Gap mmol/L BUN (7-17) mg/dL Creatinine (0.52-1.04) mg/dL Est GFR (CKD-EPI)AfAm (>60 ml/min/1.73 sqM) Est GFR (CKD-EPI)NonAf (>60 ml/min/1.73 sqM) Glucose (74-99) mg/dL Plasma Lactic Acid [place]ds[place] (0.7-2.0) mmol/L Calcium (8.4-10.2) mg/dL Magnesium (1.6-2.3) mg/dL Total Bilirubin (0.2-1.3) mg/dL AST (14-36) U/L ALT (4-34) U/L Alkaline Phosphatase (38-126) U/L Lactate Dehydrogenase (313-618) U/L Troponin I (0.000-0.034) ng/mL C-Reactive Protein (<1.0) mg/dL NT-Pro-B Natriuret Pep pg/mL Total Protein (6.3-8.2) g/dL Albumin (3.5-5.0) g/dL Coronavirus (PCR) Detected A (Not Detectd) 03/23/21 03/23/21 03/23/21 Range/Units 20:47 20:47 20:47 WBC (3.8-10.6) k/uL RBC (3.80-5.40) m/uL Hgb (11.4-16.0) gm/dL Hct (34.0-46.0) % MCV (80.0-100.0) fL MCH (25.0-35.0) pg MCHC (31.0-37.0) g/dL RDW (11.5-15.5) % Plt Count (150-450) k/uL MPV Neutrophils % % Lymphocytes % % Monocytes % % Eosinophils % % Basophils % % Neutrophils # (1.3-7.7) k/uL Lymphocytes # (1.0-4.8) k/uL Monocytes # (0-1.0) k/uL Eosinophils # (0-0.7) k/uL Basophils # (0-0.2) k/uL PT (9.0-12.0) sec INR (<1.2) APTT (22.0-30.0) sec D-Dimer (<0.60) mg/L FEU Sodium 136 L (137-145) mmol/L Potassium 4.0 (3.5-5.1) mmol/L Chloride 96 L (98-107) mmol/L Carbon Dioxide 33 H (22-30) mmol/L Anion Gap 7 mmol/L BUN 27 H (7-17) mg/dL Creatinine 0.95 (0.52-1.04) mg/dL Est GFR (CKD-EPI)AfAm 62 (>60 ml/min/1.73 sqM) Est GFR (CKD-EPI)NonAf 54 (>60 ml/min/1.73 sqM) Glucose 98 (74-99) mg/dL Plasma Lactic Acid Edson 0.7 (0.7-2.0) mmol/L Calcium 8.7 (8.4-10.2) mg/dL Magnesium 2.2 (1.6-2.3) mg/dL Total Bilirubin 0.3 (0.2-1.3) mg/dL AST 24 (14-36) U/L ALT 10 (4-34) U/L Alkaline Phosphatase 63 (38-126) U/L Lactate Dehydrogenase 432 (313-618) U/L Troponin I <0.012 (0.000-0.034) ng/mL C-Reactive Protein 6.7 H (<1.0) mg/dL NT-Pro-B Natriuret Pep pg/mL Total Protein 6.3 (6.3-8.2) g/dL Albumin 3.4 L (3.5-5.0) g/dL Coronavirus (PCR) (Not Detectd) 03/23/21 Range/Units 20:47 WBC (3.8-10.6) k/uL RBC (3.80-5.40) m/uL Hgb (11.4-16.0) gm/dL Hct (34.0-46.0) % MCV (80.0-100.0) fL MCH (25.0-35.0) pg MCHC (31.0-37.0) g/dL RDW (11.5-15.5) % Plt Count (150-450) k/uL MPV Neutrophils % % Lymphocytes % % Monocytes % % Eosinophils % % Basophils % % Neutrophils # (1.3-7.7) k/uL Lymphocytes # (1.0-4.8) k/uL Monocytes # (0-1.0) k/uL Eosinophils # (0-0.7) k/uL Basophils # (0-0.2) k/uL PT (9.0-12.0) sec INR (<1.2) APTT (22.0-30.0) sec D-Dimer (<0.60) mg/L FEU Sodium (137-145) mmol/L Potassium (3.5-5.1) mmol/L Chloride (98-107) mmol/L Carbon Dioxide (22-30) mmol/L Anion Gap mmol/L BUN (7-17) mg/dL Creatinine (0.52-1.04) mg/dL Est GFR (CKD-EPI)AfAm (>60 ml/min/1.73 sqM) Est GFR (CKD-EPI)NonAf (>60 ml/min/1.73 sqM) Glucose (74-99) mg/dL Plasma Lactic Acid Edson (0.7-2.0) mmol/L Calcium (8.4-10.2) mg/dL Magnesium (1.6-2.3) mg/dL Total Bilirubin (0.2-1.3) mg/dL AST (14-36) U/L ALT (4-34) U/L Alkaline Phosphatase (38-126) U/L Lactate Dehydrogenase (313-618) U/L Troponin I (0.000-0.034) ng/mL C-Reactive Protein (<1.0) mg/dL NT-Pro-B Natriuret Pep 704 pg/mL Total Protein (6.3-8.2) g/dL Albumin (3.5-5.0) g/dL Coronavirus (PCR) (Not Detectd) Disposition <Remigio Sultana - Last Filed: 03/23/21 21:07> Is patient prescribed a controlled substance at d/c from ED?: No <Raghu Hastings - Last Filed: 03/24/21 00:30> Clinical Impression: Pneumonia due to COVID-19 virus, Hypoxia Disposition: ADMITTED IP TO THIS HOSP Condition: Fair Referrals: Carlos Parikh MD [Primary Care Provider] - 1-2 days
[2021-03-23 21:23] LABS: Partial Thromboplastin Time 32.3 sec (22.0-30.0); Prothrombin Time 10.9 sec (9.0-12.0)
[2021-03-23 21:28] LABS: Albumin 3.4 g/dL (3.5-5.0); C Reactive Protein 6.7 mg/dL (<1.0); Calcium 8.7 mg/dL (8.4-10.2); Magnesium 2.2 mg/dL (1.6-2.3); Total Bilirubin 0.3 mg/dL (0.2-1.3); Total Protein 6.3 g/dL (6.3-8.2)
[2021-03-24] MEDS ORDERED: ONDANSETRON 4 MG/2 ML VIAL IVP PRN (00:28)
[2021-03-24] MEDS ORDERED: MORPHINE SULFATE 4 MG/ML SYRINGE IV PRN (00:28)
[2021-03-24] MEDS ORDERED: IBUPROFEN 400 MG TAB PO PRN (00:28)
[2021-03-24] MEDS ORDERED: NALOXONE 0.4 MG/ML 1 ML VIAL IV PRN (00:28)
[2021-03-24] MEDS ORDERED: LORazepam 2 MG/ML INJ IV PRN (00:28)
[2021-03-24] MEDS ORDERED: ACETAMINOPHEN TAB 325 MG TAB PO PRN (00:28)
[2021-03-24] MEDS: SODIUM CHLORIDE 0.9% 1,000 ML IV SCH ×3 (02:19→13:28)
[2021-03-24] MEDS ORDERED: ONDANSETRON 4 MG TAB PO PRN (14:23)
[2021-03-24] MEDS ORDERED: METOPROLOL TARTRATE 12.5 MG TAB PO SCH (14:23)
[2021-03-24] MEDS ORDERED: ARTIFICIAL TEARS-HYPROMELLOSE DROPS 15 ML BTL BOTH EYES PRN (14:23)
[2021-03-24] MEDS ORDERED: NITROGLYCERIN SL TABS 0.4 MG TAB SUBLINGUAL PRN (14:23)
[2021-03-24] MEDS ORDERED: MELATONIN 3 MG TABLET PO PRN (15:32)
[2021-03-24] MEDS ORDERED: CALCIUM CARBONATE 500 MG CHEWABLE PO PRN (15:32)
[2021-03-24] MEDS ORDERED: LACTULOSE 20 GM/30 ML CUP PO PRN (15:32)
--- NOTE | 2021-03-24 15:38 | P.HPIM ---
History of Present Illness H&P Date: 03/24/21 Chief Complaint: Decreased oral intake History of presenting complaint: This is a 89-year-old patient who follows with visiting physicians Dr. Johns. Chronic stable medical conditions include coronary artery disease, hypertension, hyperlipidemia, osteoarthritis, hard of hearing, COPD, pulmonary fibrosis. Patient is able to answer simple questions but not really able to tell why she is here. She lives in assisted living . At the baseline uses a walker Patient is not a good historian. As per the ER notes the family members mentioned that she had been feeling weak for several days and decreased oral intake. For several quite a bit she's been having weight loss because of poor oral intake. She had a fever of 100.2. Also had a cough. She tested positive for COVID-19. Patient also is not able to give much of a history. Review of systems: Difficult to obtain Past medical history to include: Coronary artery disease, hypertension, hyperlipidemia, osteoarthritis, claustrophobia, hard of hearing, uses a walker, COPD, pulmonary fibrosis Social history: Lives in assisted living. Has a caregiver. Stopped smoking in 1989. Family history: Reviewed, noncontributory to presentation Physical examination: VITAL SIGNS: 98.8, 72, 18, 122/60, 88% on room air upon presentation GENERAL: BMI is 3.6, laying in bed awake, tired EYES: Pupils equal. Conjunctiva normal. HEENT: External appearance of nose and ears normal, oral cavity grossly normal. NECK: JVD not raised; masses not palpable. HEART: First and second heart sounds are normal; no edema. LUNGS: Respiratory rate increased, bilateral crackles. ABDOMEN: Soft, nontender, liver spleen not palpable, no masses palpable. PSYCH: Answering Occasional Questions.. NEUROLOGICAL: Cranial nerves grossly intact; no facial asymmetry, power and sensation grossly intact. LYMPHATICS: No lymph nodes palpable in the axilla and neck INVESTIGATIONS, reviewed in the clinical context: White count 5.3 hemoglobin 12.6 platelets 191 d-dimer 0.57 sodium 136 potassium 4 BUN 27 creatinine 0.95 CRP 6.7 pro-calcitonin 0.11 Coronavirus [PCR]: Detected EKG tracing personally reviewed by me-normal sinus rhythm. Rate 65. Nonspecific ST-T wave changes. Chest x-ray film personally reviewed by me shows: Infiltrates Assessment plan: -COVID 19 pneumonitis Dexamethasone, vitamin C, vitamin D, zinc. 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 Dexamethasone. Vitamin C vitamin D zinc. Fall precautions. Ground diet with assistance. Resume home medications. Consult pulmonary. Prognosis guarded. Given the complexity and severity of patient's condition expect the patient to be in the hospital at least for 2 overnights Past Medical History Past Medical History: Coronary Artery Disease (CAD), Chest Pain / Angina, Hyperlipidemia, Hypertension, Musculoskeletal Disorder, Osteoarthritis (OA) Additional Past Medical History / Comment(s): Clostrophobia, [place] History of Any Multi-Drug Resistant Organisms: None Reported Past Surgical History: Appendectomy, Bladder Surgery, Bowel Resection, Cholecystectomy Past Anesthesia/Blood Transfusion Reactions: No Reported Reaction Past Psychological History: No Psychological Hx Reported Smoking Status: Former smoker Past Alcohol Use History: None Reported Additional Past Alcohol Use History / Comment(s): stopped smoking in 1989 Past Drug Use History: None Reported - Past Family History Father Family Medical History: No Reported History Medications and Allergies Home Medications Medication Instructions Recorded Confirmed Type Pravastatin Sodium [Pravachol] 20 mg PO HS@199906/25/16 03/23/21 History Vit A/Vit C/Vit E/Zinc/Copper 1 cap PO DAILY@0800 12/18/18 03/23/21 History [ICAPS SOFTGEL] Apixaban [Eliquis] 2.5 mg PO BID@10/11/19 03/23/21 History Nitroglycerin Sl Tabs [Nitrostat] 0.4 mg SUBLINGUAL Q5M PRN tab 10/14/19 03/23/21 Rx Carboxymethylcellulose Sodium 1 - 2 drops BOTH EYES DAILY PRN 10/12/20 03/23/21 History [Refresh Tears] Ondansetron [Zofran] 4 mg PO AC-TID PRN 10/12/20 03/23/21 History QUEtiapine [SEROquel] 50 mg PO HS@199910/12/20 03/23/21 History Saline Nasal Gel [[place] Nasal Gel] 1 applic TOPICAL DIRECTED PRN 10/12/20 03/23/21 History Spironolactone [Aldactone] 25 mg PO HS@199910/12/20 03/23/21 History Escitalopram [Lexapro] 20 mg PO DAILY@0800 03/23/21 03/23/21 History Furosemide [Lasix] 20 mg PO DAILY@0800 03/23/21 03/23/21 History Furosemide [Lasix] 40 mg PO DAILY@0800 03/23/21 03/23/21 History Ipratropium-Albuterol Nebulize 3 ml INHALATION RT-QID@08,12,,03/23/21 03/23/21 History [Duoneb 0.5 mg-3 mg/3 ml Soln] Metoprolol Tartrate [Lopressor] 12.5 mg PO BID@0800,199903/23/21 03/23/21 History Natural Sleep Support [place] 6 - 8 spray PO HS PRN 03/23/21 03/23/21 History Vitamin B Complex 1 tab PO DAILY@0800 03/23/21 03/23/21 History amLODIPine [Norvasc] 5 mg PO DAILY@0800 03/23/21 03/23/21 History hydrALAZINE HCL [Apresoline] 25 mg PO TID@0800,1399,199903/23/21 03/23/21 History traZODone HCL 100 mg PO HS@199903/23/21 03/23/21 History Allergies Allergy/AdvReac Type Severity Reaction Status Date / Time cheese Allergy Unknown Verified 03/23/21 21:26 chocolate flavor Allergy Unknown Verified 03/23/21 21:26 tomato Allergy Unknown Verified 03/23/21 21:26 levofloxacin [From Levaquin] AdvReac Diarrhea Verified 03/23/21 21:26 Physical Exam Vitals: Vital Signs Temp Pulse Pulse Resp BP BP Pulse Ox 03/24/21 14:00 98.6 F 70 19 143/72 96 03/24/21 11:05 98.4 F 78 19 159/65 92 L 03/24/21 09:36 62 18 128/58 96 03/24/21 06:11 64 18 141/64 94 L 03/24/21 02:23 77 17 138/63 97 03/24/21 00:28 71 16 134/64 88 L 03/23/21 17:48 98.8 F 72 18 122/60 94 L Intake and Output 03/23/21 03/24/21 03/24/21 22:59 06:59 14:59 Other: Weight 60.328 kg 60.328 kg Results CBC & Chem 7: 03/23/21 20:47 03/23/21 20:47 Labs: Abnormal Lab Results - Last 24 Hours (Table) 03/23/21 03/23/21 03/23/21 Range/Units 17:57 20:47 20:47 Lymphocytes # 0.7 L (1.0-4.8) k/uL APTT 32.3 H (22.0-30.0) sec Sodium (137-145) mmol/L Chloride (98-107) mmol/L Carbon Dioxide (22-30) mmol/L BUN (7-17) mg/dL Ferritin (10.0-291.0) ng/mL C-Reactive Protein (<1.0) mg/dL Albumin (3.5-5.0) g/dL Coronavirus (PCR) Detected A (Not Detectd) 03/23/21 Range/Units 20:47 Lymphocytes # (1.0-4.8) k/uL APTT (22.0-30.0) sec Sodium 136 L (137-145) mmol/L Chloride 96 L (98-107) mmol/L Carbon Dioxide 33 H (22-30) mmol/L BUN 27 H (7-17) mg/dL Ferritin 379.0 H (10.0-291.0) ng/mL C-Reactive Protein 6.7 H (<1.0) mg/dL Albumin 3.4 L (3.5-5.0) g/dL Coronavirus (PCR) (Not Detectd) Thrombosis Risk Factor Assmnt - Choose All That Apply Any of the Below Risk Factors Present?: Yes Each Factor Represents 1 point: Serious lung disease incl. pneumonia (< 1month) Other Risk Factors: Yes Each Risk Factor Represents 3 Points: Age 75 years or older Other congenital or acquired thrombophilia - If yes, enter type in comment: No Thrombosis Risk Factor Assessment Total Risk Factor Score: 4 Thrombosis Risk Factor Assessment Level: Moderate Risk
[2021-03-24] MEDS: ESCITALOPRAM 20 MG TAB PO SCH (16:18)
[2021-03-24] MEDS: amLODIPine 5 MG TAB PO SCH (16:18)
[2021-03-24] MEDS: METOPROLOL TARTRATE 12.5 MG TAB PO SCH ×2 (16:19→22:41)
[2021-03-24] MEDS: APIXABAN 2.5 MG TABLET PO SCH ×2 (16:19→22:47)
[2021-03-24] MEDS: dexAMETHasone 2 MG TAB PO SCH (16:20)
[2021-03-24] MEDS: ZINC SULFATE 220 MG CAP PO SCH (16:20)
[2021-03-24] MEDS: CHOLECALCIFEROL 25 MCG (1000 IU) TABLET PO SCH (16:20)
[2021-03-24] MEDS: ASCORBIC ACID 500 MG TAB PO SCH (16:20)
[2021-03-24] MEDS: ALBUTEROL HFA INHALER INHALATION SCH ×2 (17:18→21:15)
[2021-03-24] MEDS: hydrALAZINE HCL 25 MG TAB PO SCH (19:31)
[2021-03-24] MEDS: PRAVASTATIN SODIUM 20 MG TAB PO SCH (19:31)
[2021-03-24] MEDS: QUEtiapine 50 MG TAB PO SCH (19:31)
[2021-03-24] MEDS: traZODone HCL 100 MG TAB PO SCH (19:31)
[2021-03-24] MEDS: SYMBICORT 160-4.5 MCG INHALER INHALATION SCH (21:15)
[2021-03-25] MEDS: SODIUM CHLORIDE 0.9% 1,000 ML IV SCH ×3 (04:59→17:02)
[2021-03-25] MEDS: ALBUTEROL HFA INHALER INHALATION SCH ×4 (08:40→19:49)
[2021-03-25] MEDS: SYMBICORT 160-4.5 MCG INHALER INHALATION SCH ×2 (08:41→19:49)
[2021-03-25] MEDS: CHOLECALCIFEROL 25 MCG (1000 IU) TABLET PO SCH (08:56)
[2021-03-25] MEDS: dexAMETHasone 2 MG TAB PO SCH (08:56)
[2021-03-25] MEDS: ASCORBIC ACID 500 MG TAB PO SCH (08:57)
[2021-03-25] MEDS: METOPROLOL TARTRATE 12.5 MG TAB PO SCH ×2 (08:57→21:11)
[2021-03-25] MEDS: ZINC SULFATE 220 MG CAP PO SCH (08:57)
[2021-03-25] MEDS: VIT A,C & E-LUTEIN-MINERALS 1 EACH TAB PO SCH (08:57)
[2021-03-25] MEDS: amLODIPine 5 MG TAB PO SCH (08:57)
[2021-03-25] MEDS: APIXABAN 2.5 MG TABLET PO SCH ×2 (08:57→21:11)
[2021-03-25] MEDS: ESCITALOPRAM 20 MG TAB PO SCH (08:57)
[2021-03-25] MEDS: hydrALAZINE HCL 25 MG TAB PO SCH ×3 (08:57→21:11)
[2021-03-25] MEDS: NON FORMULARY DRUG (Vitamin B Complex [Vitamin B Complex] 1 EACH Capsule) PO SCH (08:58)
[2021-03-25 09:22] LABS: Basophils # (A) 0 X 10*3/uL (0.00-0.10); Basophils % (A) 0 %; Eosinophils # (A) 0.05 X 10*3/uL (0.04-0.35); Eosinophils % (A) 1.3 %; HCT 32.5 % (37.2-46.3); HGB 9.9 g/dL (12.0-15.0); Lymphocytes # (A) 0.85 X 10*3/uL (0.90-5.00); Lymphocytes % (A) 22.7 %; MCH 29.1 pg (27.0-32.0); MCHC 30.5 g/dL (32.0-37.0); MCV 95.6 fL (80.0-97.0); Mean Platelet Volume 9.4 fL (9.5-12.2); Monocytes # (A) 0.45 X 10*3/uL (0.20-1.00); Neutrophils # (A) 2.38 X 10*3/uL (1.80-7.70); Neutrophils % (A) 63.5 %; Platelet Count 163 X 10*3/uL (140-440); RDW 12.9 % (11.5-14.5); WBC 3.75 X 10*3/uL (4.50-10.00)
[2021-03-25 09:28] LABS: ALT <5 U/L (8-44); AST 13 U/L (13-35); African American GFR (CKD) 89.7 (60.0-200.0); Albumin 2.6 g/dL (3.8-4.9); Albumin/Globulin Ratio 1.37 (1.60-3.17); Alkaline Phosphatase 48 U/L (41-126); Blood Urea Nitrogen 14.7 mg/dL (9.0-27.0); Calcium 7.9 mg/dL (8.7-10.3); Carbon Dioxide 26.3 mmol/L (20.0-27.5); Chloride 105 mmol/L (96-109); Globulin 1.9 g/dL (1.6-3.3); Glucose 72 mg/dL (70-110); Non-African American GFR(CKD) 77.4 (60.0-200.0); Potassium 3.8 mmol/L (3.5-5.5); Sodium 140 mmol/L (135-145); Total Bilirubin <0.20 mg/dL (0.30-1.20); Total Protein 4.5 g/dL (6.2-8.2)
[2021-03-25] MEDS: MEGESTROL 400 MG/10 ML CUP PO SCH (09:54)
--- NOTE | 2021-03-25 13:21 | P.CNPUL ---
History of Present Illness Consult date: 03/25/21 Requesting physician: Juan M Scott Chief complaint: Generalized weakness, COVID-19 History of present illness: This is a 82-year-old white female patient with multiple chronic medical problems including hypertension, hyperlipidemia, CAD, osteoarthritis, patient is very hard of hearing, she is a former smoker, who was brought in by family members on 03/23/2021 to the emergency department for evaluation of generalized weakness for the past several days, decreased oral intake, patient has had some weight loss over the last several months, has had decreased oral intake. Patient was noted to have a low-grade fever, she had a cough. Patient was evaluated in the triage area and tested positive for COVID-19. No complaint of nausea or vomiting. Patient is a very poor historian, her family is not around, most of the history was obtained from the chart. She seems to be breathing comfortably, she is resting comfortably in bed. She is currently on 4 L of oxygen, and her pulse ox is 87-92%. Patient is afebrile today. Her chest x-ray showed increased pleural fluid and basilar infiltrate and pleural reaction c ardiomegaly. EKG showed sinus rhythm with nonspecific ST and T-wave abnormality. Admission blood work has been reviewed, CBC is fairly unremarkable with lymphocyte, of 0.7, d-dimer was negative at 0.57, INR was 1.0, sodium is 136, potassium 4.0, chloride is 96, CO2 33, BUN is 27, creatinine 0.95, ferritin level is 379, lactic acid 0.7, LFTs were within normal limits, LDH 432, troponin was less than 0.012, CRP is 6.7, pro-calcitonin Level Was 0.11. Patient was started on Decadron, she is already on Eliquis 2.5 mg twice daily , she has a loose congested nonproductive cough. She is on Symbicort, COVID-19 vitamins, and we are going to switch her Decadron to IV Solu-Medrol. Review of Systems All systems: negative Constitutional: Reports weakness, Denies chills, Denies fever Eyes: denies blurred vision, denies pain Ears, nose, mouth and throat: Denies headache, Denies sore throat Cardiovascular: Denies chest pain, Denies shortness of breath Respiratory: Reports cough, Reports dyspnea Gastrointestinal: Denies abdominal pain, Denies diarrhea, Denies nausea, Denies vomiting Genitourinary: Denies dysuria, Denies hematuria Musculoskeletal: Denies myalgias Integumentary: Denies pruritus, Denies rash Neurological: Denies numbness, Denies weakness Psychiatric: Denies anxiety, Denies depression Endocrine: Denies fatigue, Denies weight change Past Medical History Past Medical History: Coronary Artery Disease (CAD), Chest Pain / Angina, Hyperlipidemia, Hypertension, Musculoskeletal Disorder, Osteoarthritis (OA) Additional Past Medical History / Comment(s): Clostrophobia, NATIVE History of Any Multi-Drug Resistant Organisms: None Reported Past Surgical History: Appendectomy, Bladder Surgery, Bowel Resection, Cholecystectomy Past Anesthesia/Blood Transfusion Reactions: No Reported Reaction Past Psychological History: No Psychological Hx Reported Smoking Status: Former smoker Past Alcohol Use History: None Reported Additional Past Alcohol Use History / Comment(s): stopped smoking in 1989 Past Drug Use History: None Reported - Past Family History Father Family Medical History: No Reported History Medications and Allergies Home Medications Medication Instructions Recorded Confirmed Type Pravastatin Sodium [Pravachol] 20 mg PO HS@199906/25/16 03/23/21 History Vit A/Vit C/Vit E/Zinc/Copper 1 cap PO DAILY@79912/18/18 03/23/21 History [ICAPS SOFTGEL] Apixaban [Eliquis] 2.5 mg PO BID@08,199910/11/19 03/23/21 History Nitroglycerin Sl Tabs [Nitrostat] 0.4 mg SUBLINGUAL Q5M PRN tab 10/14/19 03/23/21 Rx Carboxymethylcellulose Sodium 1 - 2 drops BOTH EYES DAILY PRN 10/12/20 03/23/21 History [Refresh Tears] Ondansetron [Zofran] 4 mg PO AC-TID PRN 10/12/20 03/23/21 History QUEtiapine [SEROquel] 50 mg PO HS@199910/12/20 03/23/21 History Saline Nasal Gel [[place] Nasal Gel] 1 applic TOPICAL DIRECTED PRN 10/12/20 03/23/21 History Spironolactone [Aldactone] 25 mg PO HS@199910/12/20 03/23/21 History Escitalopram [Lexapro] 20 mg PO DAILY@0800 03/23/21 03/23/21 History Furosemide [Lasix] 20 mg PO DAILY@0800 03/23/21 03/23/21 History Furosemide [Lasix] 40 mg PO DAILY@0800 03/23/21 03/23/21 History Ipratropium-Albuterol Nebulize 3 ml INHALATION RT-QID@08,12,,03/23/21 03/23/21 History [Duoneb 0.5 mg-3 mg/3 ml Soln] Metoprolol Tartrate [Lopressor] 12.5 mg PO BID@0800,199903/23/21 03/23/21 History Natural Sleep Support [place] 6 - 8 spray PO HS PRN 03/23/21 03/23/21 History Vitamin B Complex 1 tab PO DAILY@0800 03/23/21 03/23/21 History amLODIPine [Norvasc] 5 mg PO DAILY@0800 03/23/21 03/23/21 History hydrALAZINE HCL [Apresoline] 25 mg PO TID@0800,1399,199903/23/21 03/23/21 History traZODone HCL 100 mg PO HS@199903/23/21 03/23/21 History Allergies Allergy/AdvReac Type Severity Reaction Status Date / Time cheese Allergy Unknown Verified 03/23/21 21:26 chocolate flavor Allergy Unknown Verified 03/23/21 21:26 tomato Allergy Unknown Verified 03/23/21 21:26 levofloxacin [From Levaquin] AdvReac Diarrhea Verified 03/23/21 21:26 Physical Exam Vitals: Vital Signs Temp Pulse Resp BP Pulse Ox 03/25/21 10:30 99.0 F 64 16 129/68 87 L 03/25/21 08:41 92 L 03/25/21 07:45 16 03/25/21 05:22 98.4 F 67 16 168/72 96 03/25/21 02:13 97.7 F 56 L 15 126/69 96 03/24/21 22:10 98.4 F 55 L 14 123/64 96 03/24/21 17:32 98.5 F 65 19 159/69 94 L 03/24/21 15:32 94 L 03/24/21 14:00 98.6 F 70 19 143/72 96 Intake and Output 03/24/21 03/25/21 03/25/21 22:59 06:59 14:59 Intake Total 1480 Output Total 850 Balance 630 Intake: Intake, IV Titration 1430 Amount Sodium Chloride 0.9% 1, 1430 000 ml @ 130 mls/hr IV . Q7H42M [facility] Rx#:[id number] Oral 50 Output: Urine 850 Other: Voiding Method External Catheter External Catheter # Voids 1 1 GENERAL EXAM: Alert, very hard of hearing, patient is a poor historian, but appears to be no acute distress, 89-year-old female, resting comfortably in bed on 4 L of oxygen all pulse ox of 87-92%, comfortable in no apparent distress. HEAD: Normocephalic/atraumatic. EYES: Normal reaction of pupils, equal size. Conjunctiva pink, sclera white. NOSE: Clear with pink turbinates. THROAT: No erythema or exudates. NECK: No masses, no JVD, no thyroid enlargement, no adenopathy. CHEST: No chest wall deformity. Symmetrical expansion. LUNGS: Equal air entry with loose congestive cough, with mild crackles at bilateral bases CVS: Regular rate and rhythm, normal S1 and S2, no gallops, no murmurs, no rubs ABDOMEN: Soft, nontender. No hepatosplenomegaly, normal bowel sounds, no guarding or rigidity. EXTREMITIES: No clubbing, no edema, no cyanosis, 2+ pulses and upper and lower extremities. MUSCULOSKELETAL: Muscle strength and tone normal. SPINE: No scoliosis or deformity SKIN: No rashes CENTRAL NERVOUS SYSTEM: Alert and oriented -3. No focal deficits, tone is normal in all 4 extremities. PSYCHIATRIC: Alert and oriented -3. Appropriate affect. Intact judgment and insight. Results - Laboratory Findings CBC and BMP: 03/25/21 03:24 03/25/21 03:24 PT/INR, D-dimer PT 10.9 sec (9.0-12.0) 03/23/21 20:47 INR 1.0 (<1.2) 03/23/21 20:47 D-Dimer 0.57 mg/L FEU (<0.60) 03/23/21 20:47 Abnormal lab findings: Abnormal Labs 03/23/21 03/23/21 03/23/21 17:57 20:47 20:47 WBC RBC Hgb Hct MCHC MPV Lymphocytes # 0.7 L APTT 32.3 H Sodium Chloride Carbon Dioxide Anion Gap BUN BUN/Creatinine Ratio Calcium Ferritin Total Bilirubin ALT C-Reactive Protein Total Protein Albumin Albumin/Globulin Ratio Procalcitonin Coronavirus (PCR) Detected A 03/23/21 03/23/21 03/25/21 20:47 20:47 03:24 WBC 3.75 L RBC 3.40 L Hgb 9.9 L Hct 32.5 L MCHC 30.5 L MPV 9.4 L Lymphocytes # 0.85 L APTT Sodium 136 L Chloride 96 L Carbon Dioxide 33 H Anion Gap BUN 27 H BUN/Creatinine Ratio Calcium Ferritin 379.0 H Total Bilirubin ALT C-Reactive Protein 6.7 H Total Protein Albumin 3.4 L Albumin/Globulin Ratio Procalcitonin 0.11 H Coronavirus (PCR) 03/25/21 03:24 WBC RBC Hgb Hct MCHC MPV Lymphocytes # APTT Sodium Chloride Carbon Dioxide Anion Gap 8.70 L BUN BUN/Creatinine Ratio 21.00 H Calcium 7.9 L Ferritin Total Bilirubin <0.20 L ALT <5 L C-Reactive Protein Total Protein 4.5 L Albumin 2.6 L Albumin/Globulin Ratio 1.37 L Procalcitonin Coronavirus (PCR) - Diagnostic Findings Chest x-ray: report reviewed, image reviewed Assessment and Plan Plan: Assessment: #1. Acute hypoxic respiratory failure related to acute exacerbation of COPD. Patient was also found to be COVID-19 positive, reported length of the symptoms is not clear, but according to the ER records, family members report several days of decreased oral intake. Patient is not a candidate for Remdesivir, her vaccination status is not known to us, patient will be continued on steroids, she is ready on Eliquis 2.5 mg twice daily COVID-19 vitamins, and supportive treatment #2. Anorexia, decreased oral intake and weight loss over last several months, this has acute on chronic component #3. History of diastolic CHF #4. History of COPD #5. Possible history of pulmonary fibrosis from her history #6. Former history of smoking #7. Coronary artery disease #8. Hypertension #9. Hyperlipidemia #10. Osteoarthritis #11. Difficulty hearing Plan: Patient's length of symptoms is not clear to us Her chest x-ray has been reviewed, showing increased pleural fluid and basilar infiltrates and pleural reaction, Patient's COPD is active, we will switch the Decadron to IV Solu-Medrol We'll continue with inhaled bronchodilators Continue oral Eliquis, We'll obtain inflammatory markers, Continue COVID-19 vitamins We'll continue to follow I performed a history & physical examination of the patient and discussed their management with my nurse practitioner, Noy Chand. I reviewed the nurse practitioner's note and agree with the documented findings and plan of care. Lung sounds are positive for dim breath sounds throughout the lung dhillon. The findings and the impression was discussed with the patient. I attest to the documentation by the nurse practitioner. Time with Patient: Greater than 30
[2021-03-25 15:15] VITALS: BMI 23.6
[2021-03-25 15:30] LABS: Appearance,Urine Clear (Clear); Bilirubin,Urine Negative (Negative); Blood,Urine Negative (Negative); Color,Urine Yellow; Glucose,Urine (UA) Negative (Negative); Ketones,Urine 1+ (Negative); Leukocyte Esterase,Urine Negative (Negative); Nitrite,Urine Negative (Negative); PH, Urine 5.5 (5.0-8.0); Protein,Urine Trace (Negative); Specific Gravity,Urine 1.014 (1.001-1.035); Urobilinogen,Urine <2.0 mg/dL (<2.0)
[2021-03-25] MEDS: methylPREDNISolone SOD SUCCI 125 MG/2 ML VIAL IV SCH ×2 (17:01→17:02)
--- NOTE | 2021-03-25 20:39 | P.PN ---
Subjective from the record: This is a 89-year-old patient who follows with visiting physicians Dr. Johns. Chronic stable medical conditions include coronary artery disease, hypertension, hyperlipidemia, osteoarthritis, hard of hearing, COPD, pulmonary fibrosis. Patient is able to answer simple questions but not really able to tell why she is here. She lives in assisted living . At the baseline uses a walker Patient is not a good historian. As per the ER notes the family members mentioned that she had been feeling weak for several days and decreased oral intake. For several quite a bit she's been having weight loss because of poor oral intake. She had a fever of 100.2. Also had a cough. She tested positive for COVID-19. Patient also is not able to give much of a history. Subjective: 03/25/2021 This is a pleasant 84 years old female with multiple medical problems was admitted with respiratory distress with positive colic infection however her chest x-ray does not show significant infiltrates and her symptoms most likely is to acute COPD exacerbation with decreased air entry on both sides and patient is hypoxic needing 4 L of oxygen to her saturation and 90s. Today she was sitting in bed, sleepy but awakens to verbal stimulus. She has some questions appropriately. She knows she is in [facility]. However she's have no insight into her illness. Her main complaint today are cough and dysuria. No much dyspnea, no chest pain, no rhonchi she is in the 3 L when I saw her in the morning. Also she is of poor appetite not eating much. Other vitals are stable. Her d-dimer is negative at 0.5. Inflammatory markers only CRP is 56.7 but LDH is normal at 432. Poorcalcitonin is a slightly elevated at 0.11. Positive colic test. And chest x-ray showing mild infiltrates in the lung bases with suspected of fluid overload but no overt CHF when I reviewed the chest x-ray by myself. Patient remains on treatment for colic with dexamethasone, vitamin C, D and zinc. Also she is on home dose of Eliquis 2.5 mg (I reviewed the chart and previous admissions, no clear explanation why patient is on Eliquis, however we will keep the patient on Eliquis tell her primary doctor Dr. Scott resumes her service)- (Review of the EKGs in the system and there is no history of A. fib, also reviewed previous cartilage no there is no mention of A. fib. I reviewed previous Doppler from 12/18/2018 and it was negative for DVT). Also of note her d-dimer is negative during this admission Bladder scan checked today and today is 927. Urine analysis there is no evidence of infection, we will start the patient on Flomax However her creatinine is at baseline of 0.7 with evidence of chronic kidney disease, stage III ProBNP is -704. She has normal-appearing CT about 6 months ago but there is right posterior temporal scalp hematoma Presentation her chief complaint was generalized weakness, decreased oral intake and weight loss over several months. Also she had a fever of 100.2 upon admission, however no more fever. I checked on her during the evening with the bedside nurse Mayito, he told me he had a full conversation with her and she is more awake now. She has history of dementia and at baseline she is a AAO2 which looks at her baseline now. No Reyna catheter was placed but were going to check bladder scan again Review of systems CONSTITUTIONAL: No fever, no malaise, no fatigue. HEENT: No recent visual problems or hearing problems. Denied any sore throat. CARDIOVASCULAR: No orthopnea, PND, no palpitations, no syncope. PULMONARY: No shortness of breath, no cough, no hemoptysis. GASTROINTESTINAL: No diarrhea, no nausea, no vomiting, no abdominal pain. Normoactive bowel sounds. NEUROLOGICAL: No headaches, no weakness, no numbness. HEMATOLOGICAL: Denies any bleeding or petechiae. Active Medications Generic Name Dose Route Start Last Admin Trade Name Freq PRN Reason Stop Dose Admin Acetaminophen 650 mg 03/24/21 00:28 Acetaminophen Tab 325 Mg Tab PO Q6HR PRN Mild Pain or Fever > 100.5 Albuterol Sulfate 2 puff 03/24/21 16:00 03/25/21 19:49 Albuterol Hfa Inhaler INHALATION 2 puff RT-QID [facility] Administration Amlodipine Besylate 5 mg 03/24/21 08:00 03/25/21 08:57 Amlodipine 5 Mg Tab PO 5 mg DAILY@0800 [facility] Administration Apixaban 2.5 mg 03/24/21 15:00 03/25/21 08:57 Apixaban 2.5 Mg Tablet PO 2.5 mg BID@0800,1999 [facility] Administration Protocol Artificial Tears 1 drops 03/24/21 14:23 Artificial Tears-Hypromellose Drops 15 Ml Btl BOTH EYES DAILY PRN DRY EYES Ascorbic Acid 1,000 mg 03/24/21 15:45 03/25/21 08:57 Ascorbic Acid 500 Mg Tab PO 1,000 mg DAILY [facility] Administration Budesonide/Formoterol Fumarate 2 puff 03/24/21 20:00 03/25/21 19:49 Symbicort 160-4.5 Mcg Inhaler INHALATION 2 puff RT-BID [facility] Administration Calcium Carbonate/Glycine 1,000 mg 03/24/21 15:32 Calcium Carbonate 500 Mg Chewable PO Q4HR PRN Dyspepsia Cholecalciferol 100 mcg 03/24/21 15:45 03/25/21 08:56 Cholecalciferol 25 Mcg (1000 Iu) Tablet PO 100 mcg DAILY [facility] Administration Escitalopram Oxalate 20 mg 03/24/21 08:00 03/25/21 08:57 Escitalopram 20 Mg Tab PO 20 mg DAILY@0800 [facility] Administration Hydralazine HCl 25 mg 03/24/21 20:00 03/25/21 17:02 Hydralazine Hcl 25 Mg Tab PO 25 mg TID@0800,1400,1999 [facility] Administration Sodium Chloride 1,000 mls @ 130 mls/hr 03/24/21 00:30 03/25/21 17:02 Saline 0.9% IV Not Given .Q7H42M [facility] Ibuprofen 400 mg 03/24/21 00:28 Ibuprofen 400 Mg Tab PO Q6HR PRN Mild Pain or Fever > 100.5 Lactulose 20 gm 03/24/21 15:32 Lactulose 20 Gm/30 Ml Cup PO DAILY PRN Constipation Megestrol Acetate 400 mg 03/25/21 09:00 03/25/21 09:54 Megestrol 400 Mg/10 Ml Cup PO 400 mg DAILY [facility] Administration Melatonin 3 mg 03/24/21 15:32 Melatonin 3 Mg Tablet PO HS PRN Insomnia Methylprednisolone Sodium Succinate 60 mg 03/25/21 12:15 03/25/21 17:02 Methylprednisolone Sod Succi 125 Mg/2 Ml Vial IV Not Given Q6HR [facility] Metoprolol Tartrate 12.5 mg 03/24/21 15:00 03/25/21 08:57 Metoprolol Tartrate 12.5 Mg Tab PO 12.5 mg BID@0800,1999 [facility] Administration Multivitamins/Minerals 1 each 03/25/21 08:00 03/25/21 08:57 Vit A,C & H-Nflbas-Lbslumgb 1 Each Tab PO 1 each DAILY@0800 [facility] Administration Naloxone HCl 0.2 mg 03/24/21 00:28 Naloxone 0.4 Mg/Ml 1 Ml Vial IV Q2M PRN Opioid Reversal Nitroglycerin 0.4 mg 03/24/21 14:23 Nitroglycerin Sl Tabs 0.4 Mg Tab SUBLINGUAL Q5M PRN Chest Pain Non-Formulary Medication 1 tab 03/25/21 08:00 03/25/21 08:58 Vitamin B Complex [Vitamin B Complex] PO Not Given DAILY@0800 [facility] Ondansetron HCl 4 mg 03/24/21 00:28 Ondansetron 4 Mg/2 Ml Vial IVP Q8HR PRN Nausea And Vomiting Ondansetron HCl 4 mg 03/24/21 14:23 Ondansetron 4 Mg Tab PO AC-TID PRN Nausea Pravastatin Sodium 20 mg 03/24/21 20:00 03/24/21 19:31 Pravastatin Sodium 20 Mg Tab PO 20 mg HS@1999 [facility] Administration Quetiapine Fumarate 50 mg 03/24/21 20:00 03/24/21 19:31 Quetiapine 50 Mg Tab PO 50 mg HS@1999 [facility] Administration Tamsulosin HCl 0.4 mg 03/25/21 20:30 Tamsulosin 0.4 Mg Cap.Er.24h PO PC-SUPPER [facility] Trazodone HCl 100 mg 03/24/21 20:00 03/24/21 19:31 Trazodone Hcl 100 Mg Tab PO 100 mg HS@1999 [facility] Administration Zinc Sulfate 220 mg 03/24/21 15:45 03/25/21 08:57 Zinc Sulfate 220 Mg Cap PO 220 mg DAILY [facility] Administration Objective - Vital Signs Vital signs: Vital Signs Temp 99.0 F 03/25/21 10:30 Pulse 64 03/25/21 10:30 Resp 16 03/25/21 10:30 BP 129/68 03/25/21 10:30 Pulse Ox 87 L 03/25/21 10:30 Intake & Output 03/24/21 03/25/21 03/25/21 18:59 06:59 18:59 Intake Total 1480 Output Total 850 Balance 630 Weight 60.328 kg Intake: Intake, IV Titration 1430 Amount Sodium Chloride 0.9% 1, 1430 000 ml @ 130 mls/hr IV . Q7H42M [facility] Rx#:[id number] Oral 50 Output: Urine 850 Other: Voiding Method External Catheter # Voids 1 1 - Exam GENERAL: The patient is alert and oriented to place and drowsy, not in any acute distress. Well developed, well nourished. HEENT: Pupils are round and equally reacting to light. EOMI. No scleral icterus. No conjunctival pallor. Normocephalic, atraumatic. No pharyngeal erythema. No thyromegaly. CARDIOVASCULAR: S1 and S2 present. No murmurs, rubs, or gallops. PULMONARY: Chest is clear to auscultation, no wheezing or crackles. ABDOMEN: Soft, nontender, nondistended, normoactive bowel sounds. No palpable organomegaly. MUSCULOSKELETAL: No joint swelling or deformity. EXTREMITIES: No cyanosis, clubbing, or pedal edema. NEUROLOGICAL: Gross neurological examination did not reveal any focal deficits. SKIN: No rashes. no petechiae. - Labs CBC & Chem 7: 03/25/21 03:24 03/25/21 03:24 Labs: Abnormal Lab Results - Last 24 Hours (Table) 03/23/21 03/23/21 03/25/21 Range/Units 20:47 20:47 03:24 WBC 3.75 L (4.50-10.00) X 10*3/uL RBC 3.40 L (4.10-5.20) X 10*6/uL Hgb 9.9 L (12.0-15.0) g/dL Hct 32.5 L (37.2-46.3) % MCHC 30.5 L (32.0-37.0) g/dL MPV 9.4 L (9.5-12.2) fL Lymphocytes # 0.85 L (0.90-5.00) X 10*3/uL Anion Gap (10.00-18.00) mmol/L BUN/Creatinine Ratio (12.00-20.00) Ratio Calcium (8.7-10.3) mg/dL Ferritin 379.0 H (10.0-291.0) ng/mL Total Bilirubin (0.30-1.20) mg/dL ALT (8-44) U/L Total Protein (6.2-8.2) g/dL Albumin (3.8-4.9) g/dL Albumin/Globulin Ratio (1.60-3.17) g/dL Procalcitonin 0.11 H (0.02-0.09) ng/mL 03/25/21 Range/Units 03:24 WBC (4.50-10.00) X 10*3/uL RBC (4.10-5.20) X 10*6/uL Hgb (12.0-15.0) g/dL Hct (37.2-46.3) % MCHC (32.0-37.0) g/dL MPV (9.5-12.2) fL Lymphocytes # (0.90-5.00) X 10*3/uL Anion Gap 8.70 L (10.00-18.00) mmol/L BUN/Creatinine Ratio 21.00 H (12.00-20.00) Ratio Calcium 7.9 L (8.7-10.3) mg/dL Ferritin (10.0-291.0) ng/mL Total Bilirubin <0.20 L (0.30-1.20) mg/dL ALT <5 L (8-44) U/L Total Protein 4.5 L (6.2-8.2) g/dL Albumin 2.6 L (3.8-4.9) g/dL Albumin/Globulin Ratio 1.37 L (1.60-3.17) g/dL Procalcitonin (0.02-0.09) ng/mL Microbiology - Last 24 Hours (Table) 03/23/21 21:08 Blood Culture - Preliminary Blood No Growth after 24 hours 03/23/21 20:47 Blood Culture - Preliminary Blood No Growth after 24 hours Assessment and Plan Assessment: Acute COPD exacerbation Positive colic infection with no strong evidence of pneumonia Acute hypoxic respiratory failure Decreased appetite Dementia The urinary retention, with known to check bladder scan and if persistent then we will put a Reyna catheter. Hypertension Hyperlipidemia Osteoarthritis Hard of hearing History of pulmonary fibrosis She is on anticoagulation for a reason Plan: This is a pleasant 89 years old female who presents with generalized weakness, lethargy and covered with poor appetite and possible urinary retention. Patient is generally weak, she is deconditioned and she might benefit from physical therapy evaluation Continue with IV Solu-Medrol for possible COPD exacerbation. Continue with dexamethasone, vitamin C, D and zinc. Monitor mentation Encourage oral hydration and nutrition consult Monitor bladder scan and place Reyna is evidence of hypertension Get records from primary care Labs and medication were reviewed.. Continue same treatment. Continue with symptomatic treatment. Resume home medication. Monitor lytes and vitals. DVT and GI prophylaxis. Further recommendations as per clinical course of the patient DVT prophylaxis: Eliquis GI Prophylaxis: Pepcid PT/OT: Pending Prognosis is guarded
[2021-03-25] MEDS: traZODone HCL 100 MG TAB PO SCH (21:11)
[2021-03-25] MEDS: PRAVASTATIN SODIUM 20 MG TAB PO SCH (21:12)
[2021-03-25] MEDS: QUEtiapine 50 MG TAB PO SCH (21:40)
[2021-03-25] MEDS: TAMSULOSIN 0.4 MG CAP.ER.24H PO SCH (22:40)
[2021-03-26] MEDS: methylPREDNISolone SOD SUCCI 125 MG/2 ML VIAL IV SCH ×5 (00:39→23:53)
[2021-03-26] MEDS: SODIUM CHLORIDE 0.9% 1,000 ML IV SCH ×3 (00:52→15:32)
[2021-03-26] MEDS: ALBUTEROL HFA INHALER INHALATION SCH ×4 (07:54→19:59)
[2021-03-26] MEDS: SYMBICORT 160-4.5 MCG INHALER INHALATION SCH ×2 (07:54→19:59)
[2021-03-26] MEDS: APIXABAN 2.5 MG TABLET PO SCH ×2 (08:30→20:43)
[2021-03-26] MEDS: hydrALAZINE HCL 25 MG TAB PO SCH ×3 (08:30→20:43)
[2021-03-26] MEDS: ESCITALOPRAM 20 MG TAB PO SCH (08:30)
[2021-03-26] MEDS: CHOLECALCIFEROL 25 MCG (1000 IU) TABLET PO SCH (08:30)
[2021-03-26] MEDS: NON FORMULARY DRUG (Vitamin B Complex [Vitamin B Complex] 1 EACH Capsule) PO SCH (08:31)
[2021-03-26] MEDS: ZINC SULFATE 220 MG CAP PO SCH (08:31)
[2021-03-26] MEDS: ASCORBIC ACID 500 MG TAB PO SCH (08:31)
[2021-03-26] MEDS: MEGESTROL 400 MG/10 ML CUP PO SCH (08:31)
[2021-03-26] MEDS: amLODIPine 5 MG TAB PO SCH (08:31)
[2021-03-26] MEDS: METOPROLOL TARTRATE 12.5 MG TAB PO SCH ×2 (08:31→20:44)
[2021-03-26] MEDS: VIT A,C & E-LUTEIN-MINERALS 1 EACH TAB PO SCH (08:31)
[2021-03-26 11:20] LABS: Basophils # (A) 0 X 10*3/uL (0.00-0.10); Basophils % (A) 0 %; Eosinophils # (A) 0 X 10*3/uL (0.04-0.35); Eosinophils % (A) 0 %; HCT 38.2 % (37.2-46.3); HGB 11.6 g/dL (12.0-15.0); Lymphocytes # (A) 0.55 X 10*3/uL (0.90-5.00); Lymphocytes % (A) 13.9 %; MCH 28.6 pg (27.0-32.0); MCHC 30.4 g/dL (32.0-37.0); MCV 94.3 fL (80.0-97.0); Mean Platelet Volume 9.6 fL (9.5-12.2); Monocytes # (A) 0.13 X 10*3/uL (0.20-1.00); Monocytes % (A) 3.3 %; Neutrophils # (A) 3.26 X 10*3/uL (1.80-7.70); Neutrophils % (A) 82.3 %; Platelet Count 195 X 10*3/uL (140-440); RBC 4.05 X 10*6/uL (4.10-5.20); RDW 12.4 % (11.5-14.5); WBC 3.96 X 10*3/uL (4.50-10.00)
[2021-03-26 11:48] LABS: Creatine Kinase 21 U/L (26-186); Magnesium 2.2 mg/dL (1.5-2.4)
[2021-03-26 12:26] LABS: ALT 7 U/L (8-44); AST 14 U/L (13-35); Albumin 3.1 g/dL (3.8-4.9); Albumin/Globulin Ratio 1.39 (1.60-3.17); Alkaline Phosphatase 56 U/L (41-126); BUN/Creat Ratio 16.71 Ratio (12.00-20.00); Bilirubin, Conjugated <0.20 mg/dL (0.20-0.40); Calcium 8.6 mg/dL (8.7-10.3); Carbon Dioxide 26.2 mmol/L (20.0-27.5); Chloride 106 mmol/L (96-109); Globulin 2.2 g/dL (1.6-3.3); Glucose 163 mg/dL (70-110); LDH 206 U/L (120-246); Potassium 4.7 mmol/L (3.5-5.5); Sodium 143 mmol/L (135-145); Total Bilirubin <0.20 mg/dL (0.30-1.20); Total Protein 5.3 g/dL (6.2-8.2)
--- NOTE | 2021-03-26 14:10 | P.PN ---
Subjective Progress Note Date: 03/26/21 Principal diagnosis: Generalized weakness, dyspnea This is a 82-year-old white female patient with multiple chronic medical problems including hypertension, hyperlipidemia, CAD, osteoarthritis, patient is very hard of hearing, she is a former smoker, who was brought in by family members on 03/23/2021 to the emergency department for evaluation of generalized weakness for the past several days, decreased oral intake, patient has had some weight loss over the last several months, has had decreased oral intake. Patient was noted to have a low-grade fever, she had a cough. Patient was evaluated in the triage area and tested positive for COVID-19. No complaint of nausea or vomiting. Patient is a very poor historian, her family is not around, most of the history was obtained from the chart. She seems to be breathing comfortably, she is resting comfortably in bed. She is currently on 4 L of oxygen, and her pulse ox is 87-92%. Patient is afebrile today. Her chest x-ray showed increased pleural fluid and basilar infiltrate and pleural reaction cardiomegaly. EKG showed sinus rhythm with nonspecific ST and T-wave abnormality. Admission blood work has been reviewed, CBC is fairly unremarkable with lymphocyte, of 0.7, d-dimer was negative at 0.57, INR was 1.0, sodium is 136, potassium 4.0, chloride is 96, CO2 33, BUN is 27, creatinine 0.95, ferritin level is 379, lactic acid 0.7, LFTs were within normal limits, LDH 432, troponin was less than 0.012, CRP is 6.7, pro-calcitonin Level Was 0.11. Patient was started on Decadron, she is already on Eliquis 2.5 mg twice daily , she has a loose congested nonproductive cough. She is on Symbicort, COVID-19 vitamins, and we are going to switch her Decadron to IV Solu-Medrol. On 03/26/2001 patient seen in follow-up on medical surgical floor, she is still lethargic, she is confused, but appears to be in no acute distress, her lung sounds are essentially clear on today's exam, she remains on IV Solu-Medrol at 60 mg every 6 hours, she is on home dose Eliquis 2.5 mg twice daily. She is COVID-19 multivitamins, she has been started on Megace, her oral intake is improving according to the nursing reports. Her breathing is improving. Currently on 4 L of oxygen pulse ox is 95%, vital signs have been stable, he has been afebrile. Blood cultures have been negative. Her labs have been reviewed, white blood cell count is 3.9, hemoglobin is 11.6, electrolytes and renal profile are within normal limits. Pro-calcitonin level was negative 2 at 0.11, and 0.07, inflammatory markers were noted, and LDH is within normal limits at 206, and CRP is 8.4. Urinalysis showed no clear evidence of infection. Overall clinically stable overnight, no acute events. ProBNP was noted in his within normal limits at 704, troponin was negative. Objective - Vital Signs Vital signs: Vital Signs Temp 97.6 F 03/26/21 08:00 Pulse 60 03/26/21 08:00 Resp 16 03/26/21 08:00 BP 126/70 03/26/21 08:00 Pulse Ox 95 03/26/21 08:00 Intake & Output 03/25/21 03/26/21 03/26/21 18:59 06:59 18:59 Intake Total 800 100 Output Total 350 915 Balance 450 -815 Weight 60.328 kg Intake: Intake, IV Titration 800 Amount Sodium Chloride 0.9% 1, 800 000 ml @ 130 mls/hr IV . Q7H42M [facility] Rx#:[id number] Oral 100 Output: Urine 350 900 Post Void Residual 15 Other: Voiding Method External Catheter # Voids 1 1 # Bowel Movements 1 - Exam GENERAL EXAM: Alert, very hard of hearing, patient is a poor historian, but appears to be no acute distress, 89-year-old female, resting comfortably in bed on 4 L of oxygen all pulse ox of 87-92%, comfortable in no apparent distress. HEAD: Normocephalic/atraumatic. EYES: Normal reaction of pupils, equal size. Conjunctiva pink, sclera white. NOSE: Clear with pink turbinates. THROAT: No erythema or exudates. NECK: No masses, no JVD, no thyroid enlargement, no adenopathy. CHEST: No chest wall deformity. Symmetrical expansion. LUNGS: Equal air entry with loose congestive cough, with mild crackles at bilateral bases CVS: Regular rate and rhythm, normal S1 and S2, no gallops, no murmurs, no rubs ABDOMEN: Soft, nontender. No hepatosplenomegaly, normal bowel sounds, no guar ding or rigidity. EXTREMITIES: No clubbing, no edema, no cyanosis, 2+ pulses and upper and lower extremities. MUSCULOSKELETAL: Muscle strength and tone normal. SPINE: No scoliosis or deformity SKIN: No rashes CENTRAL NERVOUS SYSTEM: Alert and oriented -3. No focal deficits, tone is normal in all 4 extremities. PSYCHIATRIC: Alert and oriented -3. Appropriate affect. Intact judgment and insight. - Labs CBC & Chem 7: 03/26/21 05:49 03/26/21 05:49 Labs: Abnormal Lab Results - Last 24 Hours (Table) 03/25/21 03/26/21 03/26/21 Range/Units 15:05 05:49 05:49 WBC 3.96 L (4.50-10.00) X 10*3/uL RBC 4.05 L (4.10-5.20) X 10*6/uL Hgb 11.6 L (12.0-15.0) g/dL MCHC 30.4 L (32.0-37.0) g/dL Lymphocytes # 0.55 L (0.90-5.00) X 10*3/uL Monocytes # 0.13 L (0.20-1.00) X 10*3/uL Eosinophils # 0 L (0.04-0.35) X 10*3/uL Glucose 163 H (70-110) mg/dL Calcium 8.6 L (8.7-10.3) mg/dL Total Bilirubin <0.20 L (0.30-1.20) mg/dL Conjugated Bilirubin <0.20 L (0.20-0.40) mg/dL ALT 7 L (8-44) U/L Creatine Kinase 21 L (26-186) U/L C-Reactive Protein 8.40 H (0.00-0.80) mg/dL Total Protein 5.3 L (6.2-8.2) g/dL Albumin 3.1 L (3.8-4.9) g/dL Albumin/Globulin Ratio 1.39 L (1.60-3.17) g/dL Vitamin B12 1161.0 H (200.0-944.0) pg/mL Urine Protein Trace H (Negative) Urine Ketones 1+ H (Negative) Microbiology - Last 24 Hours (Table) 03/23/21 21:08 Blood Culture - Preliminary Blood No Growth after 48 hours 03/23/21 20:47 Blood Culture - Preliminary Blood No Growth after 48 hours Assessment and Plan Plan: Assessment: #1. Acute hypoxic respiratory failure related to acute exacerbation of COPD. Patient was also found to be COVID-19 positive, reported length of the symptoms is not clear, but according to the ER records, family members report several days of decreased oral intake. Patient is not a candidate for Remdesivir, her vaccination status is not known to us, patient will be continued on steroids, she is ready on Eliquis 2.5 mg twice daily COVID-19 vitamins, and supportive treatment #2. Anorexia, decreased oral intake and weight loss over last several months, this has acute on chronic component, has been started on Megace #3. History of diastolic CHF #4. History of COPD #5. Possible history of pulmonary fibrosis from her history #6. Former history of smoking #7. Coronary artery disease #8. Hypertension #9. Hyperlipidemia #10. Osteoarthritis #11. Difficulty hearing Plan: Continue with current medical treatment We'll give the patient another day on IV steroids Solu-Medrol 60 mg every 6 hours Breathing is improving Continue home dose Eliquis No acute events overnight Vital signs are stable I performed a history & physical examination of the patient and discussed their management with my nurse practitioner, Noy Chand. I reviewed the nurse practitioner's note and agree with the documented findings and plan of care. Lung sounds are positive for dim breath sounds throughout the lung dhillon. The findings and the impression was discussed with the patient. I attest to the documentation by the nurse practitioner. Time with Patient: Less than 30
[2021-03-26] MEDS: TAMSULOSIN 0.4 MG CAP.ER.24H PO SCH (17:55)
--- NOTE | 2021-03-26 18:26 | P.PN ---
Subjective from the record: This is a 89-year-old patient who follows with visiting physicians Dr. Johns. Chronic stable medical conditions include coronary artery disease, hypertension, hyperlipidemia, osteoarthritis, hard of hearing, COPD, pulmonary fibrosis. Patient is able to answer simple questions but not really able to tell why she is here. She lives in assisted living . At the baseline uses a walker Patient is not a good historian. As per the ER notes the family members mentioned that she had been feeling weak for several days and decreased oral intake. For several quite a bit she's been having weight loss because of poor oral intake. She had a fever of 100.2. Also had a cough. She tested positive for COVID-19. Patient also is not able to give much of a history. Subjective: 03/25/2021 This is a pleasant 84 years old female with multiple medical problems was admitted with respiratory distress with positive colic infection however her chest x-ray does not show significant infiltrates and her symptoms most likely is to acute COPD exacerbation with decreased air entry on both sides and patient is hypoxic needing 4 L of oxygen to her saturation and 90s. Today she was sitting in bed, sleepy but awakens to verbal stimulus. She has some questions appropriately. She knows she is in [facility]. However she's have no insight into her illness. Her main complaint today are cough and dysuria. No much dyspnea, no chest pain, no rhonchi she is in the 3 L when I saw her in the morning. Also she is of poor appetite not eating much. Other vitals are stable. Her d-dimer is negative at 0.5. Inflammatory markers only CRP is 56.7 but LDH is normal at 432. Poorcalcitonin is a slightly elevated at 0.11. Positive colic test. And chest x-ray showing mild infiltrates in the lung bases with suspected of fluid overload but no overt CHF when I reviewed the chest x-ray by myself. Patient remains on treatment for colic with dexamethasone, vitamin C, D and zinc. Also she is on home dose of Eliquis 2.5 mg (I reviewed the chart and previous admissions, no clear explanation why patient is on Eliquis, however we will keep the patient on Eliquis tell her primary doctor Dr. Scott resumes her service)- (Review of the EKGs in the system and there is no history of A. fib, also reviewed previous cartilage no there is no mention of A. fib. I reviewed previous Doppler from 12/18/2018 and it was negative for DVT). Also of note her d-dimer is negative during this admission Bladder scan checked today and today is 927. Urine analysis there is no evidence of infection, we will start the patient on Flomax However her creatinine is at baseline of 0.7 with evidence of chronic kidney disease, stage III ProBNP is -704. She has normal-appearing CT about 6 months ago but there is right posterior temporal scalp hematoma Presentation her chief complaint was generalized weakness, decreased oral intake and weight loss over several months. Also she had a fever of 100.2 upon admission, however no more fever. I checked on her during the evening with the bedside nurse Mayito, he told me he had a full conversation with her and she is more awake now. She has history of dementia and at baseline she is a AAO2 which looks at her baseline now. No Reyna catheter was placed but were going to check bladder scan again 03/26/2021 Patient awake, little sleepy but she makes sense and she answers questions appropriately. She noted a hospital she knows the date and she knows name of the president. And she feels better, her dyspnea improving and her oxygen saturation slightly improving down to 3-4 L/m. No chest pain, occasional coughing. She tolerates diet better and she has better appetite. No abdominal pain. We checked a bladder scan today and overnight it was less than 15%, no urinary symptoms, no suprapubic tenderness. And hemodynamically stable. Continued on IV Solu-Medrol, we will stop IV fluids. Continue with Nevaeh, home dose Occupational therapist recommended back to assisted living. PT recommended subacute rehab versus home health care. vehicle delivery worker consult Possible discharge in 24-48 hours if she keeps improving Objective - Vital Signs Vital signs: Vital Signs Temp 97.6 F 03/26/21 08:00 Pulse 60 03/26/21 08:00 Resp 16 03/26/21 08:00 BP 126/70 03/26/21 08:00 Pulse Ox 95 03/26/21 08:00 Intake & Output 03/25/21 03/26/21 03/26/21 18:59 06:59 18:59 Intake Total 800 100 Output Total 350 915 Balance 450 -815 Weight 60.328 kg Intake: Intake, IV Titration 800 Amount Sodium Chloride 0.9% 1, 800 000 ml @ 130 mls/hr IV . Q7H42M [facility] Rx#:[id number] Oral 100 Output: Urine 350 900 Post Void Residual 15 Other: Voiding Method External Catheter # Voids 1 1 # Bowel Movements 1 - Exam GENERAL: The patient is alert and oriented to place and drowsy, not in any acute distress. Well developed, well nourished. HEENT: Pupils are round and equally reacting to light. EOMI. No scleral icterus. No conjunctival pallor. Normocephalic, atraumatic. No pharyngeal erythema. No t hyromegaly. CARDIOVASCULAR: S1 and S2 present. No murmurs, rubs, or gallops. PULMONARY: Chest is clear to auscultation, no wheezing or crackles. ABDOMEN: Soft, nontender, nondistended, normoactive bowel sounds. No palpable organomegaly. MUSCULOSKELETAL: No joint swelling or deformity. EXTREMITIES: No cyanosis, clubbing, or pedal edema. NEUROLOGICAL: Gross neurological examination did not reveal any focal deficits. SKIN: No rashes. no petechiae. - Labs CBC & Chem 7: 03/26/21 05:49 03/26/21 05:49 Labs: Abnormal Lab Results - Last 24 Hours (Table) 03/25/21 Range/Units 15:05 Urine Protein Trace H (Negative) Urine Ketones 1+ H (Negative) Microbiology - Last 24 Hours (Table) 03/23/21 21:08 Blood Culture - Preliminary Blood No Growth after 48 hours 03/23/21 20:47 Blood Culture - Preliminary Blood No Growth after 48 hours Assessment and Plan Assessment: Acute COPD exacerbation Positive colic infection with no strong evidence of pneumonia Acute hypoxic respiratory failure Decreased appetite Dementia The urinary retention, with known to check bladder scan and if persistent then we will put a Reyna catheter. Hypertension Hyperlipidemia Osteoarthritis Hard of hearing History of pulmonary fibrosis She is on anticoagulation for a reason Plan: This is a pleasant 89 years old female who presents with generalized weakness, lethargy and covered with poor appetite and possible urinary retention. Patient is generally weak, she is deconditioned and she might benefit from physical therapy evaluation Continue with IV Solu-Medrol for possible COPD exacerbation. Continue with dexamethasone, vitamin C, D and zinc. Monitor mentation Encourage oral hydration and nutrition consult Monitor bladder scan and place Reyna is evidence of hypertension Get records from primary care Labs and medication were reviewed.. Continue same treatment. Continue with symptomatic treatment. Resume home medication. Monitor lytes and vitals. DVT and GI prophylaxis. Further recommendations as per clinical course of the patient DVT prophylaxis: Eliquis GI Prophylaxis: Pepcid PT/OT: Pending Prognosis is guarded
[2021-03-26] MEDS: QUEtiapine 50 MG TAB PO SCH (20:43)
[2021-03-26] MEDS: traZODone HCL 100 MG TAB PO SCH (20:43)
[2021-03-26] MEDS: PRAVASTATIN SODIUM 20 MG TAB PO SCH (20:44)
[2021-03-27] MEDS: methylPREDNISolone SOD SUCCI 125 MG/2 ML VIAL IV SCH ×3 (05:20→17:40)
[2021-03-27] MEDS: SYMBICORT 160-4.5 MCG INHALER INHALATION SCH ×2 (08:05→19:42)
[2021-03-27] MEDS: ALBUTEROL HFA INHALER INHALATION SCH ×4 (08:05→19:42)
[2021-03-27] MEDS: hydrALAZINE HCL 25 MG TAB PO SCH ×3 (08:25→21:01)
[2021-03-27] MEDS: APIXABAN 2.5 MG TABLET PO SCH ×2 (08:25→21:00)
[2021-03-27] MEDS: ASCORBIC ACID 500 MG TAB PO SCH (08:25)
[2021-03-27] MEDS: CHOLECALCIFEROL 25 MCG (1000 IU) TABLET PO SCH (08:25)
[2021-03-27] MEDS: METOPROLOL TARTRATE 12.5 MG TAB PO SCH ×2 (08:25→21:01)
[2021-03-27] MEDS: amLODIPine 5 MG TAB PO SCH (08:25)
[2021-03-27] MEDS: ZINC SULFATE 220 MG CAP PO SCH (08:25)
[2021-03-27] MEDS: ESCITALOPRAM 20 MG TAB PO SCH (08:25)
[2021-03-27] MEDS: MEGESTROL 400 MG/10 ML CUP PO SCH (08:26)
[2021-03-27] MEDS: VIT A,C & E-LUTEIN-MINERALS 1 EACH TAB PO SCH (08:26)
[2021-03-27] MEDS: NON FORMULARY DRUG (Vitamin B Complex [Vitamin B Complex] 1 EACH Capsule) PO SCH (08:32)
--- NOTE | 2021-03-27 13:33 | P.PN ---
Subjective from the record: This is a 89-year-old patient who follows with visiting physicians Dr. Johns. Chronic stable medical conditions include coronary artery disease, hypertension, hyperlipidemia, osteoarthritis, hard of hearing, COPD, pulmonary fibrosis. Patient is able to answer simple questions but not really able to tell why she is here. She lives in assisted living . At the baseline uses a walker Patient is not a good historian. As per the ER notes the family members mentioned that she had been feeling weak for several days and decreased oral intake. For several quite a bit she's been having weight loss because of poor oral intake. She had a fever of 100.2. Also had a cough. She tested positive for COVID-19. Patient also is not able to give much of a history. Subjective: 03/25/2021 This is a pleasant 84 years old female with multiple medical problems was admitted with respiratory distress with positive colic infection however her chest x-ray does not show significant infiltrates and her symptoms most likely is to acute COPD exacerbation with decreased air entry on both sides and patient is hypoxic needing 4 L of oxygen to her saturation and 90s. Today she was sitting in bed, sleepy but awakens to verbal stimulus. She has some questions appropriately. She knows she is in [facility]. However she's have no insight into her illness. Her main complaint today are cough and dysuria. No much dyspnea, no chest pain, no rhonchi she is in the 3 L when I saw her in the morning. Also she is of poor appetite not eating much. Other vitals are stable. Her d-dimer is negative at 0.5. Inflammatory markers only CRP is 56.7 but LDH is normal at 432. Poorcalcitonin is a slightly elevated at 0.11. Positive colic test. And chest x-ray showing mild infiltrates in the lung bases with suspected of fluid overload but no overt CHF when I reviewed the chest x-ray by myself. Patient remains on treatment for colic with dexamethasone, vitamin C, D and zinc. Also she is on home dose of Eliquis 2.5 mg (I reviewed the chart and previous admissions, no clear explanation why patient is on Eliquis, however we will keep the patient on Eliquis tell her primary doctor Dr. Scott resumes her service)- (Review of the EKGs in the system and there is no history of A. fib, also reviewed previous cartilage no there is no mention of A. fib. I reviewed previous Doppler from 12/18/2018 and it was negative for DVT). Also of note her d-dimer is negative during this admission Bladder scan checked today and today is 927. Urine analysis there is no evidence of infection, we will start the patient on Flomax However her creatinine is at baseline of 0.7 with evidence of chronic kidney disease, stage III ProBNP is -704. She has normal-appearing CT about 6 months ago but there is right posterior temporal scalp hematoma Presentation her chief complaint was generalized weakness, decreased oral intake and weight loss over several months. Also she had a fever of 100.2 upon admission, however no more fever. I checked on her during the evening with the bedside nurse Mayito, he told me he had a full conversation with her and she is more awake now. She has history of dementia and at baseline she is a AAO2 which looks at her baseline now. No Reyna catheter was placed but were going to check bladder scan again 03/26/2021 Patient awake, little sleepy but she makes sense and she answers questions appropriately. She noted a hospital she knows the date and she knows name of the president. And she feels better, her dyspnea improving and her oxygen saturation slightly improving down to 3-4 L/m. No chest pain, occasional coughing. She tolerates diet better and she has better appetite. No abdominal pain. We checked a bladder scan today and overnight it was less than 15%, no urinary symptoms, no suprapubic tenderness. And hemodynamically stable. Continued on IV Solu-Medrol, we will stop IV fluids. Continue with Eliquis, home dose Occupational therapist recommended back to assisted living. PT recommended subacute rehab versus home health care. [employer] worker consult Possible discharge in 24-48 hours if she keeps improving 03/25/2021 Patient breathing is gradually improving, she is still on 4 L oxygen with saturation in the 90s. Postoperative Vitas looks stable. No labs from today. She still in need of IV Solu-Medrol 60 mg. Also she is on Eliquis 2.5 mg which is on those Objective - Vital Signs Vital signs: Vital Signs Temp 97.7 F 03/27/21 09:16 Pulse 49 L 03/27/21 09:16 Resp 17 03/27/21 09:16 BP 115/66 03/27/21 09:16 Pulse Ox 94 L 03/27/21 09:16 Intake & Output 03/26/21 03/27/21 03/27/21 18:59 06:59 18:59 Other: Voiding Method Bedside Commode Bedside Commode External Catheter External Catheter # Voids 1 # Bowel Movements 1 - Exam GENERAL: The patient is alert and oriented to place and drowsy, not in any acute distress. Well developed, well nourished. HEENT: Pupils are round and equally reacting to light. EOMI. No scleral icterus. No conjunctival pallor. Normocephalic, atraumatic. No pharyngeal erythema. No thyromegaly. CARDIOVASCULAR: S1 and S2 present. No murmurs, rubs, or gallops. PULMONARY: Chest is clear to auscultation, no wheezing or crackles. ABDOMEN: Soft, nontender, nondistended, normoactive bowel sounds. No palpable organomegaly. MUSCULOSKELETAL: No joint swelling or deformity. EXTREMITIES: No cyanosis, clubbing, or pedal edema. NEUROLOGICAL: Gross neurological examination did not reveal any focal deficits. SKIN: No rashes. no petechiae. - Labs CBC & Chem 7: 03/26/21 05:49 03/26/21 05:49 Labs: Microbiology - Last 24 Hours (Table) 03/23/21 21:08 Blood Culture - Preliminary Blood No Growth after 72 hours 03/23/21 20:47 Blood Culture - Preliminary Blood No Growth after 72 hours Assessment and Plan Assessment: Acute COPD exacerbation Positive colic infection with no strong evidence of pneumonia Acute hypoxic respiratory failure Decreased appetite Dementia The urinary retention, with known to check bladder scan and if persistent then we will put a Reyna catheter. Hypertension Hyperlipidemia Osteoarthritis Hard of hearing History of pulmonary fibrosis She is on anticoagulation for a reason Plan: This is a pleasant 89 years old female who presents with generalized weakness, lethargy and covered with poor appetite and possible urinary retention. Patient is generally weak, she is deconditioned and she might benefit from phys ical therapy evaluation Continue with IV Solu-Medrol for possible COPD exacerbation. Continue with dexamethasone, vitamin C, D and zinc. Monitor mentation Encourage oral hydration and nutrition consult Monitor bladder scan and place Reyna is evidence of hypertension Get records from primary care Labs and medication were reviewed.. Continue same treatment. Continue with symptomatic treatment. Resume home medication. Monitor lytes and vitals. DVT and GI prophylaxis. Further recommendations as per clinical course of the patient DVT prophylaxis: Eliquis GI Prophylaxis: Pepcid PT/OT: Pending Prognosis is guarded
--- NOTE | 2021-03-27 14:44 | P.PN ---
Subjective Progress Note Date: 03/27/21 This is a 82-year-old white female patient with multiple chronic medical problems including hypertension, hyperlipidemia, CAD, osteoarthritis, patient is very hard of hearing, she is a former smoker, who was brought in by family members on 03/23/2021 to the emergency department for evaluation of generalized weakness for the past several days, decreased oral intake, patient has had some weight loss over the last several months, has had decreased oral intake. Patient was noted to have a low-grade fever, she had a cough. Patient was evaluated in the triage area and tested positive for COVID-19. No complaint of nausea or vomiting. Patient is a very poor historian, her family is not around, most of the history was obtained from the chart. She seems to be breathing comfortably, she is resting comfortably in bed. She is currently on 4 L of oxygen, and her pulse ox is 87-92%. Patient is afebrile today. Her chest x-ray showed increased pleural fluid and basilar infiltrate and pleural reaction cardiomegaly. EKG showed sinus rhythm with nonspecific ST and T-wave abnormality. Admission blood work has been reviewed, CBC is fairly unremarkable with lymphocyte, of 0.7, d-dimer was negative at 0.57, INR was 1.0, sodium is 136, potassium 4.0, chloride is 96, CO2 33, BUN is 27, creatinine 0.95, ferritin level is 379, lactic acid 0.7, LFTs were within normal limits, LDH 432, troponin was less than 0.012, CRP is 6.7, pro-calcitonin Level Was 0.11. Patient was started on Decadron, she is already on Eliquis 2.5 mg twice daily , she has a loose congested nonproductive cough. She is on Symbicort, COVID-19 vitamins, and we are going to switch her Decadron to IV Solu-Medrol. On 03/26/2001 patient seen in follow-up on medical surgical floor, she is still lethargic, she is confused, but appears to be in no acute distress, her lung sounds are essentially clear on today's exam, she remains on IV Solu-Medrol at 60 mg every 6 hours, she is on home dose Eliquis 2.5 mg twice daily. She is COVID-19 multivitamins, she has been started on Megace, her oral intake is improving according to the nursing reports. Her breathing is improving. Currently on 4 L of oxygen pulse ox is 95%, vital signs have been stable, he has been afebrile. Blood cultures have been negative. Her labs have been reviewed, white blood cell count is 3.9, hemoglobin is 11.6, electrolytes and renal profile are within normal limits. Pro-calcitonin level was negative 2 at 0.11, and 0.07, inflammatory markers were noted, and LDH is within normal limits at 206, and CRP is 8.4. Urinalysis showed no clear evidence of infection. Overall clinically stable overnight, no acute events. ProBNP was noted in his within normal limits at 704, troponin was negative. On today's evaluation of 03/27/2021, the patient remains essentially unchanged patient remains on 4 liters nasal cannula. Oral intake is quite limited and the patient remains quite lethargic. She remains on IV Solu Medrol pH is also on Eliquis 2.5 mg twice a day. She remains on multivitamins. No significant changes condition otherwise. No significant changes overnight. White cell count is at 3.9 with hemoglobin 11.6. The LDH level is at 206, UA was negative. Objective - Vital Signs Vital signs: Vital Signs Temp 98.2 F 03/27/21 13:47 Pulse 59 L 03/27/21 13:47 Resp 17 03/27/21 13:47 BP 114/59 03/27/21 13:47 Pulse Ox 92 L 03/27/21 13:47 Intake & Output 03/26/21 03/27/21 03/27/21 18:59 06:59 18:59 Other: Voiding Method Bedside Commode Bedside Commode External Catheter External Catheter # Voids 1 # Bowel Movements 1 - Exam GENERAL EXAM: Alert, very hard of hearing, patient is a poor historian, but appears to be no acute distress, 89-year-old female, resting comfortably in bed on 4 L of oxygen all pulse ox of 87-92%, comfortable in no apparent distress. HEAD: Normocephalic/atraumatic. EYES: Normal reaction of pupils, equal size. Conjunctiva pink, sclera white. NOSE: Clear with pink turbinates. THROAT: No erythema or exudates. NECK: No masses, no JVD, no thyroid enlargement, no adenopathy. CHEST: No chest wall deformity. Symmetrical expansion. LUNGS: Equal air entry with loose congestive cough, with mild crackles at bilateral bases CVS: Regular rate and rhythm, normal S1 and S2, no gallops, no murmurs, no rubs ABDOMEN: Soft, nontender. No hepatosplenomegaly, normal bowel sounds, no guarding or rigidity. EXTREMITIES: No clubbing, no edema, no cyanosis, 2+ pulses and upper and lower extremities. MUSCULOSKELETAL: Muscle strength and tone normal. SPINE: No scoliosis or deformity SKIN: No rashes CENTRAL NERVOUS SYSTEM: Alert and oriented -3. No focal deficits, tone is normal in all 4 extremities. PSYCHIATRIC: Alert and oriented -3. Appropriate affect. Intact judgment and insight. - Labs CBC & Chem 7: 03/26/21 05:49 03/26/21 05:49 Labs: Microbiology - Last 24 Hours (Table) 03/23/21 21:08 Blood Culture - Preliminary Blood No Growth after 72 hours 03/23/21 20:47 Blood Culture - Preliminary Blood No Growth after 72 hours Assessment and Plan Plan: #1. Acute hypoxic respiratory failure related to acute exacerbation of COPD. Patient was also found to be COVID-19 positive, reported length of the symptoms is not clear, but according to the ER records, family members report several days of decreased oral intake. Patient is not a candidate for Remdesivir, her vaccination status is not known to us, patient will be continued on steroids, she is ready on Eliquis 2.5 mg twice daily COVID-19 vitamins, and supportive treatment #2. Anorexia, decreased oral intake and weight loss over last several months, this has acute on chronic component, has been started on Megace #3. History of diastolic CHF #4. History of COPD #5. Possible history of pulmonary fibrosis from her history #6. Former history of smoking #7. Coronary artery disease #8. Hypertension #9. Hyperlipidemia #10. Osteoarthritis #11. Difficulty hearing Plan: The condition is essentially unchanged compared to yesterday. Continue IV Solu Medrol. Continue anticoagulation. We'll continue to follow.
[2021-03-27] MEDS: TAMSULOSIN 0.4 MG CAP.ER.24H PO SCH (17:41)
[2021-03-27 20:21] LABS: Glucose,Whole Blood 281 mg/dL (75-99)
[2021-03-27] MEDS: INSULIN ASPART (NovoLOG) 100 UNIT/ML VIAL SQ SCH (21:00)
[2021-03-27] MEDS: PRAVASTATIN SODIUM 20 MG TAB PO SCH (21:01)
[2021-03-27] MEDS: traZODone HCL 100 MG TAB PO SCH (21:01)
[2021-03-27] MEDS: QUEtiapine 50 MG TAB PO SCH (21:01)
[2021-03-28] MEDS: methylPREDNISolone SOD SUCCI 125 MG/2 ML VIAL IV SCH ×3 (00:56→12:07)
[2021-03-28] MEDS: METOPROLOL TARTRATE 12.5 MG TAB PO SCH ×2 (07:38→21:38)
[2021-03-28 07:48] LABS: Glucose,Whole Blood 142 mg/dL (75-99)
[2021-03-28] MEDS: MEGESTROL 400 MG/10 ML CUP PO SCH (08:00)
[2021-03-28] MEDS: INSULIN ASPART (NovoLOG) 100 UNIT/ML VIAL SQ SCH ×4 (08:00→21:37)
[2021-03-28] MEDS: hydrALAZINE HCL 25 MG TAB PO SCH ×3 (08:00→21:37)
[2021-03-28] MEDS: ZINC SULFATE 220 MG CAP PO SCH (08:00)
[2021-03-28] MEDS: amLODIPine 5 MG TAB PO SCH (08:01)
[2021-03-28] MEDS: ESCITALOPRAM 20 MG TAB PO SCH (08:01)
[2021-03-28] MEDS: CHOLECALCIFEROL 25 MCG (1000 IU) TABLET PO SCH (08:01)
[2021-03-28] MEDS: APIXABAN 2.5 MG TABLET PO SCH ×2 (08:01→21:38)
[2021-03-28] MEDS: VIT A,C & E-LUTEIN-MINERALS 1 EACH TAB PO SCH (08:01)
[2021-03-28] MEDS: ASCORBIC ACID 500 MG TAB PO SCH (08:02)
[2021-03-28] MEDS: NON FORMULARY DRUG (Vitamin B Complex [Vitamin B Complex] 1 EACH Capsule) PO SCH (08:02)
[2021-03-28] MEDS: SYMBICORT 160-4.5 MCG INHALER INHALATION SCH ×2 (09:40→20:16)
[2021-03-28] MEDS: ALBUTEROL HFA INHALER INHALATION SCH ×4 (09:40→20:16)
[2021-03-28 11:57] LABS: Glucose,Whole Blood 152 mg/dL (75-99)
--- NOTE | 2021-03-28 13:32 | P.PN ---
Subjective Progress Note Date: 03/28/21 Principal diagnosis: Generalized weakness, dyspnea This is a 82-year-old white female patient with multiple chronic medical problems including hypertension, hyperlipidemia, CAD, osteoarthritis, patient is very hard of hearing, she is a former smoker, who was brought in by family members on 03/23/2021 to the emergency department for evaluation of generalized weakness for the past several days, decreased oral intake, patient has had some weight loss over the last several months, has had decreased oral intake. Patient was noted to have a low-grade fever, she had a cough. Patient was evaluated in the triage area and tested positive for COVID-19. No complaint of nausea or vomiting. Patient is a very poor historian, her family is not around, most of the history was obtained from the chart. She seems to be breathing comfortably, she is resting comfortably in bed. She is currently on 4 L of oxygen, and her pulse ox is 87-92%. Patient is afebrile today. Her chest x-ray showed increased pleural fluid and basilar infiltrate and pleural reaction cardiomegaly. EKG showed sinus rhythm with nonspecific ST and T-wave abnormality. Admission blood work has been reviewed, CBC is fairly unremarkable with lymphocyte, of 0.7, d-dimer was negative at 0.57, INR was 1.0, sodium is 136, potassium 4.0, chloride is 96, CO2 33, BUN is 27, creatinine 0.95, ferritin level is 379, lactic acid 0.7, LFTs were within normal limits, LDH 432, troponin was less than 0.012, CRP is 6.7, pro-calcitonin Level Was 0.11. Patient was started on Decadron, she is already on Eliquis 2.5 mg twice daily , she has a loose congested nonproductive cough. She is on Symbicort, COVID-19 vitamins, and we are going to switch her Decadron to IV Solu-Medrol. On 03/26/2001 patient seen in follow-up on medical surgical floor, she is still lethargic, she is confused, but appears to be in no acute distress, her lung sounds are essentially clear on today's exam, she remains on IV Solu-Medrol at 60 mg every 6 hours, she is on home dose Eliquis 2.5 mg twice daily. She is COVID-19 multivitamins, she has been started on Megace, her oral intake is improving according to the nursing reports. Her breathing is improving. Currently on 4 L of oxygen pulse ox is 95%, vital signs have been stable, he has been afebrile. Blood cultures have been negative. Her labs have been reviewed, white blood cell count is 3.9, hemoglobin is 11.6, electrolytes and renal profile are within normal limits. Pro-calcitonin level was negative 2 at 0.11, and 0.07, inflammatory markers were noted, and LDH is within normal limits at 206, and CRP is 8.4. Urinalysis showed no clear evidence of infection. Overall clinically stable overnight, no acute events. ProBNP was noted in his within normal limits at 704, troponin was negative. On 03/28/2021 patient seen in follow-up on medical surgical floor, she is breathing comfortably, resting in bed, she is currently on 4 L of oxygen pulse ox is 90%, occasional cough, she sometimes brings up white and clear colored phlegm, no complaints of chest discomfort: Was noted. Diffuse crackles bilateral, she is awake and alert, she is responding appropriately, but she is very hard of hearing. Her appetite is improving and she ate some Jell-O today. Her or chills. No acute events overnight. Her inflammatory markers were improving and last LDH from 03/26/2021 was within normal limits at 206, CRP was 8.4, pro-calcitonin level was negative at 0.07, urinalysis without sign of infection, if x-ray showed increased pleural fluid and basilar infiltrate. Objective - Vital Signs Vital signs: Vital Signs Temp 97.7 F 03/28/21 11:35 Pulse 85 03/28/21 11:35 Resp 19 03/28/21 11:35 BP 149/67 03/28/21 11:35 Pulse Ox 90 L 03/28/21 11:35 Intake & Output 03/27/21 03/28/21 03/28/21 18:59 06:59 18:59 Intake Total 600 Balance 600 Intake: IV 600 ns 600 Other: Voiding Method Bedside Commode External Catheter - Exam GENERAL EXAM: Alert, very hard of hearing, patient is a poor historian, but appears to be no acute distress, 89-year-old female, resting comfortably in bed on 4 L of oxygen all pulse ox of 87-92%, comfortable in no apparent distress. HEAD: Normocephalic/atraumatic. EYES: Normal reaction of pupils, equal size. Conjunctiva pink, sclera white. NOSE: Clear with pink turbinates. THROAT: No erythema or exudates. NECK: No masses, no JVD, no thyroid enlargement, no adenopathy. CHEST: No chest wall deformity. Symmetrical expansion. LUNGS: Equal air entry with loose congestive cough, with mild crackles at bilateral bases CVS: Regular rate and rhythm, normal S1 and S2, no gallops, no murmurs, no rubs ABDOMEN: Soft, nontender. No hepatosplenomegaly, normal bowel sounds, no guar ding or rigidity. EXTREMITIES: No clubbing, no edema, no cyanosis, 2+ pulses and upper and lower extremities. MUSCULOSKELETAL: Muscle strength and tone normal. SPINE: No scoliosis or deformity SKIN: No rashes CENTRAL NERVOUS SYSTEM: Alert and oriented -3. No focal deficits, tone is normal in all 4 extremities. PSYCHIATRIC: Alert and oriented -3. Appropriate affect. Intact judgment and insight. - Labs CBC & Chem 7: 03/26/21 05:49 03/26/21 05:49 Labs: Abnormal Lab Results - Last 24 Hours (Table) 03/27/21 03/28/21 03/28/21 Range/Units 20:20 07:47 11:53 POC Glucose (mg/dL) 281 H 142 H 152 H (75-99) mg/dL Microbiology - Last 24 Hours (Table) 03/23/21 21:08 Blood Culture - Preliminary Blood No Growth after 96 hours 03/23/21 20:47 Blood Culture - Preliminary Blood No Growth after 96 hours Assessment and Plan Plan: Assessment: #1. Acute hypoxic respiratory failure related to acute exacerbation of COPD. Patient was also found to be COVID-19 positive, reported length of the symptoms is not clear, but according to the ER records, family members report several days of decreased oral intake. Patient is not a candidate for Remdesivir, her vaccination status is not known to us, patient will be continued on steroids, she is ready on Eliquis 2.5 mg twice daily COVID-19 vitamins, and supportive treatment #2. Anorexia, decreased oral intake and weight loss over last several months, this has acute on chronic component, has been started on Megace #3. History of diastolic CHF #4. History of COPD #5. Possible history of pulmonary fibrosis from her history #6. Former history of smoking #7. Coronary artery disease #8. Hypertension #9. Hyperlipidemia #10. Osteoarthritis #11. Difficulty hearing Plan: No worsening in dyspnea or hypoxia, Chest congestion improved DC IV solumedrol Start Prednisone 40 mg daily Continue home dose Eliquis No acute events overnight Activity as tolerated If remains stabe, consider Discharge to ECF in the next 24 hours I performed a history & physical examination of the patient and discussed their management with my nurse practitioner, Noy Chand. I reviewed the nurse practitioner's note and agree with the documented findings and plan of care. Lung sounds are positive for dim breath sounds throughout the lung dhillon. The findings and the impression was discussed with the patient. I attest to the documentation by the nurse practitioner. Time with Patient: Less than 30
[2021-03-28] MEDS: predniSONE 20 MG TAB PO SCH (14:44)
[2021-03-28 17:02] LABS: Glucose,Whole Blood 195 mg/dL (75-99)
[2021-03-28] MEDS: TAMSULOSIN 0.4 MG CAP.ER.24H PO SCH (17:21)
--- NOTE | 2021-03-28 19:23 | P.PN ---
Subjective from the record: This is a 89-year-old patient who follows with visiting physicians Dr. Johns. Chronic stable medical conditions include coronary artery disease, hypertension, hyperlipidemia, osteoarthritis, hard of hearing, COPD, pulmonary fibrosis. Patient is able to answer simple questions but not really able to tell why she is here. She lives in assisted living . At the baseline uses a walker Patient is not a good historian. As per the ER notes the family members mentioned that she had been feeling weak for several days and decreased oral intake. For several quite a bit she's been having weight loss because of poor oral intake. She had a fever of 100.2. Also had a cough. She tested positive for COVID-19. Patient also is not able to give much of a history. Subjective: 03/25/2021 This is a pleasant 84 years old female with multiple medical problems was admitted with respiratory distress with positive colic infection however her chest x-ray does not show significant infiltrates and her symptoms most likely is to acute COPD exacerbation with decreased air entry on both sides and patient is hypoxic needing 4 L of oxygen to her saturation and 90s. Today she was sitting in bed, sleepy but awakens to verbal stimulus. She has some questions appropriately. She knows she is in [facility]. However she's have no insight into her illness. Her main complaint today are cough and dysuria. No much dyspnea, no chest pain, no rhonchi she is in the 3 L when I saw her in the morning. Also she is of poor appetite not eating much. Other vitals are stable. Her d-dimer is negative at 0.5. Inflammatory markers only CRP is 56.7 but LDH is normal at 432. Poorcalcitonin is a slightly elevated at 0.11. Positive colic test. And chest x-ray showing mild infiltrates in the lung bases with suspected of fluid overload but no overt CHF when I reviewed the chest x-ray by myself. Patient remains on treatment for colic with dexamethasone, vitamin C, D and zinc. Also she is on home dose of Eliquis 2.5 mg (I reviewed the chart and previous admissions, no clear explanation why patient is on Eliquis, however we will keep the patient on Eliquis tell her primary doctor Dr. Scott resumes her service)- (Review of the EKGs in the system and there is no history of A. fib, also reviewed previous cartilage no there is no mention of A. fib. I reviewed previous Doppler from 12/18/2018 and it was negative for DVT). Also of note her d-dimer is negative during this admission Bladder scan checked today and today is 927. Urine analysis there is no evidence of infection, we will start the patient on Flomax However her creatinine is at baseline of 0.7 with evidence of chronic kidney disease, stage III ProBNP is -704. She has normal-appearing CT about 6 months ago but there is right posterior temporal scalp hematoma Presentation her chief complaint was generalized weakness, decreased oral intake and weight loss over several months. Also she had a fever of 100.2 upon admission, however no more fever. I checked on her during the evening with the bedside nurse Mayito, he told me he had a full conversation with her and she is more awake now. She has history of dementia and at baseline she is a AAO2 which looks at her baseline now. No Reyna catheter was placed but were going to check bladder scan again 03/26/2021 Patient awake, little sleepy but she makes sense and she answers questions appropriately. She noted a hospital she knows the date and she knows name of the president. And she feels better, her dyspnea improving and her oxygen saturation slightly improving down to 3-4 L/m. No chest pain, occasional coughing. She tolerates diet better and she has better appetite. No abdominal pain. We checked a bladder scan today and overnight it was less than 15%, no urinary symptoms, no suprapubic tenderness. And hemodynamically stable. Continued on IV Solu-Medrol, we will stop IV fluids. Continue with Eliquis, home dose Occupational therapist recommended back to assisted living. PT recommended subacute rehab versus home health care. raw cheese worker consult Possible discharge in 24-48 hours if she keeps improving 03/27/2021 Patient breathing is gradually improving, she is still on 4 L oxygen with saturation in the 90s. Postoperative Vitas looks stable. No labs from today. She still in need of IV Solu-Medrol 60 mg. Also she is on Eliquis 2.5 mg which is on those 03/28/2021 Patient awake and alert, she is mildly lethargic but she answers questions appropriately. She follows commands. She is eating well. She feels her dyspnea is improving and better. She still on 4 L/m of oxygen. Afebrile. No labs today. She remains on vitamin C, vitamin D, zinc, also she is on Solu-Medrol 60 mg and home dose of Eliquis 2.5 mg and Pepcid Physical therapy recommended home health care versus subacute rehab. Occupational therapy recommended golf player assistant limited. convention manager on the case Objective - Vital Signs Vital signs: Vital Signs Temp 97.7 F 03/28/21 11:35 Pulse 85 03/28/21 11:35 Resp 19 03/28/21 11:35 BP 149/67 03/28/21 11:35 Pulse Ox 90 L 03/28/21 11:35 Intake & Output 03/27/21 03/28/21 03/28/21 18:59 06:59 18:59 Intake Total 600 Balance 600 Intake: IV 600 ns 600 Other: Voiding Method Bedside Commode External Catheter - Exam GENERAL: The patient is alert and oriented to place and drowsy, not in any acute distress. Well developed, well nourished. HEENT: Pupils are round and equally reacting to light. EOMI. No scleral icterus. No conjunctival pallor. Normocephalic, atraumatic. No pharyngeal erythema. No thyromegaly. CARDIOVASCULAR: S1 and S2 present. No murmurs, rubs, or gallops. PULMONARY: Chest is clear to auscultation, no wheezing or crackles. ABDOMEN: Soft, nontender, nondistended, normoactive bowel sounds. No palpable organomegaly. MUSCULOSKELETAL: No joint swelling or deformity. EXTREMITIES: No cyanosis, clubbing, or pedal edema. NEUROLOGICAL: Gross neurological examination did not reveal any focal deficits. SKIN: No rashes. no petechiae. - Labs CBC & Chem 7: 03/26/21 05:49 03/26/21 05:49 Labs: Abnormal Lab Results - Last 24 Hours (Table) 03/27/21 03/28/21 03/28/21 Range/Units 20:20 07:47 11:53 POC Glucose (mg/dL) 281 H 142 H 152 H (75-99) mg/dL Microbiology - Last 24 Hours (Table) 03/23/21 21:08 Blood Culture - Preliminary Blood No Growth after 96 hours 03/23/21 20:47 Blood Culture - Preliminary Blood No Growth after 96 hours Assessment and Plan Assessment: Acute COPD exacerbation Positive colic infection with no strong evidence of pneumonia Acute hypoxic respiratory failure Decreased appetite Dementia The urinary retention, with known to check bladder scan and if persistent then we will put a Reyna catheter. Hypertension Hyperlipidemia Osteoarthritis Hard of hearing History of pulmonary fibrosis She is on anticoagulation for a reason Plan: This is a pleasant 89 years old female who presents with generalized weakness, lethargy and covered with poor appetite and possible urinary retention. Patient is generally weak, she is deconditioned and she might benefit from physical therapy evaluation Continue with IV Solu-Medrol for possible COPD exacerbation. Continue with dexamethasone, vitamin C, D and zinc. Monitor mentation Encourage oral hydration and nutrition consult Monitor bladder scan and place Reyna if evidence of hypertension Labs and medication were reviewed.. Continue same treatment. Continue with symptomatic treatment. Resume home medication. Monitor lytes and vitals. DVT and GI prophylaxis. Further recommendations as per clinical course of the patient DVT prophylaxis: Eliquis GI Prophylaxis: Pepcid PT/OT: [facility]
[2021-03-28 20:07] LABS: Glucose,Whole Blood 175 mg/dL (75-99)
[2021-03-28] MEDS: traZODone HCL 100 MG TAB PO SCH (21:38)
[2021-03-28] MEDS: PRAVASTATIN SODIUM 20 MG TAB PO SCH (21:38)
[2021-03-29] MEDS: QUEtiapine 50 MG TAB PO SCH (03:08)
[2021-03-29 06:41] VITALS: RESP 17
[2021-03-29 06:50] LABS: Glucose,Whole Blood 140 mg/dL (75-99)
[2021-03-29] MEDS: METOPROLOL TARTRATE 12.5 MG TAB PO SCH (07:11)
[2021-03-29] MEDS: NON FORMULARY DRUG (Vitamin B Complex [Vitamin B Complex] 1 EACH Capsule) PO SCH (07:11)
[2021-03-29] MEDS: ASCORBIC ACID 500 MG TAB PO SCH (07:15)
[2021-03-29] MEDS: ESCITALOPRAM 20 MG TAB PO SCH (07:15)
[2021-03-29] MEDS: predniSONE 20 MG TAB PO SCH (07:15)
[2021-03-29] MEDS: APIXABAN 2.5 MG TABLET PO SCH (07:15)
[2021-03-29] MEDS: hydrALAZINE HCL 25 MG TAB PO SCH (07:15)
[2021-03-29] MEDS: ZINC SULFATE 220 MG CAP PO SCH (07:15)
[2021-03-29] MEDS: CHOLECALCIFEROL 25 MCG (1000 IU) TABLET PO SCH (07:15)
[2021-03-29] MEDS: amLODIPine 5 MG TAB PO SCH (07:15)
[2021-03-29] MEDS: VIT A,C & E-LUTEIN-MINERALS 1 EACH TAB PO SCH (07:15)
[2021-03-29] MEDS: MEGESTROL 400 MG/10 ML CUP PO SCH (07:15)
[2021-03-29] MEDS: INSULIN ASPART (NovoLOG) 100 UNIT/ML VIAL SQ SCH ×2 (07:16→12:00)
[2021-03-29] MEDS: ALBUTEROL HFA INHALER INHALATION SCH ×2 (08:45→12:11)
[2021-03-29] MEDS: SYMBICORT 160-4.5 MCG INHALER INHALATION SCH (08:45)
[2021-03-29 11:33] LABS: Glucose,Whole Blood 196 mg/dL (75-99)
--- NOTE | 2021-03-29 12:06 | P.PN ---
Subjective Progress Note Date: 03/29/21 Principal diagnosis: Generalized weakness, dyspnea This is a 82-year-old white female patient with multiple chronic medical problems including hypertension, hyperlipidemia, CAD, osteoarthritis, patient is very hard of hearing, she is a former smoker, who was brought in by family members on 03/23/2021 to the emergency department for evaluation of generalized weakness for the past several days, decreased oral intake, patient has had some weight loss over the last several months, has had decreased oral intake. Patient was noted to have a low-grade fever, she had a cough. Patient was evaluated in the triage area and tested positive for COVID-19. No complaint of nausea or vomiting. Patient is a very poor historian, her family is not around, most of the history was obtained from the chart. She seems to be breathing comfortably, she is resting comfortably in bed. She is currently on 4 L of oxygen, and her pulse ox is 87-92%. Patient is afebrile today. Her chest x-ray showed increased pleural fluid and basilar infiltrate and pleural reaction cardiomegaly. EKG showed sinus rhythm with nonspecific ST and T-wave abnormality. Admission blood work has been reviewed, CBC is fairly unremarkable with lymphocyte, of 0.7, d-dimer was negative at 0.57, INR was 1.0, sodium is 136, potassium 4.0, chloride is 96, CO2 33, BUN is 27, creatinine 0.95, ferritin level is 379, lactic acid 0.7, LFTs were within normal limits, LDH 432, troponin was less than 0.012, CRP is 6.7, pro-calcitonin Level Was 0.11. Patient was started on Decadron, she is already on Eliquis 2.5 mg twice daily , she has a loose congested nonproductive cough. She is on Symbicort, COVID-19 vitamins, and we are going to switch her Decadron to IV Solu-Medrol. On 03/26/2001 patient seen in follow-up on medical surgical floor, she is still lethargic, she is confused, but appears to be in no acute distress, her lung sounds are essentially clear on today's exam, she remains on IV Solu-Medrol at 60 mg every 6 hours, she is on home dose Eliquis 2.5 mg twice daily. She is COVID-19 multivitamins, she has been started on Megace, her oral intake is improving according to the nursing reports. Her breathing is improving. Currently on 4 L of oxygen pulse ox is 95%, vital signs have been stable, he has been afebrile. Blood cultures have been negative. Her labs have been reviewed, white blood cell count is 3.9, hemoglobin is 11.6, electrolytes and renal profile are within normal limits. Pro-calcitonin level was negative 2 at 0.11, and 0.07, inflammatory markers were noted, and LDH is within normal limits at 206, and CRP is 8.4. Urinalysis showed no clear evidence of infection. Overall clinically stable overnight, no acute events. ProBNP was noted in his within normal limits at 704, troponin was negative. On 03/28/2021 patient seen in follow-up on medical surgical floor, she is breathing comfortably, resting in bed, she is currently on 4 L of oxygen pulse ox is 90%, occasional cough, she sometimes brings up white and clear colored phlegm, no complaints of chest discomfort: Was noted. Diffuse crackles bilateral, she is awake and alert, she is responding appropriately, but she is very hard of hearing. Her appetite is improving and she ate some Jell-O today. Her or chills. No acute events overnight. Her inflammatory markers were improving and last LDH from 03/26/2021 was within normal limits at 206, CRP was 8.4, pro-calcitonin level was negative at 0.07, urinalysis without sign of infection, if x-ray showed increased pleural fluid and basilar infiltrate. On 03/29/2021 patient seen in follow-up on medical surgical floor, she is breathing comfortably, she denies any acute distress, she is currently on 4 L of oxygen, her FiO2 demand has remained stable, her pulse ox is 94%. No nausea or vomiting, abdomen is soft. No new labs or chest x-ray today. No acute events overnight. Objective - Vital Signs Vital signs: Vital Signs Temp 97.9 F 03/29/21 10:00 Pulse 64 03/29/21 10:00 Resp 17 03/29/21 10:00 BP 123/62 03/29/21 10:00 Pulse Ox 94 L 03/29/21 10:00 Intake & Output 03/28/21 03/29/21 03/29/21 18:59 06:59 18:59 Intake Total 600 Balance 600 Weight 60.328 kg Intake: IV 600 ns 600 Other: Voiding Method Diaper Diaper # Voids 2 - Exam GENERAL EXAM: Alert, very hard of hearing, patient is a poor historian, but appears to be no acute distress, 89-year-old female, resting comfortably in bed on 4 L of oxygen all pulse ox of 87-92%, comfortable in no apparent distress. HEAD: Normocephalic/atraumatic. EYES: Normal reaction of pupils, equal size. Conjunctiva pink, sclera white. NOSE: Clear with pink turbinates. THROAT: No erythema or exudates. NECK: No masses, no JVD, no thyroid enlargement, no adenopathy. CHEST: No chest wall deformity. Symmetrical expansion. LUNGS: Equal air entry with loose congestive cough, with mild crackles at bilateral bases CVS: Regular rate and rhythm, normal S1 and S2, no gallops, no murmurs, no rubs ABDOMEN: Soft, nontender. No hepatosplenomegaly, normal bowel sounds, no guarding or rigidity. EXTREMITIES: No clubbing, no edema, no cyanosis, 2+ pulses and upper and lower extremities. MUSCULOSKELETAL: Muscle strength and tone normal. SPINE: No scoliosis or deformity SKIN: No rashes CENTRAL NERVOUS SYSTEM: Alert and oriented -3. No focal deficits, tone is normal in all 4 extremities. PSYCHIATRIC: Alert and oriented -3. Appropriate affect. Intact judgment and insight. - Labs CBC & Chem 7: 03/26/21 05:49 03/26/21 05:49 Labs: Abnormal Lab Results - Last 24 Hours (Table) 03/28/21 03/28/21 03/29/21 Range/Units 17:02 20:05 06:49 POC Glucose (mg/dL) 195 H 175 H 140 H (75-99) mg/dL 03/29/21 Range/Units 11:31 POC Glucose (mg/dL) 196 H (75-99) mg/dL Microbiology - Last 24 Hours (Table) 03/23/21 21:08 Blood Culture - Preliminary Blood No Growth after 120 hours 03/23/21 20:47 Blood Culture - Preliminary Blood No Growth after 120 hours Assessment and Plan Plan: Assessment: #1. Acute hypoxic respiratory failure related to acute exacerbation of COPD. Patient was also found to be COVID-19 positive, reported length of the symptoms is not clear, but according to the ER records, family members report several days of decreased oral intake. Patient is not a candidate for Remdesivir, her vaccination status is not known to us, patient will be continued on steroids, she is ready on Eliquis 2.5 mg twice daily COVID-19 vitamins, and supportive treatment #2. Anorexia, decreased oral intake and weight loss over last several months, this has acute on chronic component, has been started on Megace #3. History of diastolic CHF #4. History of COPD #5. Possible history of pulmonary fibrosis from her history #6. Former history of smoking #7. Coronary artery disease #8. Hypertension #9. Hyperlipidemia #10. Osteoarthritis #11. Difficulty hearing Plan: Clinically stable Remains on 4 L of oxygen No worsening dyspnea, no fever or chills Continue oral prednisone Continue oral anticoagulation, patient is on home dose Eliquis Appetite is improving Vital signs have been stable Stable for discharge to F today I performed a history & physical examination of the patient and discussed their management with my nurse practitioner, Noy Chand. I reviewed the nurse practitioner's note and agree with the documented findings and plan of care. Lung sounds are positive for dim breath sounds throughout the lung dhillon. The findings and the impression was discussed with the patient. I attest to the documentation by the nurse practitioner. Time with Patient: Less than 30
[2021-03-29 14:24] VITALS: BP 153/68; PULSE 60; TEMP 97.4
--- NOTE | 2021-03-29 19:22 | P.DS ---
Providers Date of admission: 03/24/21 00:28 Expected date of discharge: 03/29/21 Attending physician: Juan M Scott Consults: 03/24/21 15:32 Consult Physician Routine Consulting Provider: Remigio Knott Consult Reason/Comments: COVID-19 Do you want consulting provider notified?: Yes Primary care physician: Carlos Parikh MD Hospital Course: Chief Complaint: Decreased oral intake History of presenting complaint: This is a 89-year-old patient who follows with visiting physicians Dr. Johns. Chronic stable medical conditions include coronary artery disease, hypertension, hyperlipidemia, osteoarthritis, hard of hearing, COPD, pulmonary fibrosis. Patient is able to answer simple questions but not really able to tell why she is here. She lives in assisted living . At the baseline uses a walker Patient is not a good historian. As per the ER notes the family members mentioned that she had been feeling weak for several days and decreased oral intake. For several quite a bit she's been having weight loss because of poor oral intake. She had a fever of 100.2. Also had a cough. She tested positive for COVID-19. Patient also is not able to give much of a history. Admitted with COVID 19 pneumonitis. Started with oxygen supplement and dexamethasone. Started respond. March 29: Feeling better. Oral intake fair. Patient will be discharged on 3 L of oxygen. Discussed with the nurse. Given her age prognosis guarded. Discussion and discharge planning more than 35 minutes Consultation: Dr. Valdovinos from pulmonary Past medical history to include: Coronary artery disease, hypertension, hyperlipidemia, osteoarthritis, claustrophobia, hard of hearing, uses a walker, COPD, pulmonary fibrosis Social history: Lives in assisted living. Has a caregiver. Stopped smoking in 1989. Family history: Reviewed, noncontributory to presentation Physical examination: VITAL SIGNS: 97.4, 60, 17, 1 53 x 68, 90% on 2 L GENERAL: Laying in bed, awake. LUNGS: Respiratory rate normal. PSYCH: Answering Occasional Questions.. NEUROLOGICAL: Cranial nerves grossly intact; no facial asymmetry, moving all 4 limbs INVESTIGATIONS, reviewed in the clinical context: White count 5.3 hemoglobin 12.6 platelets 191 d-dimer 0.57 sodium 136 potassium 4 BUN 27 creatinine 0.95 CRP 6.7 pro-calcitonin 0.11 Coronavirus [PCR]: Detected EKG tracing personally reviewed by me-normal sinus rhythm. Rate 65. Nonspecific ST-T wave changes. Chest x-ray film personally reviewed by me shows: Infiltrates Assessment plan: -COVID 19 pneumonitis Dexamethasone, vitamin C, vitamin D, zinc. -Acute hypoxic respiratory failure from COVID-19 Discharged on 3 L. 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 -Coronary artery disease Lopressor -Essential hypertension: Blood pressure running on the low side Continue with Lopressor, hydralazine -Mild protein calorie malnutrition from decreased oral intake Ensure supplement Disposition: Assisted living: [facility] Plan - Discharge Summary Discharge Rx Participant: Yes New Discharge Prescriptions: New Zinc Sulfate [Orazinc] 220 mg PO DAILY #30 cap predniSONE 10 mg PO DAILY #30 tab Budesonide-Formot 160-4.5 Mcg [Symbicort 160-4.5 Mcg Inhaler] 2 puff INHALATION RT-BID #1 gm Tamsulosin [Flomax] 0.4 mg PO PC-SUPPER #30 capsule Ascorbic Acid [Vitamin C] 1,000 mg PO DAILY #60 tab Cholecalciferol [Vitamin D3 (25 Mcg = 1000 Iu)] 100 mcg PO DAILY #100 tablet Continue Pravastatin Sodium [Pravachol] 20 mg PO HS@2000 Vit A/Vit C/Vit E/Zinc/Copper [ICAPS SOFTGEL] 1 cap PO DAILY@0800 Apixaban [Eliquis] 2.5 mg PO BID@0800,1999 Nitroglycerin Sl Tabs [Nitrostat] 0.4 mg SUBLINGUAL Q5M PRN tab PRN Reason: Chest Pain Ondansetron [Zofran] 4 mg PO AC-TID PRN PRN Reason: Nausea QUEtiapine [SEROquel] 50 mg PO HS@2000 Ipratropium-Albuterol Nebulize [Duoneb 0.5 mg-3 mg/3 ml Soln] 3 ml INHALATION RT-QID@08,12,16,20 Furosemide [Lasix] 20 mg PO DAILY@0800 amLODIPine [Norvasc] 5 mg PO DAILY@0800 Vitamin B Complex 1 tab PO DAILY@0800 Natural Sleep Support [place] 6 - 8 spray PO HS PRN PRN Reason: Support sleep Saline Nasal Gel [[place] Nasal Gel] 1 applic TOPICAL DIRECTED PRN PRN Reason: DRY NOSE Spironolactone [Aldactone] 25 mg PO HS@1999 Carboxymethylcellulose Sodium [Refresh Tears] 1 - 2 drops BOTH EYES DAILY PRN PRN Reason: DRY EYES traZODone HCL 100 mg PO HS@1999 Metoprolol Tartrate [Lopressor] 12.5 mg PO BID@08,1999 hydrALAZINE HCL [Apresoline] 25 mg PO TID@0800,1399,1999 Escitalopram [Lexapro] 20 mg PO DAILY@0800 Discontinued Furosemide [Lasix] 40 mg PO DAILY@0800 Discharge Medication List Pravastatin Sodium [Pravachol] 20 mg PO HS@199906/25/16 [History] Vit A/Vit C/Vit E/Zinc/Copper [ICAPS SOFTGEL] 1 cap PO DAILY@0800 12/18/18 [History] Apixaban [Eliquis] 2.5 mg PO BID@799,199910/11/19 [History] Nitroglycerin Sl Tabs [Nitrostat] 0.4 mg SUBLINGUAL Q5M PRN tab 10/14/19 [Rx] Carboxymethylcellulose Sodium [Refresh Tears] 1 - 2 drops BOTH EYES DAILY PRN 10/12/20 [History] Ondansetron [Zofran] 4 mg PO AC-TID PRN 10/12/20 [History] QUEtiapine [SEROquel] 50 mg PO HS@199910/12/20 [History] Saline Nasal Gel [[place] Nasal Gel] 1 applic TOPICAL DIRECTED PRN 10/12/20 [History] Spironolactone [Aldactone] 25 mg PO HS@199910/12/20 [History] Escitalopram [Lexapro] 20 mg PO DAILY@0800 03/23/21 [History] Furosemide [Lasix] 20 mg PO DAILY@0800 03/23/21 [History] Ipratropium-Albuterol Nebulize [Duoneb 0.5 mg-3 mg/3 ml Soln] 3 ml INHALATION RT-QID@08,12,16,20 03/23/21 [History] Metoprolol Tartrate [Lopressor] 12.5 mg PO BID@0800,199903/23/21 [History] Natural Sleep Support [place] 6 - 8 spray PO HS PRN 03/23/21 [History] Vitamin B Complex 1 tab PO DAILY@0800 03/23/21 [History] amLODIPine [Norvasc] 5 mg PO DAILY@0800 03/23/21 [History] hydrALAZINE HCL [Apresoline] 25 mg PO TID@0800,1399,199903/23/21 [History] traZODone HCL 100 mg PO HS@199903/23/21 [History] Ascorbic Acid [Vitamin C] 1,000 mg PO DAILY #60 tab 03/29/21 [Rx] Budesonide-Formot 160-4.5 Mcg [Symbicort 160-4.5 Mcg Inhaler] 2 puff INHALATION RT-BID #1 gm 03/29/21 [Rx] Cholecalciferol [Vitamin D3 (25 Mcg = 1000 Iu)] 100 mcg PO DAILY #100 tablet 03/29/21 [Rx] Tamsulosin [Flomax] 0.4 mg PO PC-SUPPER #30 capsule 03/29/21 [Rx] Zinc Sulfate [Orazinc] 220 mg PO DAILY #30 cap 03/29/21 [Rx] predniSONE 10 mg PO DAILY #30 tab 03/29/21 [Rx] Follow up Appointment(s)/Referral(s): Shea Valdovinos MD [STAFF PHYSICIAN] - 1 Week Jl,Carlos Kincaid MD [Primary Care Provider] - 1-2 days Patient Instructions/Handouts: Coronavirus Disease 2019 (COVID-19) Activity/Diet/Wound Care/Special Instructions: *Call [facility] at discharge to go over discharge paper work - [phone]. Patient's daughter will transport back at discharge. fio2 - 3liters Discharge Disposition: HOME WITH HOME HEALTH SERVICES
== END 2021-03-29 14:42 | disposition home health service (06) | DRG 177 ==
LOC: EC 17:43 → 4SSUR 03-24 00:28
PROVIDERS: ADMIT Hospitalist; ATTEND Hospitalist
PROC: 3E0333Z Introduction of Anti-inflammatory into Peripheral Vein, Percutaneous Approach (ICD-10-PCS; principal; 2021-03-25)
DX: U07.1 COVID-19 (principal); J12.82 Pneumonia due to coronavirus disease 2019; J96.01 Acute respiratory failure with hypoxia; G93.41 Metabolic encephalopathy; I50.32 Chronic diastolic (congestive) heart failure; J44.0 Chronic obstructive pulmonary disease with (acute) lower respiratory infection; J44.1 Chronic obstructive pulmonary disease with (acute) exacerbation; I13.0 Hypertensive heart and chronic kidney disease with heart failure and stage 1 through stage 4 chronic kidney disease, or unspecified chronic kidney disease; E44.1 Mild protein-calorie malnutrition; E78.5 Hyperlipidemia, unspecified; F03.90 Unspecified dementia, unspecified severity, without behavioral disturbance, psychotic disturbance, mood disturbance, and anxiety; H91.90 Unspecified hearing loss, unspecified ear; I25.10 Atherosclerotic heart disease of native coronary artery without angina pectoris; J84.10 Pulmonary fibrosis, unspecified; N18.30 Chronic kidney disease, stage 3 unspecified; M19.90 Unspecified osteoarthritis, unspecified site; S00.03XA Contusion of scalp, initial encounter; Z79.01 Long term (current) use of anticoagulants; Z79.899 Other long term (current) drug therapy; Z87.891 Personal history of nicotine dependence; Z68.23 Body mass index [BMI] 23.0-23.9, adult; R33.9 Retention of urine, unspecified
CPT/HCPCS: 36415; 71045; 80048; 80053; 80076; 81003; 82550; 82607; 82728; 82746; 83605; 83615; 83735; 83880; 84145; 84443; 84484; 85025; 85379; 85610; 85730; 86140; 87040; 87635; 93005; 94640; 94760; 99285

== ENCOUNTER 2021-05-04 14:11 | Emergency (ER) | payer MEDICARE ==
[2021-05-04 14:26] VITALS: RESP 18; TEMP 98.1
--- NOTE | 2021-05-04 15:21 | ED ---
General Adult HPI - General Chief complaint: Fall Stated complaint: fall Time Seen by Provider: 05/04/21 15:08 Source: patient, family, RN notes reviewed, old records reviewed Mode of arrival: wheelchair Limitations: no limitations - History of Present Illness Initial comments: 89-year-old female status post fall. This was unwitnessed. Patient is curr ently anticoagulated. Daughter have brought her in for evaluation of head injury. [facility] She's had a decline over the past several months. Only workup that was requested was imaging of the brain. Patient's daughter did not want any additional testing. Patient denies any other injury. She states she just lost her balance. No chest pain or palpitations. - Related Data Home Medications Medication Instructions Recorded Confirmed Pravastatin Sodium [Pravachol] 20 mg PO HS@199906/25/16 03/23/21 Vit A/Vit C/Vit E/Zinc/Copper 1 cap PO DAILY@0800 12/18/18 03/23/21 [ICAPS SOFTGEL] Apixaban [Eliquis] 2.5 mg PO BID@08,199910/11/19 03/23/21 Carboxymethylcellulose Sodium 1 - 2 drops BOTH EYES DAILY PRN 10/12/20 03/23/21 [Refresh Tears] Ondansetron [Zofran] 4 mg PO AC-TID PRN 10/12/20 03/23/21 QUEtiapine [SEROquel] 50 mg PO HS@199910/12/20 03/23/21 Saline Nasal Gel [[place] Nasal Gel] 1 applic TOPICAL DIRECTED PRN 10/12/20 03/23/21 Spironolactone [Aldactone] 25 mg PO HS@199910/12/20 03/23/21 Escitalopram [Lexapro] 20 mg PO DAILY@0800 03/23/21 03/23/21 Furosemide [Lasix] 20 mg PO DAILY@0800 03/23/21 03/23/21 Ipratropium-Albuterol Nebulize 3 ml INHALATION RT-QID@08,12,16,03/23/21 03/23/21 [Duoneb 0.5 mg-3 mg/3 ml Soln] Metoprolol Tartrate [Lopressor] 12.5 mg PO BID@0800,199903/23/21 03/23/21 Natural Sleep Support [place] 6 - 8 spray PO HS PRN 03/23/21 03/23/21 Vitamin B Complex 1 tab PO DAILY@0800 03/23/21 03/23/21 amLODIPine [Norvasc] 5 mg PO DAILY@0800 03/23/21 03/23/21 hydrALAZINE HCL [Apresoline] 25 mg PO TID@0800,1400,199903/23/21 03/23/21 traZODone HCL 100 mg PO HS@199903/23/21 03/23/21 Previous Rx's Medication Instructions Recorded Nitroglycerin Sl Tabs [Nitrostat] 0.4 mg SUBLINGUAL Q5M PRN tab 10/14/19 Ascorbic Acid [Vitamin C] 1,000 mg PO DAILY #60 tab 03/29/21 Budesonide-Formot 160-4.5 Mcg 2 puff INHALATION RT-BID #1 gm 03/29/21 [Symbicort 160-4.5 Mcg Inhaler] Cholecalciferol [Vitamin D3 (25 100 mcg PO DAILY #100 tablet 03/29/21 Mcg = 1000 Iu)] Tamsulosin [Flomax] 0.4 mg PO PC-SUPPER #30 capsule 03/29/21 Zinc Sulfate [Orazinc] 220 mg PO DAILY #30 cap 03/29/21 predniSONE 10 mg PO DAILY #30 tab 03/29/21 Dexamethasone [Decadron] 6 mg PO DAILY 5 Days #5 tablet 04/05/21 Allergies Allergy/AdvReac Type Severity Reaction Status Date / Time cheese Allergy Unknown Verified 05/04/21 14:22 chocolate flavor Allergy Unknown Verified 05/04/21 14:22 tomato Allergy Unknown Verified 05/04/21 14:22 levofloxacin [From Levaquin] AdvReac Diarrhea Verified 05/04/21 14:22 Review of Systems ROS Statement: Those systems with pertinent positive or pertinent negative responses have been documented in the HPI. ROS Other: All systems not noted in ROS Statement are negative. Past Medical History Past Medical History: Coronary Artery Disease (CAD), Chest Pain / Angina, Hyperlipidemia, Hypertension, Musculoskeletal Disorder, Osteoarthritis (OA) Additional Past Medical History / Comment(s): Clostrophobia, CHEESH-NA History of Any Multi-Drug Resistant Organisms: None Reported Past Surgical History: Appendectomy, Bladder Surgery, Bowel Resection, Cholecystectomy Past Anesthesia/Blood Transfusion Reactions: No Reported Reaction Past Psychological History: No Psychological Hx Reported Smoking Status: Former smoker Past Alcohol Use History: None Reported Past Drug Use History: None Reported - Past Family History Father Family Medical History: No Reported History General Exam Limitations: no limitations General appearance: alert Head exam: Present: normocephalic, other (Large hematoma above the left eyebrow no laceration) Eye exam: Present: PERRL ENT exam: Present: normal exam Neck exam: Present: normal inspection. Absent: tenderness, meningismus Respiratory exam: Present: normal lung sounds bilaterally, decreased breath sounds. Absent: respiratory distress, wheezes Cardiovascular Exam: Present: regular rate, normal rhythm GI/Abdominal exam: Present: soft. Absent: distended, tenderness, guarding, rebound Extremities exam: Present: normal inspection, normal capillary refill Neurological exam: Present: alert, CN II-XII intact. Absent: motor sensory deficit Psychiatric exam: Present: normal affect, normal mood Skin exam: Present: warm, dry. Absent: cyanosis, diaphoretic Course Vital Signs 05/04/21 14:23 Temperature 98.1 F Pulse Rate 71 Respiratory 18 Rate Blood Pressure 129/63 O2 Sat by Pulse 88 L Oximetry EKG Findings - EKG Comments: EKG Findings:: EKG: Normal sinus rhythm tremor artifact, ST segment depression in lateral precordium, no ST segment elevation, rate of 79, DC interval 184, QRS duration 102, QTC 481 Medical Decision Making - Medical Decision Making Head CT negative for intracranial hemorrhage. Showing external signs of trauma but no intracranial abnormality. [facility]. Disposition Clinical Impression: Fall, Concussion Disposition: HOME SELF-CARE Condition: Fair Instructions (If sedation given, give patient instructions): Fall Prevention for Older Adults (ED), Concussion (ED) Is patient prescribed a controlled substance at d/c from ED?: No Referrals: Carlos Parikh MD [REFERRING] - 1-2 days Time of Disposition: 16:02
--- NOTE | 2021-05-04 15:53 | CT ---
EXAMINATION TYPE: CT brain jacquelyn wo con DATE OF EXAM: 05/04/2021 COMPARISON: 08/30/2019 HISTORY: fall CT DLP: 1216.5 mGycm Automated exposure control for dose reduction was used. There is diffuse cerebral cortical atrophy. There is left foraminal scalp hematoma measuring 5 mm in thickness. There is no mass effect or midline shift. There is no sign of intracranial hemorrhage. The re is some mild hypodensity in the periventricular white matter. The calvarium is intact. Skull base is intact. There is normal aeration of the mastoid sinuses. Cervical vertebra have fairly normal alignment. There is degenerative disc space narrowing from C3 to C6. Facet joints are intact. There is mild hypertrophic cervical facet arthropathy. The tongue is in tact. IMPRESSION: Multilevel cervical spondylotic changes. No fracture. Cerebral atrophy and chronic small vessel ischemia. No acute intracranial abnormality. Small left fro ntal scalp hematoma. Brain and cervical spine not significantly different than old exam.
[2021-05-04 16:56] VITALS: BP 123/73; PULSE 70
[2021-05-04] MEDS ORDERED: ERYTHROMYCIN 5 MG/GM OPHTH OINT 3.5 GM TUBE BOTH EYES SCH (18:00)
== END 2021-05-04 17:47 | disposition home or self-care (01) ==
LOC: EC 14:11
DX: S06.0X0A Concussion without loss of consciousness, initial encounter (principal); I25.10 Atherosclerotic heart disease of native coronary artery without angina pectoris; E78.5 Hyperlipidemia, unspecified; I10 Essential (primary) hypertension; M19.90 Unspecified osteoarthritis, unspecified site; Z79.01 Long term (current) use of anticoagulants; Z88.1 Allergy status to other antibiotic agents; Z90.49 Acquired absence of other specified parts of digestive tract; Z87.891 Personal history of nicotine dependence; W18.30XA Fall on same level, unspecified, initial encounter
CPT/HCPCS: 70450; 72125; 93005; 99284